=== PATIENT | female | born 1960 | race African-American/Black ===

== ENCOUNTER 2017-10-21 15:38 | Emergency (ER) | payer MEDICAID ==
[2017-10-21 16:01] LABS: HEMATOCRIT 40.7 % (36.0-47.0); HEMOGLOBIN 13.1 g/dL (12.0-15.5); MEAN CORPUSCULAR HEMOGLOBIN 28.3 pg (27.0-33.4); MEAN CORPUSCULAR HGB CONC 32.3 g/dL (32.0-36.0); MEAN CORPUSCULAR VOLUME 88 fl (80-97); PLATELET COUNT 255 10^3/uL (150-450); RED BLOOD COUNT 4.64 10^6/uL (3.72-5.28); RED CELL DISTRIBUTION WIDTH 15.4 % (11.5-14.0); WHITE BLOOD COUNT 7.6 10^3/uL (4.0-10.5)
--- NOTE | 2017-10-21 16:06 | ER Document Report ---
ED General - General Chief Complaint: Pain All Over Stated Complaint: RIGHT SIDE PAIN Time Seen by Provider: 10/21/17 15:45 Notes: The patient is a 57-year-old female, past medical history hypertension, diabetes , Hep C, presents by EMS with multiple complaints. Patient said she had one beer earlier today, but appears clinically intoxicated, so history is difficult to obtain. She is saying that her right side of her body hurts and that she is having weakness. Patient also is having right upper chest pain that is worse with palpation. She has not taken her amlodipine 10 mg in several months. She is not very forthcoming about any other symptoms or complaints. TRAVEL OUTSIDE OF THE [place] IN LAST 30 DAYS: No - Related Data Allergies/Adverse Reactions: haloperidol [From Haldol] Allergy (Verified 10/21/17 15:59) hyperactive haloperidol lactate [From Haldol] Allergy (Verified 10/21/17 15:59) Past Medical History - General Information source: Patient, Emergency Med Personnel Cannot obtain history due to: Altered mental status - Social History Smoking Status: Current Every Day Smoker Frequency of alcohol use: Occasional Drug Abuse: None Family History: Reviewed & Not Pertinent, CAD - Past Medical History Cardiac Medical History: Reports: Hx Hypertension - medicated Denies: Hx Heart Attack Pulmonary Medical History: Denies: Hx Asthma, Hx Bronchitis, Hx Pneumonia Neurological Medical History: Denies: Hx Cerebrovascular Accident, Hx Seizures Endocrine Medical History: Reports: Hx Diabetes Mellitus Type 2 GI Medical History: Denies: Hx Hepatitis, Hx Hiatal Hernia, Hx Ulcer Musculoskeltal Medical History: Denies Hx Arthritis Psychiatric Medical History: Reports: Hx Schizophrenia Infectious Medical History: Denies: Hx Hepatitis Past Surgical History: Reports: Hx Cholecystectomy, Hx Orthopedic Surgery. Denies: Hx Hysterectomy, Hx Mastectomy, Hx Open Heart Surgery, Hx Pacemaker - Immunizations Hx Diphtheria, Pertussis, Tetanus Vaccination: Yes Review of Systems - Review of Systems Notes: REVIEW OF SYSTEMS: CONSTITUTIONAL: -fevers, -chills EENT: -eye pain, -difficulty swallowing, -nasal congestion CARDIOVASCULAR: +chest pain, -syncope. RESPIRATORY: -cough, -SOB GASTROINTESTINAL: -abdominal pain, -nausea, -vomiting, -diarrhea GENITOURINARY: -dysuria, -hematuria MUSCULOSKELETAL: -back pain, -neck pain SKIN: -rash or skin lesions. HEMATOLOGIC: -easy bruising or bleeding. LYMPHATIC: -swollen, enlarged glands. NEUROLOGICAL: -altered mental status or loss of consciousness, -headache, +right -sided weakness and pain PSYCHIATRIC: -anxiety, -depression. ALL OTHER SYSTEMS REVIEWED AND NEGATIVE. Physical Exam - Vital signs Vitals: Temp Pulse Resp BP Pulse Ox 97.8 F 106 H 20 203/121 H 94 10/21/17 15:40 10/21/17 15:40 10/21/17 15:40 10/21/17 15:40 10/21/17 15:40 - Notes Notes: PHYSICAL EXAMINATION: GENERAL: Clinically intoxicated. No acute distress. Bizarre behavior. HEAD: Atraumatic, normocephalic. EYES: Pupils equal round and reactive to light, extraocular movements intact, sclera anicteric, conjunctiva are normal. ENT: nares patent, oropharynx clear without exudates. Moist mucous membranes. NECK: Normal range of motion, supple without lymphadenopathy LUNGS: Breath sounds clear to auscultation bilaterally and equal. No wheezes rales or rhonchi. HEART: Tachycardia, regular rhythm. ABDOMEN: Soft, nontender, normoactive bowel sounds. No guarding, no rebound. No masses appreciated. EXTREMITIES: Strong radial pulses, Normal range of motion, no pitting or edema. No cyanosis. NEUROLOGICAL: Cranial nerves grossly intact. Normal speech, normal gait. Normal sensory and motor exams. PSYCH: Normal mood, normal affect. SKIN: Warm, Dry, normal turgor, no rashes or lesions noted. Course - Re-evaluation Re-evalutation: Patient with inconsistent exam. Her alcohol level ended up being 300. Patient initially said she could not move her right arm or leg, but she was flailing using her right arm with EMS and with the nurse. SHe was ambulating with a steady gait. CT head obtained to make sure that she did have a large MCA stroke , but no acute changes were found. She began to use her right side of her body. Blood work is remarkable for slight MARY and she was provided IV fluids. 2 sets of troponins stayed the same and EKG did not show any active ischemia. She was provided her 10 mg amlodipine that she has not taken in several months with some decrease in her blood pressure. Her right arm and leg pain is chronic in nature and she says that Tylenol and Motrin helped in the past. No rash to suggest shingles. With strong distal pulses, symmetrical blood pressures and no back pain, aortic dissection is less likely at this time. - Vital Signs Vital signs: Temp Pulse Resp BP Pulse Ox 98.7 F 98 16 208/139 H 98 10/21/17 21:07 10/21/17 21:07 10/21/17 21:07 10/21/17 21:07 10/21/17 21:07 - Laboratory Result Diagrams: 10/21/17 15:49 10/21/17 15:49 Laboratory results interpreted by me: 10/21/17 10/21/17 10/21/17 15:49 15:49 15:49 RDW 15.4 H Seg Neuts % (Manual) 17 L Lymphocytes % (Manual) 68 H Abs Neuts (Manual) 1.3 L Abs Lymphs (Manual) 5.7 H Sodium 150.0 H Creatinine 1.34 H Est GFR ( Amer) 50 L Est GFR (Non-Af Amer) 41 L Glucose 113 H AST 223 H ALT 165 H Creatine Kinase 154 H Urine Protein Urine Blood Serum Alcohol 304 H* 10/21/17 16:30 RDW Seg Neuts % (Manual) Lymphocytes % (Manual) Abs Neuts (Manual) Abs Lymphs (Manual) Sodium Creatinine Est GFR ( Amer) Est GFR (Non-Af Amer) Glucose AST ALT Creatine Kinase Urine Protein >=500 H Urine Blood MODERATE H Serum Alcohol - Diagnostic Test Radiology reviewed: Image reviewed, Reports reviewed Radiology results interpreted by me: Head CT: NAD, old lacunar infarct - EKG Interpretation by Me EKG shows normal: Sinus rhythm, [place], Intervals, QRS Complexes, ST-T Waves Rate: Normal Discharge - Discharge Clinical Impression: MARY (acute kidney injury), Pain of right side of body Alcohol intoxication Qualifiers: Complication of substance-induced condition: uncomplicated Qualified Code(s): F10.920 - Alcohol use, unspecified with intoxication, uncomplicated Hypertension Qualifiers: Hypertension type: unspecified Qualified Code(s): I10 - Essential (primary) hypertension Condition: Stable Disposition: HOME, SELF-CARE Additional Instructions: ACUTE ALCOHOL INTOXICATION and ALCOHOL ABUSE: Your evaluation revealed very high levels of alcohol. You can from drinking a large amount of alcohol rapidly! Further, there's the risk of falls , traffic accidents, and fights. A high portion (about 50 percent) of the serious injuries seen in hospital emergency rooms are caused by alcohol. Alcohol overdosage is usually due to an underlying emotional or psychiatric problem. You may benefit from counselling. If "binge" drinking is an ongoing problem for you, or if you drink ANY AMOUNT of alcohol EVERY day, you most likely have a tendency to alcoholism. You should avoid alcohol totally. We can refer you for treatment. Persons with alcohol problems are often also prone to other addictions -- you should discuss any use of medications or drugs with the doctor. You should be watched at home for the next several hours by someone who has not been drinking. Get extra fluids for the next 24 hours. Call the doctor if there is repeated vomiting, increasing headache, decreasing level of alertness, or any other worsening. CHRONIC ALCOHOLISM and ALCOHOL ABUSE: Your evaluation reveals evidence of chronic alcoholism, an addiction to alcohol. The tendency to alcoholism may be inherited. Chronic use of alcohol weakens muscles, causes fatty deposits in the liver , damages the stomach, makes you more prone to infections, and can cause defects in unborn children. In the long run, brain atrophy and cirrhosis of the liver result. You are also at greater risk for certain types of cancer, such as cancer of the mouth, throat, stomach, and liver. Counselling services are available to help you. In-hospital treatment programs often help. Support groups such as Alcoholics Anonymous can be very useful in beating this addiction. Your physician can make a referral for you. As alcoholics often are prone to other addictions, you should discuss your use of any other medications with the doctor. INSTRUCTIONS FOR HOME CARE FOLLOWING DRUG OVERDOSAGE: The doctor feels it's safe for you to go home. You will need to be observed. If charcoal and a laxative was given to you, expect some loose black stools soon. Take no medications unless approved by a physician, including alcohol. If drowsy, lie on your stomach or side for sleeping to avoid aspiration if vomiting occurs. Take only liquids by mouth until there is no more nausea. FOR THE OBSERVER: Observe the patient for the next 24 hours and call or go to the hospital if any of the following are noted: prolonged or repeated vomiting, difficulty in arousing, convulsions (seizures or fits), fever, persistent cough, breathing that is too slow or too rapid, or confused or bizarre behavior. If a counselling visit has been arranged, make sure the patient attends. Call the physician or poison control if you have questions. FOLLOW-UP CARE: If you have been referred to a physician for follow-up care, call the physician s office for an appointment as you were instructed or within the next two days. If you experience worsening or a significant change in your symptoms, notify the physician immediately or return to the Emergency Department at any time for re-evaluation. CHEST PAIN OF UNCLEAR CAUSE: The exact cause of your chest pain isn't clear. Fortunately, there is no evidence of a dangerous medical condition. Further testing may be required to find the source of the pain. Most often, we find that this pain is coming from the chest wall -- the muscles or rib joints in the chest. But chest pain can come from the lung and lung lining, the esophagus, the heart valves or heart lining, and even the stomach or gallbladder. Rest. Eat lightly until the pain is gone. We may prescribe medicine for pain and inflammation. You should call the physician immediately if the pain radiates to the shoulder, jaw or arms; if you start to run a fever or develop a cough; or if you develop shortness of breath, or other new or alarming symptoms. NORMAL EXAM AND WORKUP: At this time, your examination and workup show no significant abnormality. No significant abnormal physical findings were noted. All laboratory, EKG, and imaging (x-ray, CT scans, ultrasound) studies that were ordered show no significant abnormality. Although your examination and all studies that were ordered showed no significant abnormal finding, there are no examinations and no studies that are 100% accurate. There is always the possibility that some abnormality could exist and not be detected with physical examination or within the limits and capabilities of laboratory and other studies. You should return or follow up as you were instructed on your visit today for further evaluation if your symptoms do not resolve. CHEST WALL PAIN: Your chest pain may be coming from the chest wall. This is often caused by straining the muscles or joints in the chest during physical activity, direct trauma, coughing, or vigorous vomiting. Persons with arthritis are especially prone to this type of pain, due to inflammation of the cartilage joints near the breast bone. Occasionally, no cause can be found. Rest from strenuous physical activity. This kind of chest pain is usually made worse by movement of the chest. Depending on the symptoms, we may prescribe medicine for pain, muscle relaxation, and antiinflammatory effects. If the pain is new, and seems to be due to muscle strain, cold packs can help. Otherwise, apply gentle warmth to the painful area for 15 minutes every hour or two. You should call contact the doctor immediately if things change. Further evaluation is needed if you develop a fever or cough, if the nature of the pain changes, or if you become short of breath. FOLLOW-UP CARE: If you have been referred to a physician for follow-up care, call the physician s office for an appointment as you were instructed or within the next two days. If you experience worsening or a significant change in your symptoms, notify the physician immediately or return to the Emergency Department at any time for re-evaluation. Prescriptions: Amlodipine Besylate 10 mg PO DAILY #60 tab Forms: Elevated Blood Pressure Referrals: KATALINA ROB FNP-C [Primary Care Provider] - Follow up as needed [facility] [Outside] - Follow up as needed
[2017-10-21 16:22] LABS: ABSOLUTE LYMPHOCYTES# (MANUAL) 5.7 10^3/uL (0.5-4.7); ABSOLUTE MONOCYTES # (MANUAL) 0.5 10^3/uL (0.1-1.4); ABSOLUTE NEUTROPHILS# (MANUAL) 1.3 10^3/uL (1.7-8.2); ALANINE AMINOTRANSFERASE 165 U/L (9-52); ALBUMIN 3.6 g/dL (3.5-5.0); ALKALINE PHOSPHATASE 45 U/L (38-126); ANION GAP 15 (5-19); ASPARTATE AMINO TRANSFERASE 223 U/L (14-36); BASOPHILS % (MANUAL) 0 % (0-2); BILIRUBIN,DIRECT 0.2 mg/dL (0.0-0.4); BILIRUBIN,TOTAL 0.2 mg/dL (0.2-1.3); BLOOD UREA NITROGEN 19 mg/dL (7-20); CALCIUM 9.6 mg/dL (8.4-10.2); CARBON DIOXIDE 28 mmol/L (22-30); CHLORIDE 107 mmol/L (98-107); EOSINOPHILS % (MANUAL) 1 % (0-6); GLUCOSE 113 mg/dL (75-110); LIPASE 159.3 U/L (23-300); MONOCYTES % (MANUAL) 7 % (3-13); POTASSIUM 4.2 mmol/L (3.6-5.0); SEGMENTED NEUTROPHILS % (MAN) 17 % (42-78); TOTAL CELLS COUNTED 100; TOTAL PROTEIN 7.4 g/dL (6.3-8.2)
[2017-10-21 16:25] LABS: ANISOCYTOSIS SLIGHT; OVALOCYTES SLIGHT; PLATELET COMMENT ADEQUATE; POIKILOCYTOSIS SLIGHT
--- NOTE | 2017-10-21 16:27 | RADIOLOGY REPORT (SQ) ---
EXAM DESCRIPTION: CHEST SINGLE VIEW COMPLETED DATE/TIME: 10/21/2017 4:14 pm REASON FOR STUDY: chest pain COMPARISON: February 2016 EXAM PARAMETERS: NUMBER OF VIEWS: One view. TECHNIQUE: Single frontal radiographic view of the chest acquired. RADIATION DOSE: NA LIMITATIONS: None. FINDINGS: LUNGS AND PLEURA: No opacities, masses or pneumothorax. No pleural effusion. MEDIASTINUM AND HILAR STRUCTURES: No masses. Contour normal. HEART AND VASCULAR STRUCTURES: Heart normal in size. Normal vasculature. BONES: No acute findings. HARDWARE: None in the chest. OTHER: No other significant finding. IMPRESSION: NO ACUTE RADIOGRAPHIC FINDING IN THE CHEST. TECHNICAL DOCUMENTATION: JOB ID: [id number] [employer]- All Rights Reserved Reading location - IP/workstation name: [email or web address]
[2017-10-21 16:28] LABS: LYMPHOCYTES % (MANUAL) 68 % (13-45)
[2017-10-21 16:33] LABS: ALCOHOL 304 mg/dL (NONE DETECTED)
[2017-10-21] MEDS ORDERED: NORMAL SALINE 1000 ML 1,000 ML IV ONE (16:35)
--- NOTE | 2017-10-21 16:51 | RADIOLOGY REPORT (SQ) ---
EXAM DESCRIPTION: CT HEAD WITHOUT COMPLETED DATE/TIME: 10/21/2017 4:37 pm REASON FOR STUDY: right-sided weakness COMPARISON: CT brain 06/12/2014 TECHNIQUE: Axial images acquired through the brain without intravenous contrast. Images reviewed wi th bone, brain and subdural windows. Additional sagittal and coronal reconstructions were generated. Images stored on PACS. All CT scanners at this facility use dose modulation, iterative reconstruction, and/or weight based d osing when appropriate to reduce radiation dose to as low as reasonably achievable (ALARA). [facility]: Dose Right [facility]: CareDose [facility]: Dose Right [facility]: Teradose 4D [facility]: [employer] RADIATION DOSE: 53 mGy. LIMITATIONS: None. FINDINGS: VENTRICLES: Normal size and contour. CEREBRUM: No CT evidence of acute large territory ischemic change, acute intracranial hemorrhage, mas s effect, or midline shift. Punctate low attenuation right thalamus axial image 19, likely a small old infarct. Minimal biparietal low attenuation in the hemispheric white matter likely small vessel ischemic damian ge. CEREBELLUM: No masses. No hemorrhage. No alteration of density. No evidence for acute infarction. EXTRAAXIAL SPACES: No fluid collections. No masses. ORBITS AND GLOBE: No intra- or extraconal masses. Normal contour of globe without masses. CALVARIUM: No fracture. PARANASAL SINUSES: No fluid or mucosal thickening. SOFT TISSUES: No mass or hematoma. OTHER: No other significant finding. IMPRESSION: Punctate low attenuation in the right thalamus, likely a chronic lacunar infarct. Biparietal chronic appearing small vessel ischemic change, mild. No acute intracranial hemorrhage, mass effect, or midline shift. EVIDENCE OF ACUTE STROKE: NO. COMMENT: Quality ID # [id number]: Final reports with documentation of one or more dose reduction techniques (e.g., Automated exposure control, adjustment of the mA and/or kV according to patient size, use of iterative reconstruction technique) TECHNICAL DOCUMENTATION: JOB ID: [id number] [employer]- All Rights Reserved Reading location - IP/workstation name: [email or web address]
[2017-10-21] MEDS ORDERED: RINGERS SOLUTION,LACTATED 1,000 ML IV ONE (17:01)
[2017-10-21 17:14] LABS: APPEARANCE,URINE CLEAR; BILIRUBIN,URINE NEGATIVE (NEGATIVE); COLOR,URINE STRAW; GLUCOSE, URINE NEGATIVE (NEGATIVE); KETONES,URINE NEGATIVE (NEGATIVE); LEUKOCYTE ESTERASE,URINE NEGATIVE (NEGATIVE); NITRITE,URINE NEGATIVE (NEGATIVE); PROTEIN,URINE >=500 mg/dL (NEGATIVE); URINE SPECIFIC GRAVITY 1.005; UROBILINOGEN,URINE NEGATIVE mg/dL (<2.0)
[2017-10-21] MEDS ORDERED: LISINOPRIL 10 MG TABLET PO ONE (17:32)
[2017-10-21 17:35] LABS: URINE AMPHETAMINES SCREEN NEGATIVE; URINE BARBITURATES SCREEN NEGATIVE; URINE BENZODIAZEPINES SCREEN NEGATIVE; URINE COCAINE SCREEN NEGATIVE; URINE MARIJUANA (THC) SCREEN NEGATIVE; URINE METHADONE SCREEN NEGATIVE; URINE PHENCYCLIDINE SCREEN NEGATIVE
[2017-10-21] MEDS ORDERED: ACETAMINOPHEN 325 MG TABLET PO ONE (18:57)
[2017-10-21 21:07] VITALS: BP 208/139
--- NOTE | 2017-10-21 21:15 | EKG REPORT ---
SEVERITY:- ABNORMAL ECG - SINUS TACHYCARDIA PROBABLE LVH WITH SECONDARY REPOL ABNRM BORDERLINE PROLONGED QT INTERVAL : Confirmed by: Annabelle Hernandez 21-Oct-2017 21:13:50
[2017-10-22 10:26] LABS: PATH REVIEW PATHOLOGIST REVIEWED
== END 2017-10-21 21:08 | disposition home or self-care (01) ==
LOC: ER 15:38
DX: M79.1 Myalgia (principal); N17.9 Acute kidney failure, unspecified; F10.920 Alcohol use, unspecified with intoxication, uncomplicated; Y90.8 Blood alcohol level of 240 mg/100 ml or more; I10 Essential (primary) hypertension; F17.200 Nicotine dependence, unspecified, uncomplicated; E11.9 Type 2 diabetes mellitus without complications; Z86.19 Personal history of other infectious and parasitic diseases
CPT/HCPCS: 93005; 99285; 96360; 36415; 80307 ×2; 82550; 83690; 85025; 85730; 80053; 81001; 84484; 71045; 70450; 93010; J7120; J3490

== ENCOUNTER 2017-12-26 22:05 | Emergency (ER) | payer MEDICAID ==
[2017-12-26 23:18] LABS: HEMATOCRIT 40.8 % (36.0-47.0); HEMOGLOBIN 13.5 g/dL (12.0-15.5); MEAN CORPUSCULAR HEMOGLOBIN 29.2 pg (27.0-33.4); MEAN CORPUSCULAR HGB CONC 33.2 g/dL (32.0-36.0); MEAN CORPUSCULAR VOLUME 88 fl (80-97); PLATELET COUNT 206 10^3/uL (150-450); RED BLOOD COUNT 4.63 10^6/uL (3.72-5.28); RED CELL DISTRIBUTION WIDTH 15.2 % (11.5-14.0); WHITE BLOOD COUNT 8.7 10^3/uL (4.0-10.5)
[2017-12-26 23:26] LABS: APPEARANCE,URINE SLIGHTLY-CLOUDY; BILIRUBIN,URINE NEGATIVE (NEGATIVE); COLOR,URINE YELLOW; GLUCOSE, URINE NEGATIVE (NEGATIVE); KETONES,URINE NEGATIVE (NEGATIVE); LEUKOCYTE ESTERASE,URINE NEGATIVE (NEGATIVE); NITRITE,URINE NEGATIVE (NEGATIVE); PROTEIN,URINE >=500 mg/dL (NEGATIVE); URINE SPECIFIC GRAVITY 1.004; UROBILINOGEN,URINE NEGATIVE mg/dL (<2.0)
[2017-12-26 23:35] LABS: ALANINE AMINOTRANSFERASE 135 U/L (9-52); ALBUMIN 3.7 g/dL (3.5-5.0); ALCOHOL 172 mg/dL (NONE DETECTED); ALKALINE PHOSPHATASE 47 U/L (38-126); ANION GAP 14 (5-19); ASPARTATE AMINO TRANSFERASE 174 U/L (14-36); BILIRUBIN,DIRECT 0.4 mg/dL (0.0-0.4); BILIRUBIN,TOTAL 0.5 mg/dL (0.2-1.3); BLOOD UREA NITROGEN 14 mg/dL (7-20); CARBON DIOXIDE 23 mmol/L (22-30); CHLORIDE 106 mmol/L (98-107); GLUCOSE 123 mg/dL (75-110); POTASSIUM 3.5 mmol/L (3.6-5.0); SODIUM 143.2 mmol/L (137-145); TOTAL PROTEIN 7.3 g/dL (6.3-8.2)
[2017-12-26 23:36] LABS: ABSOLUTE LYMPHOCYTES# (MANUAL) 5.1 10^3/uL (0.5-4.7); ABSOLUTE MONOCYTES # (MANUAL) 0.3 10^3/uL (0.1-1.4); ABSOLUTE NEUTROPHILS# (MANUAL) 3.1 10^3/uL (1.7-8.2); BASOPHILS % (MANUAL) 0 % (0-2); EOSINOPHILS % (MANUAL) 1 % (0-6); LYMPHOCYTES % (MANUAL) 50 % (13-45); MONOCYTES % (MANUAL) 4 % (3-13); SEGMENTED NEUTROPHILS % (MAN) 36 % (42-78); TOTAL CELLS COUNTED 100
[2017-12-26 23:37] LABS: RBC MORPHOLOGY COMMENT NORMO-CYTIC/CHROMIC; URINE AMPHETAMINES SCREEN NEGATIVE; URINE BARBITURATES SCREEN NEGATIVE; URINE BENZODIAZEPINES SCREEN NEGATIVE; URINE COCAINE SCREEN NEGATIVE; URINE MARIJUANA (THC) SCREEN NEGATIVE; URINE METHADONE SCREEN NEGATIVE; URINE PHENCYCLIDINE SCREEN NEGATIVE
[2017-12-26 23:38] LABS: PLATELET COMMENT ADEQUATE
[2017-12-26 23:42] LABS: ACETAMINOPHEN < 10 ug/mL (10-30); SALICYLATE < 1.0 mg/dL (2.0-20.0)
[2017-12-27] MEDS ORDERED: CHLORPROMAZINE HCL 50 MG TABLET PO ONE (02:16)
[2017-12-27] MEDS ORDERED: LISINOPRIL 10 MG TABLET PO ONE (02:16)
--- NOTE | 2017-12-27 02:16 | ER Document Report ---
ED General - General Chief Complaint: Suicidal Ideation Stated Complaint: PSYCH EVAL Time Seen by Provider: 12/26/17 22:32 Cannot obtain history due to: Uncooperative Notes: Patient is a 57-year-old female who presents with suicidal and homicidal ideation. Patient reports that she came to the emergency department "to admit myself so I do not hurt nobody". Patient denies a specific target of her ideation, states that she had a knife in her bag but had no specific plans to use it. She states that she has felt like this in the remote past but not anytime recently until the past several days. She does admit to self discontinuing her Thorazine proximally 3 months ago stating that she was having difficulty accessing her medications. She is also currently off of her blood pressure medications. She denies making any specific attempts to harm herself. She does not have a primary care doctor. She denies any acute medical complaints. TRAVEL OUTSIDE OF THE [place] IN LAST 30 DAYS: No - Related Data Allergies/Adverse Reactions: haloperidol [From Haldol] Allergy (Verified 10/21/17 15:59) hyperactive haloperidol lactate [From Haldol] Allergy (Verified 10/21/17 15:59) Past Medical History - General Information source: Patient - Social History Smoking Status: Current Some Day Smoker Chew tobacco use (# tins/day): No Frequency of alcohol use: Heavy Drug Abuse: None Lives with: Alone Family History: Reviewed & Not Pertinent, CAD Patient has suicidal ideation: Yes Patient has homicidal ideation: Yes - Past Medical History Cardiac Medical History: Reports: Hx Hypertension - medicated Denies: Hx Heart Attack Pulmonary Medical History: Denies: Hx Asthma, Hx Bronchitis, Hx Pneumonia Neurological Medical History: Denies: Hx Cerebrovascular Accident, Hx Seizures Endocrine Medical History: Reports: Hx Diabetes Mellitus Type 2 Renal/ Medical History: Denies: Hx Peritoneal Dialysis GI Medical History: Denies: Hx Hepatitis, Hx Hiatal Hernia, Hx Ulcer Musculoskeletal Medical History: Denies Hx Arthritis Psychiatric Medical History: Reports: Hx Schizophrenia Infectious Medical History: Denies: Hx Hepatitis Past Surgical History: Reports: Hx Cholecystectomy, Hx Orthopedic Surgery. Denies: Hx Hysterectomy, Hx Mastectomy, Hx Open Heart Surgery, Hx Pacemaker - Immunizations Hx Diphtheria, Pertussis, Tetanus Vaccination: Yes Review of Systems - Review of Systems Notes: Constitutional: Negative for fever. HENT: Negative for sore throat. Eyes: Negative for visual changes. Cardiovascular: Negative for chest pain. Respiratory: Negative for shortness of breath. Gastrointestinal: Negative for abdominal pain, vomiting or diarrhea. Genitourinary: Negative for dysuria. Musculoskeletal: Negative for back pain. Skin: Negative for rash. Neurological: Negative for headaches, weakness or numbness. 10 point ROS negative except as marked above and in HPI. Physical Exam - Vital signs Vitals: Temp Pulse Resp BP Pulse Ox 98.5 F 107 H 20 210/117 H 96 12/26/17 22:15 12/26/17 22:15 12/26/17 22:15 12/26/17 22:15 12/26/17 22:15 Interpretation: Hypertensive, Tachycardic Notes: PHYSICAL EXAMINATION: GENERAL: Well-appearing, well-nourished and in no acute distress. HEAD: Atraumatic, normocephalic. EYES: Pupils equal round and reactive to light, extraocular movements intact, sclera anicteric, conjunctiva are normal. ENT: nares patent, oropharynx clear without exudates. Moist mucous membranes. NECK: Normal range of motion, supple without lymphadenopathy LUNGS: Breath sounds clear to auscultation bilaterally and equal. No wheezes rales or rhonchi. HEART: Regular rate and rhythm without murmurs ABDOMEN: Soft, nontender, normoactive bowel sounds. No guarding, no rebound. No masses appreciated. EXTREMITIES: Normal range of motion, no pitting or edema. No cyanosis. NEUROLOGICAL: No focal neurological deficits. Moves all extremities spontaneously and on command. PSYCH: Somewhat guarded mood and affect. Expressing homicidal and suicidal ideation SKIN: Warm, Dry, normal turgor, no rashes or lesions noted. Course - Re-evaluation Re-evalutation: 12/27/17 02:15 Patient presents with suicidal and homicidal ideation without specific plan or target. Patient did have a knife on her person upon arrival to the emergency department. She denies any specific trigger reason for her behaviors although states that she stopped taking her Thorazine approximately 3 months ago. She denies any acute medical complaints. Medical screening exam is otherwise unremarkable. Labs likewise unremarkable. She is cleared for evaluation and disposition by psychiatry in the morning. - Vital Signs Vital signs: Temp Pulse Resp BP Pulse Ox 98.5 F 107 H 20 210/117 H 96 12/26/17 22:15 12/26/17 22:15 12/26/17 22:15 12/26/17 22:15 12/26/17 22:15 - Laboratory Result Diagrams: 12/26/17 22:59 12/26/17 22:59 Laboratory results interpreted by me: 12/26/17 12/26/17 12/26/17 22:59 22:59 22:59 RDW 15.2 H Seg Neuts % (Manual) 36 L Lymphocytes % (Manual) 50 H Abs Lymphs (Manual) 5.1 H Potassium 3.5 L Creatinine 1.35 H Est GFR ( Amer) 49 L Est GFR (Non-Af Amer) 41 L Glucose 123 H AST 174 H ALT 135 H Urine Protein >=500 H Urine Blood MODERATE H Salicylates < 1.0 L Acetaminophen < 10 L - EKG Interpretation by Me Additional EKG results interpreted by me: 12/27/17 03:21 Sinus rhythm. Rate 79. No ST elevations or depressions. QTC 473. Discharge - Discharge Clinical Impression: Suicidal ideation, Homicidal ideation, Essential hypertension, Noncompliance with medication regimen Condition: Fair Referrals: KATALINA ROB, [facility] [Primary Care Provider] - Follow up as needed
--- NOTE | 2017-12-27 09:42 | EKG REPORT ---
SEVERITY:- ABNORMAL ECG - SINUS RHYTHM PROBABLE LVH WITH SECONDARY REPOL ABNRM : Confirmed by: Annabelle Hernandez 27-Dec-2017 09:41:10
--- NOTE | 2017-12-27 13:41 | ER Document Report ---
Doctor's Note Notes: 12/27/17 13:40 Patient resting comfortably, no complaints at present time, evaluated by mental health team who recommends medication adjustments and if patient more stable psychiatrically likely can be discharged tomorrow
[2017-12-27] MEDS: CHLORPROMAZINE HCL 50 MG TABLET PO SCH ×2 (14:16→18:29)
[2017-12-27] MEDS: BENZTROPINE MESYLATE 1 MG TABLET PO SCH (18:29)
[2017-12-28] MEDS: CHLORPROMAZINE HCL 50 MG TABLET PO SCH (09:43)
[2017-12-28] MEDS: BENZTROPINE MESYLATE 1 MG TABLET PO SCH (09:43)
--- NOTE | 2017-12-28 09:59 | ER Document Report ---
Doctor's Note Notes: 12/28/17 09:58 Rounds: Patient is being evaluated for suicidal thoughts. She denies these thoughts this morning. Says she is feeling better. Patient's vital signs are all normal. Lab studies were normal except for her CBC differential shows 50% lymphocytes and 9% atypical lymphocytes. Patient knows of no blood conditions. Patient appears to be medically stable for transfer or discharge. Apollo Story MD
[2017-12-28 11:56] VITALS: BP 160/88
--- NOTE | 2017-12-28 19:01 | PSYCHOLOGICAL NOTE ---
Psych Note - Psych Note Psych Note: Psych Note Reason for Consult: suicidal ideation Patient reported that she wants to hurt other people as well as herself. Patient reports that she has been off of her medication for 3 months and felt like she "couldn't deal with people" anymore. Upon further evaluation, patient denied suicidal or homicidal ideation. Patient reports that she was inpatient in [place] a number of years ago. Patient requested to go inpatient now and Dr. Hicks explained that she did not meet criteria but offered information on [facility] (Mobile Crisis Unit). Patient stated that she had a desire to get therapy and attend the classes. Patient revealed that she drinks 2 -3 six packs of beer per day by panhandling. Patient was unable to clearly answer questions about her disability income/payee or her current address. Patient was alert and oriented to person, place, time and circumstance. Mood was irritable but began to calm down during the course of the interview. She denied suicidal/homicidal ideation, intent or plan. She denied auditory/visual hallucination and delusional thoughts were not present. Thought processes were linear, logical, organized. Conversational speech was within normal limits for rate, tone and prosody. Eye contact was good. 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 Intellectual abilities were estimated within the average range. Attention and concentration was good. Insight, judgement and impulse control was good. Diagnosis: Borderline Personality Disorder 301.83 (F60.3) Impression/Plan: Patient is recommended for an additional night of observation ( medications)
== END 2017-12-28 11:56 | disposition home or self-care (01) ==
LOC: ER 22:05
DX: R45.851 Suicidal ideations (principal); R45.850 Homicidal ideations; F20.9 Schizophrenia, unspecified; T43.3X6A Underdosing of phenothiazine antipsychotics and neuroleptics, initial encounter; I10 Essential (primary) hypertension; T50.906A Underdosing of unspecified drugs, medicaments and biological substances, initial encounter; Z91.128 Patient's intentional underdosing of medication regimen for other reason; Z91.14 Patient's other noncompliance with medication regimen; Z88.8 Allergy status to other drugs, medicaments and biological substances; F17.200 Nicotine dependence, unspecified, uncomplicated; E11.9 Type 2 diabetes mellitus without complications
CPT/HCPCS: 93005; 99285; 36415; 80307 ×4; 85025; 80053; 81001; 93010; J3490 ×2

== ENCOUNTER 2018-03-30 08:26 | Emergency (ER) | payer MEDICAID ==
--- NOTE | 2018-03-30 08:46 | ER Document Report ---
ED Neuro Symptoms/Deficit - General Stated Complaint: STROKE LIKE SYMPTOMS Time Seen by Provider: 03/30/18 08:32 TRAVEL OUTSIDE OF THE [place] IN LAST 30 DAYS: No - HPI Notes: Patient is a 57-year-old female that presents to the emergency department for chief complaint of stroke-like symptoms. Patient states that when she woke up this morning at 6 AM she had decreased sensation and weakness in her right arm and leg. Family noticed that the left side of her face appeared different. She states she was normal when she went to bed at 11 PM. She reports a mild diffuse headache that started yesterday evening as well. She has been out of her blood pressure medications and has not been taking them. She denies history of stroke in the past. She denies being on any blood thinners. She denies head injury. Past Medical History: Hypertension Past Surgical History: Reviewed in chart Social History: Reviewed in chart Family History: Reviewed and noncontributory for presenting illness Allergies: Reviewed, see documented allergy list. REVIEW OF SYSTEMS: CONSTITUTIONAL : No fever No chills No diaphoresis No recent illness EENT: No vision changes No congestion No sore throat CARDIOVASCULAR: No chest pain No palpitations RESPIRATORY: No shortness of breath No cough No difficulty breathing GASTROINTESTINAL: No abdominal pain No nausea No vomiting No diarrhea GENITOURINARY: No dysuria No hematuria No difficulty urinating MUSCULOSKELETAL: No back pain No leg pain No arm pain SKIN: No rashes No lesions LYMPHATIC: No swollen, enlarged glands. NEUROLOGICAL: No lightheadedness headache weakness paresthesias PSYCHIATRIC: No anxiety No depression PHYSICAL EXAMINATION: Vital signs reviewed, nursing noted reviewed. GENERAL: Well-appearing, well-nourished and in no acute distress. HEAD: Atraumatic, normocephalic. EYES: Eyes appear normal, extraocular movements intact, sclera anicteric, conjunctiva are normal. ENT: nares patent, oropharynx clear without exudates. Moist mucous membranes. NECK: Normal range of motion, supple without lymphadenopathy LUNGS: Breath sounds clear to auscultation bilaterally and equal. No wheezes rales or rhonchi. HEART: Regular rate and rhythm without murmurs ABDOMEN: Soft, nontender, normoactive bowel sounds. No rebound, guarding, or rigidity. No masses appreciated. EXTREMITIES: Nontender, good range of motion, no pitting or edema. NEUROLOGICAL: NIH=5 at 0834, right arm and leg decreased sensation. Right arm and leg weakness. Mild left facial droop. PSYCH: Normal mood, normal affect. SKIN: Warm, Dry, normal turgor, no rashes or lesions noted on exposed skin - Related Data Allergies/Adverse Reactions: haloperidol [From Haldol] Allergy (Verified 10/21/17 15:59) hyperactive haloperidol lactate [From Haldol] Allergy (Verified 10/21/17 15:59) Past Medical History - Social History Smoking Status: Never Smoker Family History: Reviewed & Not Pertinent, CAD - Past Medical History Cardiac Medical History: Reports: Hx Hypertension - medicated Denies: Hx Heart Attack Pulmonary Medical History: Denies: Hx Asthma, Hx Bronchitis, Hx Pneumonia Neurological Medical History: Denies: Hx Cerebrovascular Accident, Hx Seizures Endocrine Medical History: Reports: Hx Diabetes Mellitus Type 2 Renal/ Medical History: Denies: Hx Peritoneal Dialysis GI Medical History: Denies: Hx Hepatitis, Hx Hiatal Hernia, Hx Ulcer Musculoskeletal Medical History: Denies Hx Arthritis Psychiatric Medical History: Reports: Hx Schizophrenia Infectious Medical History: Denies: Hx Hepatitis Past Surgical History: Reports: Hx Cholecystectomy, Hx Orthopedic Surgery. Denies: Hx Hysterectomy, Hx Mastectomy, Hx Open Heart Surgery, Hx Pacemaker - Immunizations Hx Diphtheria, Pertussis, Tetanus Vaccination: Yes Review of Systems - Review of Systems Notes: Dictated Physical Exam - Notes Notes: Dictated Course - Re-evaluation Re-evalutation: 03/30/18 08:46 Vitals reviewed. Nursing notes reviewed. 03/30/18 09:[address] results with radiology, they do show acute left-sided ischemic stroke. Patient is outside the window for TPA because symptoms have been ongoing for greater than 4.5 hours since last known normal. Patient's blood pressure also significantly elevated at 227/150. Patient started on Cardene drip for hypertension with a goal blood pressure of 220/[address] Romo. Patient's care discussed with Dr. Romo, neurology at [facility]. Dr. Romo has accepted the patient for transfer. Patient in agreement with this plan. Head CT 03/30/18 08:32 IMPRESSION: Subtle area of relative low density in the periventricular white matter adjacent to the atria of the left lateral ventricle as noted above which I cannot exclude as an evolving area of infarction. Clinical correlation is recommended. If further workup is deemed clinically warranted I would recommend MRI. EVIDENCE OF ACUTE STROKE: Yes 03/30/18 09:27 Laboratory 03/30/18 03/30/18 03/30/18 08:05 08:05 09:09 WBC 5.6 RBC 5.46 H Hgb 15.6 H Hct 48.2 H MCV 88 MCH 28.6 MCHC 32.4 RDW 14.9 H Plt Count 223 Seg Neutrophils % 45.3 Lymphocytes % 41.0 Monocytes % 9.7 Eosinophils % 2.9 Basophils % 1.1 Absolute Neutrophils 2.5 Absolute Lymphocytes 2.3 Absolute Monocytes 0.5 Absolute Eosinophils 0.2 Absolute Basophils 0.1 Sodium 139.7 Potassium 3.8 Chloride 101 Carbon Dioxide 30 Anion Gap 9 BUN 22 H Creatinine 1.34 H Est GFR ( Amer) 50 L Est GFR (Non-Af Amer) 41 L Glucose 148 H POC Glucose 132 H Calcium 9.6 Total Bilirubin 0.8 Direct Bilirubin 0.3 Neonat Total Bilirubin Not Reportable Neonat Direct Bilirubin Not Reportable Neonat Indirect Bili Not Reportable AST 189 H ALT 133 H Alkaline Phosphatase 50 Total Protein 7.2 Albumin 3.4 L - Laboratory Result Diagrams: 03/30/18 08:05 03/30/18 08:05 ED NIH Stroke Scale - NIH Stroke Scale When completed:: Before Alteplase *: 1. NIH scale should be completed with appropriate accompanying assessment tools. *: 2. The NIH should reflect what the patient is capable of doing and should not be coached by the clinician. 1a. Level of Consciousness: 0=Alert;keenly responsive -: 1=Drowsy -: 2=Obtunded -: 3=Coma/unresponsive or reflex to noxious stimuli. 1a. Responses: 0 1b. Orientation Questions: a. What month is it? -: b. How old are you? -: 0=Answers both questions correctly. -: 1=Answers one question correctly or patient is intubated or has orotracheal trauma. -: 2=Answers neither question correctly. 1b. Responses: 0 1c. Response to commands: a. Open and close eyes? -: b. Orthopaedic Surgeon and release hand? -: Credit is given despite weakness. Demonstration of task is permitted. Substitute command if hands cannot be used. -: 0=Performs both tasks correctly -: 1=Performs one task correctly -: 2=Performs neither task correctly 1c. Responses: 0 2. Gaze: Establish eye contact and instruct patient to "Follow my finger" -: 0=Normal -: 1=Partial gaze palsy. Gaze is abnormal in one or both eyes, but where forced deviation or total gaze paresis is not present. -: 2=Forced deviation or total gaze paresis. 2. Responses: 0 3. Visual Delgado: Sees fingers in all four quadrants. -: 0=No visual loss. -: 1=Partial hemianopsia. -: 2=Complete hemianopsia. -: 3=Bilateral hemianopsia (including Cortical blindness) 3. Responses: 0 4. Facial Movement: Instruct patient to: -: a. Show me your teeth -: b. Raise your eyebrows -: c. Close your eyes -: d. Smile -: 0=Normal symmetrical movement -: 1=Minor paralysis (flattened nasolabial fold, asymmetry on smiling). -: 2=Partial paralysis (total or near total paralysis of lower face). -: 3=Complete paralysis of upper and lower face 4. Responses: 1 5. Motor functions (left arm): Alternate sides and extend each arm with palms down (90 degrees if sitting or 45 degrees for supine). -: 0=No drift;limb holds for full 10 seconds. -: 1=Drift; limb holds but drifts down before full 10 seconds, but does not hit bed. -: 2=Some effort against gravity; limb cannot get to or maintain position. -: 3=No effort against gravity; limb falls. -: 4=No movement. -: UN=Amputation, joint fusion, explain in comments. 5. Responses (left arm): 0 5. Motor Functions (right arm): Alternate sides and extend each arm with palms down (90 degrees if sitting or 45 degrees for supine). -: 0=No drift;limb holds for full 10 seconds. -: 1=Drift; limb holds but drifts down before full 10 seconds, but does not hit bed. -: 2=Some effort against gravity; limb cannot get to or maintain position. -: 3=No effort against gravity; limb falls. -: 4=No movement. -: UN=Amputation, joint fusion, explain in comments. 5. Responses (right arm): 1 6. Motor Functions (left leg): With patient lying supine, alternate sides and extend each leg (30 degrees always while supine). -: 0=No drift, leg holds position for full 5 seconds -: 1=Drift; leg falls before full 5 seconds but does not hit bed. -: 2=Some effort against gravity, leg falls to bed but some effort against gravity. -: 3=No effort against gravity, leg falls to bed immediately. -: 4=No movement. -: UN=Amputation, joint fusion; explain in comments. 6. Responses (left leg): 0 6. Motor Functions (right leg): With patient lying supine, alternate sides and extend each leg (30 degrees always while supine). -: 0=No drift, leg holds position for full 5 seconds -: 1=Drift; leg falls before full 5 seconds but does not hit bed. -: 2=Some effort against gravity, leg falls to bed but some effort against gravity. -: 3=No effort against gravity, leg falls to bed immediately. -: 4=No movement. -: UN=Amputation, joint fusion; explain in comments. 6. Responses (right leg): 2 7. Limb Ataxia: With eyes open instruct patient to: -: a. "Touch your finger to your nose". -: b. "Touch your heel to your marquez" -: 0=Absent -: 1=Present in one limb. -: 2=Present in two limbs. -: UN=Amputation or joint fusion; explain in comments. 7. Responses: 0 8. Sensory: Test sensation using pinprick or noxious stimuli. Test as many body parts as possible. -: 0=Normal;no sensory loss -: 1=Mile to moderate sensory loss (patient feels pin prick but is less sharp on affected side). -: 2=Severe or total sensory loss. 8. Responses: 1 9. Best Language: Instruct patient to: -: a. "Describe what you see in this picture." -: b. "Name the items in this picture." -: c. "Read these sentences." -: 0=No aphasia, normal -: 1=Mild to moderate aphasia. -: 2=Severe aphasia -: 3=Mute, global aphasia, no usable speech or auditory comprehension. 9. Responses: 0 10. Articulation, Dysarthia: Instruct patient to: -: "Read these words" or "Repeat these words" -: 0=Normal -: 1=Mild to moderate; patient may slur some words but can be understood without difficulty. -: 2=Severe; patients speech so slurred as to be unintelligible in the absence of dysphasia. -: UN=Intubated or other physical barrier, explain in comments. 10. Responses: 0 11. Extinction or inattention: 0=No abnormality -: 1= Visual, tactile, auditory, spatial, or personal inattention or extinction to bilateral simulation in one or the sensory modalities. -: 2=Profound meredith-inattention or meredtih-inattention to more than one modality; does not recognize own hand. 11. Responses: 0 Total Score: 5 Discharge - Discharge Clinical Impression: Acute ischemic stroke, MARY (acute kidney injury) Condition: Stable Disposition: [facility]
[2018-03-30 08:50] LABS: ABSOLUTE BASOPHILS # (AUTO) 0.1 10^3/uL (0.0-0.2); ABSOLUTE EOSINOPHILS # (AUTO) 0.2 10^3/uL (0.0-0.6); ABSOLUTE LYMPHOCYTES (AUTO) 2.3 10^3/uL (0.5-4.7); ABSOLUTE MONOCYTES (AUTO) 0.5 10^3/uL (0.1-1.4); ABSOLUTE NEUT (AUTO) 2.5 10^3/uL (1.7-8.2); BASOPHILS % (AUTO) 1.1 % (0-2); EOSINOPHILS % (AUTO) 2.9 % (0-6); HEMATOCRIT 48.2 % (36.0-47.0); HEMOGLOBIN 15.6 g/dL (12.0-15.5); MEAN CORPUSCULAR HEMOGLOBIN 28.6 pg (27.0-33.4); MEAN CORPUSCULAR HGB CONC 32.4 g/dL (32.0-36.0); MEAN CORPUSCULAR VOLUME 88 fl (80-97); MONOCYTES % (AUTO) 9.7 % (3-13); PLATELET COUNT 223 10^3/uL (150-450); RED BLOOD COUNT 5.46 10^6/uL (3.72-5.28); RED CELL DISTRIBUTION WIDTH 14.9 % (11.5-14.0); SEGMENTED NEUTROPHILS % (AUTO) 45.3 % (42-78); TOTAL CELLS COUNTED % (AUTO) 100 %; WHITE BLOOD COUNT 5.6 10^3/uL (4.0-10.5)
[2018-03-30] MEDS ORDERED: ASPIRIN 325 MG TABLET PO ONE (08:58)
--- NOTE | 2018-03-30 09:04 | RADIOLOGY REPORT (SQ) ---
EXAM DESCRIPTION: CT HEAD WITHOUT COMPLETED DATE/TIME: 03/30/2018 8:40 am REASON FOR STUDY: right arm weakness COMPARISON: October 2017 TECHNIQUE: Axial images acquired through the brain without intravenous contrast. Images reviewed wi th bone, brain and subdural windows. Additional sagittal and coronal reconstructions were generated. Images stored on PACS. All CT scanners at this facility use dose modulation, iterative reconstruction, and/or weight based d osing when appropriate to reduce radiation dose to as low as reasonably achievable (ALARA). [facility]: Dose Right [facility]: CareDose [facility]: Dose Right [facility]: Teradose 4D [facility]: [facility] RADIATION DOSE: mGy. LIMITATIONS: None. FINDINGS: VENTRICLES: Normal size and contour. CEREBRUM: No masses. No hemorrhage. No midline shift. There is a subtle area of relative low densi ty in the periventricular white matter adjacent to the atria of the left lateral ventricle which I ca nnot exclude as an evolving area of infarction. Clinical correlation is recommended. If further wor kup is deemed clinically warranted I would recommend MRI. CEREBELLUM: No masses. No hemorrhage. No alteration of density. No evidence for acute infarction. EXTRAAXIAL SPACES: No fluid collections. No masses. ORBITS AND GLOBE: No intra- or extraconal masses. Normal contour of globe without masses. CALVARIUM: No fracture. PARANASAL SINUSES: No fluid or mucosal thickening. SOFT TISSUES: No mass or hematoma. OTHER: No other significant finding. IMPRESSION: Subtle area of relative low density in the periventricular white matter adjacent to the atria of the left lateral ventricle as noted above which I cannot exclude as an evolving area of infa rction. Clinical correlation is recommended. If further workup is deemed clinically warranted I wou ld recommend MRI. EVIDENCE OF ACUTE STROKE: Yes COMMENT: Pertinent positive or negative findings of the imaging study reported as a CRITICAL EXAM carlin [place]OR[place] DO at08:50 on 03/30/2018. Category of Critical Exam: Stroke alert Quality ID # [id number]: Final reports with documentation of one or more dose reduction techniques (e.g., Au tomated exposure control, adjustment of the mA and/or kV according to patient size, use of iterative reconstruction technique) TECHNICAL DOCUMENTATION: JOB ID: [id number] [employer]- All Rights Reserved Reading location - IP/workstation name: [email or web address]
--- NOTE | 2018-03-30 09:10 | EKG REPORT ---
SEVERITY:- ABNORMAL ECG - SINUS RHYTHM PROBABLE LVH WITH SECONDARY REPOL ABNRM BORDERLINE PROLONGED QT INTERVAL : Confirmed by: Annabelle Hernandez 30-Mar-2018 09:09:35
[2018-03-30 09:13] LABS: ALANINE AMINOTRANSFERASE 133 U/L (9-52); ALBUMIN 3.4 g/dL (3.5-5.0); ALKALINE PHOSPHATASE 50 U/L (38-126); ANION GAP 9 (5-19); ASPARTATE AMINO TRANSFERASE 189 U/L (14-36); BILIRUBIN,DIRECT 0.3 mg/dL (0.0-0.4); BILIRUBIN,TOTAL 0.8 mg/dL (0.2-1.3); BLOOD UREA NITROGEN 22 mg/dL (7-20); CALCIUM 9.6 mg/dL (8.4-10.2); CARBON DIOXIDE 30 mmol/L (22-30); CHLORIDE 101 mmol/L (98-107); GLUCOSE 148 mg/dL (75-110); POTASSIUM 3.8 mmol/L (3.6-5.0); SODIUM 139.7 mmol/L (137-145); TOTAL PROTEIN 7.2 g/dL (6.3-8.2)
[2018-03-30] MEDS ORDERED: NICARDIPINE HCL RTU, ISO-OS 20 MG/200 ML RTUINJ IV PRN (09:19)
[2018-03-30 09:25] LABS: INTERNATIONAL RATION (INR) 0.91; PROTHROMBIN TIME 12.7 SEC (11.4-15.4)
--- NOTE | 2018-03-30 09:29 | RADIOLOGY REPORT (SQ) ---
EXAM DESCRIPTION: CHEST SINGLE VIEW COMPLETED DATE/TIME: 03/30/2018 9:02 am REASON FOR STUDY: right arm weakness COMPARISON: 02/19/2016 EXAM PARAMETERS: NUMBER OF VIEWS: One view. TECHNIQUE: Single frontal radiographic view of the chest acquired. RADIATION DOSE: NA LIMITATIONS: None. FINDINGS: LUNGS AND PLEURA: No opacities, masses or pneumothorax. No pleural effusion. MEDIASTINUM AND HILAR STRUCTURES: No masses. Contour normal. HEART AND VASCULAR STRUCTURES: Heart normal in size. Normal vasculature. BONES: No acute findings. HARDWARE: None in the chest. OTHER: No other significant finding. IMPRESSION: NO ACUTE RADIOGRAPHIC FINDING IN THE CHEST. TECHNICAL DOCUMENTATION: JOB ID: [id number] [employer]- All Rights Reserved Reading location - IP/workstation name: [email or web address]
--- NOTE | 2018-03-30 09:37 | RADIOLOGY REPORT (SQ) ---
EXAM DESCRIPTION: CTA NECK COMPLETED DATE/TIME: 03/30/2018 8:58 am REASON FOR STUDY: right arm weakness COMPARISON: None. TECHNIQUE: Axial dynamic scanning technique with dynamic contrast enhancement through the extra-crab picker nial carotid and vertebral arteries. Multiplanar reconstruction. 3-D MIPS and Volume-rendered imag es acquired at the workstation and saved to PACS. Images are reviewed in soft tissue, bone, lung w indows. All CT scanners at this facility use dose modulation, iterative reconstruction, and/or weight based d osing when appropriate to reduce radiation dose to as low as reasonably achievable (ALARA). [facility]: Dose Right [facility]: CareDose [facility]: Dose Right [facility]: Teradose 4D [facility]: [employer] CONTRAST TYPE AND DOSE: 70 mL Omnipaque 350 RENAL FUNCTION: Not available LIMITATIONS: None. FINDINGS: AORTIC ARCH: Normal three-vessel origin. Bilateral subclavian arteries are patent. No d issection. RIGHT CAROTIDS: Patent common, internal and external carotid arteries without suggestion of significa nt stenosis or irregular plaque. No dissection. RIGHT VERTEBRAL: Patent. No dissection. LEFT CAROTIDS: Patent common, internal and external carotid arteries without suggestion of significan t stenosis. Calcific atherosclerotic plaquing is identified at the level of the carotid bifurcation. No dissection is identified. LEFT VERTEBRAL: Patent. No dissection. OTHER: No other significant finding. OTHER: 3-D reconstructions confirm findings. IMPRESSION: No significant stenoses are identified. Calcific atherosclerotic plaquing is identified at the level of the carotid bifurcation on the left. Other findings as noted above COMMENT: Quality ID #[id number]: Measurements of distal internal carotid diameter were used as the denomina tor for stenosis measurement. TECHNICAL DOCUMENTATION: JOB ID: [id number] Quality ID # [id number]: Final reports with documentation of one or more dose reduction techniques (e.g., Au tomated exposure control, adjustment of the mA and/or kV according to patient size, use of iterative reconstruction technique) 2010 [employer]- All Rights Reserved Reading location - IP/workstation name: [email or web address]
--- NOTE | 2018-03-30 09:42 | RADIOLOGY REPORT (SQ) ---
EXAM DESCRIPTION: CTA HEAD COMPLETED DATE/TIME: 03/30/2018 8:58 am REASON FOR STUDY: right arm weakness COMPARISON: None. TECHNIQUE: Post IV contrast scanning, thin section axial imaging through the brain to evaluate the a rterial structures. Source and MIP images are saved and reviewed on PACS. Advanced 3D imaging as volume-rendering, MIPs, SSD performed? yes All CT scanners at this facility use dose modulation, iterative reconstruction, and/or weight based d osing when appropriate to reduce radiation dose to as low as reasonably achievable (ALARA). [facility]: Dose Right [facility]: CareDose [facility]: Dose Right [facility]: Teradose 4D [facility]: [employer] - [place] CONTRAST TYPE AND DOSE: contrast/concentration: Isovue 350.00 mg/ml; Total Contrast Delivered: 70.0 ml; Total Saline Delivered: 75.0 ml RENAL FUNCTION: Not available LIMITATIONS: None. FINDINGS: THREE AFFILIATED OF [place]: The anterior, middle, posterior cerebral arteries are all patent. No ev idence of aneurysm or focal stenosis. POSTERIOR CIRCULATION: The distal vertebral arteries are patent as is the basilar artery. No aneurysm . BRAIN: No gross enhancing lesions as visualized. The superior cerebral hemispheres are not included in the field of view. BONES: Intact as visualized. SINUSES: No fluid or mucosal thickening. OTHER: No other significant finding. IMPRESSION: NO CTA EVIDENCE OF STENOSIS OR ANEURYSM OF THE THREE AFFILIATED [place]. TECHNICAL DOCUMENTATION: JOB ID: [id number] Quality ID # [id number]: Final reports with documentation of one or more dose reduction techniques (e.g., Au tomated exposure control, adjustment of the mA and/or kV according to patient size, use of iterative reconstruction technique) 2010 [employer]- All Rights Reserved Reading location - IP/workstation name: [email or web address]
[2018-03-30 11:22] VITALS: BP 197/107
== END 2018-03-30 11:41 | disposition short-term general hospital (02) ==
LOC: ER 08:26
DX: I63.89 Other cerebral infarction (principal); N17.9 Acute kidney failure, unspecified; E11.9 Type 2 diabetes mellitus without complications; Z90.49 Acquired absence of other specified parts of digestive tract
CPT/HCPCS: 93005; 99291; 96365; 96366; 36415; 82962; 85025; 85610; 85730; 80053; 84484; 71045; 70450; 70496; 70498; 93010; J3490

== ENCOUNTER 2018-05-23 17:36 | Emergency (ER) | payer MEDICAID ==
[2018-05-23] MEDS ORDERED: BACITRACIN ZINC OINTMENT 15 GM TP ONE (19:05)
[2018-05-23] MEDS ORDERED: CEPHALEXIN 500 MG CAPSULE PO ONE (19:07)
[2018-05-23] MEDS ORDERED: DOXYCYCLINE HYCLATE 100 MG TABLET PO ONE (19:07)
--- NOTE | 2018-05-23 19:13 | ER Document Report ---
ED General - General Chief Complaint: Abdominal Pain Stated Complaint: ABDOMINAL PAIN Time Seen by Provider: 05/23/18 18:14 Cannot obtain history due to: Other - Expressive aphasia Notes: Patient is a 57-year-old female with a past medical history of hypertension, hyperlipidemia, chronic pain, prior CVA with G-tube dependent secondary to a aphasia and dysarthria who presents with approximately 6-8 hours of pain around the G-tube site. History is limited as patient does have moderate to severe expressive a aphasia. She denies a history of similar symptoms in the past. G- tube was placed 2 months ago and has been in place since that time. No difficulty with flushing the G-tube. No fever or constitutional symptoms. Patient does arrive by EMS. No family available for additional history. TRAVEL OUTSIDE OF THE [place] IN LAST 30 DAYS: No - Related Data Allergies/Adverse Reactions: haloperidol [From Haldol] Allergy (Verified 10/21/17 15:59) hyperactive haloperidol lactate [From Haldol] Allergy (Verified 10/21/17 15:59) Past Medical History - General Information source: Patient - Social History Smoking Status: Former Smoker Frequency of alcohol use: None Drug Abuse: None Lives with: Family Family History: Reviewed & Not Pertinent, CAD Patient has suicidal ideation: No Patient has homicidal ideation: No - Past Medical History Cardiac Medical History: Reports: Hx Hypertension - medicated Denies: Hx Heart Attack Pulmonary Medical History: Denies: Hx Asthma, Hx Bronchitis, Hx Pneumonia Neurological Medical History: Denies: Hx Cerebrovascular Accident, Hx Seizures Endocrine Medical History: Reports: Hx Diabetes Mellitus Type 2 Renal/ Medical History: Denies: Hx Peritoneal Dialysis GI Medical History: Denies: Hx Hepatitis, Hx Hiatal Hernia, Hx Ulcer Musculoskeletal Medical History: Denies Hx Arthritis Psychiatric Medical History: Reports: Hx Schizophrenia Infectious Medical History: Denies: Hx Hepatitis Past Surgical History: Reports: Hx Cholecystectomy, Hx Orthopedic Surgery. Denies: Hx Hysterectomy, Hx Mastectomy, Hx Open Heart Surgery, Hx Pacemaker - Immunizations Hx Diphtheria, Pertussis, Tetanus Vaccination: Yes Review of Systems - Review of Systems Notes: Constitutional: Negative for fever. HENT: Negative for sore throat. Eyes: Negative for visual changes. Cardiovascular: Negative for chest pain. Respiratory: Negative for shortness of breath. Gastrointestinal: Negative for abdominal pain, vomiting or diarrhea. Genitourinary: Negative for dysuria. Musculoskeletal: Negative for back pain. Skin: Positive for cellulitis around the g-tube site Neurological: Negative for headaches, weakness or numbness. 10 point ROS negative except as marked above and in HPI. Physical Exam - Vital signs Vitals: Temp Pulse Resp BP Pulse Ox 98.6 F 63 20 170/77 H 98 05/23/18 17:50 05/23/18 17:50 05/23/18 17:50 05/23/18 17:50 05/23/18 17:50 Interpretation: Hypertensive Notes: PHYSICAL EXAMINATION: GENERAL: Appears chronically ill but in no acute distress HEAD: Atraumatic, normocephalic. EYES: Pupils equal round and reactive to light, extraocular movements intact, sclera anicteric, conjunctiva are normal. ENT: nares patent, oropharynx clear without exudates. Moderately dry mucous membranes. NECK: Normal range of motion, supple without lymphadenopathy LUNGS: Breath sounds clear to auscultation bilaterally and equal. No wheezes rales or rhonchi. HEART: Regular rate and rhythm without murmurs ABDOMEN: Soft, nontender, normoactive bowel sounds. No guarding, no rebound. No masses appreciated. EXTREMITIES: Normal range of motion, no pitting or edema. No cyanosis. NEUROLOGICAL: Moderate to severe expressive aphasia. Right-sided paresis. PSYCH: Pleasant on contacts, limited secondary to expressive aphasia SKIN: Warm, Dry, normal turgor, there is a very mild amount of surrounding erythema and purulent drainage around the G-tube entrance site. Course - Re-evaluation Re-evalutation: 05/23/18 19:09 Patient presents with what appears to be a mild, early cellulitis around her G- tube insertion site. Scant purulent drainage is noted from the area as well as mild surrounding erythema. The patient is otherwise very well in appearance, no fever or tachycardia. No additional concerns or complaints. The tube does flush without any difficulty. No indication for labs or imaging. Patient has been started on doxycycline and Keflex as well as topical bacitracin. At this time will discharge with return precautions and follow-up recommendations. Verbal discharge instructions given a the bedside and opportunity for questions given. Medication warnings reviewed. Patient is in agreement with this plan and has verbalized understanding of return precautions and the need for primary care follow-up in the next 24-72 hours. - Vital Signs Vital signs: Temp Pulse Resp BP Pulse Ox 98.6 F 63 20 170/77 H 98 05/23/18 17:50 05/23/18 17:50 05/23/18 17:50 05/23/18 17:50 05/23/18 17:50 Discharge - Discharge Clinical Impression: G-tube site cellulitis, Pain from gastrostomy tube Condition: Good Disposition: HOME, SELF-CARE Additional Instructions: Your G-tube insertion site appears to be infected. Please take the antibiotics as prescribed until completed. Apply topical bacitracin around the G-tube site 3 times daily and ensure to keep a bandage over the area. Return if you have spreading redness from the area, increasing pain, fever greater than 100.4 F, become unable to use the feeding tube, or have any other symptoms that are worrisome to you. Referrals: KATALINA ROB FNP-C [Primary Care Provider] - Follow up as needed
[2018-05-23 22:10] VITALS: BP 168/74
== END 2018-05-23 21:00 | disposition home or self-care (01) ==
LOC: ER 17:36
DX: K94.22 Gastrostomy infection (principal); G89.18 Other acute postprocedural pain; R10.9 Unspecified abdominal pain; I10 Essential (primary) hypertension; E78.5 Hyperlipidemia, unspecified; G89.29 Other chronic pain; R47.01 Aphasia; Z87.891 Personal history of nicotine dependence; E11.9 Type 2 diabetes mellitus without complications
CPT/HCPCS: 99284; J3490

== ENCOUNTER 2018-08-04 22:04 | Emergency (ER) | payer MEDICAID ==
--- NOTE | 2018-08-04 22:46 | ER Document Report ---
ED Extremity Problem, Lower - General Chief Complaint: Leg Swelling Stated Complaint: LEG PAIN Time Seen by Provider: 08/04/18 22:18 Primary Care Provider: KATALINA ROB FNP-C [COMMUNITY BASED STAFF] - Follow up as needed Notes: 57-year-old female to emergency department for evaluation of possible leg swelling. Patient had a subacute stroke several months ago. Paralyzed on the right side. At home. Complaining of some pain in the left leg. No new onset of weakness. Patient is comprehending but does have some expressive aphasia. Denies any trauma. Denies any fall. TRAVEL OUTSIDE OF THE [place] IN LAST 30 DAYS: No - HPI Patient complains to provider of: Pain, Swelling Location: Leg Where: Home Onset/Duration: Gradual - Related Data Allergies/Adverse Reactions: haloperidol [From Haldol] Allergy (Verified 10/21/17 15:59) hyperactive haloperidol lactate [From Haldol] Allergy (Verified 10/21/17 15:59) Past Medical History - General Information source: Patient - Social History Smoking Status: Never Smoker Frequency of alcohol use: None Drug Abuse: None Lives with: Family Family History: Reviewed & Not Pertinent, CAD Patient has suicidal ideation: No Patient has homicidal ideation: No - Past Medical History Cardiac Medical History: Reports: Hx Hypertension - medicated Denies: Hx Heart Attack Pulmonary Medical History: Denies: Hx Asthma, Hx Bronchitis, Hx Pneumonia Neurological Medical History: Denies: Hx Cerebrovascular Accident, Hx Seizures Endocrine Medical History: Reports: Hx Diabetes Mellitus Type 2 Renal/ Medical History: Denies: Hx Peritoneal Dialysis GI Medical History: Denies: Hx Hepatitis, Hx Hiatal Hernia, Hx Ulcer Musculoskeletal Medical History: Denies Hx Arthritis Psychiatric Medical History: Reports: Hx Schizophrenia Infectious Medical History: Denies: Hx Hepatitis Past Surgical History: Reports: Hx Cholecystectomy, Hx Orthopedic Surgery. Denies: Hx Hysterectomy, Hx Mastectomy, Hx Open Heart Surgery, Hx Pacemaker - Immunizations Hx Diphtheria, Pertussis, Tetanus Vaccination: Yes Review of Systems - Review of Systems Notes: Constitutional: denies: Chills, Diaphoresis, Fever, Malaise, Weakness EENT: denies: Eye discharge, Blurred vision, Tearing, Double vision, Nose congestion, Nose discharge, Throat swelling, Mouth pain Cardiovascular: denies: Palpitations, Heart racing, Orthopnea, Dyspnea, Chest pain Respiratory: denies: Cough, Hurts to breathe, Wheezing, Shortness of breath Gastrointestinal: denies: Abdominal pain, Diarrhea, Nausea, Vomiting, Black stools, bright red blood in stool Genitourinary: denies: Burning, Dysuria, Discharge, Frequency, Flank pain, Hematuria Musculoskeletal: Complains of left leg pain and left leg swelling. Hematologic/Lymphatic: denies: Anemia, Easy bleeding, Easy bruising, Blood clots Neurological/Psychological: denies: Confusion, Dementia, Depression, Loss of consciousness Skin: No lesions, no masses, no skin breakdown, no abscesses Physical Exam - Vital signs Vitals: Resp Pulse Ox 16 99 08/04/18 22:14 08/04/18 22:14 Interpretation: Normal - General General appearance: Appears well, Alert - HEENT Head: Normocephalic, Atraumatic Eyes: Normal Pupils: PERRL - Respiratory Respiratory status: No respiratory distress Chest status: Nontender Breath sounds: Normal Chest palpation: Normal - Cardiovascular Rhythm: Regular Heart sounds: Normal auscultation Murmur: No - Abdominal Inspection: Normal Distension: No distension Bowel sounds: Normal Tenderness: Nontender Organomegaly: No organomegaly - Back Back: Normal, Nontender - Extremities General upper extremity: Other - She has a contracture of the right upper extremity. There is paralysis of the right lower extremity. The left lower extremity has range of motion and sensation. Left upper extremity normal. There is no asymmetric swelling of the left lower extremity as compared to the right lower extremity. Full range of motion of the left lower extremity. No edema. Negative Homans sign. General lower extremity: No: Kaleb's sign - Neurological Neuro grossly intact: Yes Cognition: Normal Marathon Coma Scale Eye Opening: Spontaneous Marathon Coma Scale Verbal: Oriented Marathon Coma Scale Motor: Obeys Commands Sayda Coma Scale Total: 15 Speech: Expressive aphasia Motor strength normal: LUE, LLE. No: RUE, RLE - Psychological Associated symptoms: Normal affect, Normal mood - Skin Skin Temperature: Warm Skin Moisture: Dry Skin Color: Normal Course - Re-evaluation Re-evalutation: 08/04/18 23:43 I find no evidence of any type of asymmetrical edema of the left lower extremity. There is no palpable cords. There is good pulses of the left foot. There is obviously a possibility that this could be a DVT. This is after hours now at 11:00 at night. Patient will need an outpatient ultrasound to rule out DVT. We will do some basic screening sent labs. Blood pressure slightly elevated will treat at this time as well. The lady has a shot of Lovenox intervention department may be a large ischemic stroke going she does not show that there is any anticoagulation 08/05/18 01:40 Laboratory 08/04/18 08/05/18 08/05/18 23:12 00:09 00:09 WBC 8.2 RBC 3.34 L Hgb 9.4 L Hct 28.6 L MCV 86 MCH 28.1 MCHC 32.8 RDW 14.9 H Plt Count 232 Seg Neutrophils % 51.4 Lymphocytes % 38.0 Monocytes % 7.9 Eosinophils % 2.1 Basophils % 0.6 Absolute Neutrophils 4.2 Absolute Lymphocytes 3.1 Absolute Monocytes 0.7 Absolute Eosinophils 0.2 Absolute Basophils 0.0 Sodium 139.9 Potassium 3.8 Chloride 106 Carbon Dioxide 29 Anion Gap 5 BUN 27 H Creatinine 1.36 H Est GFR ( Amer) 49 L Est GFR (Non-Af Amer) 40 L Glucose 129 H POC Glucose 140 H Calcium 9.7 Serum Alcohol < 10 08/05/18 01:40 Pelvis X-Ray 08/04/18 22:52 IMPRESSION: No acute findings. Uterine fibroids.w - Vital Signs Vital signs: Temp Pulse Resp BP Pulse Ox 98.3 F 20 171/95 H 100 08/04/18 22:15 08/04/18 23:01 08/04/18 23:01 08/04/18 23:01 - Laboratory Result Diagrams: 08/05/18 00:09 08/05/18 00:09 Laboratory results interpreted by me: 08/04/18 08/05/18 08/05/18 23:12 00:09 00:09 RBC 3.34 L Hgb 9.4 L Hct 28.6 L RDW 14.9 H BUN 27 H Creatinine 1.36 H Est GFR ( Amer) 49 L Est GFR (Non-Af Amer) 40 L Glucose 129 H POC Glucose 140 H Discharge - Discharge Clinical Impression: Leg pain, left Condition: Good Disposition: HOME, SELF-CARE Instructions: Leg Pain Nonspecific ([facility]), Possible Evolving Leg DVT ([facility]) Additional Instructions: There does not appear to be any significant evidence at this time that you have a blood clot in your leg. No obvious fractures. We still need to do an ultrasound of your leg to rule out a blood clot. This should be done in the morning. Please return during the day tomorrow for an ultrasound to rule out a blood clot. The order has been written. Forms: Follow-Up Radiology Testing Referrals: KATALINA ROB, CECILIA-C [COMMUNITY BASED STAFF] - Follow up as needed
[2018-08-04] MEDS ORDERED: ACETAMINOPHEN 325 MG TABLET PO ONE (22:51)
[2018-08-04] MEDS ORDERED: CLONIDINE HCL 0.1 MG TABLET PO ONE (22:55)
--- NOTE | 2018-08-04 23:29 | RADIOLOGY REPORT (SQ) ---
EXAM DESCRIPTION: XR PELVIS 1-2 VIEWS COMPLETED DATE/TME: 08/04/2018 22:52 CLINICAL HISTORY: 57 years Female, pain in left lower extrem COMPARISON: None. Findings: Multiple partially calcified likely uterine fibroids measuring up to 2.2 cm each. Bones, joints, and soft tissues of the XR PELVIS 1 VIEW appear otherwise intact. IMPRESSION: No acute findings. Uterine fibroids.w
[2018-08-05 00:26] LABS: ABSOLUTE EOSINOPHILS # (AUTO) 0.2 10^3/uL (0.0-0.6); ABSOLUTE LYMPHOCYTES (AUTO) 3.1 10^3/uL (0.5-4.7); ABSOLUTE MONOCYTES (AUTO) 0.7 10^3/uL (0.1-1.4); ABSOLUTE NEUT (AUTO) 4.2 10^3/uL (1.7-8.2); BASOPHILS % (AUTO) 0.6 % (0-2); EOSINOPHILS % (AUTO) 2.1 % (0-6); HEMATOCRIT 28.6 % (36.0-47.0); HEMOGLOBIN 9.4 g/dL (12.0-15.5); MEAN CORPUSCULAR HEMOGLOBIN 28.1 pg (27.0-33.4); MEAN CORPUSCULAR HGB CONC 32.8 g/dL (32.0-36.0); MEAN CORPUSCULAR VOLUME 86 fl (80-97); MONOCYTES % (AUTO) 7.9 % (3-13); PLATELET COUNT 232 10^3/uL (150-450); RED BLOOD COUNT 3.34 10^6/uL (3.72-5.28); RED CELL DISTRIBUTION WIDTH 14.9 % (11.5-14.0); SEGMENTED NEUTROPHILS % (AUTO) 51.4 % (42-78); TOTAL CELLS COUNTED % (AUTO) 100 %; WHITE BLOOD COUNT 8.2 10^3/uL (4.0-10.5)
[2018-08-05] MEDS ORDERED: ENOXAPARIN SODIUM INJ 40 MG/0.4 ML DISP.SYRIN SUBCUT ONE ×3 (00:45→23:47)
[2018-08-05 00:50] LABS: ANION GAP 5 (5-19); BLOOD UREA NITROGEN 27 mg/dL (7-20); CALCIUM 9.7 mg/dL (8.4-10.2); CARBON DIOXIDE 29 mmol/L (22-30); CHLORIDE 106 mmol/L (98-107); GLUCOSE 129 mg/dL (75-110); POTASSIUM 3.8 mmol/L (3.6-5.0); SODIUM 139.9 mmol/L (137-145)
[2018-08-05 00:52] LABS: ALCOHOL < 10 mg/dL (NONE DETECTED)
[2018-08-05 02:46] VITALS: BP 146/87
== END 2018-08-05 02:53 | disposition home or self-care (01) ==
LOC: ER 22:04
DX: M79.605 Pain in left leg (principal); M79.89 Other specified soft tissue disorders; G81.91 Hemiplegia, unspecified affecting right dominant side; I10 Essential (primary) hypertension; E11.9 Type 2 diabetes mellitus without complications; Z90.49 Acquired absence of other specified parts of digestive tract
CPT/HCPCS: 99284; 96372; 36415; 82962; 80307; 85025; 80048; 72170; J3490 ×2; J1650

== ENCOUNTER 2019-03-21 04:17 | Emergency (ER) | payer MEDICAID ==
[2019-03-21 04:41] LABS: ABSOLUTE BASOPHILS # (AUTO) 0.1 10^3/uL (0.0-0.2); ABSOLUTE EOSINOPHILS # (AUTO) 0.1 10^3/uL (0.0-0.6); ABSOLUTE LYMPHOCYTES (AUTO) 2.7 10^3/uL (0.5-4.7); ABSOLUTE MONOCYTES (AUTO) 0.6 10^3/uL (0.1-1.4); ABSOLUTE NEUT (AUTO) 2.2 10^3/uL (1.7-8.2); BASOPHILS % (AUTO) 0.9 % (0-2); EOSINOPHILS % (AUTO) 2.2 % (0-6); HEMATOCRIT 37.4 % (36.0-47.0); HEMOGLOBIN 12.1 g/dL (12.0-15.5); LYMPHOCYTES % (AUTO) 47.9 % (13-45); MEAN CORPUSCULAR HEMOGLOBIN 27.3 pg (27.0-33.4); MEAN CORPUSCULAR HGB CONC 32.3 g/dL (32.0-36.0); MEAN CORPUSCULAR VOLUME 85 fl (80-97); MONOCYTES % (AUTO) 10.3 % (3-13); PLATELET COUNT 175 10^3/uL (150-450); RED BLOOD COUNT 4.42 10^6/uL (3.72-5.28); SEGMENTED NEUTROPHILS % (AUTO) 38.7 % (42-78); TOTAL CELLS COUNTED % (AUTO) 100 %; WHITE BLOOD COUNT 5.7 10^3/uL (4.0-10.5)
[2019-03-21 05:12] LABS: ALBUMIN 3.2 g/dL (3.5-5.0); ALKALINE PHOSPHATASE 57 U/L (38-126); ANION GAP 9 (5-19); ASPARTATE AMINO TRANSFERASE 132 U/L (14-36); BILIRUBIN,DIRECT 0.3 mg/dL (0.0-0.4); BILIRUBIN,TOTAL 0.6 mg/dL (0.2-1.3); BLOOD UREA NITROGEN 27 mg/dL (7-20); CALCIUM 8.9 mg/dL (8.4-10.2); CARBON DIOXIDE 27 mmol/L (22-30); CHLORIDE 105 mmol/L (98-107); GLUCOSE 114 mg/dL (75-110)
[2019-03-21 05:14] LABS: POTASSIUM 2.9 mmol/L (3.6-5.0)
[2019-03-21] MEDS ORDERED: LABETALOL HCL INJ 20 MG/4 ML DISP.SYRIN IV ONE (05:31)
--- NOTE | 2019-03-21 05:35 | ER Document Report ---
ED Medical Screen (RME) - General Chief Complaint: Nausea/Vomiting Stated Complaint: NAUSEA AND VOMITING Time Seen by Provider: 03/21/19 04:41 Primary Care Provider: KATARINA SANTOYO [Primary Care Provider] - Follow up as needed Information source: Patient TRAVEL OUTSIDE OF THE [place] IN LAST 30 DAYS: No - HPI Notes: 03/21/19 05:33 58 yo female presents for evaluation of elevated bp and n/v. pt noncompliant with meds x months per rescue. 03/21/19 05:39 This is a rapid medical screening exam. - Related Data Allergies/Adverse Reactions: haloperidol [From Haldol] Allergy (Verified 10/21/17 15:59) hyperactive haloperidol lactate [From Haldol] Allergy (Verified 10/21/17 15:59) Past Medical History - General Information source: Patient - Past Medical History Cardiac Medical History: Reports: Hx Hypertension - medicated Denies: Hx Heart Attack Pulmonary Medical History: Denies: Hx Asthma, Hx Bronchitis, Hx Pneumonia Neurological Medical History: Denies: Hx Cerebrovascular Accident, Hx Seizures Endocrine Medical History: Reports: Hx Diabetes Mellitus Type 2 Renal/ Medical History: Denies: Hx Peritoneal Dialysis GI Medical History: Denies: Hx Hepatitis, Hx Hiatal Hernia, Hx Ulcer Musculoskeltal Medical History: Denies Hx Arthritis Psychiatric Medical History: Reports: Hx Schizophrenia Infectious Medical History: Denies: Hx Hepatitis Past Surgical History: Reports: Hx Cholecystectomy, Hx Orthopedic Surgery. Denies: Hx Hysterectomy, Hx Mastectomy, Hx Open Heart Surgery, Hx Pacemaker - Immunizations Hx Diphtheria, Pertussis, Tetanus Vaccination: Yes Physical Exam - Respiratory Respiratory status: No respiratory distress Chest status: Nontender Breath sounds: Normal Chest palpation: Normal - Cardiovascular Rhythm: Regular Heart sounds: Normal auscultation Course - Laboratory Result Diagrams: 03/21/19 04:25 03/21/19 04:25 Laboratory results interpreted by me: 03/21/19 03/21/19 04:25 04:25 RDW 16.0 H Lymph % (Auto) 47.9 H Seg Neutrophils % 38.7 L Potassium 2.9 L* BUN 27 H Creatinine 1.58 H Est GFR ( Amer) 41 L Est GFR (MDRD) Non-Af 34 L Glucose 114 H AST 132 H Albumin 3.2 L Doctor's Discharge - Discharge Referrals: KATARINA SANTOYO [Primary Care Provider] - Follow up as needed
[2019-03-21] MEDS ORDERED: ONDANSETRON HCL INJ/PF 4 MG/2 ML SDV IV ONE ×2 (07:14→11:01)
[2019-03-21] MEDS ORDERED: LISINOPRIL 10 MG TABLET PO ONE (07:15)
[2019-03-21] MEDS ORDERED: AMLODIPINE BESYLATE 10 MG TABLET PO ONE (07:15)
[2019-03-21] MEDS ORDERED: HYDRALAZINE HCL 50 MG TABLET PO ONE (07:15)
--- NOTE | 2019-03-21 07:17 | ER Document Report ---
ED General - General Chief Complaint: Nausea/Vomiting Stated Complaint: NAUSEA AND VOMITING Time Seen by Provider: 03/21/19 04:41 Primary Care Provider: KATARINA SANTOYO [NO LOCAL MD] - Follow up as needed Notes: 58-year-old female presents emergency department complaining that she had multiple episodes of vomiting all night long last night so she came to the emergency department. Denies abdominal pain, diarrhea, headache, chest pain or shortness of breath. States that she has been out of her blood pressure medications for the past month. States that she ran out and has not been unable to get them refilled. Denies any symptoms aside from the vomiting, has a history of a stroke approximately 1 year ago with persistent right arm and leg weakness and left- sided facial droop, states this is completely unchanged from baseline. TRAVEL OUTSIDE OF THE [place] IN LAST 30 DAYS: No - Related Data Allergies/Adverse Reactions: haloperidol [From Haldol] Allergy (Verified 10/21/17 15:59) hyperactive haloperidol lactate [From Haldol] Allergy (Verified 10/21/17 15:59) Past Medical History - General Information source: Patient - Social History Smoking Status: Current Every Day Smoker Frequency of alcohol use: None Drug Abuse: None Family History: Reviewed & Not Pertinent, CAD Patient has suicidal ideation: No Patient has homicidal ideation: No - Past Medical History Cardiac Medical History: Reports: Hx Hypertension - medicated Denies: Hx Heart Attack Pulmonary Medical History: Denies: Hx Asthma, Hx Bronchitis, Hx Pneumonia Neurological Medical History: Denies: Hx Cerebrovascular Accident, Hx Seizures Endocrine Medical History: Reports: Hx Diabetes Mellitus Type 2 Renal/ Medical History: Denies: Hx Peritoneal Dialysis GI Medical History: Denies: Hx Hepatitis, Hx Hiatal Hernia, Hx Ulcer Musculoskeletal Medical History: Denies Hx Arthritis Psychiatric Medical History: Reports: Hx Schizophrenia Infectious Medical History: Denies: Hx Hepatitis Past Surgical History: Reports: Hx Cholecystectomy, Hx Orthopedic Surgery. Denies: Hx Hysterectomy, Hx Mastectomy, Hx Open Heart Surgery, Hx Pacemaker - Immunizations Hx Diphtheria, Pertussis, Tetanus Vaccination: Yes Review of Systems - Review of Systems Constitutional: No symptoms reported Gastrointestinal: See HPI, Vomiting -: Yes All other systems reviewed and negative Physical Exam - Vital signs Vitals: Temp 98.6 F 03/21/19 04:21 Interpretation: Hypertensive - Notes Notes: GENERAL: Alert, interacts well. No acute distress. Markedly hypertensive HEAD: Normocephalic, atraumatic EYES: Pupils equal, round and reactive to light, extraocular movements intact. ENT: Oral mucosa moist, tongue midline. NECK: Full range of motion, supple, trachea midline. LUNGS: Clear to auscultation bilaterally, no wheezes, rales or rhonchi, no respiratory distress. HEART: Regular rate and rhythm, no murmurs, gallops, rubs. ABDOMEN: Soft, nontender, nondistended, bowel sounds present in all 4 quadrants. EXTREMITIES: Moves all 4 extremities spontaneously, no edema, radial and dorsalis pedis pulses 2/4 bilaterally. No cyanosis. NEUROLOGICAL: Alert and oriented x3, normal speech, left-sided facial droop, right arm and leg weakness, cannot move right arm at all, right leg will twitch slightly when tickled but she cannot voluntarily move it at all. PSYCH: Somewhat flat affect. SKIN: Warm, Dry, normal turgor, no rashes or lesions noted. Course - Re-evaluation Re-evalutation: 03/21/19 15:24 CBC is unremarkable, CMP shows low potassium at 2.9, low magnesium at 1.5, both of these were repleted, BUN similar to prior visits, creatinine only very slightly worsened compared to a year ago, AST slightly elevated, troponin was detectable at 0.048, repeated 4 hours later at 0.054, then repeated again and trending downward at 0.053, urinalysis shows protein, glucose, moderate blood but only 10 RBCs. Patient has been off of her blood pressure medications for a month, I did treat her blood pressure with her home oral medications, and she has continued to trend down nicely, vomiting has resolved, she is feeling much better, able to tolerate the oral contracts and drink some water. 03/21/19 15:25 I was concerned about hypertensive urgency and possible intracranial hemorrhage from how high her blood pressure was that may been causing the vomiting, CT scan of the head was negative, CT scan of the abdomen pelvis was ordered given the vomiting and some tenderness, this was negative for any acute process as well, vomiting resolved with Zofran, chest x-ray shows no acute process. I was concerned for possible anginal equivalent or troponin leak given hypertensive urgency, troponin is normalizing. At this time the patient is feeling much better, blood pressure has responded well to home medications, will discharged home on her home oral medications, patient states that she will get her medications filled. Discharge to home. - Vital Signs Vital signs: Temp Pulse Resp BP Pulse Ox 98.6 F 16 179/99 H 100 03/21/19 04:21 03/21/19 15:01 03/21/19 15:01 03/21/19 15:10 - Laboratory Result Diagrams: 03/21/19 04:25 03/21/19 04:25 Laboratory results interpreted by me: 03/21/19 03/21/19 03/21/19 04:25 04:25 04:25 RDW 16.0 H Lymph % (Auto) 47.9 H Seg Neutrophils % 38.7 L Potassium 2.9 L* BUN 27 H Creatinine 1.58 H Est GFR ( Amer) 41 L Est GFR (MDRD) Non-Af 34 L Glucose 114 H Magnesium 1.5 L AST 132 H Albumin 3.2 L Urine Protein Urine Glucose (UA) Urine Blood Urine Urobilinogen 03/21/19 08:50 RDW Lymph % (Auto) Seg Neutrophils % Potassium BUN Creatinine Est GFR ( Amer) Est GFR (MDRD) Non-Af Glucose Magnesium AST Albumin Urine Protein >=500 H Urine Glucose (UA) 50 H Urine Blood MODERATE H Urine Urobilinogen 4.0 H - EKG Interpretation by Me Additional EKG results interpreted by me: 03/21/19 15:27 EKG shows sinus rhythm at a rate of 65, LVH, rapid R wave progression, repolarization abnormality related to LVH with T wave inversions in 1, 2, 3, aVL, aVF, V2 through V6, no STEMI per my interpretation. Discharge - Discharge Clinical Impression: Noncompliance with medication regimen Hypertension Qualifiers: Hypertension type: essential hypertension Qualified Code(s): I10 - Essential (primary) hypertension Nausea and vomiting Qualifiers: Vomiting type: unspecified Vomiting Intractability: non-intractable Qualified Code(s): R11.2 - Nausea with vomiting, unspecified Condition: Stable Disposition: HOME, SELF-CARE Additional Instructions: It is very important that she take your blood pressure medications. Please do not skip them. I have written you a one-month supply of all of your medications, please make sure you get them filled. Return for headache, vomiting, abdominal pain or any new or concerning symptoms. Prescriptions: Hydralazine HCl 100 mg PO BID #60 tablet Metoprolol Tartrate [Lopressor 25 mg Tablet] 25 mg PO Q12 #60 tab Amlodipine Besylate [Norvasc 10 mg Tablet] 10 mg PO DAILY #30 tablet Lisinopril [Prinivil 40 mg Tablet] 40 mg PO DAILY #30 tablet Referrals: CONCHIS BUSTAMANTE DO [NO LOCAL MD] - Follow up as needed
[2019-03-21] MEDS: POTASSI CL 20 MEQ/50 ML RIDER 20 MEQ/50 ML RTUPB IV SCH ×3 (07:28→12:02)
--- NOTE | 2019-03-21 07:44 | RADIOLOGY REPORT (SQ) ---
CT head without contrast on 03/21/2019 at 6:48 AM CLINICAL INDICATION: Hypertension, nausea and vomiting TECHNIQUE: Multiple axial images are obtained throughout the head without the administration of contrast. This exam was performed according to our departmental dose-optimization program, which includes automated exposure control, adjustment of the mA and/or kV according to patient size and/or use of iterative reconstruction technique. Total DLP is 2290.4 mGy*cm. COMPARISON: 03/30/2018 FINDINGS: There is old left periventricular infarct with also old left occipital infarct. There is low-density in the periventricular white matter consistent with chronic small vessel ischemic changes. There is no hydrocephalus. There is no CT evidence of acute infarct. There is no hemorrhage. There are no abnormal extra-axial fluid collections. There is no mass, mass effect or midline shift. No bony abnormality is noted. IMPRESSION: Chronic small vessel ischemic changes with old left-sided infarcts and no acute intracranial abnormality.
[2019-03-21] MEDS ORDERED: MAGNESIUM OXIDE 400 MG TABLET PO ONE (07:48)
--- NOTE | 2019-03-21 07:49 | RADIOLOGY REPORT (SQ) ---
Chest 2 view on 03/21/2019 at 7:21 AM CLINICAL INDICATION: Chest pain COMPARISON: 03/30/2018 FINDINGS: The lungs are clear. Cardiac, hilar and mediastinal contours are within normal limits. Pulmonary vascularity is within normal limits. No bony abnormality is noted. IMPRESSION: No active disease.
--- NOTE | 2019-03-21 08:36 | EKG REPORT ---
SEVERITY:- ABNORMAL ECG - SINUS RHYTHM PROBABLE LVH WITH SECONDARY REPOL ABNRM BORDERLINE PROLONGED QT INTERVAL : Confirmed by: Donaldo Monahan MD 21-Mar-2019 08:35:18
[2019-03-21 09:19] LABS: APPEARANCE,URINE CLEAR; BILIRUBIN,URINE NEGATIVE (NEGATIVE); COLOR,URINE YELLOW; GLUCOSE, URINE 50 mg/dL (NEGATIVE); KETONES,URINE NEGATIVE (NEGATIVE); LEUKOCYTE ESTERASE,URINE NEGATIVE (NEGATIVE); NITRITE,URINE NEGATIVE (NEGATIVE); PROTEIN,URINE >=500 mg/dL (NEGATIVE); URINE SPECIFIC GRAVITY 1.018
[2019-03-21] MEDS ORDERED: METOPROLOL TARTRATE 25 MG TABLET PO ONE (11:01)
--- NOTE | 2019-03-21 12:14 | RADIOLOGY REPORT (SQ) ---
EXAM DESCRIPTION: CT ABD/PELVIS WITH IV ORAL COMPLETED DATE/TIME: 03/21/2019 11:43 am REASON FOR STUDY: vomiting, low abd pain COMPARISON: 06/25/2013 TECHNIQUE: CT scan of the abdomen and pelvis performed using helical scanning technique with dynamic intravenous contrast injection. No oral contrast. Images reviewed with lung, soft tissue, and bone windows. Reconstructed coronal and sagittal MPR images reviewed. Delayed images for evaluation of the urinary system also acquired. All images stored on PACS. All CT scanners at this facility use dose modulation, iterative reconstruction, and/or weight based d osing when appropriate to reduce radiation dose to as low as reasonably achievable (ALARA). [facility]: Dose Right [facility]: CareDose [facility]: Dose Right [facility]: Teradose 4D [facility]: [employer] CONTRAST TYPE AND DOSE: contrast/concentration: Isovue 350.00 mg/ml; Total Contrast Delivered: 59.0 ml; Total Saline Delivered: 65.0 ml RENAL FUNCTION: GFR > 60. RADIATION DOSE: CT Rad equipment meets quality standard of care and radiation dose reduction techniq ues were employed. CTDIvol: 4.8 - 5.3 mGy. DLP: 539 mGy-cm.. LIMITATIONS: None. FINDINGS: LOWER CHEST: No significant findings. No nodules or infiltrates. LIVER: Normal size. No masses. No dilated ducts. SPLEEN: Normal size. No focal lesions. PANCREAS: No masses. No significant calcifications. No adjacent inflammation or peripancreatic fluid collections. Pancreatic duct not dilated. GALLBLADDER: Surgically absent. ADRENAL GLANDS: No significant masses or asymmetry. RIGHT KIDNEY AND URETER: No solid masses. No significant calcifications. No hydronephrosis or hyd roureter. LEFT KIDNEY AND URETER: No solid masses. No significant calcifications. No hydronephrosis or hydr oureter. AORTA AND VESSELS: No aneurysm. No dissection. Renal arteries, SMA, celiac without stenosis. RETROPERITONEUM: No retroperitoneal adenopathy, hemorrhage or masses. BOWEL AND PERITONEAL CAVITY: No masses or inflammatory changes. No free fluid or peritoneal masses. APPENDIX: Normal. PELVIS: Enlarged fibroid uterus. ABDOMINAL WALL: No masses. No hernias. BONES: Nothing acute. OTHER: No other significant finding. IMPRESSION: Enlarged uterus with multiple fibroids. No acute findings. TECHNICAL DOCUMENTATION: JOB ID: [id number] Quality ID # [id number]: Final reports with documentation of one or more dose reduction techniques (e.g., Au tomated exposure control, adjustment of the mA and/or kV according to patient size, use of iterative reconstruction technique) 2010 [email or web address]- All Rights Reserved Reading location - IP/workstation name: [email or web address]
[2019-03-21 15:10] VITALS: BP 179/99
== END 2019-03-21 15:25 | disposition home or self-care (01) ==
LOC: ER 04:17
DX: R11.2 Nausea with vomiting, unspecified (principal); I11.9 Hypertensive heart disease without heart failure; Z91.14 Patient's other noncompliance with medication regimen; R74.0 Nonspecific elevation of levels of transaminase and lactic acid dehydrogenase [LDH]; I69.351 Hemiplegia and hemiparesis following cerebral infarction affecting right dominant side; I69.392 Facial weakness following cerebral infarction; F17.200 Nicotine dependence, unspecified, uncomplicated; E11.9 Type 2 diabetes mellitus without complications; Z88.8 Allergy status to other drugs, medicaments and biological substances
CPT/HCPCS: 93005; 36415; 83735; 85025; 80053; 81001; 84484; 71046; 70450; 74177; 93010; J3490 ×5; J2405; J3480

== ENCOUNTER 2019-04-11 12:06 | Inpatient (IN) | payer MEDICAID ==
[2019-04-11] MEDS ORDERED: HYDRALAZINE HCL INJ/PF 20 MG/1 ML SDV IV ONE (12:32)
[2019-04-11] MEDS ORDERED: METOPROLOL SUCCINATE 25 MG TAB.SR.24H PO ONE (12:34)
[2019-04-11] MEDS ORDERED: AMLODIPINE BESYLATE 10 MG TABLET PO ONE (12:34)
--- NOTE | 2019-04-11 12:38 | ER Document Report ---
ED General - General Chief Complaint: Nausea/Vomiting Stated Complaint: NAUSEA/VOMITING Time Seen by Provider: 04/11/19 12:20 Notes: 58-year-old female with past medical history of hypertension, diabetes, hyperlipidemia, CVA with residual weakness on right side presents for sudden onset of nausea and vomiting that started approximately 1 hour ago and blurry vision that started this morning. Patient was given Zofran 8 mg by EMS resolution of her nausea and vomiting. She has been noncompliant with her blood pressure meds, diabetes medications, and hyperlipidemia medications for past several weeks. States she does not have them to take. Patient denies any diarrhea, constipation, abdominal pain, chest pain, or dyspnea. Patient also d enies headache. TRAVEL OUTSIDE OF THE [place] IN LAST 30 DAYS: No - Related Data Allergies/Adverse Reactions: haloperidol [From Haldol] Allergy (Verified 10/21/17 15:59) hyperactive haloperidol lactate [From Haldol] Allergy (Verified 10/21/17 15:59) Past Medical History - Social History Smoking Status: Unknown if Ever Smoked Family History: Reviewed & Not Pertinent, CAD - Past Medical History Cardiac Medical History: Reports: Hx Hypertension - medicated Denies: Hx Heart Attack Pulmonary Medical History: Denies: Hx Asthma, Hx Bronchitis, Hx Pneumonia Neurological Medical History: Reports: Hx Cerebrovascular Accident - Residual right-sided weakness. Denies: Hx Seizures Endocrine Medical History: Reports: Hx Diabetes Mellitus Type 2 Renal/ Medical History: Denies: Hx Peritoneal Dialysis GI Medical History: Denies: Hx Hepatitis, Hx Hiatal Hernia, Hx Ulcer Musculoskeletal Medical History: Denies Hx Arthritis Psychiatric Medical History: Reports: Hx Schizophrenia Infectious Medical History: Denies: Hx Hepatitis Past Surgical History: Reports: Hx Cholecystectomy, Hx Orthopedic Surgery. Denies: Hx Hysterectomy, Hx Mastectomy, Hx Open Heart Surgery, Hx Pacemaker - Immunizations Hx Diphtheria, Pertussis, Tetanus Vaccination: Yes Review of Systems - Review of Systems Constitutional: denies: Chills, Fever EENT: Blurred vision, Double vision Cardiovascular: denies: Chest pain Respiratory: denies: Short of breath Gastrointestinal: Nausea, Vomiting. denies: Abdominal pain, Diarrhea, Constipation Neurological/Psychological: Weakness - Chronic right-sided weakness -: Yes All other systems reviewed and negative Physical Exam - Vital signs Vitals: Pulse Ox 100 04/11/19 12:10 Interpretation: Hypertensive - 248/129 on initial assessment Notes: GENERAL: Well-appearing, well-nourished and in no acute distress. HEAD: Atraumatic, normocephalic. EYES: Pupils equal round and reactive to light, extraocular movements intact, sclera anicteric, conjunctiva are normal. NECK: Normal range of motion, supple without lymphadenopathy or JVD. LUNGS: Breath sounds clear to auscultation bilaterally and equal. No wheezes rales or rhonchi. HEART: Regular rate and rhythm without murmurs, rubs or gallops. ABDOMEN: Soft, nontender. No guarding, no rebound. No masses appreciated. EXTREMITIES: Right sided weakness, no pitting or edema. No clubbing or cyanosis. NEUROLOGICAL: Cranial nerves II through XII grossly intact. Right sided weakness residual from CVA PSYCH: Normal mood, normal affect. SKIN: Warm, Dry, normal turgor, no rashes or lesions noted. Course - Re-evaluation Re-evalutation: 04/11/19 58 y/o female presents for n/v and blurred vision. Denies cp, sob, or abd pain. N/V relieved with zofran given by EMS. Troponin 0.055 is at baseline. GFR 38, Cr 1.67, and BUN 28 is also at baseline. CT head negative. CXR neg. EKG shows no ST elevation. Discussed with attending who ordered hydralazine 20 mg IV and home medications PO. 04/11/19 13:40 Improvement in BP to 194/103. 04/11/19 14:23 Pt denies nausea or blurred vision at this time. BP 200/115. Discussed with pt and attending. Will admit pt for hypertensive urgency. 04/11/19 14:[address] Rodriguez who accepted pt for admission. - Vital Signs Vital signs: Temp Pulse Resp BP Pulse Ox 15 199/103 H 100 04/11/19 14:26 04/11/19 14:26 04/11/19 14:26 - Laboratory Result Diagrams: 04/11/19 12:30 04/11/19 12:30 Laboratory results interpreted by me: 04/11/19 04/11/19 12:30 12:30 RDW 15.8 H BUN 28 H Creatinine 1.67 H Est GFR ( Amer) 38 L Est GFR (MDRD) Non-Af 32 L Direct Bilirubin 0.5 H AST 127 H Albumin 3.3 L Discharge - Discharge Clinical Impression: Hypertensive urgency, Blurred vision, bilateral Nausea & vomiting Qualifiers: Vomiting type: unspecified Vomiting Intractability: unspecified Qualified Code(s): R11.2 - Nausea with vomiting, unspecified Condition: Stable Disposition: ADMITTED INPATIENT Admitting Provider: Michael (Hospitalist) Unit Admitted: [facility]
[2019-04-11 12:50] LABS: ABSOLUTE EOSINOPHILS # (AUTO) 0.1 10^3/uL (0.0-0.6); ABSOLUTE LYMPHOCYTES (AUTO) 1.9 10^3/uL (0.5-4.7); ABSOLUTE MONOCYTES (AUTO) 0.4 10^3/uL (0.1-1.4); EOSINOPHILS % (AUTO) 2.3 % (0-6); HEMATOCRIT 37.7 % (36.0-47.0); HEMOGLOBIN 12.4 g/dL (12.0-15.5); LYMPHOCYTES % (AUTO) 42.7 % (13-45); MEAN CORPUSCULAR HEMOGLOBIN 27.9 pg (27.0-33.4); MEAN CORPUSCULAR HGB CONC 32.8 g/dL (32.0-36.0); MEAN CORPUSCULAR VOLUME 85 fl (80-97); MONOCYTES % (AUTO) 8.3 % (3-13); PLATELET COUNT 165 10^3/uL (150-450); RED BLOOD COUNT 4.44 10^6/uL (3.72-5.28); RED CELL DISTRIBUTION WIDTH 15.8 % (11.5-14.0); SEGMENTED NEUTROPHILS % (AUTO) 45.7 % (42-78); TOTAL CELLS COUNTED % (AUTO) 100 %; WHITE BLOOD COUNT 4.5 10^3/uL (4.0-10.5)
[2019-04-11 13:06] LABS: ALBUMIN 3.3 g/dL (3.5-5.0); ALKALINE PHOSPHATASE 41 U/L (38-126); ANION GAP 5 (5-19); ASPARTATE AMINO TRANSFERASE 127 U/L (14-36); BILIRUBIN,DIRECT 0.5 mg/dL (0.0-0.4); BILIRUBIN,TOTAL 0.8 mg/dL (0.2-1.3); BLOOD UREA NITROGEN 28 mg/dL (7-20); CARBON DIOXIDE 27 mmol/L (22-30); CHLORIDE 107 mmol/L (98-107); CREATINE KINASE 33 U/L (30-135); GLUCOSE 87 mg/dL (75-110); POTASSIUM 3.8 mmol/L (3.6-5.0); TOTAL PROTEIN 7.2 g/dL (6.3-8.2)
--- NOTE | 2019-04-11 13:08 | RADIOLOGY REPORT (SQ) ---
EXAM DESCRIPTION: CT HEAD WITHOUT COMPLETED DATE/TIME: 04/11/2019 12:58 pm REASON FOR STUDY: HYPERTENSION/N/V COMPARISON: 03/21/2019 TECHNIQUE: Axial images acquired through the brain without intravenous contrast. Images reviewed wi th bone, brain and subdural windows. Additional sagittal and coronal reconstructions were generated. Images stored on PACS. All CT scanners at this facility use dose modulation, iterative reconstruction, and/or weight based d osing when appropriate to reduce radiation dose to as low as reasonably achievable (ALARA). [facility]: Dose Right [facility]: CareDose [facility]: Dose Right [facility]: Teradose 4D [facility]: [employer] RADIATION DOSE: CT Rad equipment meets quality standard of care and radiation dose reduction techniq ues were employed. CTDIvol: 53.2 mGy. DLP: 911 mGy-cm.mGy. LIMITATIONS: None. FINDINGS: VENTRICLES: Age-appropriate. CEREBRUM: No hemorrhage or mass or shift. Spotty areas of small vessel disease with deep periventric ular infarcts and chronic left occipital lobe infarct. No change. CEREBELLUM: No masses. No hemorrhage. No alteration of density. No evidence for acute infarction. EXTRAAXIAL SPACES: Age-appropriate. No hemorrhage or mass evident. ORBITS AND GLOBE: No intra- or extraconal masses. Normal contour of globe without masses. CALVARIUM: No fracture. PARANASAL SINUSES: No fluid or mucosal thickening. SOFT TISSUES: No mass or hematoma. OTHER: No other significant finding. IMPRESSION: Chronic changes. No acute abnormality. EVIDENCE OF ACUTE STROKE: NO. TECHNICAL DOCUMENTATION: JOB ID: [id number] Quality ID # 436: Final reports with documentation of one or more dose reduction techniques (e.g., Au tomated exposure control, adjustment of the mA and/or kV according to patient size, use of iterative reconstruction technique) 2010 [employer]- All Rights Reserved Reading location - IP/workstation name: [email or web address]
--- NOTE | 2019-04-11 13:18 | RADIOLOGY REPORT (SQ) ---
EXAM DESCRIPTION: CHEST SINGLE VIEW COMPLETED DATE/TIME: 04/11/2019 1:00 pm REASON FOR STUDY: nausea/vomiting, hypertensive COMPARISON: 03/21/2019 TECHNIQUE: Single frontal radiographic view of the chest acquired. NUMBER OF VIEWS: One view. LIMITATIONS: None. FINDINGS: LUNGS AND PLEURA: No pneumothorax. No consolidation or pleural effusion. MEDIASTINUM AND HILAR STRUCTURES: Stable. HEART AND VASCULAR STRUCTURES: Stable. BONES: No acute findings. HARDWARE: None in the chest. OTHER: No other significant finding. IMPRESSION: NO ACUTE FINDINGS. TECHNICAL DOCUMENTATION: JOB ID: [id number] [place]-72 2010 [employer]- All Rights Reserved Reading location - IP/workstation name: [email or web address]
[2019-04-11 15:03] LABS: APPEARANCE,URINE SLIGHTLY-CLOUDY; BILIRUBIN,URINE NEGATIVE (NEGATIVE); COLOR,URINE YELLOW; GLUCOSE, URINE NEGATIVE (NEGATIVE); KETONES,URINE NEGATIVE (NEGATIVE); LEUKOCYTE ESTERASE,URINE SMALL (NEGATIVE); NITRITE,URINE NEGATIVE (NEGATIVE); PROTEIN,URINE >=500 mg/dL (NEGATIVE); URINE SPECIFIC GRAVITY 1.014; UROBILINOGEN,URINE NEGATIVE mg/dL (<2.0)
[2019-04-11] MEDS ORDERED: HYDRALAZINE HCL INJ/PF 20 MG/1 ML SDV ONE (15:10)
[2019-04-11 15:12] LABS: ADD MANUAL MICROSCOPIC YES
[2019-04-11] MEDS ORDERED: ACETAMINOPHEN 325 MG TABLET PO PRN (16:14)
[2019-04-11] MEDS ORDERED: MAGNESIUM HYDROXIDE SUSP 30 ML UDCUP PO PRN (16:14)
[2019-04-11] MEDS ORDERED: OXYCODONE-ACETAMINOPHEN 5-325 MG TABLET PO PRN (16:14)
[2019-04-11] MEDS ORDERED: MAG HYDROX/AL HYDROX/SIMETH SUSP 30 ML UDCUP PO PRN (16:14)
[2019-04-11] MEDS ORDERED: ONDANSETRON HCL INJ/PF 4 MG/2 ML SDV IV PRN (16:14)
[2019-04-11] MEDS ORDERED: IPRATROPIUM/ALBUTEROL 0.5-2.5 MG/3 ML AMPUL NEB PRN (16:14)
--- NOTE | 2019-04-11 16:30 | PDOC H&P ---
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 Patient has history of noncompliance and is stating that she ran out of her medications and has not been able to get them refilled due to financial reasons. Denies any shortness of breath, chest pain, abdominal pain, new focal weakness, headache, diarrhea, constipation or any urinary symptoms. In ED a CT head was negative for any acute changes, EKG positive for left ventricular hypertrophy, and SBP was found to be in high 200s. She was given amlodipine, metoprolol and hydralazine with no resolution of her SBP's. Hospitalist was consulted for admission. Past Medical History Cardiac Medical History: Reports: Hypertension - medicated Denies: Myocardial Infarction Pulmonary Medical History: Denies: Asthma, Bronchitis, Pneumonia Neurological Medical History: Denies: Seizures Endocrine Medical History: Reports: Diabetes Mellitus Type 2 GI Medical History: Denies: Hepatitis, Hiatal Hernia Musculoskeltal Medical History: Denies: Arthritis Hematology: Denies: Anemia, Sickle Cell Disease Past Surgical History Past Surgical History: Reports: Cholecystectomy, Orthopedic Surgery Denies: Amputation, Hysterectomy, Mastectomy, Pacemaker Social History Smoking Status: Unknown if Ever Smoked - Advance Directive Resuscitation Status: Full Code Family History Family History: Reviewed & Not Pertinent, CAD Parental Family History Reviewed: Yes Children Family History Reviewed: Yes Sibling(s) Family History Reviewed.: Yes Medication/Allergy Allergies/Adverse Reactions: haloperidol [From Haldol] Allergy (Verified 10/21/17 15:59) hyperactive haloperidol lactate [From Haldol] Allergy (Verified 10/21/17 15:59) Review of Systems Review of Systems: as per hpi Physical Exam Vital Signs: Temp Pulse Resp BP Pulse Ox 14 198/107 H 100 04/11/19 14:56 04/11/19 14:56 04/11/19 14:56 General appearance: PRESENT: no acute distress, well-developed, well-nourished Head exam: PRESENT: atraumatic, normocephalic Respiratory exam: PRESENT: clear to auscultation bryan. ABSENT: rales, rhonchi, wheezes Cardiovascular exam: PRESENT: RRR. ABSENT: diastolic murmur, rubs, systolic murmur GI/Abdominal exam: PRESENT: normal bowel sounds, soft. ABSENT: distended, guarding, mass, organolmegaly, rebound, tenderness Extremities exam: PRESENT: full ROM. ABSENT: calf tenderness, clubbing, pedal edema Neurological exam: PRESENT: alert, awake, oriented to person, oriented to place, oriented to time, oriented to situation, CN II-XII grossly intact, motor sensory deficit - Chronic right upper and lower extremity spasticity, contractures, strength 0/4., other - Dysarthria chronic. Results Laboratory Results: 04/11/19 12:30 04/11/19 12:30 04/11/19 04/11/19 04/11/19 12:30 12:30 14:20 WBC 4.5 RBC 4.44 Hgb 12.4 Hct 37.7 MCV 85 MCH 27.9 MCHC 32.8 RDW 15.8 H Plt Count 165 Seg Neutrophils % 45.7 Sodium 138.6 Potassium 3.8 Chloride 107 Carbon Dioxide 27 Anion Gap 5 BUN 28 H Creatinine 1.67 H Est GFR ( Amer) 38 L Glucose 87 Calcium 9.0 Total Bilirubin 0.8 AST 127 H Alkaline Phosphatase 41 Total Protein 7.2 Albumin 3.3 L Urine Color YELLOW Urine Appearance SLIGHTLY-CLOUDY Urine pH 6.0 Ur Specific [place] 1.014 Urine Protein >=500 H Urine Glucose (UA) NEGATIVE Urine Ketones NEGATIVE Urine Blood MODERATE H Urine Nitrite NEGATIVE Ur Leukocyte Esterase SMALL H Ur Squamous Epith Cells MANY 04/11/19 04/11/19 12:30 12:30 Creatine Kinase 33 Troponin I 0.055 Impressions: Chest X-Ray 04/11/19 12:27 IMPRESSION: NO ACUTE FINDINGS. Assessment and Plan - Diagnosis (1) Hypertensive urgency Is this a current diagnosis for this admission?: Yes Plan: Due to medication noncompliance for financial reasons. Admit to telemetry, restart home meds, PRN hydralazine, PRN labetalol. Adjust meds as needed. Outpatient PCP follow-up. (2) Hypertension Is this a current diagnosis for this admission?: Yes Plan: As above. (3) Acute kidney injury superimposed on CKD Is this a current diagnosis for this admission?: Yes Plan: Due to hypertensive emergency. Baseline 1.5. Electrolytes WNL. Optimize BP, monitor volume status, monitor electrolytes and replace as needed. BMP tomorrow. (4) Hyperlipidemia Is this a current diagnosis for this admission?: Yes Plan: Restart home meds. (5) Hx of ischemic left MCA stroke Is this a current diagnosis for this admission?: Yes Plan: Continue antiplatelets, statins, optimize BP, PT OT. (6) Nausea & vomiting Qualifiers: Vomiting type: unspecified Vomiting Intractability: unspecified Qualified Code(s): R11.2 - Nausea with vomiting, unspecified Is this a current diagnosis for this admission?: Yes Plan: Due to #1. Supportive measures. Monitor volume status and electrolytes.
--- NOTE | 2019-04-11 16:36 | EKG REPORT ---
SEVERITY:- ABNORMAL ECG - SINUS RHYTHM LVH WITH SECONDARY REPOLARIZATION ABNORMALITY : Confirmed by: Donaldo Monahan MD 11-Apr-2019 16:36:27
[2019-04-11 17:01] LABS: CHOLESTEROL 312.56 mg/dL (0-200); TRIGLYCERIDES 322 mg/dL (<150)
[2019-04-11] MEDS: LABETALOL HCL INJ 20 MG/4 ML DISP.SYRIN IV PRN (17:01)
[2019-04-11 17:12] LABS: DIRECT LDL 172 mg/dL (<100)
[2019-04-11 17:14] LABS: VLDL CHOLESTEROL 64.4 mg/dL (10-31)
[2019-04-11] MEDS ORDERED: INFLUENZA QUAD (6MOS+) 2019-20 VAC 0.5 ML SYR IM ONE (17:34)
[2019-04-11] MEDS: HYDRALAZINE HCL INJ/PF 20 MG/1 ML SDV IV PRN ×3 (18:20→23:45)
[2019-04-11] MEDS: FAMOTIDINE 20 MG TABLET PO SCH (21:46)
[2019-04-11] MEDS: CARVEDILOL 12.5 MG TABLET PO SCH (21:46)
[2019-04-11] MEDS: HEPARIN SOD (PORCINE) 5,000 UNIT/ML 1 ML VIAL SUBCUT SCH (21:47)
[2019-04-11] MEDS ORDERED: FUROSEMIDE INJ/PF 20 MG/2 ML SDV IV SCH (22:00)
[2019-04-12] MEDS: HYDRALAZINE HCL INJ/PF 20 MG/1 ML SDV IV PRN (04:03)
[2019-04-12 05:25] LABS: ABSOLUTE BASOPHILS # (AUTO) 0.1 10^3/uL (0.0-0.2); ABSOLUTE LYMPHOCYTES (AUTO) 1.8 10^3/uL (0.5-4.7); ABSOLUTE MONOCYTES (AUTO) 0.5 10^3/uL (0.1-1.4); ABSOLUTE NEUT (AUTO) 3.3 10^3/uL (1.7-8.2); BASOPHILS % (AUTO) 1.4 % (0-2); EOSINOPHILS % (AUTO) 0.5 % (0-6); HEMATOCRIT 38.1 % (36.0-47.0); HEMOGLOBIN 12.5 g/dL (12.0-15.5); LYMPHOCYTES % (AUTO) 31.9 % (13-45); MEAN CORPUSCULAR HEMOGLOBIN 27.6 pg (27.0-33.4); MEAN CORPUSCULAR HGB CONC 32.8 g/dL (32.0-36.0); MEAN CORPUSCULAR VOLUME 84 fl (80-97); MONOCYTES % (AUTO) 8.9 % (3-13); PLATELET COUNT 175 10^3/uL (150-450); RED BLOOD COUNT 4.52 10^6/uL (3.72-5.28); RED CELL DISTRIBUTION WIDTH 15.6 % (11.5-14.0); SEGMENTED NEUTROPHILS % (AUTO) 57.3 % (42-78); TOTAL CELLS COUNTED % (AUTO) 100 %; WHITE BLOOD COUNT 5.8 10^3/uL (4.0-10.5)
[2019-04-12 05:50] LABS: ANION GAP 10 (5-19); BLOOD UREA NITROGEN 33 mg/dL (7-20); CALCIUM 9.4 mg/dL (8.4-10.2); CARBON DIOXIDE 25 mmol/L (22-30); CHLORIDE 102 mmol/L (98-107); GLUCOSE 148 mg/dL (75-110); POTASSIUM 4.1 mmol/L (3.6-5.0)
[2019-04-12] MEDS: HEPARIN SOD (PORCINE) 5,000 UNIT/ML 1 ML VIAL SUBCUT SCH ×3 (06:35→21:11)
[2019-04-12] MEDS ORDERED: ACETAMINOPHEN 325 MG TABLET PO PRN (07:21)
[2019-04-12] MEDS ORDERED: OXYCODONE-ACETAMINOPHEN 5-325 MG TABLET PO PRN (07:30)
[2019-04-12] MEDS ORDERED: ONDANSETRON HCL INJ/PF 4 MG/2 ML SDV IV PRN (07:30)
--- NOTE | 2019-04-12 08:42 | PDOC PROGRESS REPORT ---
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 Patient has history of noncompliance and is stating that she ran out of her med ications and has not been able to get them refilled due to financial reasons. Denies any shortness of breath, chest pain, abdominal pain, new focal weakness, headache, diarrhea, constipation or any urinary symptoms. In ED a CT head was negative for any acute changes, EKG positive for left ventricular hypertrophy, and SBP was found to be in high 200s. She was given amlodipine, metoprolol and hydralazine with no resolution of her SBP's. Hospitalist was consulted for admission. 04/12/2019. No acute events overnight. Patient denies any fever, chills, nausea, vomiting, diarrhea, constipation or any urinary symptoms. His BP is not optimized. On admission patient told me that she could not afford buying her meds but as per social work case manager note she is able to do so. Reason For Visit: HYPERTENSIVE URGENCY Physical Exam Vital Signs: Temp Pulse Resp BP Pulse Ox 97.9 F 80 14 160/82 H 100 04/12/19 08:04 04/12/19 08:04 04/12/19 08:04 04/12/19 08:04 04/12/19 08:04 Intake & Output 04/11/19 04/12/19 04/13/19 06:59 06:59 06:59 Intake Total 460 Balance 460 Weight 49.6 kg General appearance: PRESENT: no acute distress, well-developed, well-nourished Head exam: PRESENT: atraumatic, normocephalic Respiratory exam: PRESENT: clear to auscultation bryan. ABSENT: rales, rhonchi, wheezes Cardiovascular exam: PRESENT: RRR. ABSENT: diastolic murmur, rubs, systolic murmur GI/Abdominal exam: PRESENT: normal bowel sounds, soft. ABSENT: distended, guarding, mass, organolmegaly, rebound, tenderness Neurological exam: PRESENT: alert, awake, oriented to person, oriented to place, oriented to time, oriented to situation, CN II-XII grossly intact, motor sensory deficit - Right hemiparesis with dysarthria. Chronic. Results Laboratory Results: 04/12/19 04:17 04/12/19 04:17 04/11/19 04/11/19 04/11/19 12:30 12:30 12:30 WBC 4.5 RBC 4.44 Hgb 12.4 Hct 37.7 MCV 85 MCH 27.9 MCHC 32.8 RDW 15.8 H Plt Count 165 Seg Neutrophils % 45.7 Sodium 138.6 Potassium 3.8 Chloride 107 Carbon Dioxide 27 Anion Gap 5 BUN 28 H Creatinine 1.67 H Est GFR ( Amer) 38 L Glucose 87 Calcium 9.0 Magnesium Total Bilirubin 0.8 AST 127 H Alkaline Phosphatase 41 Total Protein 7.2 Albumin 3.3 L Triglycerides 322 H Cholesterol 312.56 H LDL Cholesterol Direct 172 H VLDL Cholesterol 64.4 H HDL Cholesterol 42 TSH Urine Color Urine Appearance Urine pH Ur Specific [place] Urine Protein Urine Glucose (UA) Urine Ketones Urine Blood Urine Nitrite Ur Leukocyte Esterase Ur Squamous Epith Cells 04/11/19 04/12/19 04/12/19 14:20 04:17 04:17 WBC 5.8 RBC 4.52 Hgb 12.5 Hct 38.1 MCV 84 MCH 27.6 MCHC 32.8 RDW 15.6 H Plt Count 175 Seg Neutrophils % 57.3 Sodium Potassium Chloride Carbon Dioxide Anion Gap BUN Creatinine Est GFR ( Amer) Glucose Calcium Magnesium Total Bilirubin AST Alkaline Phosphatase Total Protein Albumin Triglycerides Cholesterol LDL Cholesterol Direct VLDL Cholesterol HDL Cholesterol TSH 2.43 Urine Color YELLOW Urine Appearance SLIGHTLY-CLOUDY Urine pH 6.0 Ur Specific [place] 1.014 Urine Protein >=500 H Urine Glucose (UA) NEGATIVE Urine Ketones NEGATIVE Urine Blood MODERATE H Urine Nitrite NEGATIVE Ur Leukocyte Esterase SMALL H Ur Squamous Epith Cells MANY 04/12/19 04:17 WBC RBC Hgb Hct MCV MCH MCHC RDW Plt Count Seg Neutrophils % Sodium 136.8 L Potassium 4.1 Chloride 102 Carbon Dioxide 25 Anion Gap 10 BUN 33 H Creatinine 2.02 H Est GFR ( Amer) 31 L Glucose 148 H Calcium 9.4 Magnesium 1.6 Total Bilirubin AST Alkaline Phosphatase Total Protein Albumin Triglycerides Cholesterol LDL Cholesterol Direct VLDL Cholesterol HDL Cholesterol TSH Urine Color Urine Appearance Urine pH Ur Specific [place] Urine Protein Urine Glucose (UA) Urine Ketones Urine Blood Urine Nitrite Ur Leukocyte Esterase Ur Squamous Epith Cells 04/11/19 04/11/19 12:30 12:30 Creatine Kinase 33 Troponin I 0.055 Impressions: Chest X-Ray 04/11/19 12:27 IMPRESSION: NO ACUTE FINDINGS. Assessment and Plan - Diagnosis (1) Hypertensive emergency Is this a current diagnosis for this admission?: Yes Plan: Improving. Blurry vision and vomiting resolved, still complaining of nausea. Hypertensive emergency evidenced by MARY, nausea vomiting and blurry vision. Medication nonadherence for financial reasons. As per pharmacy her last refill was 3 months ago. Currently on: Amlodipine 10 mg p.o. daily. Carvedilol 25 mg p.o. twice daily. Hydralazine 50 mg p.o. 3 times daily. Continue PRN hydralazine and labetalol adjust meds as needed. Consult social work case manager for medication assistance. (2) Hypertension Is this a current diagnosis for this admission?: Yes Plan: As above. (3) Acute kidney injury superimposed on CKD Is this a current diagnosis for this admission?: Yes Plan: Worsening creatinine level. Nonoliguric. Electrolytes WNL. Due to hypertensive emergency. Baseline 1.5. Optimize BP, monitor volume status, monitor electrolytes and replace as needed. BMP tomorrow. (4) Hyperlipidemia Is this a current diagnosis for this admission?: Yes Plan: Uncontrolled due to medication nonadherence. ASCVD score 77.5%. Started on atorvastatin 80 mg p.o. nightly. Diet and lifestyle modification recommended. (5) Hx of ischemic left MCA stroke Is this a current diagnosis for this admission?: Yes Plan: History of left MCA stroke with residual right upper and lower extremity hemiplegia and dysarthria. Denies any new neurological changes. Antiplatelets, high intensity statins, optimize BP, PT OT. (6) Nausea & vomiting Is this a current diagnosis for this admission?: Yes Plan: Likely due to #1. Vomiting resolved. Still complaining of nausea. Continue antiemetics and supportive measures. Monitor vitals and electrolyte levels. Replace as needed.
--- NOTE | 2019-04-12 08:43 | EKG REPORT ---
SEVERITY:- ABNORMAL ECG - SINUS RHYTHM LVH WITH SECONDARY REPOLARIZATION ABNORMALITY BORDERLINE PROLONGED QT INTERVAL : Confirmed on behalf of: Donaldo Monahan MD 12-Apr-2019 08:42:53
[2019-04-12] MEDS: DOCUSATE SODIUM 100 MG CAPSULE PO SCH (09:55)
[2019-04-12] MEDS: ASPIRIN 81 MG TABLET, CHEWABLE PO SCH (09:55)
[2019-04-12] MEDS: FAMOTIDINE 20 MG TABLET PO SCH ×2 (09:55→21:11)
[2019-04-12] MEDS: AMLODIPINE BESYLATE 10 MG TABLET PO SCH (09:55)
[2019-04-12] MEDS: CARVEDILOL 12.5 MG TABLET PO SCH ×2 (09:55→21:11)
[2019-04-12] MEDS ORDERED: DOCUSATE SODIUM 100 MG/10 ML UDC PO SCH (10:00)
[2019-04-12] MEDS: HYDRALAZINE HCL 50 MG TABLET PO SCH ×2 (13:39→21:10)
[2019-04-12] MEDS ORDERED: HYDRALAZINE HCL 50 MG TABLET PO SCH (14:00)
[2019-04-12] MEDS: ATORVASTATIN CALCIUM 80 MG TABLET PO SCH (21:11)
[2019-04-13] MEDS ORDERED: CHLORPROMAZINE HCL INJ 25 MG/1 ML AMPULE IV PRN (03:23)
[2019-04-13] MEDS ORDERED: CHLORPROMAZINE HCL INJ 25 MG/1 ML AMPULE ONE (03:29)
[2019-04-13] MEDS ORDERED: CHLORPROMAZINE HCL INJ 25 MG/1 ML AMPULE IV ONE (03:30)
[2019-04-13] MEDS: HYDRALAZINE HCL 50 MG TABLET PO SCH ×3 (05:07→21:01)
[2019-04-13] MEDS: LABETALOL HCL INJ 20 MG/4 ML DISP.SYRIN IV PRN (05:07)
[2019-04-13] MEDS: HEPARIN SOD (PORCINE) 5,000 UNIT/ML 1 ML VIAL SUBCUT SCH ×3 (05:08→21:03)
[2019-04-13 05:55] LABS: ABSOLUTE BASOPHILS # (AUTO) 0.1 10^3/uL (0.0-0.2); ABSOLUTE LYMPHOCYTES (AUTO) 2.5 10^3/uL (0.5-4.7); ABSOLUTE MONOCYTES (AUTO) 0.5 10^3/uL (0.1-1.4); ABSOLUTE NEUT (AUTO) 2.5 10^3/uL (1.7-8.2); BASOPHILS % (AUTO) 1.2 % (0-2); EOSINOPHILS % (AUTO) 0.6 % (0-6); HEMATOCRIT 38.9 % (36.0-47.0); HEMOGLOBIN 12.9 g/dL (12.0-15.5); LYMPHOCYTES % (AUTO) 44.8 % (13-45); MEAN CORPUSCULAR HEMOGLOBIN 27.7 pg (27.0-33.4); MEAN CORPUSCULAR HGB CONC 33.2 g/dL (32.0-36.0); MEAN CORPUSCULAR VOLUME 83 fl (80-97); MONOCYTES % (AUTO) 9.4 % (3-13); PLATELET COUNT 151 10^3/uL (150-450); RED BLOOD COUNT 4.67 10^6/uL (3.72-5.28); RED CELL DISTRIBUTION WIDTH 15.7 % (11.5-14.0); TOTAL CELLS COUNTED % (AUTO) 100 %; WHITE BLOOD COUNT 5.7 10^3/uL (4.0-10.5)
[2019-04-13 06:33] LABS: ALBUMIN 3.7 g/dL (3.5-5.0); ALKALINE PHOSPHATASE 33 U/L (38-126); ANION GAP 11 (5-19); ASPARTATE AMINO TRANSFERASE 142 U/L (14-36); BILIRUBIN,DIRECT 0.5 mg/dL (0.0-0.4); BILIRUBIN,TOTAL 1.1 mg/dL (0.2-1.3); BLOOD UREA NITROGEN 43 mg/dL (7-20); CALCIUM 9.6 mg/dL (8.4-10.2); CARBON DIOXIDE 24 mmol/L (22-30); CHLORIDE 103 mmol/L (98-107); GLUCOSE 122 mg/dL (75-110); POTASSIUM 4.1 mmol/L (3.6-5.0); TOTAL PROTEIN 7.6 g/dL (6.3-8.2)
[2019-04-13] MEDS: DOCUSATE SODIUM 100 MG CAPSULE PO SCH (09:28)
[2019-04-13] MEDS: ASPIRIN 81 MG TABLET, CHEWABLE PO SCH (09:28)
[2019-04-13] MEDS: FAMOTIDINE 20 MG TABLET PO SCH ×2 (09:29→21:01)
[2019-04-13] MEDS: CARVEDILOL 12.5 MG TABLET PO SCH ×2 (09:29→21:01)
[2019-04-13] MEDS: AMLODIPINE BESYLATE 10 MG TABLET PO SCH (09:29)
--- NOTE | 2019-04-13 16:48 | PDOC PROGRESS REPORT ---
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 Patient has history of noncompliance and is stating that she ran out of her med ications and has not been able to get them refilled due to financial reasons. Denies any shortness of breath, chest pain, abdominal pain, new focal weakness, headache, diarrhea, constipation or any urinary symptoms. In ED a CT head was negative for any acute changes, EKG positive for left ventricular hypertrophy, and SBP was found to be in high 200s. She was given amlodipine, metoprolol and hydralazine with no resolution of her SBP's. Hospitalist was consulted for admission. 04/12/2019. No acute events overnight. Patient denies any fever, chills, nausea, vomiting, diarrhea, constipation or any urinary symptoms. His BP is not optimized. On admission patient told me that she could not afford buying her meds but as per health social work professor note she is able to do so. 04/13/2019. Overnight patient was agitated and was given Thorazine IV and unfortunately patient has been very somnolent throughout the day, arousable but falls back asleep. BPs are improved but not optimized. Reason For Visit: HYPERTENSIVE URGENCY Physical Exam Vital Signs: Temp Pulse Resp BP Pulse Ox 97.7 F 61 16 153/88 H 100 04/13/19 11:26 04/13/19 14:00 04/13/19 11:26 04/13/19 11:26 04/13/19 11:26 Intake & Output 04/12/19 04/13/19 04/14/19 06:59 06:59 06:59 Intake Total 460 580 0 Balance 460 580 0 Weight 49.6 kg 50.5 kg General appearance: PRESENT: no acute distress, well-developed, well-nourished, other - Somnolent but arousable. Respiratory exam: PRESENT: clear to auscultation bryan. ABSENT: rales, rhonchi, wheezes Cardiovascular exam: PRESENT: RRR. ABSENT: diastolic murmur, rubs, systolic murmur GI/Abdominal exam: PRESENT: normal bowel sounds, soft. ABSENT: distended, guarding, mass, organolmegaly, rebound, tenderness Neurological exam: PRESENT: other - Somnolent but arousable. Results Laboratory Results: 04/13/19 05:07 04/13/19 05:07 04/13/19 04/13/19 05:07 05:07 WBC 5.7 RBC 4.67 Hgb 12.9 Hct 38.9 MCV 83 MCH 27.7 MCHC 33.2 RDW 15.7 H Plt Count 151 Seg Neutrophils % 44.0 Sodium 137.8 Potassium 4.1 Chloride 103 Carbon Dioxide 24 Anion Gap 11 BUN 43 H Creatinine 2.38 H Est GFR ( Amer) 26 L Glucose 122 H Calcium 9.6 Magnesium 1.7 Total Bilirubin 1.1 AST 142 H Alkaline Phosphatase 33 L Total Protein 7.6 Albumin 3.7 04/11/19 04/11/19 12:30 12:30 Creatine Kinase 33 Troponin I 0.055 Impressions: Chest X-Ray 04/11/19 12:27 IMPRESSION: NO ACUTE FINDINGS. Assessment and Plan - Diagnosis (1) Hypertensive emergency Is this a current diagnosis for this admission?: Yes Plan: Improving but optimized. Her vision, nausea and vomiting has resolved. Hypertensive emergency evidenced by MARY, nausea vomiting and blurry vision. Medication nonadherence for financial reasons. As per pharmacy her last refill was August 2018. Home meds are: Amlodipine 10 mg p.o. daily. Hydralazine 100 mg p.o. 3 times daily. Lisinopril 40 mg p.o. twice daily. Lopressor 175 mg p.o. daily. Currently on: Amlodipine 10 mg p.o. daily. Carvedilol 25 mg p.o. twice daily. Hydralazine 100 mg p.o. 3 times daily. Continue PRN hydralazine and labetalol adjust meds as needed. Restart lisinopril once kidney function is stable. As per social workers note patient has Medicare and is able to provide her meds. (2) Hypertension Is this a current diagnosis for this admission?: Yes Plan: As above. (3) Acute kidney injury superimposed on CKD Is this a current diagnosis for this admission?: Yes Plan: Worsening creatinine level. Nonoliguric. Electrolytes WNL. Due to hypertensive emergency. Baseline 1.5. Optimize BP, monitor volume status, monitor electrolytes and replace as needed. BMP tomorrow. (4) Hyperlipidemia Is this a current diagnosis for this admission?: Yes Plan: Uncontrolled due to medication nonadherence. ASCVD score 77.5%. Started on atorvastatin 80 mg p.o. nightly. Diet and lifestyle modification recommended. (5) Hx of ischemic left MCA stroke Is this a current diagnosis for this admission?: Yes Plan: History of left MCA stroke with residual right upper and lower extremity hemiplegia and dysarthria. Denies any new neurological changes. Antiplatelets, high intensity statins, optimize BP, PT OT. (6) Nausea & vomiting Is this a current diagnosis for this admission?: Yes Plan: Likely due to #1. Resolved. Continue antiemetics and supportive measures. Monitor vitals and electrolyte levels. Replace as needed. (7) Somnolence Is this a current diagnosis for this admission?: Yes Plan: Most likely due to Thorazine. Patient was agitated last night and received 1 dose of IV Thorazine. Please avoid benzos or antipsychotics if possible. Continue supportive measures.
[2019-04-13] MEDS: ATORVASTATIN CALCIUM 80 MG TABLET PO SCH (21:01)
[2019-04-13] MEDS: CYCLOBENZAPRINE HCL 10 MG TABLET PO PRN (21:03)
[2019-04-14] MEDS: HEPARIN SOD (PORCINE) 5,000 UNIT/ML 1 ML VIAL SUBCUT SCH ×3 (05:14→22:24)
[2019-04-14] MEDS: HYDRALAZINE HCL 50 MG TABLET PO SCH ×3 (05:14→22:24)
[2019-04-14] MEDS: CYCLOBENZAPRINE HCL 10 MG TABLET PO PRN ×2 (05:14→22:24)
[2019-04-14] MEDS: AMLODIPINE BESYLATE 10 MG TABLET PO SCH (09:03)
[2019-04-14] MEDS: ASPIRIN 81 MG TABLET, CHEWABLE PO SCH (09:03)
[2019-04-14] MEDS: CARVEDILOL 12.5 MG TABLET PO SCH ×2 (09:03→22:24)
[2019-04-14] MEDS: FAMOTIDINE 20 MG TABLET PO SCH ×2 (09:03→22:24)
[2019-04-14] MEDS: DOCUSATE SODIUM 100 MG CAPSULE PO SCH (09:03)
[2019-04-14] MEDS ORDERED: NORMAL SALINE 1000 ML 1,000 ML IV ONE (10:30)
--- NOTE | 2019-04-14 15:04 | PDOC PROGRESS REPORT ---
Subjective Progress Note for:: 04/14/19 Subjective:: No adverse events overnight. No new complaints. Blood pressure has improved her creatinine is gotten worse and BUN is gone up. We tried to give her some IV fluids but she has refused. Reason For Visit: HYPERTENSIVE URGENCY Physical Exam Vital Signs: Temp Pulse Resp BP Pulse Ox 97.4 F 75 16 123/69 97 04/14/19 12:11 04/14/19 12:11 04/14/19 12:11 04/14/19 12:11 04/14/19 12:11 Intake & Output 04/13/19 04/14/19 04/15/19 06:59 06:59 06:59 Intake Total 580 0 Balance 580 0 Weight 50.5 kg 50 kg General appearance: PRESENT: no acute distress, disheveled Respiratory exam: PRESENT: clear to auscultation bryan, symmetrical, unlabored. ABSENT: accessory muscle use, chest wall tenderness, crackles, prolonged expiratory phas, rhonchi, tachypnea Cardiovascular exam: PRESENT: RRR, +S1, +S2 Pulses: PRESENT: normal carotid pulses Vascular exam: PRESENT: normal capillary refill GI/Abdominal exam: PRESENT: normal bowel sounds, soft. ABSENT: distended, guarding, rebound, tenderness Extremities exam: ABSENT: clubbing, pedal edema Musculoskeletal exam: PRESENT: normal inspection. ABSENT: deformity Neurological exam: PRESENT: awake, oriented to person, oriented to situation, other - Dysarthric Psychiatric exam: PRESENT: flat affect Skin exam: PRESENT: dry, warm Results Laboratory Results: 04/13/19 05:07 04/13/19 05:07 04/11/19 04/11/19 12:30 12:30 Creatine Kinase 33 Troponin I 0.055 Impressions: Chest X-Ray 04/11/19 12:27 IMPRESSION: NO ACUTE FINDINGS. Assessment and Plan - Diagnosis (1) Hypertensive emergency Is this a current diagnosis for this admission?: Yes Plan: Blood pressure now controlled, continue current medication regimen (2) Acute kidney injury superimposed on CKD Is this a current diagnosis for this admission?: Yes Plan: She looked to be a little dehydrated with her BUN and creatinine both going up. Encouraged her to take oral fluids, also recommended that she have some IV fluids but she has refused we will continue to try to encourage her let us give a little bit of IV fluids lest her kidneys deteriorate further - Time Time Spent with patient: 15-24 minutes
[2019-04-14] MEDS: TEMAZEPAM 7.5 MG CAPSULE PO PRN (22:24)
[2019-04-14] MEDS: ATORVASTATIN CALCIUM 80 MG TABLET PO SCH (22:24)
[2019-04-15] MEDS: HEPARIN SOD (PORCINE) 5,000 UNIT/ML 1 ML VIAL SUBCUT SCH ×3 (06:20→21:08)
[2019-04-15] MEDS: HYDRALAZINE HCL 50 MG TABLET PO SCH ×3 (06:20→21:09)
[2019-04-15] MEDS: AMLODIPINE BESYLATE 10 MG TABLET PO SCH (10:07)
[2019-04-15] MEDS: FAMOTIDINE 20 MG TABLET PO SCH ×2 (10:07→21:09)
[2019-04-15] MEDS: ASPIRIN 81 MG TABLET, CHEWABLE PO SCH (10:07)
[2019-04-15] MEDS: DOCUSATE SODIUM 100 MG CAPSULE PO SCH (10:07)
[2019-04-15] MEDS: CARVEDILOL 12.5 MG TABLET PO SCH ×2 (10:07→21:08)
[2019-04-15 10:33] LABS: ANION GAP 8 (5-19); BLOOD UREA NITROGEN 43 mg/dL (7-20); CARBON DIOXIDE 23 mmol/L (22-30); CHLORIDE 107 mmol/L (98-107); GLUCOSE 86 mg/dL (75-110); POTASSIUM 3.5 mmol/L (3.6-5.0)
--- NOTE | 2019-04-15 14:48 | PDOC PROGRESS REPORT ---
Subjective Progress Note for:: 04/15/19 Subjective:: No adverse events overnight. She refused to let us give her IV fluids yesterday. Her IV came out, our office because it went better because she pulled out, but she refused to let us start another one. She refused to work with physical therapy yesterday. Her creatinine has gone up again today. Reason For Visit: HYPERTENSIVE URGENCY Physical Exam Vital Signs: Temp Pulse Resp BP Pulse Ox 97.9 F 75 16 162/85 H 99 04/15/19 12:27 04/15/19 12:27 04/15/19 12:27 04/15/19 12:27 04/15/19 12:27 Intake & Output 04/14/19 04/15/19 04/16/19 06:59 06:59 06:59 Intake Total 0 410 Balance 0 410 Weight 50 kg 49.7 kg General appearance: PRESENT: no acute distress, disheveled Respiratory exam: PRESENT: clear to auscultation bryan, symmetrical, unlabored. ABSENT: accessory muscle use, chest wall tenderness, crackles, prolonged expiratory phas, rhonchi, tachypnea Cardiovascular exam: PRESENT: RRR, +S1, +S2 Pulses: PRESENT: normal carotid pulses Vascular exam: PRESENT: normal capillary refill GI/Abdominal exam: PRESENT: normal bowel sounds, soft. ABSENT: distended, guarding, rebound, tenderness Extremities exam: ABSENT: clubbing, pedal edema Musculoskeletal exam: PRESENT: normal inspection. ABSENT: deformity Neurological exam: PRESENT: awake, oriented to person, other - Dysarthric Psychiatric exam: PRESENT: flat affect Skin exam: PRESENT: dry, warm Results Laboratory Results: 04/13/19 05:07 04/15/19 09:34 04/15/19 09:34 Sodium 138.4 Potassium 3.5 L Chloride 107 Carbon Dioxide 23 Anion Gap 8 BUN 43 H Creatinine 2.46 H Est GFR ( Amer) 25 L Glucose 86 Calcium 9.0 04/11/19 04/11/19 12:30 12:30 Creatine Kinase 33 Troponin I 0.055 Impressions: Chest X-Ray 04/11/19 12:27 IMPRESSION: NO ACUTE FINDINGS. Assessment and Plan - Diagnosis (1) Hypertensive emergency Is this a current diagnosis for this admission?: Yes Plan: Her blood pressures not great but is not as high as it was. She at least took her oral medication today. We may need to adjust her regimen somewhat. (2) Acute kidney injury superimposed on CKD Is this a current diagnosis for this admission?: Yes Plan: Try to give her some IV fluid yesterday but that did not happen as noted above. I am meeting with 1 of her daughters today to talk about her plan of care. - Time Time Spent with patient: 15-24 minutes
[2019-04-15] MEDS: TEMAZEPAM 7.5 MG CAPSULE PO PRN (21:08)
[2019-04-15] MEDS: ATORVASTATIN CALCIUM 80 MG TABLET PO SCH (21:08)
[2019-04-15] MEDS: CYCLOBENZAPRINE HCL 10 MG TABLET PO PRN (21:09)
[2019-04-16] MEDS: HYDRALAZINE HCL 50 MG TABLET PO SCH ×3 (06:01→21:59)
[2019-04-16] MEDS: HEPARIN SOD (PORCINE) 5,000 UNIT/ML 1 ML VIAL SUBCUT SCH ×3 (06:01→22:00)
[2019-04-16 10:06] LABS: ABSOLUTE BASOPHILS # (AUTO) 0.1 10^3/uL (0.0-0.2); ABSOLUTE EOSINOPHILS # (AUTO) 0.1 10^3/uL (0.0-0.6); ABSOLUTE MONOCYTES (AUTO) 0.6 10^3/uL (0.1-1.4); ABSOLUTE NEUT (AUTO) 2.2 10^3/uL (1.7-8.2); HEMATOCRIT 35.3 % (36.0-47.0); HEMOGLOBIN 11.7 g/dL (12.0-15.5); MEAN CORPUSCULAR HEMOGLOBIN 28.2 pg (27.0-33.4); MEAN CORPUSCULAR VOLUME 85 fl (80-97); TOTAL CELLS COUNTED % (AUTO) 100 %; WHITE BLOOD COUNT 5.4 10^3/uL (4.0-10.5)
[2019-04-16] MEDS: CARVEDILOL 12.5 MG TABLET PO SCH ×2 (10:12→22:00)
[2019-04-16] MEDS: AMLODIPINE BESYLATE 10 MG TABLET PO SCH (10:13)
[2019-04-16] MEDS: FAMOTIDINE 20 MG TABLET PO SCH ×2 (10:13→22:00)
--- NOTE | 2019-04-16 10:13 | PDOC PROGRESS REPORT ---
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 Patient has history of noncompliance and is stating that she ran out of her med ications and has not been able to get them refilled due to financial reasons. Denies any shortness of breath, chest pain, abdominal pain, new focal weakness, headache, diarrhea, constipation or any urinary symptoms. In ED a CT head was negative for any acute changes, EKG positive for left ventricular hypertrophy, and SBP was found to be in high 200s. She was given amlodipine, metoprolol and hydralazine with no resolution of her SBP's. Hospitalist was consulted for admission. 04/12/2019. No acute events overnight. Patient denies any fever, chills, nausea, vomiting, diarrhea, constipation or any urinary symptoms. His BP is not optimized. On admission patient told me that she could not afford buying her meds but as per public health social worker note she is able to do so. 04/13/2019. Overnight patient was agitated and was given Thorazine IV and unfortunately patient has been very somnolent throughout the day, arousable but falls back asleep. BPs are improved but not optimized. 04/14/2019. No acute events overnight. Patient is comfortably resting in bed having her breakfast, in no apparent distress, denies any fever, chills, nausea, vomiting, diarrhea, constipation or any urinary symptoms. I have asked patient about her disposition and she would like to go home with her daughter. Reason For Visit: HYPERTENSIVE URGENCY Physical Exam Vital Signs: Temp Pulse Resp BP Pulse Ox 97.4 F 82 16 158/82 H 98 04/16/19 04:12 04/16/19 07:00 04/16/19 04:12 04/16/19 04:12 04/16/19 04:12 Intake & Output 04/15/19 04/16/19 04/17/19 06:59 06:59 06:59 Intake Total 410 360 260 Balance 410 360 260 Weight 49.7 kg 49.5 kg General appearance: PRESENT: no acute distress, well-developed, well-nourished Respiratory exam: PRESENT: clear to auscultation bryan. ABSENT: rales, rhonchi, wheezes Pulses: PRESENT: normal dorsalis pedis pul GI/Abdominal exam: PRESENT: normal bowel sounds, soft. ABSENT: distended, guarding, mass, organolmegaly, rebound, tenderness Neurological exam: PRESENT: alert, awake, oriented to person, oriented to place, oriented to time, oriented to situation, CN II-XII grossly intact, motor sensory deficit - Right upper lower extremity spastic paresis due to chronic CVA. No acute changes., other - Dysarthria. Chronic. Results Laboratory Results: 04/15/19 09:34 Sodium 138.4 Potassium 3.5 L Chloride 107 Carbon Dioxide 23 Anion Gap 8 BUN 43 H Creatinine 2.46 H Est GFR ( Amer) 25 L Glucose 86 Calcium 9.0 04/11/19 04/11/19 12:30 12:30 Creatine Kinase 33 Troponin I 0.055 Impressions: Chest X-Ray 04/11/19 12:27 IMPRESSION: NO ACUTE FINDINGS. Assessment and Plan - Diagnosis (1) Hypertensive emergency Is this a current diagnosis for this admission?: Yes Plan: Improving but optimized. Her vision, nausea and vomiting has resolved. Hypertensive emergency evidenced by MARY, nausea vomiting and blurry vision. Medication nonadherence for financial reasons. As per pharmacy her last refill was August 2018. Home meds are: Amlodipine 10 mg p.o. daily. Hydralazine 100 mg p.o. 3 times daily. Lisinopril 40 mg p.o. twice daily. Lopressor 175 mg p.o. daily. Currently on: Amlodipine 10 mg p.o. daily. Carvedilol 25 mg p.o. twice daily. Hydralazine 100 mg p.o. 3 times daily. Continue PRN hydralazine and labetalol adjust meds as needed. Not a candidate for AUBREY and Lasix or HCTZ due to worsening kidney function. We will start on minoxidil 2.5 daily. As patient has resistant hypertension not a candidate for AUBREY, Lasix or HCTZ at this point due to worsening renal function will start on minoxidil as it is once daily dosage. Patient can follow-up with PCP and nephrology and reconciled her meds based on her renal function. As per social workers note patient has Medicare and is able to provide her meds. (2) Hypertension Is this a current diagnosis for this admission?: Yes Plan: As above. (3) Acute kidney injury superimposed on CKD Is this a current diagnosis for this admission?: Yes Plan: Worsening creatinine level. Nonoliguric. Electrolytes WNL. Due to hypertensive emergency low p.o. intake and in the hospital. Refused IV fluids yesterday. Baseline 1.5. Optimize BP, monitor volume status, monitor electrolytes and replace as needed. BMP tomorrow. (4) Hyperlipidemia Is this a current diagnosis for this admission?: Yes Plan: Uncontrolled due to medication nonadherence. ASCVD score 77.5%. Started on atorvastatin 80 mg p.o. nightly. Diet and lifestyle modification recommended. (5) Hx of ischemic left MCA stroke Is this a current diagnosis for this admission?: Yes Plan: History of left MCA stroke with residual right upper and lower extremity hemiplegia and dysarthria. Denies any new neurological changes. Antiplatelets, high intensity statins, optimize BP, PT OT. (6) Nausea & vomiting Is this a current diagnosis for this admission?: Yes Plan: Likely due to #1. Resolved. Continue antiemetics and supportive measures. Monitor vitals and electrolyte levels. Replace as needed. (7) Somnolence Is this a current diagnosis for this admission?: Yes Plan: Resolved. Back to baseline. Most likely due to Thorazine. Patient was agitated last night and received 1 dose of IV Thorazine. Please avoid benzos or antipsychotics if possible. Continue supportive measures.
[2019-04-16] MEDS: DOCUSATE SODIUM 100 MG CAPSULE PO SCH (10:14)
[2019-04-16] MEDS: MINOXIDIL 2.5 MG TABLET PO SCH (10:14)
[2019-04-16] MEDS: ASPIRIN 81 MG TABLET, CHEWABLE PO SCH (10:14)
[2019-04-16 10:17] LABS: ABSOLUTE LYMPHOCYTES (AUTO) 2.5 10^3/uL (0.5-4.7); BASOPHILS % (AUTO) 1.2 % (0-2); EOSINOPHILS % (AUTO) 1.8 % (0-6); LYMPHOCYTES % (AUTO) 46.4 % (13-45); MEAN CORPUSCULAR HGB CONC 33.2 g/dL (32.0-36.0); MONOCYTES % (AUTO) 10.8 % (3-13); PLATELET COUNT 162 10^3/uL (150-450); RED BLOOD COUNT 4.17 10^6/uL (3.72-5.28); RED CELL DISTRIBUTION WIDTH 15.6 % (11.5-14.0); SEGMENTED NEUTROPHILS % (AUTO) 39.8 % (42-78)
[2019-04-16 10:22] LABS: ALBUMIN 3.1 g/dL (3.5-5.0); ALKALINE PHOSPHATASE 45 U/L (38-126); ANION GAP 12 (5-19); ASPARTATE AMINO TRANSFERASE 90 U/L (14-36); BILIRUBIN,DIRECT 0.5 mg/dL (0.0-0.4); BILIRUBIN,TOTAL 0.6 mg/dL (0.2-1.3); BLOOD UREA NITROGEN 39 mg/dL (7-20); CALCIUM 7.9 mg/dL (8.4-10.2); CARBON DIOXIDE 18 mmol/L (22-30); CHLORIDE 108 mmol/L (98-107); GLUCOSE 221 mg/dL (75-110); POTASSIUM 3.7 mmol/L (3.6-5.0); TOTAL PROTEIN 6.2 g/dL (6.3-8.2)
[2019-04-16] MEDS: ATORVASTATIN CALCIUM 80 MG TABLET PO SCH (21:59)
[2019-04-17 05:17] LABS: ANION GAP 7 (5-19); BLOOD UREA NITROGEN 37 mg/dL (7-20); CALCIUM 8.5 mg/dL (8.4-10.2); CARBON DIOXIDE 24 mmol/L (22-30); CHLORIDE 110 mmol/L (98-107); GLUCOSE 123 mg/dL (75-110); POTASSIUM 3.7 mmol/L (3.6-5.0)
[2019-04-17] MEDS: HYDRALAZINE HCL 50 MG TABLET PO SCH ×2 (05:51→14:03)
[2019-04-17] MEDS: HEPARIN SOD (PORCINE) 5,000 UNIT/ML 1 ML VIAL SUBCUT SCH ×2 (05:52→14:03)
[2019-04-17] MEDS: CARVEDILOL 12.5 MG TABLET PO SCH (09:21)
[2019-04-17] MEDS: ASPIRIN 81 MG TABLET, CHEWABLE PO SCH (09:21)
[2019-04-17] MEDS: DOCUSATE SODIUM 100 MG CAPSULE PO SCH (09:21)
[2019-04-17] MEDS: FAMOTIDINE 20 MG TABLET PO SCH (09:22)
[2019-04-17] MEDS: AMLODIPINE BESYLATE 10 MG TABLET PO SCH (09:22)
[2019-04-17] MEDS: MINOXIDIL 2.5 MG TABLET PO SCH (09:22)
--- NOTE | 2019-04-17 14:13 | PDOC DISCHARGE SUMMARY ---
Impression - Admit/DC Date/PCP Admission Date/Primary Care Provider: 04/14/19 11:30 Discharge Date: 04/17/19 - Discharge Diagnosis (1) Hypertensive emergency Is this a current diagnosis for this admission?: Yes (2) Hypertension Is this a current diagnosis for this admission?: Yes (3) Acute kidney injury superimposed on CKD Is this a current diagnosis for this admission?: Yes (4) Hyperlipidemia Is this a current diagnosis for this admission?: Yes (5) Hx of ischemic left MCA stroke Is this a current diagnosis for this admission?: Yes (6) Nausea & vomiting Is this a current diagnosis for this admission?: Yes (7) Somnolence Is this a current diagnosis for this admission?: Yes - Additional Information Resuscitation Status: Full Code Discharge Diet: Cardiac Discharge Activity: Activity As Tolerated Referrals: BRIJESH RUIZ MD [ACTIVE STAFF] - KATALINA ROB FNP-C [COMMUNITY BASED STAFF] - Prescriptions: Aspirin [Aspirin 81 mg Chewable Tablet] 81 mg PO DAILY 30 Days #30 tab.chew Baclofen [Baclofen 10 mg Tablet] 10 mg PO TID 30 Days #90 tablet Carvedilol [Coreg 25 mg Tablet] 1 tab PO Q12 30 Days #60 tab Hydralazine HCl 100 mg PO Q8 30 Days #90 tablet Atorvastatin Calcium [Lipitor 80 mg Tablet] 80 mg PO QHS 30 Days #30 tablet Minoxidil [Loniten 2.5 mg Tablet] 2.5 mg PO DAILY 30 Days #30 tablet Amlodipine Besylate [Norvasc 10 mg Tablet] 10 mg PO DAILY 30 Days #30 tablet Home Medications: Amlodipine Besylate [Norvasc 10 mg Tablet] 10 mg PO DAILY 30 Days #30 tablet 04/17/19 Aspirin [Aspirin 81 mg Chewable Tablet] 81 mg PO DAILY 30 Days #30 tab.chew 04/17/19 Atorvastatin Calcium [Lipitor 80 mg Tablet] 80 mg PO QHS 30 Days #30 tablet 04/17/19 Baclofen [Baclofen 10 mg Tablet] 10 mg PO TID 30 Days #90 tablet 04/17/19 Carvedilol [Coreg 25 mg Tablet] 1 tab PO Q12 30 Days #60 tab 04/17/19 Hydralazine HCl 100 mg PO Q8 30 Days #90 tablet 04/17/19 Minoxidil [Loniten 2.5 mg Tablet] 2.5 mg PO DAILY 30 Days #30 tablet 04/17/19 History of Present Illiness History of Present Illness: ADY MCGEE is a 58 year old female past medical history of 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 Patient has history of noncompliance and is stating that she ran out of her medications and has not been able to get them refilled due to financial reasons. Denies any shortness of breath, chest pain, abdominal pain, new focal weakness, headache, diarrhea, constipation or any urinary symptoms. In ED a CT head was negative for any acute changes, EKG positive for left ventricular hypertrophy, and SBP was found to be in high 200s. She was given amlodipine, metoprolol and hydralazine with no resolution of her SBP's. Hospitalist was consulted for admission. Hospital Course Hospital Course: (1) Hypertensive emergency Resolved. Hypertensive emergency evidenced by MARY, nausea vomiting and blurry vision. Medication nonadherence for financial reasons. As per pharmacy her last refill was August 2018. Home meds are: Amlodipine 10 mg p.o. daily. Hydralazine 100 mg p.o. 3 times daily. Lisinopril 40 mg p.o. twice daily. Lopressor 175 mg p.o. daily. Currently on: Amlodipine 10 mg p.o. daily. Carvedilol 25 mg p.o. twice daily. Hydralazine 100 mg p.o. 3 times daily. Minoxidil 2.5 mg p.o. daily. Was discharged home on the above medications. (2) Hypertension As above. (3) Acute kidney injury superimposed on CKD Stable. Creatinine 2.2. Baseline 1.5. Nonoliguric. Electrolytes WNL. Likely due to hypertensive emergency low p.o. intake and in the hospital. Refused IV fluids yesterday. Advised on fluid intake, an appointment will be made for her to follow-up with Dr. Ruiz as outpatient. Patient advised on avoiding nephrotoxic meds. (4) Hyperlipidemia Uncontrolled due to medication nonadherence. ASCVD score 77.5%. Started on atorvastatin 80 mg p.o. nightly. Diet and lifestyle modification recommended. Was discharged on atorvastatin 80 mg p.o. nightly. (5) Hx of ischemic left MCA stroke History of left MCA stroke with residual right upper and lower extremity hemiplegia and dysarthria. Denies any new neurological changes. Started on antiplatelets, high intensity statins, optimize BP, PT OT. Charge home on home PT, home OT, home health and nursing. (6) Nausea & vomiting Likely due to #1. Resolved. Was a started on antiemetics and supportive measures. Monitor vitals and electrolyte levels. Replace as needed. (7) Somnolence Resolved. Back to baseline. Most likely due to Thorazine. Physical Exam Vital Signs: Temp Pulse Resp BP Pulse Ox 97.6 F 89 17 148/86 H 97 04/17/19 14:09 04/17/19 14:09 04/17/19 14:09 04/17/19 14:09 04/17/19 14:09 Intake & Output 04/16/19 04/17/19 04/18/19 06:59 06:59 06:59 Intake Total 360 620 Balance 360 620 Weight 49.5 kg 49.7 kg General appearance: PRESENT: no acute distress, well-developed, well-nourished Respiratory exam: PRESENT: clear to auscultation bryan. ABSENT: rales, rhonchi, wheezes Cardiovascular exam: PRESENT: RRR. ABSENT: diastolic murmur, rubs, systolic murmur GI/Abdominal exam: PRESENT: normal bowel sounds, soft. ABSENT: distended, guarding, mass, organolmegaly, rebound, tenderness Neurological exam: PRESENT: alert, awake, oriented to person, oriented to place, CN II-XII grossly intact, motor sensory deficit - Dysarthria. Spastic paresis of the right upper lower extremities. Results Laboratory Results: WBC 5.4 10^3/uL (4.0-10.5) 04/16/19 09:47 RBC 4.17 10^6/uL (3.72-5.28) 04/16/19 09:47 Hgb 11.7 g/dL (12.0-15.5) L 04/16/19 09:47 Hct 35.3 % (36.0-47.0) L 04/16/19 09:47 MCV 85 fl (80-97) 04/16/19 09:47 MCH 28.2 pg (27.0-33.4) 04/16/19 09:47 MCHC 33.2 g/dL (32.0-36.0) 04/16/19 09:47 RDW 15.6 % (11.5-14.0) H 04/16/19 09:47 Plt Count 162 10^3/uL (150-450) 04/16/19 09:47 Lymph % (Auto) 46.4 % (13-45) H 04/16/19 09:47 [place] % (Auto) 10.8 % (3-13) 04/16/19 09:47 Eos % (Auto) 1.8 % (0-6) 04/16/19 09:47 Baso % (Auto) 1.2 % (0-2) 04/16/19 09:47 Absolute Neuts (auto) 2.2 10^3/uL (1.7-8.2) 04/16/19 09:47 Absolute Lymphs (auto) 2.5 10^3/uL (0.5-4.7) 04/16/19 09:47 Absolute Monos (auto) 0.6 10^3/uL (0.1-1.4) 04/16/19 09:47 Absolute Eos (auto) 0.1 10^3/uL (0.0-0.6) 04/16/19 09:47 Absolute Basos (auto) 0.1 10^3/uL (0.0-0.2) 04/16/19 09:47 Seg Neutrophils % 39.8 % (42-78) L 04/16/19 09:47 Sodium 140.5 mmol/L (137-145) 04/17/19 04:16 Potassium 3.7 mmol/L (3.6-5.0) 04/17/19 04:16 Chloride 110 mmol/L (98-107) H 04/17/19 04:16 Carbon Dioxide 24 mmol/L (22-30) 04/17/19 04:16 Anion Gap 7 (5-19) 04/17/19 04:16 BUN 37 mg/dL (7-20) H 04/17/19 04:16 Creatinine 2.22 mg/dL (0.52-1.25) H 04/17/19 04:16 Est GFR ( Amer) 28 (>60) L 04/17/19 04:16 Est GFR (MDRD) Non-Af 23 (>60) L 04/17/19 04:16 Glucose 123 mg/dL (75-110) H 04/17/19 04:16 POC Glucose 119 mg/dL (70-110) H 04/14/19 11:18 Hemoglobin A1c % 6.0 % (4.7-6.0) 04/11/19 12:30 Calcium 8.5 mg/dL (8.4-10.2) 04/17/19 04:16 Magnesium 1.7 mg/dL (1.6-2.3) 04/13/19 05:07 Total Bilirubin 0.6 mg/dL (0.2-1.3) 04/16/19 09:47 Direct Bilirubin 0.5 mg/dL (0.0-0.4) H 04/16/19 09:47 Neonat Total Bilirubin Not Reportable 04/16/19 09:47 Neonat Direct Bilirubin Not Reportable 04/16/19 09:47 Neonat Indirect Bili Not Reportable 04/16/19 09:47 AST 90 U/L (14-36) H 04/16/19 09:47 ALT 53 U/L (<35) 04/16/19 09:47 Alkaline Phosphatase 45 U/L (38-126) 04/16/19 09:47 Creatine Kinase 33 U/L (30-135) 04/11/19 12:30 Troponin I 0.055 ng/mL 04/11/19 12:30 Total Protein 6.2 g/dL (6.3-8.2) L 04/16/19 09:47 Albumin 3.1 g/dL (3.5-5.0) L 04/16/19 09:47 Triglycerides 322 mg/dL (<150) H 04/11/19 12:30 Cholesterol 312.56 mg/dL (0-200) H 04/11/19 12:30 LDL Cholesterol Direct 172 mg/dL (<100) H 04/11/19 12:30 VLDL Cholesterol 64.4 mg/dL (10-31) H 04/11/19 12:30 HDL Cholesterol 42 mg/dL (>40) 04/11/19 12:30 TSH 2.43 uIU/mL (0.47-4.68) 04/12/19 04:17 Urine Color YELLOW 04/11/19 14:20 Urine Appearance SLIGHTLY-CLOUDY 04/11/19 14:20 Urine pH 6.0 (5.0-9.0) 04/11/19 14:20 Ur Specific [place] 1.014 04/11/19 14:20 Urine Protein >=500 mg/dL (NEGATIVE) H 04/11/19 14:20 Urine Glucose (UA) NEGATIVE mg/dL (NEGATIVE) 04/11/19 14:20 Urine Ketones NEGATIVE mg/dL (NEGATIVE) 04/11/19 14:20 Urine Blood MODERATE (NEGATIVE) H 04/11/19 14:20 Urine Nitrite NEGATIVE (NEGATIVE) 04/11/19 14:20 Urine Bilirubin NEGATIVE (NEGATIVE) 04/11/19 14:20 Urine Urobilinogen NEGATIVE mg/dL (<2.0) 04/11/19 14:20 Ur Leukocyte Esterase SMALL (NEGATIVE) H 04/11/19 14:20 Urine RBC 1-5 /HPF 04/11/19 14:20 Urine WBC 1-5 /HPF 04/11/19 14:20 Ur Squamous Epith Cells MANY /HPF 04/11/19 14:20 Urine Ascorbic Acid NEGATIVE (NEGATIVE) 04/11/19 14:20 04/11/19 12:30 Troponin I 0.055 Impressions: Head CT 04/11/19 00:00 IMPRESSION: Chronic changes. No acute abnormality. EVIDENCE OF ACUTE STROKE: NO. Chest X-Ray 04/11/19 12:27 IMPRESSION: NO ACUTE FINDINGS. Plan Health Concerns: Medication noncompliance. Stroke Is this a Stroke Patient?: No Acute Heart Failure - Is this a Heart Failure Patient?: No
[2019-04-17 15:29] VITALS: BP 117/66
== END 2019-04-17 17:06 | disposition home health service (06) | DRG 305 ==
LOC: ER 12:06 → EH 14:45 → INTOOBSV 14:45 → 3W 16:19 → OBSVTOIN 04-14 11:30
PROVIDERS: ADMIT Internal Medicine; ATTEND Internal Medicine
PROC: 3E0234Z Introduction of Serum, Toxoid and Vaccine into Muscle, Percutaneous Approach (ICD-10-PCS; principal; 2019-04-17)
DX: I16.1 Hypertensive emergency (principal); N17.9 Acute kidney failure, unspecified; I69.951 Hemiplegia and hemiparesis following unspecified cerebrovascular disease affecting right dominant side; R11.2 Nausea with vomiting, unspecified; I12.9 Hypertensive chronic kidney disease with stage 1 through stage 4 chronic kidney disease, or unspecified chronic kidney disease; N18.9 Chronic kidney disease, unspecified; R47.1 Dysarthria and anarthria; E11.8 Type 2 diabetes mellitus with unspecified complications; E78.5 Hyperlipidemia, unspecified; F60.3 Borderline personality disorder; Z91.14 Patient's other noncompliance with medication regimen; Z59.9 Problem related to housing and economic circumstances, unspecified; Z23 Encounter for immunization
CPT/HCPCS: 36415; 70450; 71045; 80048; 80053; 80061; 81001; 82550; 82962; 83036; 83735; 84443; 84484; 85025; 90686; 93005; 93010; 96374; 99285; G0378; J0360; J1644; J1940; J3230; J3490; J7030

== ENCOUNTER 2019-05-06 20:49 | Inpatient (IN) | payer MEDICAID ==
[2019-05-06] MEDS ORDERED: LABETALOL HCL INJ 20 MG/4 ML DISP.SYRIN IV ONE (22:11)
[2019-05-06 22:21] LABS: ABSOLUTE BASOPHILS # (AUTO) 0.1 10^3/uL (0.0-0.2); ABSOLUTE EOSINOPHILS # (AUTO) 0.1 10^3/uL (0.0-0.6); ABSOLUTE LYMPHOCYTES (AUTO) 2.5 10^3/uL (0.5-4.7); ABSOLUTE MONOCYTES (AUTO) 0.6 10^3/uL (0.1-1.4); ABSOLUTE NEUT (AUTO) 5.2 10^3/uL (1.7-8.2); BASOPHILS % (AUTO) 1.2 % (0-2); EOSINOPHILS % (AUTO) 1.3 % (0-6); HEMATOCRIT 41.3 % (36.0-47.0); HEMOGLOBIN 13.2 g/dL (12.0-15.5); LYMPHOCYTES % (AUTO) 29.4 % (13-45); MEAN CORPUSCULAR HEMOGLOBIN 27.7 pg (27.0-33.4); MEAN CORPUSCULAR VOLUME 87 fl (80-97); MONOCYTES % (AUTO) 7.1 % (3-13); PLATELET COUNT 270 10^3/uL (150-450); RED BLOOD COUNT 4.77 10^6/uL (3.72-5.28); RED CELL DISTRIBUTION WIDTH 15.7 % (11.5-14.0); TOTAL CELLS COUNTED % (AUTO) 100 %; WHITE BLOOD COUNT 8.5 10^3/uL (4.0-10.5)
[2019-05-06] MEDS ORDERED: ZIPRASIDONE MESYLATE INJ/PF 20 MG SDV IM ONE (22:23)
[2019-05-06 22:34] LABS: ACETAMINOPHEN < 10 ug/mL (10-30); ALCOHOL < 10 mg/dL (NONE DETECTED); ALKALINE PHOSPHATASE 28 U/L (38-126); ANION GAP 11 (5-19); ASPARTATE AMINO TRANSFERASE 85 U/L (14-36); BILIRUBIN,DIRECT 0.4 mg/dL (0.0-0.4); BILIRUBIN,TOTAL 0.8 mg/dL (0.2-1.3); BLOOD UREA NITROGEN 30 mg/dL (7-20); CALCIUM 9.8 mg/dL (8.4-10.2); CARBON DIOXIDE 26 mmol/L (22-30); CHLORIDE 111 mmol/L (98-107); GLUCOSE 120 mg/dL (75-110); POTASSIUM 3.7 mmol/L (3.6-5.0); SALICYLATE < 1.0 mg/dL (2.0-20.0); TOTAL PROTEIN 8.3 g/dL (6.3-8.2)
[2019-05-06] MEDS ORDERED: 1/2 NORMAL SALINE 1,000 ML IV ONE (23:58)
--- NOTE | 2019-05-07 00:10 | RADIOLOGY REPORT (SQ) ---
EXAM DESCRIPTION: CT HEAD WITHOUT IV CONTRAST COMPLETED DATE/TME: 05/06/2019 22:08 CLINICAL HISTORY: 58 years, Female, altered mental status COMPARISON: 04/11/2019 CT TECHNIQUE: 192 Images stored on PACS. All CT scanners at this facility use dose modulation, iterative reconstruction, and/or weight based dosing when appropriate to reduce radiation dose to as low as reasonably achievable (ALARA). [facility]: Dose Right [facility]: CareDose [facility]: Dose Right [facility]: Teradose 4D [facility]: [employer] LIMITATIONS: None. FINDINGS: The globes are intact. The paranasal sinuses and mastoid air cells are unremarkable. No displaced or depressed skull fracture. No intra or extra-axial hemorrhage. CT is limited for evaluation of acute infarct. No CT evidence for large or territorial acute infarct. Remote lacunar infarcts of the basal ganglia bilaterally. Remote area of infarct in the medial left occipital lobe. Diffuse atrophy and small vessel ischemic change. No mass or midline shift IMPRESSION: Atrophy with small vessel ischemic change. Remote areas of infarct, as above TECHNICAL DOCUMENTATION: Quality ID # 436: Final reports with documentation of one or more dose reduction techniques (e.g., Automated exposure control, adjustment of the mA and/or kV according to patient size, use of iterative reconstruction technique) copyright 2011 [employer]- All Rights Reserved
[2019-05-07] MEDS ORDERED: HYDRALAZINE HCL INJ/PF 20 MG/1 ML SDV IV ONE (00:45)
[2019-05-07] MEDS ORDERED: AMLODIPINE BESYLATE 10 MG TABLET PO ONE ×2 (03:33→19:00)
[2019-05-07] MEDS ORDERED: HYDRALAZINE HCL 50 MG TABLET PO ONE ×2 (03:33→19:00)
[2019-05-07] MEDS ORDERED: CARVEDILOL 12.5 MG TABLET PO ONE ×2 (03:34→19:00)
[2019-05-07 03:51] LABS: APPEARANCE,URINE SLIGHTLY-CLOUDY; BILIRUBIN,URINE NEGATIVE (NEGATIVE); COLOR,URINE YELLOW; GLUCOSE, URINE NEGATIVE (NEGATIVE); KETONES,URINE NEGATIVE (NEGATIVE); LEUKOCYTE ESTERASE,URINE MODERATE (NEGATIVE); NITRITE,URINE NEGATIVE (NEGATIVE); PROTEIN,URINE >=500 mg/dL (NEGATIVE); URINE SPECIFIC GRAVITY 1.018
[2019-05-07] MEDS ORDERED: NICARDIPINE HCL RTU, ISO-OS 20 MG/200 ML RTUINJ IV PRN ×2 (03:54→04:55)
--- NOTE | 2019-05-07 04:09 | ER Document Report ---
ED General - General Chief Complaint: Altered Mental Status Stated Complaint: PSYCH ISSUE Time Seen by Provider: 05/06/19 21:56 TRAVEL OUTSIDE OF THE [place] IN LAST 30 DAYS: No - HPI Notes: Patient is a 58-year-old female with an extensive medical history, including significant hypertension, renal insufficiency, medication noncompliance, and stroke with right-sided hemiplegia, who presents emergency department for evaluation of altered mental status. This is via EMS. Evidently no family members were coming to the emergency department, and the patient can offer me no meaningful history. I did review history in the computer, evidently she was able to communicate. At this point she is unable to tell me any history at all. - Related Data Allergies/Adverse Reactions: haloperidol [From Haldol] Allergy (Verified 10/21/17 15:59) hyperactive haloperidol lactate [From Haldol] Allergy (Verified 10/21/17 15:59) Past Medical History - General Information source: Emergency Med Personnel, [facility] Records - Social History Smoking Status: Unknown if Ever Smoked Family History: Reviewed & Not Pertinent, CAD Patient has suicidal ideation: No Patient has homicidal ideation: No - Past Medical History Cardiac Medical History: Reports: Hx Hypertension - medicated Denies: Hx Heart Attack Pulmonary Medical History: Denies: Hx Asthma, Hx Bronchitis, Hx Pneumonia Neurological Medical History: Reports: Hx Cerebrovascular Accident - Residual right-sided weakness. Denies: Hx Seizures Endocrine Medical History: Reports: Hx Diabetes Mellitus Type 2 Renal/ Medical History: Denies: Hx Peritoneal Dialysis GI Medical History: Denies: Hx Hepatitis, Hx Hiatal Hernia, Hx Ulcer Musculoskeletal Medical History: Denies Hx Arthritis Psychiatric Medical History: Reports: Hx Schizophrenia Denies: Hx Depression Infectious Medical History: Denies: Hx Hepatitis Past Surgical History: Reports: Hx Cholecystectomy, Hx Orthopedic Surgery. Denies: Hx Hysterectomy, Hx Mastectomy, Hx Open Heart Surgery, Hx Pacemaker - Immunizations Hx Diphtheria, Pertussis, Tetanus Vaccination: Yes Review of Systems - Review of Systems -: Yes ROS unobtainable due to patient's medical condition Physical Exam - Vital signs Vitals: Pulse Resp BP Pulse Ox 107 H 17 212/116 H 99 05/06/19 20:50 05/06/19 20:50 05/06/19 20:50 05/06/19 20:50 - Notes Notes: This is a 58-year-old female who appears older than her stated age. She is frail. She is actively moaning out. Her right arm is contracted against her b brandi. She cannot answer any questions. She opens her eyes spontaneously. Head is normocephalic and atraumatic, pupils are equal round, reactive to light. Oral mucosa is moist. Heart is regular, lungs are clear station bilaterally. Abdomen soft, nontender, normoactive bowel sounds. Skin is warm and dry. Peripheral pulses are equal. Extremity without cyanosis or clubbing. No posterior calf tenderness is appreciated. Patient moans intermittently, but is unable to answer any questions, does not speak. She is only intermittently able to follow commands. She rolls around in the bed, it is difficult to tell whether or not her right lower extremity is moving actively or passively. She i s actively kicking her left lower extremity intermittently. Course - Re-evaluation Re-evalutation: 05/07/19 04:06 Patient presents emergency department for evaluation. She has a known history of hypertension as well as medication noncompliance. She was medicated with labetalol, then hydralazine. She did intermittent improvements in her blood pressure with these medications. CT scan of the head, laboratory investigations were ordered. She does have some mild hyponatremia. She is given a liter of half-normal saline. We did have some difficulty obtaining urinalysis. Patient had only 1 cc of urine on initial catheterization, this was the same with second catheterization an hour later. Patient finally responded to fluids and a sufficient amount of urine was obtained. Urinalysis does show large leukocyte esterase. She was administered IV Rocephin, blood cultures were obtained. Urine sent for culture. Unfortunately, I do not suspect that the significant change in her mental status is not only secondary to urinary tract infection. I am concerned that she does have a hypertensive encephalopathy. She only resp onded moderately and temporarily to IV medications administered here. She started on a Cardene drip, and I consulted OPENER Lynette Valencia, commercial account executive on overnight for Dr. Petty. Patient will be admitted to the ICU for further care. - Vital Signs Vital signs: Temp Pulse Resp BP Pulse Ox 98.7 F 107 H 12 152/85 H 100 05/07/19 05:12 05/06/19 20:50 05/07/19 05:07 05/07/19 05:07 05/07/19 05:07 - Laboratory Result Diagrams: 05/06/19 21:52 05/06/19 21:52 Laboratory results interpreted by me: 05/06/19 05/06/19 05/07/19 21:52 21:52 03:12 RDW 15.7 H Sodium 147.8 H Chloride 111 H BUN 30 H Creatinine 1.98 H Est GFR ( Amer) 32 L Est GFR (MDRD) Non-Af 26 L Glucose 120 H AST 85 H Alkaline Phosphatase 28 L Total Protein 8.3 H Urine Protein >=500 H Urine Blood MODERATE H Urine Urobilinogen 2.0 H Ur Leukocyte Esterase MODERATE H Salicylates < 1.0 L Acetaminophen < 10 L - Diagnostic Test Radiology reviewed: Image reviewed, Reports reviewed Radiology results interpreted by me: 05/07/19 04:[address] 05/06/19 22:08 IMPRESSION: Atrophy with small vessel ischemic change. Remote areas of infarct, as above TECHNICAL DOCUMENTATION: Quality ID # 436: Final reports with documentation of one or more dose reduction techniques (e.g., Automated exposure control, adjustment of the mA and/or kV according to patient size, use of iterative reconstruction technique) copyright 2011 [employer]- All Rights Reserved - EKG Interpretation by Me Additional EKG results interpreted by me: 05/07/19 04:10 Sinus mechanism of 85 bpm, PVC noted. Normal axis and intervals. Nonspecific ST changes, anterolateral ST changes concerning for possible ischemia versus LVH with strain. No significant change in compared to prior study earlier this month. Critical Care Note - Critical Care Note Total time excluding time spent on procedures (mins): 50 Discharge - Discharge Clinical Impression: Hypertensive encephalopathy, Urinary tract infection, Altered mental status, Hypernatremia Condition: Stable Disposition: ADMITTED INPATIENT Admitting Provider: Malinda (Marketing Communications Assistant) Renetta newman
--- NOTE | 2019-05-07 04:40 | CRITICAL CARE ADMISSION REPORT ---
HPI Date:: 05/07/19 Time:: 04:26 Reason for ICU Reason:: Altered Mental Status HPI: This is an unfortunate 58-year-old female patient who presented to the emergency room earlier this evening after having an altered mental status at home. Reportedly the details of the event are otherwise unknown, but apparently the patient was found with a decreased level of consciousness and altered mental state by her family during the gathering. There is no last time normal recor ded. She presented to the ED approximately 6 hours prior to my evaluation. During her evaluation for mental status changes, patient had sustained systolic hypertension greater than 200 mmHg which prompted a Cardene drip. Secondary to her mental status I am unable to obtain past medical, past surg ical, family, social history, or review of systems. All information is gleaned from the chart. The patient has a notable history for previous stroke with right-sided hemiplegia and renal insufficiency. - . Plan Summary: This unfortunate 58-year-old female patient will be admitted to the ICU for the followin. Altered mental state-rule out acute stroke, negative head CT, no known last normal time, supportive care in the ICU, will need MRI, and neurological consult. Will work-up other causes. 2. Hypertension-has a history of the same, but likely exacerbated by underlying neurologic condition in the setting of renal insufficiency. Will utilize Cardene in the ICU. 3. Renal insufficiency-likely chronic as evidenced by her previous chemistries. Will follow. 4. Rule out urinary tract infection-secondary to moderate leukocyte esterase on urinalysis, will await definitive cultures for speciation. Empiric antibiotics. 5. Hypernatremia-gradual correction Past Medical History Past Medical History: Unable to obtain past medical history secondary to mental status Cardiac Medical History: Reports: Hypertension - medicated Denies: Myocardial Infarction Pulmonary Medical History: Denies: Asthma, Bronchitis, Pneumonia Neurological Medical History: Denies: Seizures Endocrine Medical History: Reports: Diabetes Mellitus Type 2 GI Medical History: Denies: Hepatitis, Hiatal Hernia Musculoskeltal Medical History: Denies: Arthritis Psychiatric Medical History: Denies: Depression Hematology: Denies: Anemia, Sickle Cell Disease Past Surgical History Past Surgical History: I am unable to obtain past surgical history secondary to mental status Past Surgical History: Reports: Cholecystectomy, Orthopedic Surgery Denies: Amputation, Hysterectomy, Mastectomy, Pacemaker Social/Family History - Social History Social History Note: I am unable to obtain a social history secondary to mental status Smoking Status: Unknown if Ever Smoked Frequency of Alcohol Use: Occasional Hx Recreational Drug Use: No Drugs: None Hx Prescription Drug Abuse: No - Medication/Allergies Home Medications: Amlodipine Besylate [Norvasc 10 mg Tablet] 10 mg PO DAILY 30 Days #30 tablet 04/17/19 Aspirin [Aspirin 81 mg Chewable Tablet] 81 mg PO DAILY 30 Days #30 tab.chew 04/17/19 Atorvastatin Calcium [Lipitor 80 mg Tablet] 80 mg PO QHS 30 Days #30 tablet 04/17/19 Baclofen [Baclofen 10 mg Tablet] 10 mg PO TID 30 Days #90 tablet 04/17/19 Carvedilol [Coreg 25 mg Tablet] 1 tab PO Q12 30 Days #60 tab 04/17/19 Hydralazine HCl 100 mg PO Q8 30 Days #90 tablet 04/17/19 Minoxidil [Loniten 2.5 mg Tablet] 2.5 mg PO DAILY 30 Days #30 tablet 04/17/19 Allergies/Adverse Reactions: haloperidol [From Haldol] Allergy (Verified 10/21/17 15:59) hyperactive haloperidol lactate [From Haldol] Allergy (Verified 10/21/17 15:59) Review of Systems ROS unobtainable: Due to mental status Physical Exam Vital Signs: Temp Pulse Resp BP Pulse Ox 107 H 17 234/143 H 100 05/06/19 20:50 05/07/19 03:01 05/07/19 03:00 05/07/19 03:01 Intake & Output 05/05/19 05/06/19 05/07/19 06:59 06:59 06:59 Intake Total 1000 Balance 1000 Weight 47.9 kg Weight/Height Weight 47.9 kg General appearance: PRESENT: no acute distress Head exam: PRESENT: atraumatic Eye exam: PRESENT: EOMI Ear exam: PRESENT: normal external ear exam Mouth exam: PRESENT: dry mucosa Teeth exam: PRESENT: poor dentation Neck exam: ABSENT: tenderness, tracheal deviation Respiratory exam: PRESENT: clear to auscultation bryan, symmetrical, unlabored Cardiovascular exam: PRESENT: RRR Pulses: PRESENT: normal radial pulses Vascular exam: PRESENT: normal capillary refill GI/Abdominal exam: PRESENT: soft. ABSENT: tenderness Rectal exam: PRESENT: deferred Extremities exam: PRESENT: other - The patient has a contracture of her right upper extremity. ABSENT: tenderness, +1 edema Musculoskeletal exam: PRESENT: deformity - Upper extremity contracture Neurological exam: PRESENT: awake, aphasic, other - The patient spontaneously opens her eyes and looks about the room (4), she moans incomprehensibly(2), localizes to pain(5) = 11. Psychiatric exam: PRESENT: unusual affect Focused psych exam: PRESENT: restlessness Skin exam: PRESENT: dry Laboratory/Radiographs Laboratory Results: 05/06/19 21:52 05/06/19 21:52 05/06/19 05/06/19 05/06/19 21:52 21:52 22:59 WBC 8.5 RBC 4.77 Hgb 13.2 Hct 41.3 MCV 87 MCH 27.7 MCHC 32.0 RDW 15.7 H Plt Count 270 Seg Neutrophils % 61.0 Sodium 147.8 H Potassium 3.7 Chloride 111 H Carbon Dioxide 26 Anion Gap 11 BUN 30 H Creatinine 1.98 H Est GFR ( Amer) 32 L Glucose 120 H Calcium 9.8 Total Bilirubin 0.8 AST 85 H Alkaline Phosphatase 28 L Total Protein 8.3 H Albumin 4.0 Urine Color Cancelled Urine Appearance Cancelled Urine pH Cancelled Ur Specific [place] Cancelled Urine Protein Cancelled Urine Glucose (UA) Cancelled Urine Ketones Cancelled Urine Blood Cancelled Urine Nitrite Cancelled Ur Leukocyte Esterase Cancelled Urine WBC (Auto) Cancelled Urine RBC (Auto) Cancelled 05/07/19 03:12 WBC RBC Hgb Hct MCV MCH MCHC RDW Plt Count Seg Neutrophils % Sodium Potassium Chloride Carbon Dioxide Anion Gap BUN Creatinine Est GFR ( Amer) Glucose Calcium Total Bilirubin AST Alkaline Phosphatase Total Protein Albumin Urine Color YELLOW Urine Appearance SLIGHTLY-CLOUDY Urine pH 6.0 Ur Specific [place] 1.018 Urine Protein >=500 H Urine Glucose (UA) NEGATIVE Urine Ketones NEGATIVE Urine Blood MODERATE H Urine Nitrite NEGATIVE Ur Leukocyte Esterase MODERATE H Urine WBC (Auto) 61 Urine RBC (Auto) 26 Impressions: Head CT 05/06/19 22:08 IMPRESSION: Atrophy with small vessel ischemic change. Remote areas of infarct, as above TECHNICAL DOCUMENTATION: Quality ID # 436: Final reports with documentation of one or more dose reduction techniques (e.g., Automated exposure control, adjustment of the mA and/or kV according to patient size, use of iterative reconstruction technique) copyright 2011 [employer]- All Rights Reserved Critical Time Critical Time (minutes): 35 -: The care of a critically ill patient is dynamic. This note represents a static moment in the admission process. orders and treatments may be given simulataneously and urgentl, and time is not merchandising representative of the treatment process. This patient requires Critical Care secondary to life threating organ or limb dysfunction. Without the need for Critical Care services, the patient is at risk for increasid mortality and morbidity.
[2019-05-07] MEDS ORDERED: ONDANSETRON HCL INJ/PF 4 MG/2 ML SDV IV PRN (04:42)
[2019-05-07] MEDS ORDERED: ACETAMINOPHEN 650 MG SUPP.RECT PR PRN (04:42)
[2019-05-07] MEDS ORDERED: CEFTRIAXONE 1 GM/D5W RTU 1 GM/50 ML RTUPB IV ONE (05:00)
[2019-05-07] MEDS ORDERED: HEPARIN SOD (PORCINE) 5,000 UNIT/ML 1 ML VIAL SUBCUT SCH (06:00)
[2019-05-07] MEDS: RINGERS SOLUTION,LACTATED 1,000 ML IV PRN ×2 (06:38→18:33)
--- NOTE | 2019-05-07 08:43 | RADIOLOGY REPORT (SQ) ---
EXAM DESCRIPTION: CHEST SINGLE VIEW COMPLETED DATE/TIME: 05/07/2019 8:07 am REASON FOR STUDY: decreased level of consciousness COMPARISON: 04/11/2019 EXAM PARAMETERS: NUMBER OF VIEWS: One view. TECHNIQUE: Single frontal radiographic view of the chest acquired. RADIATION DOSE: NA LIMITATIONS: None. FINDINGS: LUNGS AND PLEURA: No opacities, masses or pneumothorax. No pleural effusion. MEDIASTINUM AND HILAR STRUCTURES: No masses. Contour normal. HEART AND VASCULAR STRUCTURES: Heart normal in size. Normal vasculature. BONES: No acute findings. HARDWARE: None in the chest. OTHER: No other significant finding. IMPRESSION: NO ACUTE RADIOGRAPHIC FINDING IN THE CHEST. TECHNICAL DOCUMENTATION: JOB ID: [id number] [employer]- All Rights Reserved Reading location - IP/workstation name: [email or web address]
[2019-05-07 09:31] LABS: URINE AMPHETAMINES SCREEN NEGATIVE; URINE BARBITURATES SCREEN NEGATIVE; URINE BENZODIAZEPINES SCREEN NEGATIVE; URINE COCAINE SCREEN NEGATIVE; URINE MARIJUANA (THC) SCREEN NEGATIVE; URINE METHADONE SCREEN NEGATIVE; URINE PHENCYCLIDINE SCREEN NEGATIVE
--- NOTE | 2019-05-07 09:35 | Progress Note ---
Provider Note Provider Note: Off cardene. BP stable thus far. Will try PO meds. No new neuro findings. Residual from old stroke, garbled speech and R sided weakness still present as before. No need for MRI at this time. May downgrade later today.
[2019-05-07] MEDS: PANTOPRAZOLE SODIUM 40 MG VIAL IV SCH (09:37)
[2019-05-07] MEDS: ASPIRIN 300 MG SUPP, RECTAL PR SCH (09:37)
[2019-05-07] MEDS: MINOXIDIL 2.5 MG TABLET PO SCH (09:37)
[2019-05-07] MEDS: CARVEDILOL 12.5 MG TABLET PO SCH ×2 (09:38→21:39)
[2019-05-07] MEDS: AMLODIPINE BESYLATE 10 MG TABLET PO SCH (09:43)
[2019-05-07] MEDS ORDERED: ASPIRIN 81 MG TABLET, CHEWABLE PO SCH (10:00)
[2019-05-07] MEDS ORDERED: PANTOPRAZOLE SODIUM 40 MG VIAL IV SCH (10:00)
--- NOTE | 2019-05-07 10:53 | Progress Note ---
Provider Note Provider Note: CXR clear, tox screen negative for drugs tested. U/A does not explain symptoms. Still unintellagible speech. New stroke is possibility. On aspirin [place] as she is nt taking PO yet. Will obtain MRI in AM. CT last night suggested old basal ganglia infarcts. 04/[address] read as normal[address] CT of 04/05 suggestive of evolving infarct. Has residual. Needs MRI but not stat. Treat for stroke for now. Critical care time 30 minutes.
--- NOTE | 2019-05-07 11:12 | Progress Note ---
Provider Note Provider Note: Stroke, sub acute is a possibility in view of other sources not seemingly the cause. Stroke order set invoked. Patient not willing to take PO but statin and plavix ordered. CTA of neck and brain obtained last month.
[2019-05-07] MEDS: LABETALOL HCL INJ 20 MG/4 ML DISP.SYRIN IV PRN ×3 (11:14→17:03)
[2019-05-07] MEDS ORDERED: ENOXAPARIN SODIUM INJ 40 MG/0.4 ML DISP.SYRIN SUBCUT SCH (12:00)
--- NOTE | 2019-05-07 12:07 | EKG REPORT ---
SEVERITY:- ABNORMAL ECG - SINUS RHYTHM VENTRICULAR PREMATURE COMPLEX PROBABLE LVH WITH SECONDARY REPOL ABNRM ST DEPRESSION, CONSIDER ISCHEMIA, ANT LEADS VS LVH : Confirmed by: Annabelle Hernandez 07-May-2019 12:06:35
[2019-05-07] MEDS ORDERED: LORAZEPAM INJ 2 MG/1 ML VIAL IV ONE (13:00)
[2019-05-07] MEDS ORDERED: LABETALOL HCL INJ 20 MG/4 ML DISP.SYRIN IV ONE (13:00)
[2019-05-07] MEDS: HYDRALAZINE HCL 50 MG TABLET PO SCH ×2 (14:59→21:38)
[2019-05-07] MEDS ORDERED: MINOXIDIL 2.5 MG TABLET PO ONE (19:00)
[2019-05-07] MEDS ORDERED: ATORVASTATIN CALCIUM 10 MG TABLET PO SCH (22:00)
[2019-05-07] MEDS ORDERED: RINGERS SOLUTION,LACTATED 1,000 ML IV PRN (22:24)
[2019-05-08] MEDS ORDERED: RINGERS SOLUTION,LACTATED 500 ML IV ONE (03:00)
[2019-05-08 04:15] LABS: ABSOLUTE BASOPHILS # (AUTO) 0.1 10^3/uL (0.0-0.2); ABSOLUTE EOSINOPHILS # (AUTO) 0.1 10^3/uL (0.0-0.6); ABSOLUTE LYMPHOCYTES (AUTO) 2.6 10^3/uL (0.5-4.7); ABSOLUTE MONOCYTES (AUTO) 0.6 10^3/uL (0.1-1.4); EOSINOPHILS % (AUTO) 0.6 % (0-6); HEMATOCRIT 34.7 % (36.0-47.0); HEMOGLOBIN 11.4 g/dL (12.0-15.5); LYMPHOCYTES % (AUTO) 31.3 % (13-45); MEAN CORPUSCULAR HEMOGLOBIN 27.8 pg (27.0-33.4); MEAN CORPUSCULAR HGB CONC 32.9 g/dL (32.0-36.0); MEAN CORPUSCULAR VOLUME 85 fl (80-97); MONOCYTES % (AUTO) 7.3 % (3-13); PLATELET COUNT 183 10^3/uL (150-450); RED CELL DISTRIBUTION WIDTH 14.8 % (11.5-14.0); SEGMENTED NEUTROPHILS % (AUTO) 59.8 % (42-78); TOTAL CELLS COUNTED % (AUTO) 100 %; WHITE BLOOD COUNT 8.3 10^3/uL (4.0-10.5)
[2019-05-08 04:28] LABS: ANION GAP 10 (5-19); BLOOD UREA NITROGEN 27 mg/dL (7-20); CALCIUM 8.8 mg/dL (8.4-10.2); CARBON DIOXIDE 18 mmol/L (22-30); CHLORIDE 113 mmol/L (98-107); GLUCOSE 99 mg/dL (75-110); PHOSPHORUS 5.2 mg/dL (2.5-4.5); POTASSIUM 4.1 mmol/L (3.6-5.0); TRIGLYCERIDES 166 mg/dL (<150)
[2019-05-08 04:39] LABS: DIRECT LDL 132 mg/dL (<100); VLDL CHOLESTEROL 33.2 mg/dL (10-31)
[2019-05-08] MEDS: HYDRALAZINE HCL 50 MG TABLET PO SCH ×3 (05:43→21:33)
[2019-05-08] MEDS: ASPIRIN 300 MG SUPP, RECTAL PR SCH (10:04)
[2019-05-08] MEDS: PANTOPRAZOLE SODIUM 40 MG VIAL IV SCH (10:04)
[2019-05-08] MEDS: ENOXAPARIN SODIUM INJ 30 MG/0.3 ML DISP.SYRIN SUBCUT SCH (10:04)
[2019-05-08] MEDS: CLOPIDOGREL BISULFATE 75 MG TABLET PO SCH (10:17)
[2019-05-08] MEDS: CARVEDILOL 12.5 MG TABLET PO SCH ×2 (10:17→21:33)
[2019-05-08] MEDS: AMLODIPINE BESYLATE 10 MG TABLET PO SCH (10:17)
[2019-05-08] MEDS: MINOXIDIL 2.5 MG TABLET PO SCH (10:19)
--- NOTE | 2019-05-08 11:03 | PDOC CRITICAL CARE PROG REPORT ---
General Date:: 05/08/19 ICU Day:: 2 Hospital Day:: 2 Events in the past 12 to 24 Hours:: A bit more awake. Difficult to assess baseline mental status Review of systems relevant to events:: Neuro and psychiatric Reason for ICU Addmission:: Altered Mental Status - Medications: Medications reviewed and adjusted accordingly: Yes Vasopressors:: None Sedation:: None Physical Exam Vital Signs: Temp Pulse Resp BP Pulse Ox 97.7 F 87 14 153/92 H 100 05/08/19 08:00 05/08/19 08:00 05/08/19 10:03 05/08/19 10:04 05/08/19 10:04 Intake & Output 05/07/19 05/08/19 05/09/19 06:59 06:59 06:59 Intake Total 1068 1323 Output Total 130 0 Balance 1068 1193 0 Weight 47.3 kg 48.4 kg Weight/Height Weight 48.4 kg Height 5 ft 4 in General appearance: PRESENT: no acute distress, disheveled, thin Exam: Moaning and often uninteligable. Head exam: PRESENT: atraumatic, normocephalic Eye exam: PRESENT: conjunctiva pink, EOMI, PERRLA. ABSENT: scleral icterus Ear exam: PRESENT: normal external ear exam Mouth exam: PRESENT: moist, tongue midline Neck exam: ABSENT: carotid bruit, JVD, lymphadenopathy, thyromegaly Respiratory exam: PRESENT: clear to auscultation bryan. ABSENT: rales, rhonchi, wheezes Cardiovascular exam: PRESENT: RRR. ABSENT: diastolic murmur, rubs, systolic murmur GI/Abdominal exam: PRESENT: normal bowel sounds, soft, other - Well healed old scar from PEG. ABSENT: distended, guarding, mass, organolmegaly, rebound, tenderness Rectal exam: PRESENT: deferred Gentrourinary exam: PRESENT: indwelling catheter Extremities exam: PRESENT: other - R arm contracted in flexion position from presumably old stroke. Does not move LE to command but does move spontaneously Musculoskeletal exam: PRESENT: deformity Neurological exam: PRESENT: alert, altered - Unable to communicate, awake Psychiatric exam: PRESENT: agitated - At times Skin exam: PRESENT: dry, intact, warm. ABSENT: cyanosis, rash Laboratory/Radiographs Laboratory Results: 05/08/19 03:48 05/08/19 03:48 05/08/19 05/08/19 03:48 03:48 WBC 8.3 RBC 4.10 Hgb 11.4 L Hct 34.7 L MCV 85 MCH 27.8 MCHC 32.9 RDW 14.8 H Plt Count 183 Seg Neutrophils % 59.8 Sodium 140.5 Potassium 4.1 Chloride 113 H Carbon Dioxide 18 L Anion Gap 10 BUN 27 H Creatinine 1.69 H Est GFR ( Amer) 38 L Glucose 99 Calcium 8.8 Phosphorus 5.2 H Magnesium 1.6 Triglycerides 166 H Cholesterol 250.80 H LDL Cholesterol Direct 132 H VLDL Cholesterol 33.2 H HDL Cholesterol 40 05/06/19 05/07/19 21:52 06:57 Troponin I Cancelled 0.079 Impressions: Head CT 05/06/19 22:08 IMPRESSION: Atrophy with small vessel ischemic change. Remote areas of infarct, as above TECHNICAL DOCUMENTATION: Quality ID # 436: Final reports with documentation of one or more dose reduction techniques (e.g., Automated exposure control, adjustment of the mA and/or kV according to patient size, use of iterative reconstruction technique) copyright 2011 [employer]- All Rights Reserved Chest X-Ray 05/07/19 08:00 IMPRESSION: NO ACUTE RADIOGRAPHIC FINDING IN THE CHEST. All labs, radiographs, diagnostic studies and EKGs were personally reviewed: Yes In addition, reports of radiographic and diagnostic studies were read: Yes Assessment and Plan - Diagnosis (1) Hypertensive encephalopathy Is this a current diagnosis for this admission?: Yes Plan: Resolved, back on PO meds (2) Diabetes mellitus Qualifiers: Diabetes mellitus type: type 2 Diabetes mellitus complication status: with neurologic complications Is this a current diagnosis for this admission?: Yes Plan: She may have gastroparesis leading to multiple episodes of N/V. This causes an inability to take hame meds and blood pressure spike out of control (3) Nausea & vomiting Is this a current diagnosis for this admission?: Yes Plan: See above. (4) Hx of ischemic left MCA stroke Is this a current diagnosis for this admission?: Yes Plan: There is clearly a residual. I do not see an MRI in old record. Conflicting CT reports. Nees MRI to ascertain extent of old stroke and presence of new. CTA neck and brain in last month normal. No need to repeat. (5) Aspiration into airway Qualifiers: Encounter type: initial encounter Qualified Code(s): T17.908A - Unspecified foreign body in respiratory tract, part unspecified causing other injury, initial encounter Is this a current diagnosis for this admission?: Yes Plan: She does choke on food. Still can take medication in thickened liquids. Perhaps she would benefit from having PEG reinserted. (6) Malnutrition Qualifiers: Malnutrition type: protein-calorie malnutrition Protein-calorie malnutrition severity: mild Qualified Code(s): E44.1 - Mild protein-calorie malnutrition Is this a current diagnosis for this admission?: Yes Plan: Protein and albumin not much decreased but continued poor PO intake will make this worse. Dietary evaluation incomplete yesterday as she did not want to participate much. Sugget reconsult Friday and add high protein supplements. (7) Acute kidney injury superimposed on CKD Is this a current diagnosis for this admission?: Yes Plan: GFR 38 and Cr 1.7. Improved somewhat. Plan Summary: MRI Friday. Downgrade ti IMC for possible need for IV medication bolus for BP. No need for drip. Speech, ?PEG. She may ultimately need placement Critical Time Critical Time (minutes): 30 Level of Care: IMCU Anticipated discharge: SNF Within: Other - Too early to tell -: 1. The care of a critical patient is a dynamic process. This note is a civil rights representative synopsis but static in nature. The timeframe for treatments given in order is not necessary the actual time these treatments may have been done. 2. This patient requires critical care secondary to ongoing requirements for therapy not offered or safe outside the critical care environment. Transfer to a lower level of care with altered life or limb morbidity and mortality. 3. Multidisciplinary rounds completed. 4. ABCDE bundle addressed.
--- NOTE | 2019-05-08 14:32 | PDOC CONSULTATION ---
Consultation Consult Date: 05/08/19 Attending physician:: REJI VALENCIA Provider Consulted: AC MICHAEL JR Consult reason:: Transferred from ICU to medical bed History of Present Illness Admission Date/PCP: 05/07/19 04:51 NO LOCALMD History of Present Illness: ADY MCGEE is a 58 year old female who was admitted from the emergency room to the ICU for altered mental status. Patient had elevated blood pressure in the ER with a systolic greater than 200 which prompted a Cardene drip. Patient has a previous left hemisphere CVA and renal insufficiency. CT scan in the e mergency room shows no acute intracranial disease, however CT scan does show multiple old infarcts. MRI be done Friday. Patient was downgraded from the ICU to the medical floor. She had been cared for at home although certainly she appears to be chronically weak, and unable to care for herself. Patient's diagnoses appear to be status post CVA, uncontrolled hypertension, osteoporosis. Past Medical History Cardiac Medical History: Reports: Hypertension - medicated Denies: Myocardial Infarction Pulmonary Medical History: Denies: Asthma, Bronchitis, Pneumonia Neurological Medical History: Denies: Seizures Endocrine Medical History: Reports: Diabetes Mellitus Type 2 GI Medical History: Denies: Hepatitis, Hiatal Hernia Musculoskeltal Medical History: Denies: Arthritis Psychiatric Medical History: Denies: Depression Hematology: Denies: Anemia, Sickle Cell Disease Past Surgical History Past Surgical History: Reports: Cholecystectomy, Orthopedic Surgery Denies: Amputation, Hysterectomy, Mastectomy, Pacemaker Social History Smoking Status: Unknown if Ever Smoked Frequency of Alcohol Use: Occasional Hx Recreational Drug Use: No Drugs: None Hx Prescription Drug Abuse: No - Advance Directive Resuscitation Status: Full Code Family History Family History: Reviewed & Not Pertinent, CAD Parental Family History Reviewed: No Children Family History Reviewed: No Sibling(s) Family History Reviewed.: No Medication/Allergy Home Medications: Amlodipine Besylate [Norvasc 10 mg Tablet] 10 mg PO DAILY 05/07/19 Aspirin [Aspirin 81 mg Chewable Tablet] 81 mg PO DAILY 05/07/19 Atorvastatin Calcium [Lipitor 80 mg Tablet] 80 mg PO QHS 05/07/19 Baclofen [Baclofen 10 mg Tablet] 10 mg PO TID 05/07/19 Carvedilol [Coreg 25 mg Tablet] 25 mg PO Q12 05/07/19 Hydralazine HCl [Apresoline 50 mg Tablet] 100 mg PO Q8 05/07/19 Minoxidil [Loniten 2.5 mg Tablet] 2.5 mg PO DAILY 05/07/19 Allergies/Adverse Reactions: haloperidol [From Haldol] Allergy (Verified 10/21/17 15:59) hyperactive haloperidol lactate [From Haldol] Allergy (Verified 10/21/17 15:59) Review of Systems ROS unobtainable: Due to mental status Physical Exam Vital Signs: Temp Pulse Resp BP Pulse Ox 98.0 F 89 18 133/75 H 100 05/08/19 12:12 05/08/19 12:12 05/08/19 12:12 05/08/19 12:12 05/08/19 12:12 Intake & Output 05/07/19 05/08/19 05/09/19 06:59 06:59 06:59 Intake Total 1068 1323 Output Total 130 200 Balance 1068 1193 -200 Weight 47.3 kg 48.4 kg General appearance: PRESENT: mild distress, other - Patient has severe contractures about the right upper and lower side of her body secondary to CVA Patient has an expressive a aphasia Respiratory exam: PRESENT: clear to auscultation bryan. ABSENT: rales, rhonchi, wheezes Cardiovascular exam: PRESENT: RRR. ABSENT: diastolic murmur, rubs, systolic murmur Neurological exam: PRESENT: aphasic, other - She is able to follow simple commands, very slowly Psychiatric exam: PRESENT: depressed, other Results Laboratory Results: 05/08/19 03:48 05/08/19 03:48 05/08/19 05/08/19 03:48 03:48 WBC 8.3 RBC 4.10 Hgb 11.4 L Hct 34.7 L MCV 85 MCH 27.8 MCHC 32.9 RDW 14.8 H Plt Count 183 Seg Neutrophils % 59.8 Sodium 140.5 Potassium 4.1 Chloride 113 H Carbon Dioxide 18 L Anion Gap 10 BUN 27 H Creatinine 1.69 H Est GFR ( Amer) 38 L Glucose 99 Calcium 8.8 Phosphorus 5.2 H Magnesium 1.6 Triglycerides 166 H Cholesterol 250.80 H LDL Cholesterol Direct 132 H VLDL Cholesterol 33.2 H HDL Cholesterol 40 05/06/19 05/07/19 21:52 06:57 Troponin I Cancelled 0.079 Impressions: Head CT 05/06/19 22:08 IMPRESSION: Atrophy with small vessel ischemic change. Remote areas of infarct, as above TECHNICAL DOCUMENTATION: Quality ID # 436: Final reports with documentation of one or more dose reduction techniques (e.g., Automated exposure control, adjustment of the mA and/or kV according to patient size, use of iterative reconstruction technique) copyright 2011 [employer]- All Rights Reserved Chest X-Ray 05/07/19 08:00 IMPRESSION: NO ACUTE RADIOGRAPHIC FINDING IN THE CHEST. Assessment and Plan - Diagnosis (1) Altered mental status Is this a current diagnosis for this admission?: Yes (2) Hypertensive encephalopathy Is this a current diagnosis for this admission?: Yes (3) Acute kidney injury superimposed on CKD Is this a current diagnosis for this admission?: Yes (4) Diabetes mellitus Qualifiers: Diabetes mellitus type: type 2 Diabetes mellitus complication status: with neurologic complications Is this a current diagnosis for this admission?: Yes (5) Hx of ischemic left MCA stroke Is this a current diagnosis for this admission?: Yes - Plan Summary Summary: 05/08/2019 We will treat patient's medical problems, hypertension, diabetes. An MRI of the brain is scheduled for Friday Patient's family will need to meet with discharge planning concerning placement issues. Patient will need a modified barium swallow consult. In the meantime we will do a thickened liquid diet. We will need to address CODE STATUS with family I have received a sign off from the shuttle spotter, also spoken with the ICU nurse, spoken with the floor nurse who has received the patient. Floor nurses called the patient's daughter and asked her to come to the hospital so that we may discuss her care - Time Time Spent with patient: 35 or more minutes
[2019-05-08] MEDS: RINGERS SOLUTION,LACTATED 1,000 ML IV PRN (15:17)
[2019-05-08] MEDS: ATORVASTATIN CALCIUM 10 MG TABLET PO SCH (21:35)
[2019-05-09] MEDS: RINGERS SOLUTION,LACTATED 1,000 ML IV PRN ×2 (03:25→13:34)
[2019-05-09 05:15] LABS: ABSOLUTE BASOPHILS # (AUTO) 0.1 10^3/uL (0.0-0.2); ABSOLUTE EOSINOPHILS # (AUTO) 0.1 10^3/uL (0.0-0.6); ABSOLUTE LYMPHOCYTES (AUTO) 2.6 10^3/uL (0.5-4.7); ABSOLUTE MONOCYTES (AUTO) 0.7 10^3/uL (0.1-1.4); ABSOLUTE NEUT (AUTO) 4.1 10^3/uL (1.7-8.2); BASOPHILS % (AUTO) 0.7 % (0-2); HEMATOCRIT 34.1 % (36.0-47.0); HEMOGLOBIN 11.2 g/dL (12.0-15.5); LYMPHOCYTES % (AUTO) 34.8 % (13-45); MEAN CORPUSCULAR HEMOGLOBIN 27.8 pg (27.0-33.4); MEAN CORPUSCULAR HGB CONC 32.9 g/dL (32.0-36.0); MEAN CORPUSCULAR VOLUME 85 fl (80-97); MONOCYTES % (AUTO) 8.8 % (3-13); PLATELET COUNT 198 10^3/uL (150-450); RED BLOOD COUNT 4.04 10^6/uL (3.72-5.28); RED CELL DISTRIBUTION WIDTH 14.8 % (11.5-14.0); SEGMENTED NEUTROPHILS % (AUTO) 54.7 % (42-78); TOTAL CELLS COUNTED % (AUTO) 100 %; WHITE BLOOD COUNT 7.5 10^3/uL (4.0-10.5)
[2019-05-09] MEDS: HYDRALAZINE HCL 50 MG TABLET PO SCH ×3 (05:29→22:15)
[2019-05-09 05:37] LABS: ANION GAP 10 (5-19); BLOOD UREA NITROGEN 27 mg/dL (7-20); CALCIUM 8.7 mg/dL (8.4-10.2); CARBON DIOXIDE 19 mmol/L (22-30); CHLORIDE 111 mmol/L (98-107); GLUCOSE 118 mg/dL (75-110); PHOSPHORUS 4.4 mg/dL (2.5-4.5); POTASSIUM 3.7 mmol/L (3.6-5.0)
[2019-05-09] MEDS: MINOXIDIL 2.5 MG TABLET PO SCH (10:34)
[2019-05-09] MEDS: FAMOTIDINE 20 MG TABLET PO SCH (10:34)
[2019-05-09] MEDS: ENOXAPARIN SODIUM INJ 30 MG/0.3 ML DISP.SYRIN SUBCUT SCH (10:34)
[2019-05-09] MEDS: AMLODIPINE BESYLATE 10 MG TABLET PO SCH (10:34)
[2019-05-09] MEDS: CLOPIDOGREL BISULFATE 75 MG TABLET PO SCH (10:34)
[2019-05-09] MEDS: CARVEDILOL 12.5 MG TABLET PO SCH ×2 (10:34→22:16)
[2019-05-09] MEDS: ASPIRIN 300 MG SUPP, RECTAL PR SCH (10:35)
--- NOTE | 2019-05-09 12:08 | PDOC PROGRESS REPORT ---
Subjective Progress Note for:: 05/09/19 Reason For Visit: A FIB WITH RVR 05/09/2019 Patient was admitted from the emergency room to the ICU for altered mental status. 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 No coughing while being fed Respiratory exam: PRESENT: clear to auscultation bryan. ABSENT: rales, rhonchi, wheezes Cardiovascular exam: PRESENT: RRR. ABSENT: diastolic murmur, rubs, systolic m urmur Neurological exam: PRESENT: alert, awake, other - Right hemiplegia, dysarthria secondary to CVA Psychiatric exam: PRESENT: flat affect Results Laboratory Results: 05/09/19 04:29 05/09/19 04:29 05/09/19 05/09/19 04:29 04:29 WBC 7.5 RBC 4.04 Hgb 11.2 L Hct 34.1 L MCV 85 MCH 27.8 MCHC 32.9 RDW 14.8 H Plt Count 198 Seg Neutrophils % 54.7 Sodium 139.5 Potassium 3.7 Chloride 111 H Carbon Dioxide 19 L Anion Gap 10 BUN 27 H Creatinine 2.01 H Est GFR ( Amer) 31 L Glucose 118 H Calcium 8.7 Phosphorus 4.4 Magnesium 1.5 L 05/07/19 03:12 Catheterized Urine Urine Culture - Final Strep Mitis/Oralis Grp 05/06/19 05/07/19 21:52 06:57 Troponin I Cancelled 0.079 Impressions: Head CT 05/06/19 22:08 IMPRESSION: Atrophy with small vessel ischemic change. Remote areas of infarct, as above TECHNICAL DOCUMENTATION: Quality ID # 436: Final reports with documentation of one or more dose reduction techniques (e.g., Automated exposure control, adjustment of the mA and/or kV according to patient size, use of iterative reconstruction technique) copyright 2011 [employer]- All Rights Reserved Chest X-Ray 05/07/19 08:00 IMPRESSION: NO ACUTE RADIOGRAPHIC FINDING IN THE CHEST. Assessment and Plan - Diagnosis (1) Altered mental status Is this a current diagnosis for this admission?: Yes (2) Hypertensive encephalopathy Is this a current diagnosis for this admission?: Yes (3) Acute kidney injury superimposed on CKD Is this a current diagnosis for this admission?: Yes (4) Diabetes mellitus Qualifiers: Diabetes mellitus type: type 2 Diabetes mellitus complication status: with neurologic complications Is this a current diagnosis for this admission?: Yes (5) Hx of ischemic left MCA stroke Is this a current diagnosis for this admission?: Yes - Plan Summary Summary: 05/08/2019 We will treat patient's medical problems, hypertension, diabetes. An MRI of the brain is scheduled for Friday Patient's family will need to meet with discharge planning concerning placement issues. Patient will need a modified barium swallow consult. In the meantime we will do a thickened liquid diet. We will need to address CODE STATUS with family Will wait to resume sotalol patient is awake alert and more medically stable I have received a sign off from the golf cart assembler, also spoken with the ICU nurse, spoken with the floor nurse who has received the patient. Floor nurses called the patient's daughter and asked her to come to the hospital so that we may discuss her care 05/09/2019 So far no family members have come to the hospital visit. Vital signs are stable. Creatinine has gone up slightly from admission from 1.69-2.01, magnesium is low at 1.5 ,ammonia levels normal, correct these with fluids and magnesium supplements. Patient's fluids have been increased to 100/h Culture growing a form of strep does have sensitivities. Due to patient presenting with altered mental status she will be treated with p.o. antibiotics, though this may be a contaminant, are greater than 100,000 colonies As the note above states she will see charge planning tomorrow and get an MRI scan of the brain possibly discharged on Friday - Time Time Spent with patient: 15-24 minutes
[2019-05-09] MEDS ORDERED: MAGNESIUM SULFATE PF/INJ 40 MEQ/10 ML SDV IV ONE (12:10)
[2019-05-09] MEDS ORDERED: DEXTROSE 40% GEL 15 GM TUBE PO PRN ×2 (12:48)
[2019-05-09] MEDS ORDERED: DEXTROSE 50%-WATER 25 GM/50 ML DISP.SYRIN IV PRN ×2 (12:48)
[2019-05-09] MEDS ORDERED: GLUCAGON,HUMAN RECOMB 1 MG INJ IM PRN (12:48)
[2019-05-09] MEDS: INSULIN LISPRO 100 UNIT/ML 3 ML VIAL SUBCUT SCH (13:34)
[2019-05-09] MEDS: MAGNESIUM SULFATE 1 GM/D5W 100 ML IV SCH ×2 (13:34→14:50)
--- NOTE | 2019-05-09 15:13 | Progress Note ---
Provider Note Provider Note: 05/09/2019 Patient blood pressure was above the parameters given, so her antihypertensive medications were given. Shortly thereafter patient became lethargic and her blood pressure dropped into the 80s and she was hypotensive. 100 cc of fluid was ordered a bolus I have cut all of her blood pressure medicines exactly in half including Norvasc Apresoline and Coreg Prior to these medications patient was starting to wake up and respond better. At this point I would rather her be a little hypertensive and then reintroduce her medications
[2019-05-09] MEDS: CEPHALEXIN 250 MG CAPSULE PO SCH ×2 (16:00→22:23)
[2019-05-09] MEDS ORDERED: NORMAL SALINE 500 ML IV ONE ×2 (19:00→19:30)
[2019-05-09] MEDS: ATORVASTATIN CALCIUM 10 MG TABLET PO SCH (22:23)
[2019-05-10] MEDS: RINGERS SOLUTION,LACTATED 1,000 ML IV PRN ×2 (03:36→15:25)
[2019-05-10] MEDS: CEPHALEXIN 250 MG CAPSULE PO SCH ×3 (05:48→22:14)
[2019-05-10] MEDS: HYDRALAZINE HCL 50 MG TABLET PO SCH ×3 (05:50→22:50)
[2019-05-10 08:09] LABS: ABSOLUTE EOSINOPHILS # (AUTO) 0.1 10^3/uL (0.0-0.6); ABSOLUTE LYMPHOCYTES (AUTO) 3.4 10^3/uL (0.5-4.7); ABSOLUTE MONOCYTES (AUTO) 0.8 10^3/uL (0.1-1.4); ABSOLUTE NEUT (AUTO) 3.2 10^3/uL (1.7-8.2); BASOPHILS % (AUTO) 0.6 % (0-2); EOSINOPHILS % (AUTO) 0.7 % (0-6); HEMATOCRIT 33.2 % (36.0-47.0); HEMOGLOBIN 10.8 g/dL (12.0-15.5); MEAN CORPUSCULAR HEMOGLOBIN 27.4 pg (27.0-33.4); MEAN CORPUSCULAR HGB CONC 32.7 g/dL (32.0-36.0); MEAN CORPUSCULAR VOLUME 84 fl (80-97); MONOCYTES % (AUTO) 10.3 % (3-13); PLATELET COUNT 198 10^3/uL (150-450); RED BLOOD COUNT 3.95 10^6/uL (3.72-5.28); RED CELL DISTRIBUTION WIDTH 15.3 % (11.5-14.0); SEGMENTED NEUTROPHILS % (AUTO) 43.4 % (42-78); TOTAL CELLS COUNTED % (AUTO) 100 %; WHITE BLOOD COUNT 7.5 10^3/uL (4.0-10.5)
[2019-05-10] MEDS: INSULIN LISPRO 100 UNIT/ML 3 ML VIAL SUBCUT SCH ×3 (08:27→22:11)
[2019-05-10 08:41] LABS: BURR CELLS 1+; OVALOCYTES 1+; POIKILOCYTOSIS 1+; SCHISTOCYTES SLIGHT
[2019-05-10 08:42] LABS: PLATELET COMMENT ADEQUATE; PLATELET GIANT PRESENT; PLATELET LARGE PRESENT
[2019-05-10 08:48] LABS: PHOSPHORUS 4.1 mg/dL (2.5-4.5)
[2019-05-10] MEDS ORDERED: LORAZEPAM INJ 2 MG/1 ML VIAL IV PRN (09:01)
--- NOTE | 2019-05-10 09:50 | PDOC PROGRESS REPORT ---
Subjective Progress Note for:: 05/10/19 Reason For Visit: A FIB WITH RVR 05/10/2019 Patient was originally admitted on May 07 to the ICU for altered mental status, significant hypertension, previous CVA and renal insufficiency Physical Exam Vital Signs: Temp Pulse Resp BP Pulse Ox 98.4 F 85 17 144/72 H 98 05/10/19 07:38 05/10/19 08:00 05/10/19 08:00 05/10/19 08:00 05/10/19 08:00 Intake & Output 05/09/19 05/10/19 05/11/19 06:59 06:59 06:59 Intake Total 2136 4703 Output Total 900 450 Balance 1236 4253 Weight 54.2 kg 57.6 kg General appearance: PRESENT: no acute distress Respiratory exam: PRESENT: clear to auscultation bryan. ABSENT: rales, rhonchi, wheezes Cardiovascular exam: PRESENT: RRR. ABSENT: diastolic murmur, rubs, systolic murmur Neurological exam: PRESENT: aphasic, other - Patient does not get out of bed due to previous CVA, patient is basically a phasic due to her CVA Psychiatric exam: PRESENT: flat affect, unusual affect Results Laboratory Results: 05/10/19 07:14 05/09/19 04:29 05/10/19 05/10/19 07:14 07:14 WBC 7.5 RBC 3.95 Hgb 10.8 L Hct 33.2 L MCV 84 MCH 27.4 MCHC 32.7 RDW 15.3 H Plt Count 198 Seg Neutrophils % 43.4 Phosphorus 4.1 Magnesium 2.1 05/07/19 03:12 Catheterized Urine Urine Culture - Final Strep Mitis/Oralis Grp 05/06/19 05/07/19 21:52 06:57 Troponin I Cancelled 0.079 Impressions: Head CT 05/06/19 22:08 IMPRESSION: Atrophy with small vessel ischemic change. Remote areas of infarct, as above TECHNICAL DOCUMENTATION: Quality ID # 436: Final reports with documentation of one or more dose reduction techniques (e.g., Automated exposure control, adjustment of the mA and/or kV according to patient size, use of iterative reconstruction technique) copyright 2011 [employer]- All Rights Reserved Chest X-Ray 05/07/19 08:00 IMPRESSION: NO ACUTE RADIOGRAPHIC FINDING IN THE CHEST. Assessment and Plan - Diagnosis (1) Altered mental status Is this a current diagnosis for this admission?: Yes (2) Hypertensive encephalopathy Is this a current diagnosis for this admission?: Yes (3) Acute kidney injury superimposed on CKD Is this a current diagnosis for this admission?: Yes (4) Diabetes mellitus Qualifiers: Diabetes mellitus type: type 2 Diabetes mellitus complication status: with neurologic complications Is this a current diagnosis for this admission?: Yes (5) Hx of ischemic left MCA stroke Is this a current diagnosis for this admission?: Yes - Plan Summary Summary: 05/08/2019 We will treat patient's medical problems, hypertension, diabetes. An MRI of the brain is scheduled for Friday Patient's family will need to meet with discharge planning concerning placement issues. Patient will need a modified barium swallow consult. In the meantime we will do a thickened liquid diet. We will need to address CODE STATUS with family Will wait to resume sotalol patient is awake alert and more medically stable I have received a sign off from the refrigerator mover, also spoken with the ICU nurse, spoken with the floor nurse who has received the patient. Floor nurses called the patient's daughter and asked her to come to the hospital so that we may discuss her care 05/09/2019 So far no family members have come to the hospital visit. Vital signs are stable. Creatinine has gone up slightly from admission from 1.69-2.01, magnesium is low at 1.5 ,ammonia levels normal, correct these with fluids and magnesium supplements. Patient's fluids have been increased to 100/h Culture growing a form of strep does have sensitivities. Due to patient presenting with altered mental status she will be treated with p.o. antibiotics, though this may be a contaminant, are greater than 100,000 colonies As the note above states she will see charge planning tomorrow and get an MRI scan of the brain possibly discharged on Friday05/10/2019 Reportedly patient's family brought her to the emergency room on the day of admission and have not been seen since. Nurse on the floor has spoken to a daughter by phone. Discharge planning is going to talk to family to see what their wishes are concerning discharge either back home or to fpc facility. Medically I think the patient needs fpc facility. She is status post significant severe CVA, with permanent deficit to the right side of her body, well as altered mental status Patient is very sensitive to her blood pressure medication, today had an episode of hypotension, therefore I have cut her medications in half They may need to be increased when she becomes more alert. Pressures today appear to be about 140/70 Patient's creatnine is stable around 2 I need to see him is normal and calcium is normal Patient is scheduled for MRI of the brain today and I ordered some Ativan to be given 30 minutes prior to as there is a history of claustrophobia CT scan in the ER showed remote lacunar infarcts of the basal ganglia bilaterally, well is remote area of infarct in the left occipital lobe Order has been placed for discharge planning to talk to the family about placement - Time Time Spent with patient: 25-34 minutes
--- NOTE | 2019-05-10 11:21 | RADIOLOGY REPORT (SQ) ---
EXAM DESCRIPTION: MRI HEAD WITHOUT COMPLETED DATE/TIME: 05/10/2019 10:47 am REASON FOR STUDY: Mental status changes, hx of right hemiplegia COMPARISON: CT brain 03/21/2019, 05/06/2019 TECHNIQUE: Multiplanar imaging includes non-contrasted T1, T2, FLAIR, and diffusion with ADC map seq uences. Images stored on PACS. LIMITATIONS: Motion artifact on multiple pulse sequences. FINDINGS: ANATOMY: No anomalies. Normal vascular flow voids. Pituitary fossa normal. CSF SPACES: Normal in size and contour. No hemorrhage. CEREBRUM and CEREBELLUM: Diffusion-weighted images are positive for acute nonhemorrhagic ischemic ch mich in the right lateral basal ganglia, the posterior thalamus, left occipital cortex and bilateral inferior cerebellar hemispheres. No acute parenchymal hemorrhage. No mass effect or midline shift. Multiple old lacunar infarcts in the bilateral basal ganglia and right and left thalamus. Extensive chronic small vessel ischemic christiano nge in the deep periventricular white matter and mahesh. Internal auditory canals, cerebello-pontine angles, mastoids normal. DIFFUSION IMAGING: Diffusion-weighted images are positive for acute nonhemorrhagic ischemic change i n the right lateral basal ganglia, the posterior thalamus, left occipital cortex and bilateral inferi or cerebellar hemispheres. ORBITS: No masses. Globes normal. PARANASAL SINUSES: No fluid levels. Mucosa normal. OTHER: No other significant finding. IMPRESSION: Diffusion-weighted images are positive for acute nonhemorrhagic ischemic change in the right lateral basal ganglia, the posterior thalamus, left occipital cortex and bilateral inferior cer ebellar hemispheres. Extensive chronic small vessel ischemic change with bifrontal and biparietal white matter disease, po ntine white matter disease, and multiple the brain chronic lacunar infarcts Report called to Dr. Aviles. EVIDENCE OF ACUTE STROKE: Yes. TECHNICAL DOCUMENTATION: JOB ID: [id number] [employer]- All Rights Reserved Reading location - IP/workstation name: [email or web address]
[2019-05-10] MEDS: FAMOTIDINE 20 MG TABLET PO SCH (11:25)
[2019-05-10] MEDS: CLOPIDOGREL BISULFATE 75 MG TABLET PO SCH (11:26)
[2019-05-10] MEDS: ENOXAPARIN SODIUM INJ 30 MG/0.3 ML DISP.SYRIN SUBCUT SCH (11:26)
[2019-05-10] MEDS: AMLODIPINE BESYLATE 5 MG TABLET PO SCH (11:26)
[2019-05-10] MEDS: ASPIRIN 300 MG SUPP, RECTAL PR SCH (11:26)
[2019-05-10] MEDS: MINOXIDIL 2.5 MG TABLET PO SCH (11:26)
[2019-05-10] MEDS: CARVEDILOL 12.5 MG TABLET PO SCH ×2 (11:26→22:51)
[2019-05-10] MEDS: ATORVASTATIN CALCIUM 10 MG TABLET PO SCH (22:14)
[2019-05-11] MEDS: RINGERS SOLUTION,LACTATED 1,000 ML IV PRN ×3 (01:31→20:33)
[2019-05-11] MEDS: HYDRALAZINE HCL 50 MG TABLET PO SCH ×4 (05:27→22:40)
[2019-05-11] MEDS: CEPHALEXIN 250 MG CAPSULE PO SCH ×3 (06:16→22:40)
[2019-05-11] MEDS: INSULIN LISPRO 100 UNIT/ML 3 ML VIAL SUBCUT SCH ×4 (08:16→22:41)
--- NOTE | 2019-05-11 08:32 | RADIOLOGY REPORT (SQ) ---
EXAM DESCRIPTION: CAROTID DOPPLER COMPLETED DATE/TIME: 05/10/2019 8:50 pm REASON FOR STUDY: multi infarct COMPARISON: None. TECHNIQUE: Grayscale ultrasound, Doppler velocity and spectra, and color Doppler images acquired of the extra-cranial carotid and vertebral arteries. Images stored on PACS. LIMITATIONS: None. FINDINGS: RIGHT CAROTID CCA Velocities: Within normal limits. ICA Velocities Peak systolic 0.67 m/s. End diastolic 0.16 m/s. Proximal ICA/CCA peak systolic ratio 0.7. Mild soft plaque in the ICA. LEFT CAROTID CCA Velocities: Within normal limits. ICA Velocities Peak systolic 0.88 m/s. End diastolic 0.31 m/s. Proximal ICA/CCA peak systolic ratio 1.1. Mild soft plaque in the proximal ICA. VERTEBRAL ARTERIES: Antegrade flow. Normal waveforms. SUBCLAVIAN ARTERIES: No finding. OTHER: No other significant finding. IMPRESSION: NO HEMODYNAMICALLY SIGNIFICANT STENOSIS. COMMENT: Quality ID #195: Velocity criteria are extrapolated from the diameter data as defined by t he Society of Radiologists in Ultrasound Consensus Conference. Radiology 2003: 229; 340-346. TECHNICAL DOCUMENTATION: JOB ID: [id number] [employer]- All Rights Reserved Reading location - IP/workstation name: [email or web address]
[2019-05-11] MEDS: CLOPIDOGREL BISULFATE 75 MG TABLET PO SCH (10:29)
[2019-05-11] MEDS: ENOXAPARIN SODIUM INJ 30 MG/0.3 ML DISP.SYRIN SUBCUT SCH (10:29)
[2019-05-11] MEDS: ASPIRIN 325 MG TABLET, ENT COATED PO SCH (10:29)
[2019-05-11] MEDS: FAMOTIDINE 20 MG TABLET PO SCH (10:29)
[2019-05-11] MEDS: AMLODIPINE BESYLATE 5 MG TABLET PO SCH (10:35)
[2019-05-11] MEDS: CARVEDILOL 12.5 MG TABLET PO SCH (10:35)
[2019-05-11] MEDS: MINOXIDIL 2.5 MG TABLET PO SCH (10:35)
--- NOTE | 2019-05-11 17:16 | PDOC PROGRESS REPORT ---
Subjective Progress Note for:: 05/11/19 Subjective:: No adverse events overnight. No new complaints. Blood pressures are elevated but do respond to PRN medication. She is able to answer yes and no by nodding her head but she is not able to verbalize well at this point. Reason For Visit: POSSIBLE STROKE Physical Exam Vital Signs: Temp Pulse Resp BP Pulse Ox 98.3 F 88 18 159/85 H 97 05/11/19 15:54 05/11/19 16:00 05/11/19 16:00 05/11/19 16:00 05/11/19 16:00 Intake & Output 05/10/19 05/11/19 05/12/19 06:59 06:59 06:59 Intake Total 4703 2585 898 Output Total 450 1450 Balance 4253 1135 898 Weight 57.6 kg 59.5 kg General appearance: PRESENT: no acute distress, cooperative, disheveled Respiratory exam: PRESENT: clear to auscultation bryan, symmetrical, unlabored. ABSENT: accessory muscle use, chest wall tenderness, crackles, prolonged expiratory phas, rhonchi, tachypnea, wheezes Cardiovascular exam: PRESENT: RRR, +S1, +S2 Pulses: PRESENT: normal carotid pulses Vascular exam: PRESENT: normal capillary refill GI/Abdominal exam: PRESENT: normal bowel sounds, soft. ABSENT: distended, guarding, rebound, tenderness Extremities exam: ABSENT: clubbing, pedal edema Musculoskeletal exam: PRESENT: normal inspection. ABSENT: deformity Neurological exam: PRESENT: alert, awake, oriented to person, aphasic Skin exam: PRESENT: dry, warm Results Laboratory Results: 05/10/19 07:14 05/09/19 04:29 05/06/19 05/07/19 21:52 06:57 Troponin I Cancelled 0.079 Impressions: Head CT 05/06/19 22:08 IMPRESSION: Atrophy with small vessel ischemic change. Remote areas of infarct, as above TECHNICAL DOCUMENTATION: Quality ID # 436: Final reports with documentation of one or more dose reduction techniques (e.g., Automated exposure control, adjustment of the mA and/or kV according to patient size, use of iterative reconstruction technique) copyright 2011 [employer]- All Rights Reserved Chest X-Ray 05/07/19 08:00 IMPRESSION: NO ACUTE RADIOGRAPHIC FINDING IN THE CHEST. Carotid Doppler Study 05/10/19 00:00 IMPRESSION: NO HEMODYNAMICALLY SIGNIFICANT STENOSIS. Head MRI 05/10/19 00:00 IMPRESSION: Diffusion-weighted images are positive for acute nonhemorrhagic ischemic change in the right lateral basal ganglia, the posterior thalamus, left occipital cortex and bilateral inferior cerebellar hemispheres. Extensive chronic small vessel ischemic change with bifrontal and biparietal white matter disease, pontine white matter disease, and multiple the brain chronic lacunar infarcts Report called to Dr. Aviles. EVIDENCE OF ACUTE STROKE: Yes. Assessment and Plan - Diagnosis (1) Acute ischemic multifocal posterior circulation stroke Qualifiers: Laterality: unspecified laterality Qualified Code(s): I63.539 - Cerebral infarction due to unspecified occlusion or stenosis of unspecified posterior cerebral artery Is this a current diagnosis for this admission?: Yes Plan: She has bilateral posterior circulation ischemic strokes. Echocardiogram is pending. Currently on multiple blood pressure medications, statin, aspirin and Plavix. She has a modified barium swallow pending for tomorrow. (2) Diabetes mellitus Qualifiers: Diabetes mellitus type: type 2 Diabetes mellitus complication status: with neurologic complications Is this a current diagnosis for this admission?: Yes Plan: Monitoring blood sugar carefully, when she has a diet in place we will see how she responds. (3) Hyperlipidemia Is this a current diagnosis for this admission?: Yes Plan: Continue statin (4) Hypertension Qualifiers: Hypertension type: essential hypertension Qualified Code(s): I10 - Essential (primary) hypertension Is this a current diagnosis for this admission?: Yes Plan: Currently on multiple medications - Plan Summary Summary: 05/08/2019 We will treat patient's medical problems, hypertension, diabetes. An MRI of the brain is scheduled for Friday Patient's family will need to meet with discharge planning concerning placement issues. Patient will need a modified barium swallow consult. In the meantime we will do a thickened liquid diet. We will need to address CODE STATUS with family Will wait to resume sotalol patient is awake alert and more medically stable I have received a sign off from the anesthesiology faculty, also spoken with the ICU nurse, spoken with the floor nurse who has received the patient. Floor nurses called the patient's daughter and asked her to come to the hospital so that we may discuss her care 05/09/2019 So far no family members have come to the hospital visit. Vital signs are stable. Creatinine has gone up slightly from admission from 1.69-2.01, magnesium is low at 1.5 ,ammonia levels normal, correct these with fluids and magnesium supplements. Patient's fluids have been increased to 100/h Culture growing a form of strep does have sensitivities. Due to patient presenting with altered mental status she will be treated with p.o. antibiotics, though this may be a contaminant, are greater than 100,000 colonies As the note above states she will see charge planning tomorrow and get an MRI scan of the brain possibly discharged on Friday05/10/2019 Reportedly patient's family brought her to the emergency room on the day of admission and have not been seen since. Nurse on the floor has spoken to a daughter by phone. Discharge planning is going to talk to family to see what their wishes are concerning discharge either back home or to [facility] facility. Medically I think the patient needs [facility] facility. She is status post significant severe CVA, with permanent deficit to the right side of her body, well as altered mental status Patient is very sensitive to her blood pressure medication, today had an episode of hypotension, therefore I have cut her medications in half They may need to be increased when she becomes more alert. Pressures today ap pear to be about 140/70 Patient's creatnine is stable around 2 I need to see him is normal and calcium is normal Patient is scheduled for MRI of the brain today and I ordered some Ativan to be given 30 minutes prior to as there is a history of claustrophobia CT scan in the ER showed remote lacunar infarcts of the basal ganglia bilaterally, as well as remote area of infarct in the left occipital lobe Order has been placed for discharge planning to talk to the family about placement Addendum: MRI shows multiple infarcts, patient is going to need usp facility at the time of discharge. She will need long-term care, include rehabilitation with physical therapy and Occupational Therapy - Time Time Spent with patient: 15-24 minutes
[2019-05-11] MEDS ORDERED: AMLODIPINE BESYLATE 5 MG TABLET PO ONE (22:00)
[2019-05-11] MEDS: ATORVASTATIN CALCIUM 10 MG TABLET PO SCH (22:40)
[2019-05-12] MEDS: CARVEDILOL 12.5 MG TABLET PO SCH ×3 (00:56→22:26)
[2019-05-12] MEDS: CEPHALEXIN 250 MG CAPSULE PO SCH ×3 (06:15→22:27)
[2019-05-12] MEDS: HYDRALAZINE HCL 50 MG TABLET PO SCH ×3 (06:15→22:26)
[2019-05-12] MEDS: INSULIN LISPRO 100 UNIT/ML 3 ML VIAL SUBCUT SCH ×4 (08:17→22:13)
--- NOTE | 2019-05-12 09:00 | ST Inp Modified Barium Swallow ---
Medical Diagnosis - Medical Diagnoses Medical Diagnosis Description & ICD-10 Code(s): acute ischemic multifocal posterior circulation stroke, dysphagia post CVA Inpatient MBS - General Date: 05/12/19 Date of Onset: 05/06/19 - History -: Medical - Patient known to . Patient seen approximately 1 year ago in outpaitent following CVA 03/30/18. At that time, patient had severe oral stage dysphagia, severe dysarthria, and moderate aphasia. Patient was on puree & thin diet; did not have reliable yes/no. Patient admitted to [facility] following AMS at home. Patient unable to complete swallow screen & unable to follow commands. Subsequent MRI revealed acute CVA affecting multiple areas. Medications: Medications Reviewed Allergies: Refer to medical record - Subjective Current Nutritional Means: PO Current PO Diet: Pureed, Thickened liquids - nectar Current Symptoms: other - history of dysphagia following prior CVA, new CVA also impacting swallowing Pain: no signs/symptoms of pain - Objective Assessment: Upright, Left Lateral - Food Trials Food Trials Used: Thin liquids, [place] thick liquids, Pureed, Soft solids The Patient: fed by - Assessment Lingual Function: Impaired - tongue thrust pattern during the swallow seen, poor overall oral manipulation and control of bolus Dentition: Edentulous - Pharyngeal Stage Initiation of Pharyngeal Stage: Delayed - bolus fully in pharynx prior to initiation of pharyngeal phase swallow, spanning 2-4 seconds Decreased Laryngeal Elevation: No Reduced Velo-Pharyngeal Closure: no Reduced Pressure Generation: Yes - mild Reduced Tongue Base Retraction: Yes Pre-Swallowing Pooling in Valleculae: Significant Pre-Swallowing Pooling in Pyriforms: Significant Reduced Thyro-Hyiod Approximation: No Reduced Epiglottic Excursion: No Reduced Pharyngeal Peristalsis: No Multiple Swallows With: Cleared w/ Dry Swallow Post Swallow Residuals in Valleculae: Mild Post Swallow Residuals in Pyriforms: Mild Pahryngeal Stage Comments: Patient has very delayed swallow reflex, bolus freely falls from oral cavity into pharyngeal cavity without swallow trigger. Once swallow does trigger, largely adequate muscular movement with minimal residue seen. No aspiration seen on nectar thick or puree texture trials, however, high risk remains due to nature of swallowing disorder. Aspiration was observed on spoon trials of thin liquid x1, penetration seen x2 (3 total thin liquid trials by spoon). - Impression/Summary Laryngeal Penetration: Yes, Silent, during swallow - with thin liquid by spoon Tracheal Aspiration: yes, cough, during swallow - on thin liquid by spoon. Patient Presents With: Oral-Pharyngeal dysph., Severe Risk of Aspiration: Moderate Risk Due To: No aspiration seen on nectar liquid or puree solid textures, h owever, patient remains at risk of aspiration on these textures due to significant delay and discoordination or swallow. Strict aspiration precautions recommended, including patient fully upright (90 degrees) at all PO intake, small bites and sips and slow rate of PO intake. - Recommendations Solid Diet Recommendations: Pureed Liquid Diet Recommendations: [place]-Thick Strict Aspitarion Precautions: Yes Dysphagia Therapy with MGMT CONSULTANT: Yes Recommended Techniques: Fully Upright During Meal, Check Mouth for Pocketing, Small Bites and Sips Supervision: requires assistance - Time Total Time: 30 Total Timed Minutes: 30
--- NOTE | 2019-05-12 09:17 | RADIOLOGY REPORT (SQ) ---
EXAM DESCRIPTION: GUILLERMO SWALLOW COMPLETED DATE/TIME: 05/12/2019 9:06 am REASON FOR STUDY: dysphagia post CVA COMPARISON: None. TECHNIQUE: Videofluoroscopic swallowing examination was performed in conjunction with speech patholo gy. Videofluoroscopic imaging was obtained and reviewed and these are the findings: RADIATION DOSE: Fluoro time 2.21 minutes 1 images saved to PACS. LIMITATIONS: None FINDINGS: The patient was brought into the fluoro room and placed upright on a modified barium swall ow chair. The patient was then given multiple consistencies mixed with barium to swallow under live fluoroscopic video guidance. According to the Speech Pathologist there was laryngeal penetration see n with thin barium, with probable trace aspiration. All other consistencies were swallowed without i ncident. Please refer to the speech pathology report for further details. IMPRESSION: LARYNGEAL PENETRATION WITH PROBABLE TRACE ASPIRATION SEEN WITH THIN BARIUM. PLEASE SEE S JEETECH PATHOLOGIST REPORT FOR OTHER FINDINGS AND RECOMMENDATIONS. COMMENT: None Quality ID [id number]: Final reports for procedures using fluoroscopy that document radiation exposure kaia gita, or exposure time and number of fluorographic images (if radiation exposure indices are not avail able) TECHNICAL DOCUMENTATION: JOB ID: [id number] [employer]- All Rights Reserved Reading location - IP/workstation name: [email or web address] [id number]
[2019-05-12] MEDS: FAMOTIDINE 20 MG TABLET PO SCH (10:20)
[2019-05-12] MEDS: ASPIRIN 325 MG TABLET, ENT COATED PO SCH (10:20)
[2019-05-12] MEDS: CLOPIDOGREL BISULFATE 75 MG TABLET PO SCH (10:20)
[2019-05-12] MEDS: ENOXAPARIN SODIUM INJ 30 MG/0.3 ML DISP.SYRIN SUBCUT SCH (10:20)
[2019-05-12] MEDS: MINOXIDIL 2.5 MG TABLET PO SCH (10:21)
[2019-05-12] MEDS: AMLODIPINE BESYLATE 5 MG TABLET PO SCH (10:21)
--- NOTE | 2019-05-12 11:48 | XCELERA REPORT ---
[address] [address] Transthoracic Echocardiogram Report Name: ADY MCGEE Age: 58 yrs Gender: Female : 1960 Patient Status: Inpatient Patient Location: [address] [place], [place] [id number] Study Date: 05/10/2019 06:53 PM Height: 64 in Weight: 104 lb BSA: 1.5 m2 Procedure: A two-dimensional transthoracic echocardiogram with color flow and Doppler was performed. The study was technically limited with all images being suboptimal in quality. Reason For Study: Part of stroke work up. No echo in chart History: Part of stroke work up. No echo in chart. Ordering Physician: REJI VALENCIA Performed By: Cecille Winter Interpretation Summary There is no obvious cardiac source of embolus noted on this transthoracic echocardiogram. Follow-up with a NILSON is suggested if cardiac source is still suspected. The left ventricle is normal in size. There is mild concentric left ventricular hypertrophy. LV EF is 60% Left ventricular systolic function is normal. Doppler measurements suggest impaired left ventricular relaxation, which is associated with grade I/IV or mild diastolic dysfunction The left ventricular wall motion is normal. There is no thrombus. cannot asess for ASD,VSD,or PFO. The right ventricle is normal in size and function. The right atrium is normal. The left atrial size is normal. There is no evidence of mitral valve prolapse. There is no vegetation seen on the mitral valve. There is no mitral valve stenosis. There is a mild amount of mitral regurgitation There is no aortic valvular vegetation. There is no aortic valve stenosis There is no LVOT obstruction. No aortic regurgitation is present. There is no tricuspid stenosis. There is a trace amount of tricuspid regurgitation Tricuspid regurgitation jet envelope not well defined to measure RV systolic pressure accurately. There is no pulmonic valvular stenosis. There is no pulmonic valvular regurgitation. The aortic root is normal size. The inferior vena cava appeared normal and decreased > 50% with respiration (RAP 5-10 mmHg) There is no pericardial effusion. There is no obvious cardiac source of embolus noted on this transthoracic echocardiogram. Follow-up with a NILSON is suggested if cardiac source is still suspected MMode/2D Measurements & Calculations RVDd: 2.5 cm LVIDd: 3.3 cm FS: 28.9 % Ao root diam: 2.3 cm IVSd: 1.2 cm LVIDs: 2.3 cm EDV(Teich): Ao root area: LVPWd: 1.2 cm 43.9 ml 4.3 cm2 ESV(Teich): LA dimension: 3.1 cm 18.9 ml EF(Teich): 56.9 % LVLd ap4: 7.3 cm SV(MOD-sp4): EDV(MOD-sp4): 28.0 ml 40.0 ml LVLs ap4: 5.4 cm ESV(MOD-sp4): 12.0 ml EF(MOD-sp4): 70.0 % Doppler Measurements & Calculations MV E max celia: MV P1/2t max celia: Ao V2 max: LV V1 max P.1 cm/sec 92.3 cm/sec 149.3 cm/sec 5.5 mmHg MV A max celia: MV P1/2t: 46.0 msec Ao max PG: LV V1 max: 108.6 cm/sec MVA(P1/2t): 4.8 cm2 8.9 mmHg 117.5 cm/sec MV E/A: 0.67 MV dec slope: 587.4 cm/sec2 MV dec time: 0.19 sec PA V2 max: MV P1/2t-pr_phl: 129.0 cm/sec 46.0 msec PA max P.7 mmHg Left Ventricle The left ventricle is normal in size. There is mild concentric left ventricular hypertrophy. LV EF is 60%. Left ventricular systolic function is normal. Doppler measurements suggest impaired left ventricular relaxation, which is associated with grade I/IV or mild diastolic dysfunction. The left ventricular wall motion is normal. There is no thrombus. cannot asess for ASD,VSD,or PFO. Right Ventricle The right ventricle is normal in size and function. Atria The right atrium is normal. The left atrial size is normal. Mitral Valve There is no evidence of mitral valve prolapse. There is no vegetation seen on the mitral valve. There is no mitral valve stenosis. There is a mild amount of mitral regurgitation. Aortic Valve There is no aortic valvular vegetation. There is no aortic valve stenosis. There is no LVOT obstruction. No aortic regurgitation is present. Tricuspid Valve There is no tricuspid stenosis. There is a trace amount of tricuspid regurgitation. Tricuspid regurgitation jet envelope not well defined to measure RV systolic pressure accurately. Pulmonic Valve There is no pulmonic valvular stenosis. There is no pulmonic valvular regurgitation. Great Vessels The aortic root is normal size. The inferior vena cava appeared normal and decreased > 50% with respiration (RAP 5-10 mmHg). Effusions There is no pericardial effusion. : REJI VALENCIA Lakshmi
[2019-05-12] MEDS: RINGERS SOLUTION,LACTATED 1,000 ML IV PRN ×2 (14:11→23:52)
[2019-05-12] MEDS ORDERED: ACETAMINOPHEN 325 MG TABLET PO PRN (15:26)
--- NOTE | 2019-05-12 15:48 | PDOC PROGRESS REPORT ---
Subjective Progress Note for:: 05/12/19 Subjective:: No adverse events overnight. No new complaints. Blood pressures are still elevated before she gets her medications. She had a modified barium swallow study which confirmed her current diet recommendation. She is little more talkative today but would still only give me one syllable responses when I try to ask her open-ended questions. I am not sure what her baseline was like before she got to the hospital. Reason For Visit: POSSIBLE STROKE Physical Exam Vital Signs: Temp Pulse Resp BP Pulse Ox 97.3 F 96 16 178/94 H 100 05/12/19 12:15 05/12/19 14:00 05/12/19 12:15 05/12/19 12:15 05/12/19 12:15 Intake & Output 05/11/19 05/12/19 05/13/19 06:59 06:59 06:59 Intake Total 2585 2243 1119 Output Total 1450 1125 200 Balance 1135 1118 919 Weight 59.5 kg 58.7 kg General appearance: PRESENT: no acute distress, cooperative, disheveled Respiratory exam: PRESENT: clear to auscultation bryan, symmetrical, unlabored. ABSENT: accessory muscle use, chest wall tenderness, crackles, prolonged expiratory phas, rhonchi, tachypnea, wheezes Cardiovascular exam: PRESENT: RRR, +S1, +S2 Pulses: PRESENT: normal carotid pulses Vascular exam: PRESENT: normal capillary refill GI/Abdominal exam: PRESENT: normal bowel sounds, soft. ABSENT: distended, guarding, rebound, tenderness Extremities exam: ABSENT: clubbing, pedal edema Musculoskeletal exam: PRESENT: normal inspection. ABSENT: deformity Neurological exam: PRESENT: alert, awake, oriented to person, aphasic Skin exam: PRESENT: dry, warm Results Laboratory Results: 05/10/19 07:14 05/09/19 04:29 05/07/19 06:57 Blood Blood Culture - Final NO GROWTH IN 5 DAYS 05/07/19 04:50 Blood Blood Culture - Final NO GROWTH IN 5 DAYS 05/06/19 05/07/19 21:52 06:57 Troponin I Cancelled 0.079 Impressions: Head CT 05/06/19 22:08 IMPRESSION: Atrophy with small vessel ischemic change. Remote areas of infarct, as above TECHNICAL DOCUMENTATION: Quality ID # 436: Final reports with documentation of one or more dose reduction techniques (e.g., Automated exposure control, adjustment of the mA and/or kV according to patient size, use of iterative reconstruction technique) copyright 2011 [employer]- All Rights Reserved Chest X-Ray 05/07/19 08:00 IMPRESSION: NO ACUTE RADIOGRAPHIC FINDING IN THE CHEST. Carotid Doppler Study 05/10/19 00:00 IMPRESSION: NO HEMODYNAMICALLY SIGNIFICANT STENOSIS. Head MRI 05/10/19 00:00 IMPRESSION: Diffusion-weighted images are positive for acute nonhemorrhagic ischemic change in the right lateral basal ganglia, the posterior thalamus, left occipital cortex and bilateral inferior cerebellar hemispheres. Extensive chronic small vessel ischemic change with bifrontal and biparietal white matter disease, pontine white matter disease, and multiple the brain chronic lacunar infarcts Report called to Dr. Aviles. EVIDENCE OF ACUTE STROKE: Yes. Modified Barium Swallow 05/12/19 00:00 IMPRESSION: LARYNGEAL PENETRATION WITH PROBABLE TRACE ASPIRATION SEEN WITH THIN BARIUM. PLEASE SEE SPEECH PATHOLOGIST REPORT FOR OTHER FINDINGS AND RECOMMENDATIONS. Assessment and Plan - Diagnosis (1) Acute ischemic multifocal posterior circulation stroke Qualifiers: Laterality: unspecified laterality Qualified Code(s): I63.539 - Cerebral infarction due to unspecified occlusion or stenosis of unspecified posterior cer ebral artery Is this a current diagnosis for this admission?: Yes Plan: She has bilateral posterior circulation ischemic strokes. Echocardiogram is negative for source of embolus. Currently on multiple blood pressure medications, statin, aspirin and Plavix. Case management is involved for placement. (2) Diabetes mellitus Qualifiers: Diabetes mellitus type: type 2 Diabetes mellitus complication status: with neurologic complications Is this a current diagnosis for this admission?: Yes Plan: Monitoring blood sugar carefully, when she has a diet in place we will see how she responds. (3) Hyperlipidemia Is this a current diagnosis for this admission?: Yes Plan: Continue statin (4) Hypertension Qualifiers: Hypertension type: essential hypertension Qualified Code(s): I10 - Essential (primary) hypertension Is this a current diagnosis for this admission?: Yes Plan: Currently on multiple medications - Plan Summary Summary: 05/08/2019 We will treat patient's medical problems, hypertension, diabetes. An MRI of the brain is scheduled for Friday Patient's family will need to meet with discharge planning concerning placement issues. Patient will need a modified barium swallow consult. In the meantime we will do a thickened liquid diet. We will need to address CODE STATUS with family Will wait to resume sotalol patient is awake alert and more medically stable I have received a sign off from the woodwind reeds cutter, also spoken with the ICU nurse, spoken with the floor nurse who has received the patient. Floor nurses called the patient's daughter and asked her to come to the hospital so that we may discuss her care 05/09/2019 So far no family members have come to the hospital visit. Vital signs are stable. Creatinine has gone up slightly from admission from 1.69-2.01, magnesium is low at 1.5 ,ammonia levels normal, correct these with fluids and magnesium supplements. Patient's fluids have been increased to 100/h Culture growing a form of strep does have sensitivities. Due to patient presenting with altered mental status she will be treated with p.o. antibiotics, though this may be a contaminant, are greater than 100,000 colonies As the note above states she will see charge planning tomorrow and get an MRI scan of the brain possibly discharged on Friday05/10/2019 Reportedly patient's family brought her to the emergency room on the day of admission and have not been seen since. Nurse on the floor has spoken to a daughter by phone. Discharge planning is going to talk to family to see what their wishes are concerning discharge either back home or to group home facility. Medically I think the patient needs group home facility. She is status post significant severe CVA, with permanent deficit to the right side of her body, well as altered mental status Patient is very sensitive to her blood pressure medication, today had an episode of hypotension, therefore I have cut her medications in half They may need to be increased when she becomes more alert. Pressures today appear to be about 140/70 Patient's creatnine is stable around 2 I need to see him is normal and calcium is normal Patient is scheduled for MRI of the brain today and I ordered some Ativan to be given 30 minutes prior to as there is a history of claustrophobia CT scan in the ER showed remote lacunar infarcts of the basal ganglia bilaterally, as well as remote area of infarct in the left occipital lobe Order has been placed for discharge planning to talk to the family about placement Addendum: MRI shows multiple infarcts, patient is going to need group home facility at the time of discharge. She will need long-term care, include rehabilitation with physical therapy and Occupational Therapy - Time Time Spent with patient: 15-24 minutes
[2019-05-12] MEDS: ATORVASTATIN CALCIUM 10 MG TABLET PO SCH (22:26)
[2019-05-13 05:13] LABS: ANION GAP 6 (5-19); BLOOD UREA NITROGEN 16 mg/dL (7-20); CALCIUM 8.3 mg/dL (8.4-10.2); CARBON DIOXIDE 24 mmol/L (22-30); CHLORIDE 110 mmol/L (98-107); GLUCOSE 97 mg/dL (75-110); POTASSIUM 3.8 mmol/L (3.6-5.0)
[2019-05-13] MEDS: HYDRALAZINE HCL 50 MG TABLET PO SCH ×3 (06:24→22:36)
[2019-05-13] MEDS: CEPHALEXIN 250 MG CAPSULE PO SCH ×3 (06:25→22:36)
[2019-05-13] MEDS: INSULIN LISPRO 100 UNIT/ML 3 ML VIAL SUBCUT SCH ×4 (07:33→21:56)
[2019-05-13] MEDS: CARVEDILOL 12.5 MG TABLET PO SCH ×2 (09:28→22:36)
[2019-05-13] MEDS: MINOXIDIL 2.5 MG TABLET PO SCH (09:28)
[2019-05-13] MEDS: ASPIRIN 325 MG TABLET, ENT COATED PO SCH (09:29)
[2019-05-13] MEDS: FAMOTIDINE 20 MG TABLET PO SCH (09:29)
[2019-05-13] MEDS: AMLODIPINE BESYLATE 5 MG TABLET PO SCH (09:29)
[2019-05-13] MEDS: ENOXAPARIN SODIUM INJ 30 MG/0.3 ML DISP.SYRIN SUBCUT SCH (09:29)
[2019-05-13] MEDS: CLOPIDOGREL BISULFATE 75 MG TABLET PO SCH (09:29)
[2019-05-13] MEDS: RINGERS SOLUTION,LACTATED 1,000 ML IV PRN (13:38)
--- NOTE | 2019-05-13 16:16 | PDOC PROGRESS REPORT ---
Subjective Progress Note for:: 05/13/19 Subjective:: No adverse events overnight. No new complaints. Tolerating a modified diet thus far. Still very dysarthric. Reason For Visit: POSSIBLE STROKE Physical Exam Vital Signs: Temp Pulse Resp BP Pulse Ox 98.2 F 88 16 140/82 H 99 05/13/19 08:49 05/13/19 14:00 05/13/19 12:00 05/13/19 12:00 05/13/19 12:00 Intake & Output 05/12/19 05/13/19 05/14/19 06:59 06:59 06:59 Intake Total 2243 2405 1318 Output Total 1125 1150 400 Balance 1118 1255 918 Weight 58.7 kg 57 kg 57 kg General appearance: PRESENT: no acute distress, cooperative, disheveled Respiratory exam: PRESENT: clear to auscultation bryan, symmetrical, unlabored. ABSENT: accessory muscle use, chest wall tenderness, crackles, prolonged expiratory phas, rhonchi, tachypnea, wheezes Cardiovascular exam: PRESENT: RRR, +S1, +S2 Pulses: PRESENT: normal carotid pulses Vascular exam: PRESENT: normal capillary refill GI/Abdominal exam: PRESENT: normal bowel sounds, soft. ABSENT: distended, guarding, rebound, tenderness Extremities exam: ABSENT: clubbing, pedal edema Musculoskeletal exam: PRESENT: normal inspection. ABSENT: deformity Neurological exam: PRESENT: alert, awake, oriented to person, aphasic Skin exam: PRESENT: dry, warm Results Laboratory Results: 05/10/19 07:14 05/13/19 04:24 05/13/19 04:24 Sodium 139.9 Potassium 3.8 Chloride 110 H Carbon Dioxide 24 Anion Gap 6 BUN 16 Creatinine 1.42 H Est GFR ( Amer) 46 L Glucose 97 Calcium 8.3 L 05/06/19 05/07/19 21:52 06:57 Troponin I Cancelled 0.079 Impressions: Head CT 05/06/19 22:08 IMPRESSION: Atrophy with small vessel ischemic change. Remote areas of infarct, as above TECHNICAL DOCUMENTATION: Quality ID # 436: Final reports with documentation of one or more dose reduction techniques (e.g., Automated exposure control, adjustment of the mA and/or kV according to patient size, use of iterative reconstruction technique) copyright 2011 [employer]- All Rights Reserved Chest X-Ray 05/07/19 08:00 IMPRESSION: NO ACUTE RADIOGRAPHIC FINDING IN THE CHEST. Carotid Doppler Study 05/10/19 00:00 IMPRESSION: NO HEMODYNAMICALLY SIGNIFICANT STENOSIS. Head MRI 05/10/19 00:00 IMPRESSION: Diffusion-weighted images are positive for acute nonhemorrhagic ischemic change in the right lateral basal ganglia, the posterior thalamus, left occipital cortex and bilateral inferior cerebellar hemispheres. Extensive chronic small vessel ischemic change with bifrontal and biparietal white matter disease, pontine white matter disease, and multiple the brain chronic lacunar infarcts Report called to Dr. Aviles. EVIDENCE OF ACUTE STROKE: Yes. Modified Barium Swallow 05/12/19 00:00 IMPRESSION: LARYNGEAL PENETRATION WITH PROBABLE TRACE ASPIRATION SEEN WITH THIN BARIUM. PLEASE SEE SPEECH PATHOLOGIST REPORT FOR OTHER FINDINGS AND RECOMMENDATIONS. Assessment and Plan - Diagnosis (1) Acute ischemic multifocal posterior circulation stroke Qualifiers: Laterality: unspecified laterality Qualified Code(s): I63.539 - Cerebral infarction due to unspecified occlusion or stenosis of unspecified posterior cerebral artery Is this a current diagnosis for this admission?: Yes Plan: She has bilateral posterior circulation ischemic strokes. Echocardiogram is negative for source of embolus. Currently on multiple blood pressure medications, statin, aspirin and Plavix. Case management is involved for placement. (2) Diabetes mellitus Qualifiers: Diabetes mellitus type: type 2 Diabetes mellitus complication status: with neurologic complications Is this a current diagnosis for this admission?: Yes Plan: Monitoring blood sugar carefully, when she has a diet in place we will see how she responds. (3) Hyperlipidemia Is this a current diagnosis for this admission?: Yes Plan: Continue statin (4) Hypertension Qualifiers: Hypertension type: essential hypertension Qualified Code(s): I10 - Essential (primary) hypertension Is this a current diagnosis for this admission?: Yes Plan: Currently on multiple medications - Plan Summary Summary: 05/08/2019 We will treat patient's medical problems, hypertension, diabetes. An MRI of the brain is scheduled for Friday Patient's family will need to meet with discharge planning concerning placement issues. Patient will need a modified barium swallow consult. In the meantime we will do a thickened liquid diet. We will need to address CODE STATUS with family Will wait to resume sotalol patient is awake alert and more medically stable I have received a sign off from the senior office support assistant sosa, also spoken with the ICU nurse, spoken with the floor nurse who has received the patient. Floor nurses called the patient's daughter and asked her to come to the hospital so that we may discuss her care 05/09/2019 So far no family members have come to the hospital visit. Vital signs are stable. Creatinine has gone up slightly from admission from 1.69-2.01, magnesium is low at 1.5 ,ammonia levels normal, correct these with fluids and magnesium supplements. Patient's fluids have been increased to 100/h Culture growing a form of strep does have sensitivities. Due to patient presenting with altered mental status she will be treated with p.o. antibiotics, though this may be a contaminant, are greater than 100,000 colonies As the note above states she will see charge planning tomorrow and get an MRI scan of the brain possibly discharged on Friday05/10/2019 Reportedly patient's family brought her to the emergency room on the day of admission and have not been seen since. Nurse on the floor has spoken to kim paiz by phone. Discharge planning is going to talk to family to see what their wishes are concerning discharge either back home or to penitentiary facility. Medically I think the patient needs penitentiary facility. She is status post significant severe CVA, with permanent deficit to the right side of her body, well as altered mental status Patient is very sensitive to her blood pressure medication, today had an episode of hypotension, therefore I have cut her medications in half They may need to be increased when she becomes more alert. Pressures today appear to be about 140/70 Patient's creatnine is stable around 2 I need to see him is normal and calcium is normal Patient is scheduled for MRI of the brain today and I ordered some Ativan to be given 30 minutes prior to as there is a history of claustrophobia CT scan in the ER showed remote lacunar infarcts of the basal ganglia bilaterally, as well as remote area of infarct in the left occipital lobe Order has been placed for discharge planning to talk to the family about placement Addendum: MRI shows multiple infarcts, patient is going to need penitentiary facility at the time of discharge. She will need long-term care, include rehabilitation with physical therapy and Occupational Therapy - Time Time Spent with patient: 15-24 minutes
[2019-05-13] MEDS: ATORVASTATIN CALCIUM 10 MG TABLET PO SCH (22:56)
[2019-05-14] MEDS: RINGERS SOLUTION,LACTATED 1,000 ML IV PRN ×3 (03:24→21:38)
[2019-05-14 05:23] LABS: ANION GAP 5 (5-19); BLOOD UREA NITROGEN 16 mg/dL (7-20); CALCIUM 8.4 mg/dL (8.4-10.2); CARBON DIOXIDE 24 mmol/L (22-30); CHLORIDE 111 mmol/L (98-107); GLUCOSE 80 mg/dL (75-110); POTASSIUM 3.6 mmol/L (3.6-5.0)
[2019-05-14] MEDS: CEPHALEXIN 250 MG CAPSULE PO SCH ×3 (05:52→22:08)
[2019-05-14] MEDS: HYDRALAZINE HCL 50 MG TABLET PO SCH ×3 (05:52→21:37)
[2019-05-14] MEDS: INSULIN LISPRO 100 UNIT/ML 3 ML VIAL SUBCUT SCH ×4 (07:22→21:21)
[2019-05-14] MEDS: CARVEDILOL 12.5 MG TABLET PO SCH ×2 (11:13→21:37)
[2019-05-14] MEDS: MINOXIDIL 2.5 MG TABLET PO SCH (11:17)
[2019-05-14] MEDS: AMLODIPINE BESYLATE 5 MG TABLET PO SCH (11:17)
[2019-05-14] MEDS: FAMOTIDINE 20 MG TABLET PO SCH (11:19)
[2019-05-14] MEDS: CLOPIDOGREL BISULFATE 75 MG TABLET PO SCH (11:19)
[2019-05-14] MEDS: ASPIRIN 325 MG TABLET, ENT COATED PO SCH (11:23)
--- NOTE | 2019-05-14 15:12 | PDOC PROGRESS REPORT ---
Subjective Progress Note for:: 05/14/19 Subjective:: No adverse events overnight. No new complaints. Still very dysarthric. Blood pressures are elevated when she is not on her medication. Reason For Visit: POSSIBLE STROKE Physical Exam Vital Signs: Temp Pulse Resp BP Pulse Ox 97.6 F 70 12 149/77 H 100 05/14/19 07:31 05/14/19 14:00 05/14/19 12:00 05/14/19 12:00 05/14/19 12:00 Intake & Output 05/13/19 05/14/19 05/15/19 06:59 06:59 06:59 Intake Total 2405 2468 1000 Output Total 1150 850 90 Balance 1255 1618 910 Weight 57 kg 60.7 kg General appearance: PRESENT: no acute distress, cooperative, disheveled Respiratory exam: PRESENT: clear to auscultation bryan, symmetrical, unlabored. ABSENT: accessory muscle use, chest wall tenderness, crackles, prolonged expiratory phas, rhonchi, tachypnea, wheezes Cardiovascular exam: PRESENT: RRR, +S1, +S2 Pulses: PRESENT: normal carotid pulses Vascular exam: PRESENT: normal capillary refill GI/Abdominal exam: PRESENT: normal bowel sounds, soft. ABSENT: distended, guarding, rebound, tenderness Extremities exam: ABSENT: clubbing, pedal edema Musculoskeletal exam: PRESENT: normal inspection. ABSENT: deformity Neurological exam: PRESENT: alert, awake, oriented to person, aphasic Skin exam: PRESENT: dry, warm Results Laboratory Results: 05/10/19 07:14 05/14/19 04:28 05/14/19 04:28 Sodium 139.9 Potassium 3.6 Chloride 111 H Carbon Dioxide 24 Anion Gap 5 BUN 16 Creatinine 1.52 H Est GFR ( Amer) 43 L Glucose 80 Calcium 8.4 05/06/19 05/07/19 21:52 06:57 Troponin I Cancelled 0.079 Impressions: Head CT 05/06/19 22:08 IMPRESSION: Atrophy with small vessel ischemic change. Remote areas of infarct, as above TECHNICAL DOCUMENTATION: Quality ID # 436: Final reports with documentation of one or more dose reduction techniques (e.g., Automated exposure control, adjustment of the mA and/or kV according to patient size, use of iterative reconstruction technique) copyright 2011 [employer]- All Rights Reserved Chest X-Ray 05/07/19 08:00 IMPRESSION: NO ACUTE RADIOGRAPHIC FINDING IN THE CHEST. Carotid Doppler Study 05/10/19 00:00 IMPRESSION: NO HEMODYNAMICALLY SIGNIFICANT STENOSIS. Head MRI 05/10/19 00:00 IMPRESSION: Diffusion-weighted images are positive for acute nonhemorrhagic ischemic change in the right lateral basal ganglia, the posterior thalamus, left occipital cortex and bilateral inferior cerebellar hemispheres. Extensive chronic small vessel ischemic change with bifrontal and biparietal white matter disease, pontine white matter disease, and multiple the brain chronic lacunar infarcts Report called to Dr. Aviles. EVIDENCE OF ACUTE STROKE: Yes. Modified Barium Swallow 05/12/19 00:00 IMPRESSION: LARYNGEAL PENETRATION WITH PROBABLE TRACE ASPIRATION SEEN WITH THIN BARIUM. PLEASE SEE SPEECH PATHOLOGIST REPORT FOR OTHER FINDINGS AND RECOMMENDATIONS. Assessment and Plan - Diagnosis (1) Acute ischemic multifocal posterior circulation stroke Qualifiers: Laterality: unspecified laterality Qualified Code(s): I63.539 - Cerebral infarction due to unspecified occlusion or stenosis of unspecified posterior cerebral artery Is this a current diagnosis for this admission?: Yes Plan: She has bilateral posterior circulation ischemic strokes. Echocardiogram is negative for source of embolus. Currently on multiple blood pressure medications, statin, aspirin and Plavix. Case management is involved for placement. She has a bed at [place] for long-term care. I have attempted to call her daughter multiple times a day and she has not answered the phone. We will continue to try to make contact with her because we have a disposition plan in place for this patient. (2) Diabetes mellitus Qualifiers: Diabetes mellitus type: type 2 Diabetes mellitus complication status: with neurologic complications Is this a current diagnosis for this admission?: Yes Plan: Monitoring blood sugar carefully, when she has a diet in place we will see how she responds. (3) Hyperlipidemia Is this a current diagnosis for this admission?: Yes Plan: Continue statin (4) Hypertension Qualifiers: Hypertension type: essential hypertension Qualified Code(s): I10 - Essential (primary) hypertension Is this a current diagnosis for this admission?: Yes Plan: Currently on multiple medications - Plan Summary Summary: 05/08/2019 We will treat patient's medical problems, hypertension, diabetes. An MRI of the brain is scheduled for Friday Patient's family will need to meet with discharge planning concerning placement issues. Patient will need a modified barium swallow consult. In the meantime we will do a thickened liquid diet. We will need to address CODE STATUS with family Will wait to resume sotalol patient is awake alert and more medically stable I have received a sign off from the liquid fertilizer servicer, also spoken with the ICU nurse, spoken with the floor nurse who has received the patient. Floor nurses called the patient's daughter and asked her to come to the hospital so that we may discuss her care 05/09/2019 So far no family members have come to the hospital visit. Vital signs are stable. Creatinine has gone up slightly from admission from 1.69-2.01, magnesium is low at 1.5 ,ammonia levels normal, correct these with fluids and magnesium supplements. Patient's fluids have been increased to 100/h Culture growing a form of strep does have sensitivities. Due to patient presenting with altered mental status she will be treated with p.o. antibiotics, though this may be a contaminant, are greater than 100,000 colonies As the note above states she will see charge planning tomorrow and get an MRI scan of the brain possibly discharged on Friday05/10/2019 Reportedly patient's family brought her to the emergency room on the day of admi ssion and have not been seen since. Nurse on the floor has spoken to a daughter by phone. Discharge planning is going to talk to family to see what their wishes are concerning discharge either back home or to [facility]. Medically I think the patient needs [facility]. She is status post significant severe CVA, with permanent deficit to the right side of her body, well as altered mental status Patient is very sensitive to her blood pressure medication, today had an episode of hypotension, therefore I have cut her medications in half They may need to be increased when she becomes more alert. Pressures today appear to be about 140/70 Patient's creatnine is stable around 2 I need to see him is normal and calcium is normal Patient is scheduled for MRI of the brain today and I ordered some Ativan to be given 30 minutes prior to as there is a history of claustrophobia CT scan in the ER showed remote lacunar infarcts of the basal ganglia bilaterally, as well as remote area of infarct in the left occipital lobe Order has been placed for discharge planning to talk to the family about placement Addendum: MRI shows multiple infarcts, patient is going to need [facility] at the time of discharge. She will need long-term care, include rehabilitation with physical therapy and Occupational Therapy - Time Time Spent with patient: 15-24 minutes
[2019-05-14] MEDS: ENOXAPARIN SODIUM INJ 30 MG/0.3 ML DISP.SYRIN SUBCUT SCH (18:14)
[2019-05-14] MEDS: ATORVASTATIN CALCIUM 10 MG TABLET PO SCH (21:38)
[2019-05-15 04:53] LABS: ANION GAP 6 (5-19); BLOOD UREA NITROGEN 15 mg/dL (7-20); CALCIUM 8.1 mg/dL (8.4-10.2); CARBON DIOXIDE 24 mmol/L (22-30); CHLORIDE 110 mmol/L (98-107); GLUCOSE 91 mg/dL (75-110); POTASSIUM 3.1 mmol/L (3.6-5.0)
[2019-05-15] MEDS: HYDRALAZINE HCL 50 MG TABLET PO SCH ×3 (05:11→21:30)
[2019-05-15] MEDS: CEPHALEXIN 250 MG CAPSULE PO SCH ×3 (05:22→21:30)
[2019-05-15] MEDS: INSULIN LISPRO 100 UNIT/ML 3 ML VIAL SUBCUT SCH ×4 (07:39→21:18)
[2019-05-15] MEDS: AMLODIPINE BESYLATE 5 MG TABLET PO SCH (10:07)
[2019-05-15] MEDS: ASPIRIN 325 MG TABLET, ENT COATED PO SCH (10:07)
[2019-05-15] MEDS: CARVEDILOL 12.5 MG TABLET PO SCH ×2 (10:07→21:30)
[2019-05-15] MEDS: MINOXIDIL 2.5 MG TABLET PO SCH (10:07)
[2019-05-15] MEDS: ENOXAPARIN SODIUM INJ 30 MG/0.3 ML DISP.SYRIN SUBCUT SCH (10:07)
[2019-05-15] MEDS: CLOPIDOGREL BISULFATE 75 MG TABLET PO SCH (10:07)
[2019-05-15] MEDS: FAMOTIDINE 20 MG TABLET PO SCH (10:07)
[2019-05-15] MEDS ORDERED: POTASSIUM CHLORIDE 10 MEQ TABLET.ER PO ONE (13:51)
--- NOTE | 2019-05-15 13:54 | PDOC PROGRESS REPORT ---
Subjective Progress Note for:: 05/15/19 Subjective:: No adverse events overnight. No new complaints. Still very dysarthric. Blood pressures are elevated when she is not on her medication. Reason For Visit: POSSIBLE STROKE Physical Exam Vital Signs: Temp Pulse Resp BP Pulse Ox 98.1 F 83 17 117/98 H 92 05/15/19 11:42 05/15/19 11:42 05/15/19 11:42 05/15/19 11:42 05/15/19 11:42 Intake & Output 05/14/19 05/15/19 05/16/19 06:59 06:59 06:59 Intake Total 2468 2240 Output Total 850 290 Balance 1618 1950 Weight 60.7 kg 63.2 kg General appearance: PRESENT: no acute distress, cooperative, disheveled Respiratory exam: PRESENT: clear to auscultation bryan, symmetrical, unlabored. ABSENT: accessory muscle use, chest wall tenderness, crackles, prolonged expiratory phas, rhonchi, tachypnea, wheezes Cardiovascular exam: PRESENT: RRR, +S1, +S2 Pulses: PRESENT: normal carotid pulses Vascular exam: PRESENT: normal capillary refill GI/Abdominal exam: PRESENT: normal bowel sounds, soft. ABSENT: distended, guarding, rebound, tenderness Extremities exam: ABSENT: clubbing, pedal edema Musculoskeletal exam: PRESENT: normal inspection. ABSENT: deformity Neurological exam: PRESENT: alert, awake, oriented to person, aphasic Skin exam: PRESENT: dry, warm Results Laboratory Results: 05/10/19 07:14 05/15/19 04:09 05/15/19 04:09 Sodium 139.8 Potassium 3.1 L Chloride 110 H Carbon Dioxide 24 Anion Gap 6 BUN 15 Creatinine 1.62 H Est GFR ( Amer) 40 L Glucose 91 Calcium 8.1 L 05/06/19 05/07/19 21:52 06:57 Troponin I Cancelled 0.079 Impressions: Head CT 05/06/19 22:08 IMPRESSION: Atrophy with small vessel ischemic change. Remote areas of infarct, as above TECHNICAL DOCUMENTATION: Quality ID # 436: Final reports with documentation of one or more dose reduction techniques (e.g., Automated exposure control, adjustment of the mA and/or kV according to patient size, use of iterative reconstruction technique) copyright 2011 [employer]- All Rights Reserved Chest X-Ray 05/07/19 08:00 IMPRESSION: NO ACUTE RADIOGRAPHIC FINDING IN THE CHEST. Carotid Doppler Study 05/10/19 00:00 IMPRESSION: NO HEMODYNAMICALLY SIGNIFICANT STENOSIS. Head MRI 05/10/19 00:00 IMPRESSION: Diffusion-weighted images are positive for acute nonhemorrhagic ischemic change in the right lateral basal ganglia, the posterior thalamus, left occipital cortex and bilateral inferior cerebellar hemispheres. Extensive chronic small vessel ischemic change with bifrontal and biparietal white matter disease, pontine white matter disease, and multiple the brain chronic lacunar infarcts Report called to Dr. Aviles. EVIDENCE OF ACUTE STROKE: Yes. Modified Barium Swallow 05/12/19 00:00 IMPRESSION: LARYNGEAL PENETRATION WITH PROBABLE TRACE ASPIRATION SEEN WITH THIN BARIUM. PLEASE SEE SPEECH PATHOLOGIST REPORT FOR OTHER FINDINGS AND RECOMMENDATIONS. Assessment and Plan - Diagnosis (1) Acute ischemic multifocal posterior circulation stroke Qualifiers: Laterality: unspecified laterality Qualified Code(s): I63.539 - Cerebral infarction due to unspecified occlusion or stenosis of unspecified posterior cerebral artery Is this a current diagnosis for this admission?: Yes Plan: She has bilateral posterior circulation ischemic strokes. Echocardiogram is negative for source of embolus. Currently on multiple blood pressure medications, statin, aspirin and Plavix. Case management is involved for placement. She has a bed at [place] for long-term care. Continuing to attempt to reestablish contact with her daughter. We will continue to try to make contact with her because we have a disposition plan in place for this patient. (2) Diabetes mellitus Qualifiers: Diabetes mellitus type: type 2 Diabetes mellitus complication status: with neurologic complications Is this a current diagnosis for this admission?: Yes Plan: Monitoring blood sugar carefully, when she has a diet in place we will see how she responds. (3) Hyperlipidemia Is this a current diagnosis for this admission?: Yes Plan: Continue statin (4) Hypertension Qualifiers: Hypertension type: essential hypertension Qualified Code(s): I10 - Essential (primary) hypertension Is this a current diagnosis for this admission?: Yes Plan: Currently on multiple medications - Plan Summary Summary: 05/08/2019 We will treat patient's medical problems, hypertension, diabetes. An MRI of the brain is scheduled for Friday Patient's family will need to meet with discharge planning concerning placement issues. Patient will need a modified barium swallow consult. In the meantime we will do a thickened liquid diet. We will need to address CODE STATUS with family Will wait to resume sotalol patient is awake alert and more medically stable I have received a sign off from the press tender incendiary grenade, also spoken with the ICU nurse, spoken with the floor nurse who has received the patient. Floor nurses called the patient's daughter and asked her to come to the hospital so that we may discuss her care 05/09/2019 So far no family members have come to the hospital visit. Vital signs are stable. Creatinine has gone up slightly from admission from 1.69-2.01, magnesium is low at 1.5 ,ammonia levels normal, correct these with fluids and magnesium supplements. Patient's fluids have been increased to 100/h Culture growing a form of strep does have sensitivities. Due to patient pre senting with altered mental status she will be treated with p.o. antibiotics, though this may be a contaminant, are greater than 100,000 colonies As the note above states she will see charge planning tomorrow and get an MRI scan of the brain possibly discharged on Friday05/10/2019 Reportedly patient's family brought her to the emergency room on the day of admission and have not been seen since. Nurse on the floor has spoken to a daughter by phone. Discharge planning is going to talk to family to see what their wishes are concerning discharge either back home or to custodial facility. Medically I think the patient needs custodial facility. She is status post significant severe CVA, with permanent deficit to the right side of her body, well as altered mental status Patient is very sensitive to her blood pressure medication, today had an episode of hypotension, therefore I have cut her medications in half They may need to be increased when she becomes more alert. Pressures today appear to be about 140/70 Patient's creatnine is stable around 2 I need to see him is normal and calcium is normal Patient is scheduled for MRI of the brain today and I ordered some Ativan to be given 30 minutes prior to as there is a history of claustrophobia CT scan in the ER showed remote lacunar infarcts of the basal ganglia bilaterally, as well as remote area of infarct in the left occipital lobe Order has been placed for discharge planning to talk to the family about placement Addendum: MRI shows multiple infarcts, patient is going to need custodial facility at the time of discharge. She will need long-term care, include rehabilitation with physical therapy and Occupational Therapy - Time Time Spent with patient: 15-24 minutes
[2019-05-15] MEDS: RINGERS SOLUTION,LACTATED 1,000 ML IV PRN (17:09)
[2019-05-15] MEDS: ATORVASTATIN CALCIUM 10 MG TABLET PO SCH (21:30)
[2019-05-16] MEDS: RINGERS SOLUTION,LACTATED 1,000 ML IV PRN ×2 (03:01→14:04)
[2019-05-16] MEDS: HYDRALAZINE HCL 50 MG TABLET PO SCH ×3 (05:15→21:25)
[2019-05-16] MEDS ORDERED: CEPHALEXIN 250 MG CAPSULE ONE (05:25)
[2019-05-16] MEDS: CEPHALEXIN 250 MG CAPSULE PO SCH (06:23)
[2019-05-16] MEDS: INSULIN LISPRO 100 UNIT/ML 3 ML VIAL SUBCUT SCH ×4 (07:10→21:26)
[2019-05-16] MEDS: FAMOTIDINE 20 MG TABLET PO SCH (09:25)
[2019-05-16] MEDS: AMLODIPINE BESYLATE 5 MG TABLET PO SCH (09:25)
[2019-05-16] MEDS: MINOXIDIL 2.5 MG TABLET PO SCH (09:25)
[2019-05-16] MEDS: ENOXAPARIN SODIUM INJ 30 MG/0.3 ML DISP.SYRIN SUBCUT SCH (09:25)
[2019-05-16] MEDS: CLOPIDOGREL BISULFATE 75 MG TABLET PO SCH (09:25)
[2019-05-16] MEDS: ASPIRIN 325 MG TABLET, ENT COATED PO SCH (09:25)
[2019-05-16] MEDS: CARVEDILOL 12.5 MG TABLET PO SCH ×2 (09:25→21:25)
--- NOTE | 2019-05-16 15:32 | PDOC PROGRESS REPORT ---
Subjective Progress Note for:: 05/16/19 Subjective:: No adverse events overnight. No new complaints. Condition remains stable and unchanged. Reason For Visit: POSSIBLE STROKE Physical Exam Vital Signs: Temp Pulse Resp BP Pulse Ox 97.4 F 93 17 151/96 H 97 05/16/19 11:06 05/16/19 14:00 05/16/19 11:06 05/16/19 11:06 05/16/19 11:06 Intake & Output 05/15/19 05/16/19 05/17/19 06:59 06:59 06:59 Intake Total 2240 2277 1000 Output Total 290 599 Balance 1950 1678 1000 Weight 63.2 kg 64.4 kg General appearance: PRESENT: no acute distress, cooperative, disheveled Respiratory exam: PRESENT: clear to auscultation bryan, symmetrical, unlabored. ABSENT: accessory muscle use, chest wall tenderness, crackles, prolonged expiratory phas, rhonchi, tachypnea, wheezes Cardiovascular exam: PRESENT: RRR, +S1, +S2 Pulses: PRESENT: normal carotid pulses Vascular exam: PRESENT: normal capillary refill GI/Abdominal exam: PRESENT: normal bowel sounds, soft. ABSENT: distended, guarding, rebound, tenderness Extremities exam: ABSENT: clubbing, pedal edema Musculoskeletal exam: PRESENT: normal inspection. ABSENT: deformity Neurological exam: PRESENT: alert, awake, oriented to person, aphasic Skin exam: PRESENT: dry, warm Results Laboratory Results: 05/10/19 07:14 05/15/19 04:09 05/06/19 05/07/19 21:52 06:57 Troponin I Cancelled 0.079 Impressions: Head CT 05/06/19 22:08 IMPRESSION: Atrophy with small vessel ischemic change. Remote areas of infarct, as above TECHNICAL DOCUMENTATION: Quality ID # 436: Final reports with documentation of one or more dose reduction techniques (e.g., Automated exposure control, adjustment of the mA and/or kV according to patient size, use of iterative reconstruction technique) copyright 2011 [employer]- All Rights Reserved Chest X-Ray 05/07/19 08:00 IMPRESSION: NO ACUTE RADIOGRAPHIC FINDING IN THE CHEST. Carotid Doppler Study 05/10/19 00:00 IMPRESSION: NO HEMODYNAMICALLY SIGNIFICANT STENOSIS. Head MRI 05/10/19 00:00 IMPRESSION: Diffusion-weighted images are positive for acute nonhemorrhagic ischemic change in the right lateral basal ganglia, the posterior thalamus, left occipital cortex and bilateral inferior cerebellar hemispheres. Extensive chronic small vessel ischemic change with bifrontal and biparietal white matter disease, pontine white matter disease, and multiple the brain chronic lacunar infarcts Report called to Dr. Aviles. EVIDENCE OF ACUTE STROKE: Yes. Modified Barium Swallow 05/12/19 00:00 IMPRESSION: LARYNGEAL PENETRATION WITH PROBABLE TRACE ASPIRATION SEEN WITH THIN BARIUM. PLEASE SEE SPEECH PATHOLOGIST REPORT FOR OTHER FINDINGS AND RECOMMENDAT IONS. Assessment and Plan - Diagnosis (1) Acute ischemic multifocal posterior circulation stroke Qualifiers: Laterality: unspecified laterality Qualified Code(s): I63.539 - Cerebral infarction due to unspecified occlusion or stenosis of unspecified posterior cerebral artery Is this a current diagnosis for this admission?: Yes Plan: She has bilateral posterior circulation ischemic strokes. Echocardiogram is negative for source of embolus. Currently on multiple blood pressure medications, statin, aspirin and Plavix. Case management is involved for placement. She has a bed at [place] for long-term care. Spoke to her younger daughter who is in complete agreement about transitioning her to long-term care. Spoke with her older daughter who seems to be having a hard time understanding the condition the patient is actually in. (2) Diabetes mellitus Qualifiers: Diabetes mellitus type: type 2 Diabetes mellitus complication status: with neurologic complications Is this a current diagnosis for this admission?: Yes Plan: Monitoring blood sugar carefully, when she has a diet in place we will see how she responds. (3) Hyperlipidemia Is this a current diagnosis for this admission?: Yes Plan: Continue statin (4) Hypertension Qualifiers: Hypertension type: essential hypertension Qualified Code(s): I10 - Essential (primary) hypertension Is this a current diagnosis for this admission?: Yes Plan: Currently on multiple medications - Plan Summary Summary: 05/08/2019 We will treat patient's medical problems, hypertension, diabetes. An MRI of the brain is scheduled for Friday Patient's family will need to meet with discharge planning concerning placement issues. Patient will need a modified barium swallow consult. In the meantime we will do a thickened liquid diet. We will need to address CODE STATUS with family Will wait to resume sotalol patient is awake alert and more medically stable I have received a sign off from the seaming machine operator, also spoken with the ICU nurse, spoken with the floor nurse who has received the patient. Floor nurses called the patient's daughter and asked her to come to the hospital so that we may discuss her care 05/09/2019 So far no family members have come to the hospital visit. Vital signs are stable. Creatinine has gone up slightly from admission from 1.69-2.01, magnesium is low at 1.5 ,ammonia levels normal, correct these with fluids and magnesium supplements. Patient's fluids have been increased to 100/h Culture growing a form of strep does have sensitivities. Due to patient presenting with altered mental status she will be treated with p.o. antibiotics, though this may be a contaminant, are greater than 100,000 colonies As the note above states she will see charge planning tomorrow and get an MRI sc an of the brain possibly discharged on Friday05/10/2019 Reportedly patient's family brought her to the emergency room on the day of admission and have not been seen since. Nurse on the floor has spoken to a daughter by phone. Discharge planning is going to talk to family to see what their wishes are concerning discharge either back home or to correction facility. Medically I think the patient needs correction facility. She is status post significant severe CVA, with permanent deficit to the right side of her body, well as altered mental status Patient is very sensitive to her blood pressure medication, today had an episode of hypotension, therefore I have cut her medications in half They may need to be increased when she becomes more alert. Pressures today appear to be about 140/70 Patient's creatnine is stable around 2 I need to see him is normal and calcium is normal Patient is scheduled for MRI of the brain today and I ordered some Ativan to be given 30 minutes prior to as there is a history of claustrophobia CT scan in the ER showed remote lacunar infarcts of the basal ganglia bilaterally, as well as remote area of infarct in the left occipital lobe Order has been placed for discharge planning to talk to the family about placement Addendum: MRI shows multiple infarcts, patient is going to need correction facility at the time of discharge. She will need long-term care, include rehabilitation with physical therapy and Occupational Therapy - Time Time Spent with patient: 15-24 minutes
[2019-05-16] MEDS: ATORVASTATIN CALCIUM 10 MG TABLET PO SCH (21:25)
[2019-05-17] MEDS: RINGERS SOLUTION,LACTATED 1,000 ML IV PRN (00:02)
[2019-05-17] MEDS: HYDRALAZINE HCL 50 MG TABLET PO SCH ×2 (05:27→13:42)
[2019-05-17] MEDS: INSULIN LISPRO 100 UNIT/ML 3 ML VIAL SUBCUT SCH ×2 (08:43→12:47)
[2019-05-17] MEDS: FAMOTIDINE 20 MG TABLET PO SCH (09:45)
[2019-05-17] MEDS: AMLODIPINE BESYLATE 5 MG TABLET PO SCH (09:45)
[2019-05-17] MEDS: ENOXAPARIN SODIUM INJ 30 MG/0.3 ML DISP.SYRIN SUBCUT SCH (09:45)
[2019-05-17] MEDS: CLOPIDOGREL BISULFATE 75 MG TABLET PO SCH (09:45)
[2019-05-17] MEDS: CARVEDILOL 12.5 MG TABLET PO SCH (09:45)
[2019-05-17] MEDS: MINOXIDIL 2.5 MG TABLET PO SCH (09:45)
[2019-05-17] MEDS: ASPIRIN 325 MG TABLET, ENT COATED PO SCH (09:45)
--- NOTE | 2019-05-17 09:48 | PDOC TRANSFER SUMMARY ---
Impression - Admit/DC Date/PCP Admission Date/Primary Care Provider: 05/07/19 04:51 NO LOCALMD Discharge Date: 05/17/19 - Discharge Diagnosis (1) Acute ischemic multifocal posterior circulation stroke Is this a current diagnosis for this admission?: Yes (2) Diabetes mellitus Is this a current diagnosis for this admission?: Yes (3) Hyperlipidemia Is this a current diagnosis for this admission?: Yes (4) Hypertension Is this a current diagnosis for this admission?: Yes - Assessment Summary: 05/08/2019 We will treat patient's medical problems, hypertension, diabetes. An MRI of the brain is scheduled for Friday Patient's family will need to meet with discharge planning concerning placement issues. Patient will need a modified barium swallow consult. In the meantime we will do a thickened liquid diet. We will need to address CODE STATUS with family Will wait to resume sotalol patient is awake alert and more medically stable I have received a sign off from the angle furnaceman, also spoken with the ICU nurse, spoken with the floor nurse who has received the patient. Floor nurses called the patient's daughter and asked her to come to the hospital so that we may discuss her care 05/09/2019 So far no family members have come to the hospital visit. Vital signs are stable. Creatinine has gone up slightly from admission from 1.69-2.01, magnesium is low at 1.5 ,ammonia levels normal, correct these with fluids and magnesium supplements. Patient's fluids have been increased to 100/h Culture growing a form of strep does have sensitivities. Due to patient presenting with altered mental status she will be treated with p.o. antibiotics, though this may be a contaminant, are greater than 100,000 colonies As the note above states she will see charge planning tomorrow and get an MRI scan of the brain possibly discharged on Friday05/10/2019 Reportedly patient's family brought her to the emergency room on the day of admission and have not been seen since. Nurse on the floor has spoken to a daughter by phone. Discharge planning is going to talk to family to see what their wishes are concerning discharge either back home or to correction facility. Medically I think the patient needs correction facility. She is status post significant severe CVA, with permanent deficit to the right side of her body, well as altered mental status Patient is very sensitive to her blood pressure medication, today had an episode of hypotension, therefore I have cut her medications in half They may need to be increased when she becomes more alert. Pressures today appear to be about 140/70 Patient's creatnine is stable around 2 I need to see him is normal and calcium is normal Patient is scheduled for MRI of the brain today and I ordered some Ativan to be given 30 minutes prior to as there is a history of claustrophobia CT scan in the ER showed remote lacunar infarcts of the basal ganglia bilaterally, as well as remote area of infarct in the left occipital lobe Order has been placed for discharge planning to talk to the family about placement Addendum: MRI shows multiple infarcts, patient is going to need correction facility at the time of discharge. She will need long-term care, include rehabilitation with physical therapy and Occupational Therapy - Additional Information Resuscitation Status: Full Code Discharge Diet: Cardiac Discharge Activity: Supervised Activity Referrals: [facility] [Provider Group] Home Medications: Amlodipine Besylate [Norvasc 10 mg Tablet] 10 mg PO DAILY 05/07/19 Atorvastatin Calcium [Lipitor 80 mg Tablet] 80 mg PO QHS 05/07/19 Baclofen [Baclofen 10 mg Tablet] 10 mg PO TID 05/07/19 Carvedilol [Coreg 25 mg Tablet] 25 mg PO Q12 05/07/19 Hydralazine HCl [Apresoline 50 mg Tablet] 100 mg PO Q8 05/07/19 Minoxidil [Loniten 2.5 mg Tablet] 2.5 mg PO DAILY 05/07/19 Clopidogrel Bisulfate [Plavix 75 mg Tablet] 75 mg PO DAILY tablet 05/17/19 Famotidine [Pepcid 20 mg Tablet] 20 mg PO DAILY tablet 05/17/19 History of Present Illiness History of Present Illness: ADY MCGEE is a 58 year old female patient who presented to the emergency room earlier this evening after having an altered mental status at home. Reportedly the details of the event are otherwise unknown, but apparently the patient was found with a decreased level of consciousness and altered mental state by her family during the gathering. There is no last time normal recorded. She presented to the ED approximately 6 hours prior to my evaluation. During her evaluation for mental status changes, patient had sustained systolic hypertension greater than 200 mmHg which prompted a Cardene drip. Secondary to her mental status I am unable to obtain past medical, past surgical, family, social history, or review of systems. All information is gleaned from the chart. The patient has a notable history for previous stroke with right-sided hemiplegia and renal insufficiency. Hospital Course Hospital Course: She was able to come off the Cardene drip and come out to the floor. She did have a posterior circulation stroke. Her echocardiogram was negative. Her physical deficits were made even worse by the stroke. Her speech is even more dysarthric than usual. She is fortunately been tolerating a modified diet. There was initially some reluctance on the part of some of her family to get her into a facility, because it was deemed that she would be appropriate for long- term care at this point. Eventually, all parties agreed and a bed was sought in a facility for long-term care. She had some adjustments to some of her medications in order to improve her blood pressure control. There was reluctance to bring her pressure down too much because it was thought that she probably needs a little bit higher pressure than what is considered ideal to maintain perfusion. Once the bureaucratic process for placement was completed, she was transferred in stable condition. Physical Exam Vital Signs: Temp Pulse Resp BP Pulse Ox 97.1 F 84 20 150/73 H 100 05/17/19 03:09 05/17/19 07:00 05/17/19 03:09 05/17/19 03:09 05/17/19 03:09 Intake & Output 05/16/19 05/17/19 05/18/19 06:59 06:59 06:59 Intake Total 2277 2247 Output Total 599 1000 Balance 1678 1247 Weight 64.4 kg 67.8 kg General appearance: PRESENT: no acute distress, cooperative, disheveled Respiratory exam: PRESENT: clear to auscultation bryan, symmetrical, unlabored. ABSENT: accessory muscle use, chest wall tenderness, crackles, prolonged expiratory phas, rhonchi, tachypnea, wheezes Cardiovascular exam: PRESENT: RRR, +S1, +S2 Pulses: PRESENT: normal carotid pulses Vascular exam: PRESENT: normal capillary refill GI/Abdominal exam: PRESENT: normal bowel sounds, soft. ABSENT: distended, guarding, rebound, tenderness Extremities exam: ABSENT: clubbing, pedal edema Musculoskeletal exam: PRESENT: normal inspection. ABSENT: deformity Neurological exam: PRESENT: alert, awake, oriented to person, aphasic Skin exam: PRESENT: dry, warm Results Laboratory Results: WBC 7.5 10^3/uL (4.0-10.5) 05/10/19 07:14 RBC 3.95 10^6/uL (3.72-5.28) 05/10/19 07:14 Hgb 10.8 g/dL (12.0-15.5) L 05/10/19 07:14 Hct 33.2 % (36.0-47.0) L 05/10/19 07:14 MCV 84 fl (80-97) 05/10/19 07:14 MCH 27.4 pg (27.0-33.4) 05/10/19 07:14 MCHC 32.7 g/dL (32.0-36.0) 05/10/19 07:14 RDW 15.3 % (11.5-14.0) H 05/10/19 07:14 Plt Count 198 10^3/uL (150-450) 05/10/19 07:14 Lymph % (Auto) 45.0 % (13-45) 05/10/19 07:14 [place] % (Auto) 10.3 % (3-13) 05/10/19 07:14 Eos % (Auto) 0.7 % (0-6) 05/10/19 07:14 Baso % (Auto) 0.6 % (0-2) 05/10/19 07:14 Absolute Neuts (auto) 3.2 10^3/uL (1.7-8.2) 05/10/19 07:14 Absolute Lymphs (auto) 3.4 10^3/uL (0.5-4.7) 05/10/19 07:14 Absolute Monos (auto) 0.8 10^3/uL (0.1-1.4) 05/10/19 07:14 Absolute Eos (auto) 0.1 10^3/uL (0.0-0.6) 05/10/19 07:14 Absolute Basos (auto) 0.0 10^3/uL (0.0-0.2) 05/10/19 07:14 Seg Neutrophils % 43.4 % (42-78) 05/10/19 07:14 Large Platelets PRESENT 05/10/19 07:14 Giant Platelets PRESENT 05/10/19 07:14 Platelet Comment ADEQUATE 05/10/19 07:14 Poikilocytosis 1+ 05/10/19 07:14 Ovalocytes 1+ 05/10/19 07:14 Raj Cells 1+ 05/10/19 07:14 Schistocytes SLIGHT 05/10/19 07:14 Sodium 139.8 mmol/L (137-145) 05/15/19 04:09 Potassium 3.1 mmol/L (3.6-5.0) L 05/15/19 04:09 Chloride 110 mmol/L (98-107) H 05/15/19 04:09 Carbon Dioxide 24 mmol/L (22-30) 05/15/19 04:09 Anion Gap 6 (5-19) 05/15/19 04:09 BUN 15 mg/dL (7-20) 05/15/19 04:09 Creatinine 1.62 mg/dL (0.52-1.25) H 05/15/19 04:09 Est GFR ( Amer) 40 (>60) L 05/15/19 04:09 Est GFR (MDRD) Non-Af 33 (>60) L 05/15/19 04:09 Glucose 91 mg/dL (75-110) 05/15/19 04:09 POC Glucose 106 mg/dL (70-110) 05/17/19 08:10 Calcium 8.1 mg/dL (8.4-10.2) L 05/15/19 04:09 Phosphorus 4.1 mg/dL (2.5-4.5) 05/10/19 07:14 Magnesium 2.1 mg/dL (1.6-2.3) 05/10/19 07:14 Total Bilirubin 0.8 mg/dL (0.2-1.3) 05/06/19 21:52 Direct Bilirubin 0.4 mg/dL (0.0-0.4) 05/06/19 21:52 Neonat Total Bilirubin Not Reportable 05/06/19 21:52 Neonat Direct Bilirubin Not Reportable 05/06/19 21:52 Neonat Indirect Bili Not Reportable 05/06/19 21:52 AST 85 U/L (14-36) H 05/06/19 21:52 ALT 73 U/L (<35) 05/06/19 21:52 Alkaline Phosphatase 28 U/L (38-126) L 05/06/19 21:52 Ammonia < 8.7 umol/L (9-33) L 05/07/19 06:57 Troponin I 0.079 ng/mL 05/07/19 06:57 Total Protein 8.3 g/dL (6.3-8.2) H 05/06/19 21:52 Albumin 4.0 g/dL (3.5-5.0) 05/06/19 21:52 Triglycerides 166 mg/dL (<150) H 05/08/19 03:48 Cholesterol 250.80 mg/dL (0-200) H 05/08/19 03:48 LDL Cholesterol Direct 132 mg/dL (<100) H 05/08/19 03:48 VLDL Cholesterol 33.2 mg/dL (10-31) H 05/08/19 03:48 HDL Cholesterol 40 mg/dL (>40) 05/08/19 03:48 Urine Color YELLOW 05/07/19 03:12 Urine Appearance SLIGHTLY-CLOUDY 05/07/19 03:12 Urine pH 6.0 (5.0-9.0) 05/07/19 03:12 Ur Specific [place] 1.018 05/07/19 03:12 Urine Protein >=500 mg/dL (NEGATIVE) H 05/07/19 03:12 Urine Glucose (UA) NEGATIVE mg/dL (NEGATIVE) 05/07/19 03:12 Urine Ketones NEGATIVE mg/dL (NEGATIVE) 05/07/19 03:12 Urine Blood MODERATE (NEGATIVE) H 05/07/19 03:12 Urine Nitrite NEGATIVE (NEGATIVE) 05/07/19 03:12 Urine Bilirubin NEGATIVE (NEGATIVE) 05/07/19 03:12 Urine Urobilinogen 2.0 mg/dL (<2.0) H 05/07/19 03:12 Ur Leukocyte Esterase MODERATE (NEGATIVE) H 05/07/19 03:12 Urine WBC (Auto) 61 /HPF 05/07/19 03:12 Urine RBC (Auto) 26 /HPF 05/07/19 03:12 U Hyaline Cast (Auto) Cancelled 05/06/19 22:59 Urine Bacteria (Auto) TRACE /HPF 05/07/19 03:12 Urine Red Cell Clumps Cancelled 05/06/19 22:59 Urine WBC Clumps FEW /HPF 05/07/19 03:12 Squamous Epi Cells Auto <1 /HPF 05/07/19 03:12 U Non-Squamous Epis Auto Cancelled 05/06/19 22:59 Calcium Carbonate Cryst Cancelled 05/06/19 22:59 Calcium Phosphate Cryst Cancelled 05/06/19 22:59 Calcium Oxalate Cr Auto Cancelled 05/06/19 22:59 Leucine Crystals Cancelled 05/06/19 22:59 Cystine Crystals Cancelled 05/06/19 22:59 Uric Acid Cryst (Auto) Cancelled 05/06/19 22:59 Triple Phos Cryst (Auto) Cancelled 05/06/19 22:59 Tyrosine Crystals Cancelled 05/06/19 22:59 Amorphous Sediment Auto Cancelled 05/06/19 22:59 Cellular Casts Cancelled 05/06/19 22:59 Epithelial Casts (Auto) Cancelled 05/06/19 22:59 Fatty Casts Cancelled 05/06/19 22:59 Granular Casts (Auto) Cancelled 05/06/19 22:59 Waxy Casts (Auto) Cancelled 05/06/19 22:59 Broad Casts Cancelled 05/06/19 22:59 RBC Casts (Auto) Cancelled 05/06/19 22:59 WBC Casts (Auto) Cancelled 05/06/19 22:59 Urine Mucus (Auto) RARE /LPF 05/07/19 03:12 U Trichomonas (Auto) Cancelled 05/06/19 22:59 Ur Yeast w Hyphae Cancelled 05/06/19 22:59 Urine Yeast (Budding) Cancelled 05/06/19 22:59 Urine Ascorbic Acid NEGATIVE (NEGATIVE) 05/07/19 03:12 Salicylates < 1.0 mg/dL (2.0-20.0) L 05/06/19 21:52 Urine Opiates Screen NEGATIVE 05/07/19 03:12 Urine Methadone Screen NEGATIVE 05/07/19 03:12 Acetaminophen < 10 ug/mL (10-30) L 05/06/19 21:52 Ur Barbiturates Screen NEGATIVE 05/07/19 03:12 Ur Phencyclidine Scrn NEGATIVE 05/07/19 03:12 Ur Amphetamines Screen NEGATIVE 05/07/19 03:12 U Benzodiazepines Scrn NEGATIVE 05/07/19 03:12 Urine Cocaine Screen NEGATIVE 05/07/19 03:12 U Marijuana (THC) Screen NEGATIVE 05/07/19 03:12 Serum Alcohol < 10 mg/dL (NONE DETECTED) 05/06/19 21:52 05/06/19 05/07/19 21:52 06:57 Troponin I Cancelled 0.079 Impressions: Head CT 05/06/19 22:08 IMPRESSION: Atrophy with small vessel ischemic change. Remote areas of infarct, as above TECHNICAL DOCUMENTATION: Quality ID # [id number]: Final reports with documentation of one or more dose reduction techniques (e.g., Automated exposure control, adjustment of the mA and/or kV according to patient size, use of iterative reconstruction technique) copyright 2011 [employer]- All Rights Reserved Chest X-Ray 05/07/19 08:00 IMPRESSION: NO ACUTE RADIOGRAPHIC FINDING IN THE CHEST. Carotid Doppler Study 05/10/19 00:00 IMPRESSION: NO HEMODYNAMICALLY SIGNIFICANT STENOSIS. Head MRI 05/10/19 00:00 IMPRESSION: Diffusion-weighted images are positive for acute nonhemorrhagic ischemic change in the right lateral basal ganglia, the posterior thalamus, left occipital cortex and bilateral inferior cerebellar hemispheres. Extensive chronic small vessel ischemic change with bifrontal and biparietal white matter disease, pontine white matter disease, and multiple the brain chronic lacunar infarcts Report called to Dr. Aviles. EVIDENCE OF ACUTE STROKE: Yes. Modified Barium Swallow 05/12/19 00:00 IMPRESSION: LARYNGEAL PENETRATION WITH PROBABLE TRACE ASPIRATION SEEN WITH THIN BARIUM. PLEASE SEE SPEECH PATHOLOGIST REPORT FOR OTHER FINDINGS AND RECOMMENDATIONS. Plan Time Spent: Greater than 30 Minutes Stroke Is this a Stroke Patient?: Yes Stroke Pt being discharged on Anti-thrombolytic therapy?: Yes Stroke Pt being discharged on Anti-coagulation therapy?: No Reason(s) for not prescribing Anti-coagulation therapy:: Not indicated Stroke Pt being discharged on Statins?: Yes Acute Heart Failure - Is this a Heart Failure Patient?: No
[2019-05-17 13:01] VITALS: BP 124/72
== END 2019-05-17 15:29 | DRG 65 ==
LOC: ER 20:49 → INTOOBSV 05-07 04:51 → EH 05-07 04:51 → OBSVTOIN 05-07 04:51 → ICU 05-07 06:09 → 3N 05-08 11:48
PROVIDERS: ADMIT Anesthesiology; ATTEND Anesthesiology
DX: I63.9 Cerebral infarction, unspecified (principal); E44.1 Mild protein-calorie malnutrition; N17.9 Acute kidney failure, unspecified; E87.0 Hyperosmolality and hypernatremia; I67.4 Hypertensive encephalopathy; I69.351 Hemiplegia and hemiparesis following cerebral infarction affecting right dominant side; Z68.1 Body mass index [BMI] 19.9 or less, adult; R47.1 Dysarthria and anarthria; E11.9 Type 2 diabetes mellitus without complications; Z79.82 Long term (current) use of aspirin; Z88.8 Allergy status to other drugs, medicaments and biological substances; Z79.899 Other long term (current) drug therapy; E78.5 Hyperlipidemia, unspecified; I95.2 Hypotension due to drugs; T46.5X5A Adverse effect of other antihypertensive drugs, initial encounter; Y92.230 Patient room in hospital as the place of occurrence of the external cause
CPT/HCPCS: 36415; 70450; 70551; 71045; 74230; 80048; 80053; 80061; 80307; 81001; 82140; 82962; 83735; 84100; 84484; 85025; 87040; 87086; 87088; 87186; 93005; 93010; 93306; 93880; 96361; 96372; 96374; 96375; 99232; 99291; C9113; J0360; J0696; J1644; J1650; J1815; J2060; J3475; J3486; J3490; J7040; J7120

== ENCOUNTER 2019-06-16 13:30 | Inpatient (IN) | payer MEDICAID ==
--- NOTE | 2019-06-16 14:04 | ER Document Report ---
ED General - General Chief Complaint: Abnormal Lab Results Stated Complaint: ABNORMAL LABS Time Seen by Provider: 06/16/19 13:49 Primary Care Provider: EMERITA ARCOS MD [Primary Care Provider] - Follow up as needed Mode of Arrival: Medic Information source: Emergency Med Personnel, [facility] Records Cannot obtain history due to: Altered mental status Notes: Patient is a 58-year-old female presenting to the emergency department from a local alf facility secondary to decreased oral intake. EMS state that they were called to the facility to transport the patient to the emergency department for laboratory evaluation. They state that alf personnel advised them that the patient has not been eating recently and was placed at their facility secondary to a stroke. Patient is completely nonverbal lying on her left side in a position obvious contractures to bilateral upper extremities left greater than right. TRAVEL OUTSIDE OF THE [place] IN LAST 30 DAYS: No - HPI Onset: Yesterday Onset/Duration: Persistent Quality of pain: No pain Associated symptoms: None Exacerbated by: Denies Relieved by: Denies Similar symptoms previously: Yes Recently seen / treated by doctor: Yes - pt at [facility] - Related Data Allergies/Adverse Reactions: haloperidol [From Haldol] Allergy (Verified 05/25/19 16:16) hyperactive haloperidol lactate [From Haldol] Allergy (Verified 05/25/19 16:16) Past Medical History - General Information source: Emergency Med Personnel, [facility] Records Cannot obtain history due to: Altered mental status - Social History Smoking Status: Unknown if Ever Smoked Cigarette use (# per day): No Chew tobacco use (# tins/day): No Frequency of alcohol use: None Drug Abuse: None Lives with: [facility] Family History: CAD, Reviewed & Not Pertinent Patient has suicidal ideation: No Patient has homicidal ideation: No - Past Medical History Cardiac Medical History: Reports: Hx Hypercholesterolemia, Hx Hypertension Denies: Hx Heart Attack Pulmonary Medical History: Denies: Hx Asthma, Hx Bronchitis, Hx Pneumonia Neurological Medical History: Reports: Hx Cerebrovascular Accident - Residual right-sided weakness. Denies: Hx Seizures Endocrine Medical History: Reports: Hx Diabetes Mellitus Type 2 Renal/ Medical History: Denies: Hx Peritoneal Dialysis GI Medical History: Denies: Hx Hepatitis, Hx Hiatal Hernia, Hx Ulcer Musculoskeletal Medical History: Denies Hx Arthritis Psychiatric Medical History: Reports: Hx Schizophrenia Denies: Hx Depression Infectious Medical History: Denies: Hx Hepatitis Past Surgical History: Reports: Hx Cholecystectomy, Hx Orthopedic Surgery - Right foot. Denies: Hx Hysterectomy, Hx Mastectomy, Hx Open Heart Surgery, Hx Pacemaker - Immunizations Hx Diphtheria, Pertussis, Tetanus Vaccination: Yes Review of Systems - Review of Systems -: Yes ROS unobtainable due to patient's medical condition Constitutional: Weakness, Other - Decreased appetite/ oral intake EENT: No symptoms reported Cardiovascular: No symptoms reported Respiratory: No symptoms reported Gastrointestinal: No symptoms reported Genitourinary: No symptoms reported Female Genitourinary: No symptoms reported Musculoskeletal: No symptoms reported Skin: No symptoms reported Hematologic/Lymphatic: No symptoms reported Neurological/Psychological: No symptoms reported Physical Exam - Vital signs Vitals: Temp Pulse Resp BP Pulse Ox 98.7 F 89 16 111/52 L 99 06/16/19 13:39 06/16/19 13:39 06/16/19 13:39 06/16/19 13:39 06/16/19 13:39 Interpretation: Normal - General General appearance: Lethargic, Unresponsive In distress: None - HEENT Head: Normocephalic, Atraumatic Eyes: Normal Conjunctiva: Normal Extraocular movements intact: Yes Pupils: PERRL Mouth/Lips: Normal Mucous membranes: Dry Neck: Normal - Respiratory Respiratory status: No respiratory distress Chest status: Nontender Breath sounds: Normal Chest palpation: Normal - Cardiovascular Rhythm: Regular Heart sounds: Normal auscultation Pulses: Normal: Radial - Abdominal Inspection: Normal Distension: No distension Bowel sounds: Hypoactive Tenderness: Nontender - Extremities General upper extremity: Other - contractures bilaterally but will minimally respond with passive ROM General lower extremity: Other - contractures bilateally but will move passively Ankle: Normal Foot: Normal - Neurological Neuro grossly intact: No Cognition: Other - non-responsive Girard Coma Scale Eye Opening: Spontaneous Girard Coma Scale Verbal: None Girard Coma Scale Motor: None Sayda Coma Scale Total: 6 - Skin Skin Temperature: Warm Skin Moisture: Dry Skin Color: Normal Skin Turgor: Elastic Course - Re-evaluation Re-evalutation: 06/16/19 15:56 Patient has been reevaluated several times while in the emergency department patient has remained at baseline. Laboratory results have been reviewed which demonstrate UTI with elevated white count of 13.3. Patient will be receiving a liter of lactated Ringer's and 1 g of Rocephin IV. Patient's EKG shows sinus rhythm 91 bpm there is no ST elevation no axis deviation no ectopy. I have spoken with the hospitalist who is agreeable with admission. - Vital Signs Vital signs: Temp Pulse Resp BP Pulse Ox 98.7 F 89 16 111/52 L 99 06/16/19 13:39 06/16/19 13:39 06/16/19 13:39 06/16/19 13:39 06/16/19 13:39 - Laboratory Result Diagrams: 06/16/19 14:08 06/16/19 14:08 Laboratory results interpreted by me: 06/16/19 06/16/19 06/16/19 14:08 14:08 14:08 WBC 13.3 H RBC 3.02 L Hgb 8.2 L Hct 26.2 L MCHC 31.4 L RDW 15.7 H Lymph % (Auto) 8.0 L Absolute Neuts (auto) 11.0 H Seg Neutrophils % 83.0 H Sodium 158.1 H Chloride 127 H BUN 63 H Creatinine 3.02 H Est GFR ( Amer) 19 L Est GFR (MDRD) Non-Af 16 L Glucose 142 H POC Glucose Direct Bilirubin 0.5 H AST 178 H Alkaline Phosphatase 30 L Albumin 2.9 L Lipase 472.9 H Urine Protein 100 H Urine Blood MODERATE H Urine Urobilinogen 2.0 H Ur Leukocyte Esterase LARGE H 06/16/19 14:10 WBC RBC Hgb Hct MCHC RDW Lymph % (Auto) Absolute Neuts (auto) Seg Neutrophils % Sodium Chloride BUN Creatinine Est GFR ( Amer) Est GFR (MDRD) Non-Af Glucose POC Glucose 162 H Direct Bilirubin AST Alkaline Phosphatase Albumin Lipase Urine Protein Urine Blood Urine Urobilinogen Ur Leukocyte Esterase - EKG Interpretation by Me EKG shows normal: Sinus rhythm Rate: Normal Rhythm: NSR When compared to previous EKG there are: Changes noted Discharge - Discharge Clinical Impression: Hypernatremia UTI (urinary tract infection) Qualifiers: Urinary tract infection type: acute cystitis Hematuria presence: without hematuria Qualified Code(s): N30.00 - Acute cystitis without hematuria Leukocytosis Qualifiers: Leukocytosis type: other Qualified Code(s): D72.828 - Other elevated white blood cell count Condition: Fair Disposition: ADMITTED INPATIENT Admitting Provider: Stefan (Hospitalist) Unit Admitted: Medical Floor Referrals: ARCOS,EMERITA E, MD [Primary Care Provider] - Follow up as needed
[2019-06-16 14:28] LABS: APPEARANCE,URINE TURBID; BILIRUBIN,URINE NEGATIVE (NEGATIVE); COLOR,URINE YELLOW; GLUCOSE, URINE NEGATIVE (NEGATIVE); KETONES,URINE NEGATIVE (NEGATIVE); LEUKOCYTE ESTERASE,URINE LARGE (NEGATIVE); NITRITE,URINE NEGATIVE (NEGATIVE); PROTEIN,URINE 100 mg/dL (NEGATIVE); URINE SPECIFIC GRAVITY 1.014
[2019-06-16 14:30] LABS: ABSOLUTE LYMPHOCYTES (AUTO) 1.1 10^3/uL (0.5-4.7); ABSOLUTE MONOCYTES (AUTO) 1.1 10^3/uL (0.1-1.4); BASOPHILS % (AUTO) 0.2 % (0-2); EOSINOPHILS % (AUTO) 0.2 % (0-6); HEMATOCRIT 26.2 % (36.0-47.0); HEMOGLOBIN 8.2 g/dL (12.0-15.5); MEAN CORPUSCULAR HEMOGLOBIN 27.3 pg (27.0-33.4); MEAN CORPUSCULAR HGB CONC 31.4 g/dL (32.0-36.0); MEAN CORPUSCULAR VOLUME 87 fl (80-97); MONOCYTES % (AUTO) 8.6 % (3-13); PLATELET COUNT 220 10^3/uL (150-450); RED BLOOD COUNT 3.02 10^6/uL (3.72-5.28); RED CELL DISTRIBUTION WIDTH 15.7 % (11.5-14.0); TOTAL CELLS COUNTED % (AUTO) 100 %; WHITE BLOOD COUNT 13.3 10^3/uL (4.0-10.5)
[2019-06-16 14:50] LABS: ALBUMIN 2.9 g/dL (3.5-5.0); ALKALINE PHOSPHATASE 30 U/L (38-126); ANION GAP 9 (5-19); ASPARTATE AMINO TRANSFERASE 178 U/L (14-36); BILIRUBIN,DIRECT 0.5 mg/dL (0.0-0.4); BILIRUBIN,TOTAL 0.6 mg/dL (0.2-1.3); BLOOD UREA NITROGEN 63 mg/dL (7-20); CALCIUM 8.5 mg/dL (8.4-10.2); CARBON DIOXIDE 22 mmol/L (22-30); CHLORIDE 127 mmol/L (98-107); GLUCOSE 142 mg/dL (75-110); POTASSIUM 4.4 mmol/L (3.6-5.0); TOTAL PROTEIN 6.9 g/dL (6.3-8.2)
[2019-06-16] MEDS ORDERED: CEFTRIAXONE 1 GM/D5W RTU 1 GM/50 ML RTUPB IV ONE (15:42)
[2019-06-16] MEDS ORDERED: RINGERS SOLUTION,LACTATED 1,000 ML IV ONE (15:42)
[2019-06-16] MEDS ORDERED: ACETAMINOPHEN 325 MG TABLET PO PRN (16:33)
[2019-06-16] MEDS ORDERED: ACETAMINOPHEN 650 MG SUPP.RECT PR PRN (16:33)
[2019-06-16] MEDS ORDERED: DEXTROSE 50%-WATER 25 GM/50 ML DISP.SYRIN IV PRN ×2 (16:57)
[2019-06-16] MEDS ORDERED: GLUCAGON,HUMAN RECOMB 1 MG INJ IM PRN (16:57)
[2019-06-16] MEDS ORDERED: DEXTROSE 40% GEL 15 GM TUBE PO PRN ×2 (16:57)
[2019-06-16] MEDS: INSULIN LISPRO 100 UNIT/ML 3 ML VIAL SUBCUT SCH (17:31)
--- NOTE | 2019-06-16 17:36 | PDOC H&P ---
History of Present Illness Admission Date/PCP: EMERITA ARCOS MD Patient complains of: Transferred from [facility] History of Present Illness: ADY MCGEE is a 58 year old female who is a permanent resident at [facility]. She has a past medical history most significant for stroke with residual functional quadriplegia. She has dysphasia and failed a modified barium swallow recently. She has hypertension and diabetes. The patient has developed chronic kidney disease possibly from hypertension and/or diabetes. She was found to have an elevated white blood cell count, markedly elevated serum sodium, markedly elevated BUN and elevated creatinine above her baseline by laboratory studies at [facility]. She is a full code. She was referred to the emergency department. In the emergency department her systolic blood pressure remained above 100 with a map of 71. She was completely aphasic and did not try to make eye contact. She is contracted in bed. She had no fever but urinalysis was quite positive suggesting urinary tract infection. It is very difficult to get a meaningful chest x-ray due to her contractures. The patient exhibits marked dehydration with acute on chronic kidney injury as well as recent history of very poor oral intake. She was referred to the hospital service for admission. Past Medical History Cardiac Medical History: Reports: Hyperlipidema, Hypertension Denies: Myocardial Infarction Pulmonary Medical History: Denies: Asthma, Bronchitis, Pneumonia Neurological Medical History: Denies: Seizures Endocrine Medical History: Reports: Diabetes Mellitus Type 2 GI Medical History: Denies: Hepatitis, Hiatal Hernia Musculoskeltal Medical History: Denies: Arthritis Psychiatric Medical History: Denies: Depression Hematology: Denies: Anemia, Sickle Cell Disease Past Surgical History Past Surgical History: Reports: Cholecystectomy, Orthopedic Surgery - Right foot Denies: Amputation, Hysterectomy, Mastectomy, Pacemaker Social History Information Source: [facility] Records, Outside Facility Records Lives with: [facility] Smoking Status: Unknown if Ever Smoked Frequency of Alcohol Use: None Hx Recreational Drug Use: Yes Drugs: Cocaine Hx Prescription Drug Abuse: No Family History Family History: CAD, Reviewed & Not Pertinent Parental Family History Reviewed: Yes - From old records Children Family History Reviewed: Yes Sibling(s) Family History Reviewed.: Yes Medication/Allergy Home Medications: Aripiprazole [Abilify 5 mg Tablet] 2.5 mg PEG QHS 05/08/18 Aspirin [Aspirin 81 mg Chewable Tablet] 81 mg PEG DAILY 05/08/18 Atorvastatin Calcium [Lipitor 80 mg Tablet] 80 mg PEG DAILY 05/08/18 Baclofen 5 mg PEG QHS 05/08/18 Glipizide [Glucotrol 5 mg Tablet] 5 mg PEG ACBRKFST 05/08/18 Hydralazine HCl 100 mg PEG Q8 05/08/18 Insulin Lispro [Humalog Kwikpen U-100] 0 units SQ .SLDSCALE ACMEALSHS 05/08/18 Lansoprazole [Prevacid 30 mg Odt Tablet] 30 mg PEG BIDACBS 05/08/18 Lisinopril [Prinivil] 20 mg PEG DAILY 05/08/18 Metoprolol Tartrate [Lopressor 25 mg Tablet] 175 mg PEG Q12 05/08/18 Docusate Sodium [Colace 100 mg Capsule] 100 mg PO BID #60 capsule 05/28/18 Polyethylene Glycol 3350 [Miralax Powder 17 gm/Packet] 1 packet PO DAILY PRN #1 pkg 05/28/18 Amlodipine Besylate [Norvasc 10 mg Tablet] 10 mg PO DAILY 05/07/19 Atorvastatin Calcium [Lipitor 80 mg Tablet] 80 mg PO QHS 05/07/19 Baclofen [Baclofen 10 mg Tablet] 10 mg PO TID 05/07/19 Carvedilol [Coreg 25 mg Tablet] 25 mg PO Q12 05/07/19 Hydralazine HCl [Apresoline 50 mg Tablet] 100 mg PO Q8 05/07/19 Minoxidil [Loniten 2.5 mg Tablet] 2.5 mg PO DAILY 05/07/19 Clopidogrel Bisulfate [Plavix 75 mg Tablet] 75 mg PO DAILY tablet 05/17/19 Famotidine [Pepcid 20 mg Tablet] 20 mg PO DAILY tablet 05/17/19 Allergies/Adverse Reactions: haloperidol [From Haldol] Allergy (Verified 05/25/19 16:16) hyperactive haloperidol lactate [From Haldol] Allergy (Verified 05/25/19 16:16) Review of Systems ROS unobtainable: Due to mental status Physical Exam Vital Signs: Temp Pulse Resp BP Pulse Ox 98.7 F 89 16 111/52 L 99 06/16/19 13:39 06/16/19 13:39 06/16/19 13:39 06/16/19 13:39 06/16/19 13:39 Intake & Output 06/15/19 06/16/19 06/17/19 06:59 06:59 06:59 Intake Total 50 Balance 50 Weight 47 kg General appearance: PRESENT: mild distress, thin, well-developed Head exam: PRESENT: atraumatic, normocephalic Eye exam: PRESENT: conjunctiva pale. ABSENT: scleral icterus Ear exam: PRESENT: normal external ear exam. ABSENT: bleeding, drainage Mouth exam: PRESENT: dry mucosa - Very dry lips. Tongue appears to be dry. Difficult to open patient's mouth. Neck exam: ABSENT: carotid bruit, JVD, lymphadenopathy Respiratory exam: PRESENT: decreased breath sounds - Very shallow breath sounds with limited inspiratory effort., rhonchi - Possible rhonchi at the right base, symmetrical, unlabored. ABSENT: accessory muscle use, rales, tachypnea, wheezes Cardiovascular exam: PRESENT: RRR, +S1, +S2 GI/Abdominal exam: PRESENT: soft. ABSENT: distended, tenderness - Did not appreciate any tenderness based on patient's response to palpation Rectal exam: PRESENT: deferred Gentrourinary exam: ABSENT: indwelling catheter Extremities exam: ABSENT: calf tenderness, joint swelling, pedal edema Musculoskeletal exam: PRESENT: other - Decreased muscle mass. ABSENT: ambulatory, full ROM, normal inspection Neurological exam: PRESENT: altered - Eyes are open but she does not try to establish eye contact. Complete aphasia., awake, aphasic, other - Unable to assess orientation Psychiatric exam: PRESENT: flat affect. ABSENT: agitated, anxious Focused psych exam: PRESENT: catatonic Skin exam: PRESENT: dry, pallor, warm. ABSENT: rash Results Laboratory Results: 06/16/19 14:08 06/16/19 14:08 06/16/19 06/16/19 06/16/19 14:08 14:08 14:08 WBC 13.3 H RBC 3.02 L Hgb 8.2 L Hct 26.2 L MCV 87 MCH 27.3 MCHC 31.4 L RDW 15.7 H Plt Count 220 Seg Neutrophils % 83.0 H Sodium 158.1 H Potassium 4.4 Chloride 127 H Carbon Dioxide 22 Anion Gap 9 BUN 63 H Creatinine 3.02 H Est GFR ( Amer) 19 L Glucose 142 H Calcium 8.5 Total Bilirubin 0.6 AST 178 H Alkaline Phosphatase 30 L Total Protein 6.9 Albumin 2.9 L Lipase 472.9 H Urine Color YELLOW Urine Appearance TURBID Urine pH 5.0 Ur Specific [place] 1.014 Urine Protein 100 H Urine Glucose (UA) NEGATIVE Urine Ketones NEGATIVE Urine Blood MODERATE H Urine Nitrite NEGATIVE Ur Leukocyte Esterase LARGE H Urine WBC (Auto) >182 Urine RBC (Auto) 16 Assessment and Plan - Diagnosis (1) Failure to thrive in adult Is this a current diagnosis for this admission?: Yes Plan: Records report lack of oral intake for the last 2 to 3 days at least. Patient presents with dehydration and acute kidney injury. Patient failed a barium swallow test as well. Will remain n.p.o. at this time and determine feasibility of feeding her based on her clinical status. (2) Dehydration with hypernatremia Is this a current diagnosis for this admission?: Yes Plan: Secondary to minimal oral intake. Will need IV fluids. After the liter bolus of lactated Ringer's I will start normal saline at 175 mL/h and continue to monitor electrolytes and renal function. (3) Acute renal failure superimposed on stage 3 chronic kidney disease Qualifiers: Acute renal failure type: unspecified Qualified Code(s): N17.9 - Acute kidney failure, unspecified; N18.3 - Chronic kidney disease, stage 3 (moderate) Is this a current diagnosis for this admission?: Yes Plan: Currently with GFR less than 20. Acute injury secondary to marked dehydration. Aggressive IV fluids and monitor renal function. (4) Severe protein-calorie malnutrition Is this a current diagnosis for this admission?: Yes Plan: Patient is only 47 kg. She has marked loss of muscle mass. She has had no p.o. intake over the last several days. We will try and obtain her last weight to assess for weight loss as well. (5) Leukocytosis Qualifiers: Leukocytosis type: other Qualified Code(s): D72.828 - Other elevated white blood cell count Is this a current diagnosis for this admission?: Yes Plan: Most likely secondary to infection. Patient is started on antibiotics. With aggressive IV fluids her white count will also drop. We will continue to monitor. (6) Urinary tract infection Qualifiers: Urinary tract infection type: acute cystitis Hematuria presence: without hematuria Qualified Code(s): N30.00 - Acute cystitis without hematuria Is this a current diagnosis for this admission?: Yes Plan: Markedly positive urinalysis. I have ordered a urine culture. Currently on ceftriaxone. (7) Diabetes mellitus, type II Qualifiers: Diabetes mellitus truck terminal manager insulin use: with truck terminal manager use Diabetes mellitus complication status: with kidney complications Diabetes mellitus complication detail: with chronic kidney disease Chronic kidney disease stage: stage 3 (moderate) Qualified Code(s): E11.22 - Type 2 diabetes mellitus with diabetic chronic kidney disease; N18.3 - Chronic kidney disease, stage 3 (moderate); Z79.4 - nursing home (current) use of insulin Is this a current diagnosis for this admission?: Yes Plan: Patient is currently n.p.o. Will check fingersticks every 6 hours and use a sliding scale when necessary. If her n.p.o. status is prolonged consider fluids with dextrose if her Accu-Cheks are low. (8) Hypertension Qualifiers: Hypertension type: essential hypertension Qualified Code(s): I10 - Essential (primary) hypertension Is this a current diagnosis for this admission?: Yes Plan: Currently she does not require any antihypertensives. When the patient is able to resume oral medications, and if the blood pressure is elevated, we will resume medications accordingly. She will have IV hydralazine available if her blood pressure spikes. (9) Aphasia as late effect of cerebrovascular accident Is this a current diagnosis for this admission?: Yes Plan: Chronic and stable. Makes communicating extremely difficult. (10) Quadriplegia Is this a current diagnosis for this admission?: Yes Plan: Secondary to stroke. Patient is bedbound at [facility]. Will reposition every 2 hours to prevent decubitus ulcers. (11) H/O: CVA (cerebrovascular accident) Is this a current diagnosis for this admission?: Yes Plan: When patient is able to take oral medications we will resume her aspirin and statin therapy. - Plan Summary Summary: 06/16/2019-the patient presents from [facility]. She has had limited to no intake over the last several days. Laboratory studies reveal severe dehydration, acute on chronic kidney injury and low normal blood pressure. Urinalysis is markedly positive and she will be started on IV antibiotics. I did try and reach out to Paul Toure, who is listed as the primary contact. Unfortunately her phone blocked the hospital number. Per the paperwork the patient is listed as a full code. I have asked for a palliative care consult but at this time the patient will remain a full code. We will monitor her laboratory studies closely. When appropriate week we will try and resume an oral diet based on the speech therapist recommendations from her last admission. - Time Time Spent with patient: 35 or more minutes Medications reviewed and adjusted accordingly: Yes Anticipated discharge: Other - Return to long-term care - Inpatient Certification Based on my medical assessment, after consideration of the patient's comorbidities, presenting symptoms, or acuity I expect that the services needed warrant INPATIENT care.: Yes I certify that my determination is in accordance with my understanding of Medicare's requirements for reasonable and necessary INPATIENT services [42 CFR 412.3e].: Yes Medical Necessity: Need For IV Fluids, Need for IV Antibiotics Post Hospital Care: D/C Office Mover Documentation
[2019-06-16] MEDS: ENOXAPARIN SODIUM INJ 30 MG/0.3 ML DISP.SYRIN SUBCUT SCH (18:03)
[2019-06-16] MEDS: NORMAL SALINE 1000 ML 1,000 ML IV PRN (18:56)
[2019-06-16] MEDS: IPRATROPIUM/ALBUTEROL 0.5-2.5 MG/3 ML AMPUL NEB SCH (19:47)
[2019-06-16] MEDS: FAMOTIDINE INJ/PF 20 MG/2 ML SDV IV SCH (21:06)
[2019-06-16 22:18] LABS: HEMATOCRIT 23.9 % (36.0-47.0); MEAN CORPUSCULAR HEMOGLOBIN 27.2 pg (27.0-33.4); MEAN CORPUSCULAR HGB CONC 31.3 g/dL (32.0-36.0); MEAN CORPUSCULAR VOLUME 87 fl (80-97); PLATELET COUNT 202 10^3/uL (150-450); RED BLOOD COUNT 2.76 10^6/uL (3.72-5.28); RED CELL DISTRIBUTION WIDTH 15.6 % (11.5-14.0); WHITE BLOOD COUNT 12.7 10^3/uL (4.0-10.5)
[2019-06-16 22:20] LABS: HEMOGLOBIN 7.5 g/dL (12.0-15.5)
[2019-06-16 22:36] LABS: ALBUMIN 2.6 g/dL (3.5-5.0); ALKALINE PHOSPHATASE 25 U/L (38-126); ANION GAP 10 (5-19); ASPARTATE AMINO TRANSFERASE 148 U/L (14-36); BILIRUBIN,DIRECT 0.4 mg/dL (0.0-0.4); BILIRUBIN,TOTAL 0.4 mg/dL (0.2-1.3); BLOOD UREA NITROGEN 63 mg/dL (7-20); CARBON DIOXIDE 20 mmol/L (22-30); CHLORIDE 127 mmol/L (98-107); GLUCOSE 128 mg/dL (75-110); POTASSIUM 4.1 mmol/L (3.6-5.0); TOTAL PROTEIN 6.3 g/dL (6.3-8.2)
[2019-06-17] MEDS: NORMAL SALINE 1000 ML 1,000 ML IV PRN (01:00)
[2019-06-17] MEDS: INSULIN LISPRO 100 UNIT/ML 3 ML VIAL SUBCUT SCH ×4 (03:07→18:51)
[2019-06-17 06:24] LABS: ABSOLUTE BASOPHILS # (AUTO) 0.1 10^3/uL (0.0-0.2); ABSOLUTE LYMPHOCYTES (AUTO) 1.3 10^3/uL (0.5-4.7); ABSOLUTE MONOCYTES (AUTO) 0.9 10^3/uL (0.1-1.4); ABSOLUTE NEUT (AUTO) 10.8 10^3/uL (1.7-8.2); BASOPHILS % (AUTO) 0.6 % (0-2); EOSINOPHILS % (AUTO) 0.3 % (0-6); HEMATOCRIT 24.5 % (36.0-47.0); LYMPHOCYTES % (AUTO) 9.6 % (13-45); MEAN CORPUSCULAR HEMOGLOBIN 27.4 pg (27.0-33.4); MEAN CORPUSCULAR HGB CONC 31.6 g/dL (32.0-36.0); MEAN CORPUSCULAR VOLUME 87 fl (80-97); MONOCYTES % (AUTO) 7.2 % (3-13); PLATELET COUNT 197 10^3/uL (150-450); RED BLOOD COUNT 2.83 10^6/uL (3.72-5.28); SEGMENTED NEUTROPHILS % (AUTO) 82.3 % (42-78); TOTAL CELLS COUNTED % (AUTO) 100 %; WHITE BLOOD COUNT 13.1 10^3/uL (4.0-10.5)
[2019-06-17 06:30] LABS: HEMOGLOBIN 7.7 g/dL (12.0-15.5)
[2019-06-17 06:50] LABS: ALBUMIN 2.6 g/dL (3.5-5.0); ANION GAP 8 (5-19); BLOOD UREA NITROGEN 64 mg/dL (7-20); CALCIUM 8.1 mg/dL (8.4-10.2); CARBON DIOXIDE 20 mmol/L (22-30); CHLORIDE 129 mmol/L (98-107); GLUCOSE 122 mg/dL (75-110); PHOSPHORUS 5.1 mg/dL (2.5-4.5); POTASSIUM 4.3 mmol/L (3.6-5.0)
[2019-06-17] MEDS: IPRATROPIUM/ALBUTEROL 0.5-2.5 MG/3 ML AMPUL NEB SCH ×4 (07:58→18:31)
[2019-06-17] MEDS: CEFTRIAXONE 1 GM/D5W RTU 1 GM/50 ML RTUPB IV SCH (09:28)
[2019-06-17] MEDS: FAMOTIDINE INJ/PF 20 MG/2 ML SDV IV SCH (09:28)
[2019-06-17] MEDS: ENOXAPARIN SODIUM INJ 30 MG/0.3 ML DISP.SYRIN SUBCUT SCH (09:28)
--- NOTE | 2019-06-17 09:32 | EKG REPORT ---
SEVERITY:- ABNORMAL ECG - SINUS RHYTHM ABNORMAL T, CONSIDER ISCHEMIA, LATERAL LEADS : Confirmed by: Annabelle Hernandez 17-Jun-2019 09:31:17
--- NOTE | 2019-06-17 12:29 | PDOC PROGRESS REPORT ---
Subjective Progress Note for:: 06/17/19 Subjective:: Patient aphasic and contracted. No eye contact. No communication. Reason For Visit: SEVERE DEHYDRATION,ACUTE KIDNEY INJURY, Physical Exam Vital Signs: Temp Pulse Resp BP Pulse Ox 98.5 F 87 17 132/70 H 99 06/17/19 10:59 06/17/19 10:59 06/17/19 10:59 06/17/19 10:59 06/17/19 10:59 Intake & Output 06/16/19 06/17/19 06/18/19 06:59 06:59 06:59 Intake Total 2050 Output Total 300 Balance 1750 Weight 52.8 kg General appearance: PRESENT: other - Malnourished 58-year-old female resting in bed. Contracted and aphasic. Does not make eye contact. Does not acknowledge verbal stimulation. Eye exam: PRESENT: conjunctiva pale Respiratory exam: PRESENT: clear to auscultation bryan, symmetrical, unlabored. ABSENT: rales, rhonchi, tachypnea, wheezes Cardiovascular exam: PRESENT: RRR, +S1, +S2 GI/Abdominal exam: PRESENT: diminished bowel sounds, soft. ABSENT: distended, tenderness Rectal exam: PRESENT: deferred Neurological exam: PRESENT: awake, other - Unable to further assess Psychiatric exam: ABSENT: agitated Focused psych exam: PRESENT: catatonic. ABSENT: restlessness Results Laboratory Results: 06/17/19 05:31 06/17/19 05:31 06/16/19 06/16/19 06/16/19 14:08 14:08 14:08 WBC 13.3 H RBC 3.02 L Hgb 8.2 L Hct 26.2 L MCV 87 MCH 27.3 MCHC 31.4 L RDW 15.7 H Plt Count 220 Seg Neutrophils % 83.0 H Sodium 158.1 H Potassium 4.4 Chloride 127 H Carbon Dioxide 22 Anion Gap 9 BUN 63 H Creatinine 3.02 H Est GFR ( Amer) 19 L Glucose 142 H Calcium 8.5 Phosphorus Magnesium Total Bilirubin 0.6 AST 178 H Alkaline Phosphatase 30 L Total Protein 6.9 Albumin 2.9 L Lipase 472.9 H Urine Color YELLOW Urine Appearance TURBID Urine pH 5.0 Ur Specific [place] 1.014 Urine Protein 100 H Urine Glucose (UA) NEGATIVE Urine Ketones NEGATIVE Urine Blood MODERATE H Urine Nitrite NEGATIVE Ur Leukocyte Esterase LARGE H Urine WBC (Auto) >182 Urine RBC (Auto) 16 06/16/19 06/16/19 06/17/19 22:07 22:07 05:31 WBC 12.7 H 13.1 H RBC 2.76 L 2.83 L Hgb 7.5 L 7.7 L Hct 23.9 L 24.5 L MCV 87 87 MCH 27.2 27.4 MCHC 31.3 L 31.6 L RDW 15.6 H 16.0 H Plt Count 202 197 Seg Neutrophils % 82.3 H Sodium 156.9 H Potassium 4.1 Chloride 127 H Carbon Dioxide 20 L Anion Gap 10 BUN 63 H Creatinine 2.81 H Est GFR ( Amer) 21 L Glucose 128 H Calcium 8.0 L Phosphorus Magnesium 2.5 H Total Bilirubin 0.4 AST 148 H Alkaline Phosphatase 25 L Total Protein 6.3 Albumin 2.6 L Lipase Urine Color Urine Appearance Urine pH Ur Specific [place] Urine Protein Urine Glucose (UA) Urine Ketones Urine Blood Urine Nitrite Ur Leukocyte Esterase Urine WBC (Auto) Urine RBC (Auto) 06/17/19 05:31 WBC RBC Hgb Hct MCV MCH MCHC RDW Plt Count Seg Neutrophils % Sodium 157.4 H Potassium 4.3 Chloride 129 H Carbon Dioxide 20 L Anion Gap 8 BUN 64 H Creatinine 2.68 H Est GFR ( Amer) 22 L Glucose 122 H Calcium 8.1 L Phosphorus 5.1 H Magnesium 2.5 H Total Bilirubin AST Alkaline Phosphatase Total Protein Albumin 2.6 L Lipase Urine Color Urine Appearance Urine pH Ur Specific [place] Urine Protein Urine Glucose (UA) Urine Ketones Urine Blood Urine Nitrite Ur Leukocyte Esterase Urine WBC (Auto) Urine RBC (Auto) Assessment and Plan - Diagnosis (1) Failure to thrive in adult Is this a current diagnosis for this admission?: Yes Plan: No significant change (2) Dehydration with hypernatremia Is this a current diagnosis for this admission?: Yes Plan: Not improved with LR. Will change to half-normal saline. This should correct by 0.5 mEq/h. We will schedule blood work every 8 hours. (3) Acute renal failure superimposed on stage 3 chronic kidney disease Qualifiers: Acute renal failure type: unspecified Qualified Code(s): N17.9 - Acute kidney failure, unspecified; N18.3 - Chronic kidney disease, stage 3 (moderate) Is this a current diagnosis for this admission?: Yes Plan: Minimal improvement in creatinine. No clinically significant improvement. Poor urine output. Changing to half-normal saline will help. (4) Severe protein-calorie malnutrition Is this a current diagnosis for this admission?: Yes Plan: Patient is n.p.o. Unable to address at this time. (5) Leukocytosis Qualifiers: Leukocytosis type: other Qualified Code(s): D72.828 - Other elevated white blood cell count Is this a current diagnosis for this admission?: Yes Plan: No meaningful change in white blood cell count (6) Urinary tract infection Qualifiers: Urinary tract infection type: acute cystitis Hematuria presence: without hematuria Qualified Code(s): N30.00 - Acute cystitis without hematuria Is this a current diagnosis for this admission?: Yes Plan: Gram-negative bacilli isolated. Continue ceftriaxone until final identification and sensitivities are available. (7) Diabetes mellitus, type II Qualifiers: Diabetes mellitus long term care administrator insulin use: with long term care administrator use Diabetes mellitus complication status: with kidney complications Diabetes mellitus complication detail: with chronic kidney disease Chronic kidney disease stage: stage 3 (moderate) Qualified Code(s): E11.22 - Type 2 diabetes mellitus with diabetic chronic kidney disease; N18.3 - Chronic kidney disease, stage 3 (moderate); Z79.4 - [facility] (current) use of insulin Is this a current diagnosis for this admission?: Yes Plan: Accu-Cheks mostly between 101 150. I will not add dextrose to her IV at this time. We will continue to monitor. (8) Hypertension Qualifiers: Hypertension type: essential hypertension Qualified Code(s): I10 - Essential (primary) hypertension Is this a current diagnosis for this admission?: Yes Plan: Pressures improved with crystalloid bolus. Will now change to half-normal saline to correct hypernatremia. Holding all current cardiac medications as the patient is n.p.o. IV hydralazine available for elevated blood pressure if needed. Consider metoprolol dosing as needed also. 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 She has had limited to no intake over the last several days. Laboratory studies reveal severe dehydration, acute on chronic kidney injury and low normal blood pressure. Urinalysis is markedly positive and she will be started on IV antibiotics. I did try and reach out to Paul Toure, who is listed as the primary contact. Unfortunately her phone blocked the hospital number. Per the paperwork the patient is listed as a full code. I have asked for a palliative care consult b oh at this time the patient will remain a full code. We will monitor her laboratory studies closely. When appropriate week we will try and resume an oral diet based on the speech therapist recommendations from her last admission.
[2019-06-17] MEDS: 1/2 NORMAL SALINE 1,000 ML IV PRN ×2 (12:50→20:09)
[2019-06-17] MEDS ORDERED: ACETAMINOPHEN 650 MG SUPP.RECT PR PRN (13:00)
[2019-06-17] MEDS ORDERED: ACETAMINOPHEN 325 MG TABLET PO PRN (13:00)
[2019-06-17 23:45] LABS: ALBUMIN 2.5 g/dL (3.5-5.0); ANION GAP 10 (5-19); BLOOD UREA NITROGEN 63 mg/dL (7-20); CALCIUM 7.8 mg/dL (8.4-10.2); CARBON DIOXIDE 19 mmol/L (22-30); CHLORIDE 127 mmol/L (98-107); GLUCOSE 92 mg/dL (75-110); PHOSPHORUS 4.7 mg/dL (2.5-4.5); POTASSIUM 3.8 mmol/L (3.6-5.0)
[2019-06-18] MEDS: IPRATROPIUM/ALBUTEROL 0.5-2.5 MG/3 ML AMPUL NEB SCH ×3 (00:23→16:10)
[2019-06-18] MEDS: INSULIN LISPRO 100 UNIT/ML 3 ML VIAL SUBCUT SCH ×4 (00:44→18:15)
[2019-06-18] MEDS: 1/2 NORMAL SALINE 1,000 ML IV PRN (02:46)
[2019-06-18 05:38] LABS: ALBUMIN 2.4 g/dL (3.5-5.0); ANION GAP 9 (5-19); BLOOD UREA NITROGEN 58 mg/dL (7-20); CALCIUM 7.9 mg/dL (8.4-10.2); CARBON DIOXIDE 20 mmol/L (22-30); CHLORIDE 127 mmol/L (98-107); GLUCOSE 101 mg/dL (75-110); PHOSPHORUS 4.7 mg/dL (2.5-4.5); POTASSIUM 3.9 mmol/L (3.6-5.0)
[2019-06-18 05:53] LABS: HEMATOCRIT 23.3 % (36.0-47.0); MEAN CORPUSCULAR HGB CONC 31.2 g/dL (32.0-36.0); MEAN CORPUSCULAR VOLUME 87 fl (80-97); PLATELET COUNT 210 10^3/uL (150-450); RED CELL DISTRIBUTION WIDTH 15.5 % (11.5-14.0); WHITE BLOOD COUNT 14.4 10^3/uL (4.0-10.5)
[2019-06-18 06:13] LABS: HEMOGLOBIN 7.3 g/dL (12.0-15.5)
[2019-06-18 06:33] LABS: ABSOLUTE MONOCYTES # (MANUAL) 0.6 10^3/uL (0.1-1.4); BAND NEUTROPHILS % (MANUAL) 1 % (3-5); BASOPHILS % (MANUAL) 0 % (0-2); EOSINOPHILS % (MANUAL) 0 % (0-6); LYMPHOCYTES % (MANUAL) 7 % (13-45); MONOCYTES % (MANUAL) 4 % (3-13); NUCLEATED RED BLOOD CELLS 1 /100 WBC (0); SEGMENTED NEUTROPHILS % (MAN) 88 % (42-78); TOTAL CELLS COUNTED 100
[2019-06-18 06:34] LABS: ANISOCYTOSIS SLIGHT; BURR CELLS 2+; OVALOCYTES SLIGHT; PLATELET COMMENT ADEQUATE; POIKILOCYTOSIS SLIGHT; SCHISTOCYTES SLIGHT; TOXIC GRANULATION 1+
[2019-06-18] MEDS ORDERED: 1/2 NORMAL SALINE 1,000 ML IV PRN (06:52)
[2019-06-18] MEDS: DEXTROSE 5%-1/4 NORMAL SALINE 1,000 ML IV PRN ×2 (09:42→17:24)
[2019-06-18] MEDS ORDERED: FAMOTIDINE INJ/PF 20 MG/2 ML SDV IV SCH (10:00)
[2019-06-18] MEDS: CEFTRIAXONE 1 GM/D5W RTU 1 GM/50 ML RTUPB IV SCH (10:53)
[2019-06-18] MEDS: ENOXAPARIN SODIUM INJ 30 MG/0.3 ML DISP.SYRIN SUBCUT SCH (10:53)
--- NOTE | 2019-06-18 12:12 | PDOC PROGRESS REPORT ---
Subjective Progress Note for:: 06/18/19 Subjective:: The patient has not shown any clinical change. She is still aphasic. She still is unable to make eye contact. She is unable to follow the simplest of commands. The only movement I have observed was yawning during today's encounter. Reason For Visit: SEVERE DEHYDRATION,ACUTE KIDNEY INJURY, Physical Exam Vital Signs: Temp Pulse Resp BP Pulse Ox 98.7 F 81 14 118/64 96 06/18/19 07:30 06/18/19 08:40 06/18/19 08:40 06/18/19 07:30 06/18/19 08:40 Intake & Output 06/17/19 06/18/19 06/19/19 06:59 06:59 06:59 Intake Total 2050 3043 917 Output Total 300 1075 250 Balance 1750 1968 667 Weight 52.8 kg 60.6 kg General appearance: PRESENT: no acute distress, thin. ABSENT: cooperative - Unable to participate in encounter Head exam: PRESENT: other - Temporal wasting Eye exam: PRESENT: conjunctiva pale Ear exam: PRESENT: normal external ear exam. ABSENT: bleeding, drainage Mouth exam: PRESENT: dry mucosa Teeth exam: PRESENT: poor dentation Respiratory exam: PRESENT: clear to auscultation bryan, decreased breath sounds - Very limited inspiratory phase, symmetrical, unlabored. ABSENT: accessory muscle use, prolonged expiratory phas, rales, rhonchi, tachypnea, wheezes Cardiovascular exam: PRESENT: RRR, +S1, +S2 GI/Abdominal exam: PRESENT: normal bowel sounds, soft. ABSENT: distended, tenderness Musculoskeletal exam: PRESENT: deformity - Contractures noted. No voluntary mov ement of muscles. I have not observed any spontaneous motor function in the patient's extremities.. ABSENT: ambulatory Neurological exam: PRESENT: altered, awake, aphasic Psychiatric exam: PRESENT: flat affect. ABSENT: agitated, anxious Focused psych exam: ABSENT: restlessness Results Laboratory Results: 06/18/19 04:48 06/18/19 04:48 06/17/19 06/18/19 06/18/19 23:17 04:48 04:48 WBC 14.4 H RBC 2.70 L Hgb 7.3 L Hct 23.3 L MCV 87 MCH 27.0 MCHC 31.2 L RDW 15.5 H Plt Count 210 Seg Neutrophils % Not Reportable Sodium 156.0 H 155.8 H Potassium 3.8 3.9 Chloride 127 H 127 H Carbon Dioxide 19 L 20 L Anion Gap 10 9 BUN 63 H 58 H Creatinine 2.38 H 2.36 H Est GFR ( Amer) 26 L 26 L Glucose 92 101 Calcium 7.8 L 7.9 L Phosphorus 4.7 H 4.7 H Magnesium 2.6 H 2.4 H Albumin 2.5 L 2.4 L 06/16/19 14:08 Sainz Catheter Urine Culture - Final Escherichia Coli Assessment and Plan - Diagnosis (1) Failure to thrive in adult Is this a current diagnosis for this admission?: Yes (2) Dehydration with hypernatremia Is this a current diagnosis for this admission?: Yes (3) Acute renal failure superimposed on stage 3 chronic kidney disease Qualifiers: Acute renal failure type: unspecified Qualified Code(s): N17.9 - Acute kidney failure, unspecified; N18.3 - Chronic kidney disease, stage 3 (moderate) Is this a current diagnosis for this admission?: Yes (4) Severe protein-calorie malnutrition Is this a current diagnosis for this admission?: Yes (5) Leukocytosis Qualifiers: Leukocytosis type: other Qualified Code(s): D72.828 - Other elevated white blood cell count Is this a current diagnosis for this admission?: Yes (6) Urinary tract infection Qualifiers: Urinary tract infection type: acute cystitis Hematuria presence: without hematuria Qualified Code(s): N30.00 - Acute cystitis without hematuria Is this a current diagnosis for this admission?: Yes (7) Diabetes mellitus, type II Qualifiers: Diabetes mellitus alf insulin use: with alf use Diabetes mellitus complication status: with kidney complications Diabetes mellitus complication detail: with chronic kidney disease Chronic kidney disease stage: stage 3 (moderate) Qualified Code(s): E11.22 - Type 2 diabetes mellitus with diabetic chronic kidney disease; N18.3 - Chronic kidney disease, stage 3 (moderate); Z79.4 - retirement (current) use of insulin Is this a current diagnosis for this admission?: Yes (8) Hypertension Qualifiers: Hypertension type: essential hypertension Qualified Code(s): I10 - Essential (primary) hypertension Is this a current diagnosis for this admission?: Yes (9) Aphasia as late effect of cerebrovascular accident Is this a current diagnosis for this admission?: Yes (10) Quadriplegia Is this a current diagnosis for this admission?: Yes (11) H/O: CVA (cerebrovascular accident) Is this a current diagnosis for this admission?: Yes - Plan Summary Summary: 06/16/2019-the patient presents from [facility]. She has had limited to no intake over the last several days. Laboratory studies reveal severe dehydration, acute on chronic kidney injury and low normal blood pressure. Urinalysis is markedly positive and she will be started on IV antibiotics. I did try and reach out to Paul Toure, who is listed as the primary contact. Unfortunately her phone blocked the hospital number. Per the paperwork the patient is listed as a full code. I have asked for a palliative care consult but at this time the patient will remain a full code. We will monitor her laboratory studies closely. When appropriate week we will try and resume an oral diet based on the speech therapist recommendations from her last admission. 06/18/2019-despite several days of aggressive IV fluids the patient serum potassium is only minimally corrected. I have placed her on one quarter normal saline at this time. I have ordered serial labs. Due to the dilution her hemoglobin is now less than 8. It is likely anemia from her severe malnutrition. A palliative care consult has been placed. The patient's prognosis is extremely poor. Nursing reports that they were informed by the patient's daughter that she has not spoken since [place]. A palliative care consult has been ordered. Attempts to reach the patient's daughter by phone are met with the message that the patient's daughter's phone has blocked the numbers. This patient would be extremely appropriate for hospice level care. - Time Time Spent with patient: 15-24 minutes Medications reviewed and adjusted accordingly: Yes
[2019-06-18 15:57] LABS: ALBUMIN 2.4 g/dL (3.5-5.0); ANION GAP 10 (5-19); BLOOD UREA NITROGEN 57 mg/dL (7-20); CALCIUM 7.7 mg/dL (8.4-10.2); CARBON DIOXIDE 16 mmol/L (22-30); CHLORIDE 126 mmol/L (98-107); GLUCOSE 142 mg/dL (75-110); PHOSPHORUS 4.6 mg/dL (2.5-4.5); POTASSIUM 3.9 mmol/L (3.6-5.0)
[2019-06-18] MEDS ORDERED: PIPERACILLIN/TAZOBACTAM 3.375 GM VIAL IV PRN (22:27)
[2019-06-18] MEDS ORDERED: PIPERACILLIN SODIUM/TAZOBACTAM 2.25 GM in NORMAL SALINE 50 ML IV ONE (23:00)
--- NOTE | 2019-06-18 23:10 | Progress Note ---
Provider Note Provider Note: Critical care note: 06/18/2019 Critical care start time: 22:20 Critical care issue: Positive blood culture I was informed by the patient's nurse that she had been found to have a positive anaerobic blood culture with gram positive cocci present in 1 bottle. Patient's vital signs had been stable and I went to her room for her evaluation to find her essentially unchanged from the description provided by Dr. Stefan zeng who had seen her earlier in the day. I briefly discussed the reasoning for changing her antibiotics with her though she was not verbal and avoided eye contact during the instruction. She was awake and did seem to notice that I was present but gave no indication as to her feelings or wishes. I reviewed the reason for changing antibiotics point by point and waited with her for a minute or 2 and then repeated again the same information. Though she had no verbal expression she did finally close her eyes. I observed her for several more minutes and she did not reopen her eyes. In the interim I had changed the patient's antibiotic orders to treat her with Zosyn at a renally adjusted dose instead of ceftriaxone. This change was made to afford better coverage of anaerobic bacteria such as those present in the blood culture. Critical care end time: 23:08 Total critical care time: 17 minutes
[2019-06-18 23:50] LABS: ALBUMIN 2.3 g/dL (3.5-5.0); ANION GAP 7 (5-19); BLOOD UREA NITROGEN 55 mg/dL (7-20); CALCIUM 7.5 mg/dL (8.4-10.2); CARBON DIOXIDE 19 mmol/L (22-30); CHLORIDE 124 mmol/L (98-107); GLUCOSE 158 mg/dL (75-110); PHOSPHORUS 3.9 mg/dL (2.5-4.5); POTASSIUM 3.6 mmol/L (3.6-5.0)
[2019-06-19] MEDS: INSULIN LISPRO 100 UNIT/ML 3 ML VIAL SUBCUT SCH ×2 (00:18→06:13)
[2019-06-19] MEDS: IPRATROPIUM/ALBUTEROL 0.5-2.5 MG/3 ML AMPUL NEB SCH ×3 (00:43→16:06)
[2019-06-19] MEDS: PIPERACILLIN/TAZOBACTAM 2.25 GM VIAL IV ONE ×2 (01:18→01:23)
[2019-06-19] MEDS: DEXTROSE 5%-1/4 NORMAL SALINE 1,000 ML IV PRN ×2 (01:47→22:00)
[2019-06-19] MEDS ORDERED: PIPERACILLIN/TAZOBACTAM 3.375 GM VIAL IV ONE (05:47)
[2019-06-19] MEDS: PIPERACILLIN SODIUM/TAZOBACTAM 3.375 GM in NORMAL SALINE 100 ML IV SCH ×2 (06:00→12:15)
[2019-06-19] MEDS ORDERED: PIPERACILLIN/TAZOBACTAM 2.25 GM VIAL IV PRN (06:00)
[2019-06-19 06:17] LABS: ABSOLUTE BASOPHILS # (AUTO) 0.1 10^3/uL (0.0-0.2); ABSOLUTE EOSINOPHILS # (AUTO) 0.1 10^3/uL (0.0-0.6); ABSOLUTE MONOCYTES (AUTO) 0.8 10^3/uL (0.1-1.4); ABSOLUTE NEUT (AUTO) 12.2 10^3/uL (1.7-8.2); BASOPHILS % (AUTO) 0.5 % (0-2); EOSINOPHILS % (AUTO) 0.6 % (0-6); HEMATOCRIT 24.2 % (36.0-47.0); LYMPHOCYTES % (AUTO) 7.2 % (13-45); MEAN CORPUSCULAR HEMOGLOBIN 27.9 pg (27.0-33.4); MEAN CORPUSCULAR HGB CONC 32.4 g/dL (32.0-36.0); MEAN CORPUSCULAR VOLUME 86 fl (80-97); MONOCYTES % (AUTO) 5.6 % (3-13); PLATELET COUNT 180 10^3/uL (150-450); RED CELL DISTRIBUTION WIDTH 15.3 % (11.5-14.0); SEGMENTED NEUTROPHILS % (AUTO) 86.1 % (42-78); TOTAL CELLS COUNTED % (AUTO) 100 %; WHITE BLOOD COUNT 14.2 10^3/uL (4.0-10.5)
[2019-06-19 06:19] LABS: HEMOGLOBIN 7.8 g/dL (12.0-15.5)
[2019-06-19 06:24] LABS: ALBUMIN 2.3 g/dL (3.5-5.0); ANION GAP 9 (5-19); BLOOD UREA NITROGEN 50 mg/dL (7-20); CALCIUM 7.7 mg/dL (8.4-10.2); CARBON DIOXIDE 18 mmol/L (22-30); CHLORIDE 124 mmol/L (98-107); GLUCOSE 171 mg/dL (75-110); PHOSPHORUS 3.7 mg/dL (2.5-4.5); POTASSIUM 3.7 mmol/L (3.6-5.0)
[2019-06-19] MEDS: PANTOPRAZOLE SODIUM 40 MG VIAL IV SCH ×2 (09:42→21:57)
[2019-06-19] MEDS: ENOXAPARIN SODIUM INJ 30 MG/0.3 ML DISP.SYRIN SUBCUT SCH (09:43)
[2019-06-19 14:12] LABS: ALBUMIN 2.2 g/dL (3.5-5.0); ANION GAP 7 (5-19); BLOOD UREA NITROGEN 46 mg/dL (7-20); CALCIUM 7.6 mg/dL (8.4-10.2); CARBON DIOXIDE 19 mmol/L (22-30); CHLORIDE 123 mmol/L (98-107); GLUCOSE 183 mg/dL (75-110); PHOSPHORUS 3.3 mg/dL (2.5-4.5); POTASSIUM 3.3 mmol/L (3.6-5.0)
--- NOTE | 2019-06-19 18:49 | PDOC PROGRESS REPORT ---
Subjective Progress Note for:: 06/19/19 Subjective:: Patient exhibited abnormal breathing pattern temporarily today Reason For Visit: SEVERE DEHYDRATION,ACUTE KIDNEY INJURY, Physical Exam Vital Signs: Temp Pulse Resp BP Pulse Ox 98.9 F 90 14 142/65 H 96 06/19/19 11:20 06/19/19 16:05 06/19/19 16:05 06/19/19 11:20 06/19/19 16:05 Intake & Output 06/18/19 06/19/19 06/20/19 06:59 06:59 06:59 Intake Total 3043 3515 0 Output Total 1075 875 450 Balance 1968 2640 -450 Weight 60.6 kg 63.1 kg General appearance: PRESENT: other - Unresponsive Respiratory exam: PRESENT: decreased breath sounds - Very shallow breath sounds with limited inspiratory effort, symmetrical, unlabored. ABSENT: rales, rhonchi, wheezes Cardiovascular exam: PRESENT: RRR, +S1, +S2 GI/Abdominal exam: PRESENT: diminished bowel sounds, soft Neurological exam: ABSENT: awake Focused psych exam: PRESENT: catatonic Results Laboratory Results: 06/19/19 05:10 06/19/19 13:20 06/18/19 06/18/19 06/18/19 00:26 04:48 21:53 WBC RBC Hgb Hct MCV MCH MCHC RDW Plt Count Seg Neutrophils % Sodium 150.0 H 155.8 H Cancelled Potassium 3.6 3.9 Cancelled Chloride 124 H 127 H Cancelled Carbon Dioxide 19 L 20 L Cancelled Anion Gap 7 9 Cancelled BUN 55 H 58 H Cancelled Creatinine 1.85 H 2.36 H Cancelled Est GFR ( Amer) 34 L 26 L Cancelled Est GFR (Non-Af Amer) Cancelled Glucose 158 H 101 Cancelled Calcium 7.5 L 7.9 L Cancelled Phosphorus 3.9 4.7 H Cancelled Magnesium 2.3 2.4 H Cancelled Albumin 2.3 L 2.4 L Cancelled 06/19/19 06/19/19 06/19/19 05:10 05:10 13:20 WBC 14.2 H RBC 2.80 L Hgb 7.8 L Hct 24.2 L MCV 86 MCH 27.9 MCHC 32.4 RDW 15.3 H Plt Count 180 Seg Neutrophils % 86.1 H Sodium 151.4 H 148.8 H Potassium 3.7 3.3 L Chloride 124 H 123 H Carbon Dioxide 18 L 19 L Anion Gap 9 7 BUN 50 H 46 H Creatinine 1.94 H 1.85 H Est GFR ( Amer) 32 L 34 L Est GFR (Non-Af Amer) Glucose 171 H 183 H Calcium 7.7 L 7.6 L Phosphorus 3.7 3.3 Magnesium 2.3 2.2 Albumin 2.3 L 2.2 L Assessment and Plan - Diagnosis (1) Failure to thrive in adult Is this a current diagnosis for this admission?: Yes (2) Dehydration with hypernatremia Is this a current diagnosis for this admission?: Yes (3) Acute renal failure superimposed on stage 3 chronic kidney disease Qualifiers: Acute renal failure type: unspecified Qualified Code(s): N17.9 - Acute kidney failure, unspecified; N18.3 - Chronic kidney disease, stage 3 (moderate) Is this a current diagnosis for this admission?: Yes (4) Severe protein-calorie malnutrition Is this a current diagnosis for this admission?: Yes (5) Leukocytosis Qualifiers: Leukocytosis type: other Qualified Code(s): D72.828 - Other elevated white blood cell count Is this a current diagnosis for this admission?: Yes (6) Urinary tract infection Qualifiers: Urinary tract infection type: acute cystitis Hematuria presence: without hematuria Qualified Code(s): N30.00 - Acute cystitis without hematuria Is this a current diagnosis for this admission?: Yes (7) Diabetes mellitus, type II Qualifiers: Diabetes mellitus correction insulin use: with correction use Diabetes mellitus complication status: with kidney complications Diabetes mellitus complication detail: with chronic kidney disease Chronic kidney disease stage: stage 3 (moderate) Qualified Code(s): E11.22 - Type 2 diabetes mellitus with diabetic chronic kidney disease; N18.3 - Chronic kidney disease, stage 3 (moderate); Z79.4 - [facility] (current) use of insulin Is this a current diagnosis for this admission?: Yes (8) Hypertension Qualifiers: Hypertension type: essential hypertension Qualified Code(s): I10 - Essential (primary) hypertension Is this a current diagnosis for this admission?: Yes (9) Aphasia as late effect of cerebrovascular accident Is this a current diagnosis for this admission?: Yes (10) Quadriplegia Is this a current diagnosis for this admission?: Yes (11) H/O: CVA (cerebrovascular accident) Is this a current diagnosis for this admission?: Yes - Plan Summary Summary: 06/16/2019-the patient presents from [facility] nursing. She has had limited to no intake over the last several days. Laboratory studies reveal severe dehyd ration, acute on chronic kidney injury and low normal blood pressure. Urinalysis is markedly positive and she will be started on IV antibiotics. I did try and reach out to Paul Toure, who is listed as the primary contact. Unfortunately her phone blocked the hospital number. Per the paperwork the patient is listed as a full code. I have asked for a palliative care consult but at this time the patient will remain a full code. We will monitor her laboratory studies closely. When appropriate week we will try and resume an oral diet based on the speech therapist recommendations from her last admission. 06/18/2019-despite several days of aggressive IV fluids the patient serum potassium is only minimally corrected. I have placed her on one quarter normal saline at this time. I have ordered serial labs. Due to the dilution her hemoglobin is now less than 8. It is likely anemia from her severe malnutrition. A palliative care consult has been placed. The patient's prognosis is extremely poor. Nursing reports that they were informed by the patient's daughter that she has not spoken since [place]. A palliative care consult has been ordered. Attempts to reach the patient's daughter by phone are met with the message that the patient's daughter's phone has blocked the numbers. This patient would be extremely appropriate for hospice level care. 06/19/2019-still not making much progress. Had a long talk with the patient's son, daughter and multiple relatives. I explained that her prognosis is extremely poor. Am waiting for them to decide if they want to continue as a full code. No change in treatment plan at this time - Time Time Spent with patient: 35 or more minutes
[2019-06-19] MEDS: PIPERACILLIN SODIUM/TAZOBACTAM 2.25 GM in NORMAL SALINE 50 ML IV SCH (22:12)
[2019-06-20] MEDS: IPRATROPIUM/ALBUTEROL 0.5-2.5 MG/3 ML AMPUL NEB SCH ×3 (00:13→16:10)
[2019-06-20] MEDS: PIPERACILLIN SODIUM/TAZOBACTAM 2.25 GM in NORMAL SALINE 50 ML IV SCH ×4 (04:02→18:31)
[2019-06-20] MEDS: INSULIN LISPRO 100 UNIT/ML 3 ML VIAL SUBCUT SCH ×6 (04:19→19:57)
[2019-06-20] MEDS: DEXTROSE 5%-1/4 NORMAL SALINE 1,000 ML IV PRN (05:43)
[2019-06-20 09:56] LABS: ANION GAP 9 (5-19); BLOOD UREA NITROGEN 39 mg/dL (7-20); CALCIUM 7.4 mg/dL (8.4-10.2); CARBON DIOXIDE 16 mmol/L (22-30); CHLORIDE 120 mmol/L (98-107); GLUCOSE 175 mg/dL (75-110); POTASSIUM 3.3 mmol/L (3.6-5.0)
[2019-06-20 10:27] LABS: HEMATOCRIT 24.3 % (36.0-47.0); MEAN CORPUSCULAR HEMOGLOBIN 27.3 pg (27.0-33.4); MEAN CORPUSCULAR HGB CONC 31.7 g/dL (32.0-36.0); MEAN CORPUSCULAR VOLUME 86 fl (80-97); PLATELET COUNT 163 10^3/uL (150-450); RED BLOOD COUNT 2.83 10^6/uL (3.72-5.28); RED CELL DISTRIBUTION WIDTH 15.3 % (11.5-14.0); WHITE BLOOD COUNT 15.1 10^3/uL (4.0-10.5)
[2019-06-20 10:29] LABS: ABSOLUTE LYMPHOCYTES# (MANUAL) 1.2 10^3/uL (0.5-4.7); ABSOLUTE MONOCYTES # (MANUAL) 0.2 10^3/uL (0.1-1.4); BAND NEUTROPHILS % (MANUAL) 1 % (3-5); BASOPHILS % (MANUAL) 0 % (0-2); EOSINOPHILS % (MANUAL) 0 % (0-6); LYMPHOCYTES % (MANUAL) 8 % (13-45); MONOCYTES % (MANUAL) 1 % (3-13); SEGMENTED NEUTROPHILS % (MAN) 90 % (42-78); TOTAL CELLS COUNTED 100
[2019-06-20 10:32] LABS: ANISOCYTOSIS SLIGHT; BURR CELLS 1+; OVALOCYTES SLIGHT; PLATELET COMMENT ADEQUATE; POIKILOCYTOSIS 1+; SCHISTOCYTES SLIGHT
[2019-06-20 10:33] LABS: HEMOGLOBIN 7.7 g/dL (12.0-15.5)
[2019-06-20] MEDS: PANTOPRAZOLE SODIUM 40 MG VIAL IV SCH ×2 (10:41→22:48)
[2019-06-20] MEDS: ENOXAPARIN SODIUM INJ 30 MG/0.3 ML DISP.SYRIN SUBCUT SCH (10:41)
[2019-06-20] MEDS ORDERED: POTASSIUM CHLORIDE 10 MEQ TABLET.ER PO ONE (11:30)
--- NOTE | 2019-06-20 14:10 | PDOC PROGRESS REPORT ---
Subjective Progress Note for:: 06/20/19 Subjective:: This is a 58-year-old female with a past medical history of hypertension, diabetes mellitus, CKD, prior CVA and recently acute CVA with residual quadriplegia and aphasia who was brought in due to poor oral intake. On admission, she was noted to have acute renal failure. She was started on IV fluids. No acute event overnight. Upon encounter, she is breathing comfortably but is lethargic. Creatinine continues to improve with IV fluids. She was made a DNR/DNI yesterday. She is a hospice candidate. Will discuss possible hospice with family. Reason For Visit: SEVERE DEHYDRATION,ACUTE KIDNEY INJURY, Physical Exam Vital Signs: Temp Pulse Resp BP Pulse Ox 99.3 F 84 16 142/70 H 96 06/20/19 08:22 06/20/19 08:44 06/20/19 08:44 06/20/19 08:22 06/20/19 08:44 Intake & Output 06/19/19 06/20/19 06/21/19 06:59 06:59 06:59 Intake Total 3515 1565 Output Total 875 1550 Balance 2640 15 Weight 139 lb 1.787 oz 143 lb 8.335 oz General appearance: PRESENT: no acute distress, well-developed, well-nourished Head exam: PRESENT: atraumatic, normocephalic Eye exam: PRESENT: conjunctiva pink, EOMI, PERRLA. ABSENT: scleral icterus Ear exam: PRESENT: normal external ear exam Mouth exam: PRESENT: moist, tongue midline Neck exam: ABSENT: carotid bruit, JVD, lymphadenopathy, thyromegaly Respiratory exam: PRESENT: clear to auscultation bryan. ABSENT: rales, rhonchi, wheezes Cardiovascular exam: PRESENT: RRR. ABSENT: diastolic murmur, rubs, systolic murmur Pulses: PRESENT: normal dorsalis pedis pul GI/Abdominal exam: PRESENT: normal bowel sounds, soft. ABSENT: distended, guarding, mass, organolmegaly, rebound, tenderness Rectal exam: PRESENT: deferred Extremities exam: PRESENT: full ROM. ABSENT: calf tenderness, clubbing, pedal edema Neurological exam: PRESENT: motor sensory deficit Results Laboratory Results: 06/20/19 09:31 06/20/19 09:31 06/19/19 06/20/1906/20/20 13:20 09:31 09:31 WBC 15.1 H RBC 2.83 L Hgb 7.7 L Hct 24.3 L MCV 86 MCH 27.3 MCHC 31.7 L RDW 15.3 H Plt Count 163 Seg Neutrophils % Not Reportable Sodium 148.8 H 145.1 H Potassium 3.3 L 3.3 L Chloride 123 H 120 H Carbon Dioxide 19 L 16 L Anion Gap 7 9 BUN 46 H 39 H Creatinine 1.85 H 1.48 H Est GFR ( Amer) 34 L 44 L Glucose 183 H 175 H Calcium 7.6 L 7.4 L Phosphorus 3.3 Magnesium 2.2 Albumin 2.2 L Assessment and Plan - Diagnosis (1) Acute renal failure superimposed on stage 3 chronic kidney disease Qualifiers: Acute renal failure type: unspecified Qualified Code(s): N17.9 - Acute kidney failure, unspecified; N18.3 - Chronic kidney disease, stage 3 (moderate) Is this a current diagnosis for this admission?: Yes Plan: Likely prerenal. Creatinine continues to improve with IV fluids. (2) Anemia Is this a current diagnosis for this admission?: Yes Plan: No gross bleeding manifestations. CKD may be contributory. Will order for anemia panel. (3) Hypernatremia Is this a current diagnosis for this admission?: Yes Plan: Secondary to dehydration. Improving with IV fluids. (4) Aphasia as late effect of cerebrovascular accident Is this a current diagnosis for this admission?: Yes (5) Diabetes mellitus, type II Qualifiers: Diabetes mellitus mcc insulin use: with meterman use Diabetes mellitus complication status: with kidney complications Diabetes mellitus complication detail: with chronic kidney disease Chronic kidney disease stage: stage 3 (moderate) Qualified Code(s): E11.22 - Type 2 diabetes mellitus with diabetic chronic kidney disease; N18.3 - Chronic kidney disease, stage 3 (moderate); Z79.4 - [facility] (current) use of insulin Is this a current diagnosis for this admission?: Yes (6) Hypertension Qualifiers: Hypertension type: essential hypertension Qualified Code(s): I10 - Essential (primary) hypertension Is this a current diagnosis for this admission?: Yes (7) Hypokalemia Is this a current diagnosis for this admission?: Yes Plan: Replace Potassium. - Plan Summary Summary: 06/16/2019-the patient presents from [facility]. She has had limited to no intake over the last several days. Laboratory studies reveal severe dehydration, acute on chronic kidney injury and low normal blood pressure. Urinalysis is markedly positive and she will be started on IV antibiotics. I did try and reach out to Paul Toure, who is listed as the primary contact. Unfortunately her phone blocked the hospital number. Per the paperwork the patient is listed as a full code. I have asked for a palliative care consult but at this time the patient will remain a full code. We will monitor her laboratory studies closely. When appropriate week we will try and resume an oral diet based on the speech therapist recommendations from her last admission. 06/18/2019-despite several days of aggressive IV fluids the patient serum potassium is only minimally corrected. I have placed her on one quarter normal saline at this time. I have ordered serial labs. Due to the dilution her hemoglobin is now less than 8. It is likely anemia from her severe malnutrition. A palliative care consult has been placed. The patient's prognosis is extremely poor. Nursing reports that they were informed by the patient's daughter that she has not spoken since . A palliative care consult has been ordered. Attempts to reach the patient's daughter by phone are met with the message that the patient's daughter's phone has blocked the numbers. [facility]. 06/19/2019-still not making much progress. Had a long talk with the patient's so n, daughter and multiple relatives. I explained that her prognosis is extremely poor. Am waiting for them to decide if they want to continue as a full code. No change in treatment plan at this time - Time Time Spent with patient: 25-34 minutes
[2019-06-20 14:32] LABS: ABSOLUTE RETICS # 0.019 10^6/uL (0.028-0.122); RETICULOCYTE COUNT (AUTO) 0.66 % (0.66-2.85)
[2019-06-20 15:30] LABS: FOLATE 4.27 ng/mL (>2.76)
[2019-06-20] MEDS: POTASSIUM CHLORIDE 20 MEQ/50 ML RTU IV SCH ×2 (20:03→22:48)
[2019-06-21] MEDS: INSULIN LISPRO 100 UNIT/ML 3 ML VIAL SUBCUT SCH ×4 (00:05→18:53)
[2019-06-21] MEDS: PIPERACILLIN SODIUM/TAZOBACTAM 2.25 GM in NORMAL SALINE 50 ML IV SCH ×3 (00:24→11:40)
[2019-06-21] MEDS: IPRATROPIUM/ALBUTEROL 0.5-2.5 MG/3 ML AMPUL NEB SCH ×3 (00:39→15:53)
[2019-06-21] MEDS: DEXTROSE 5%-1/4 NORMAL SALINE 1,000 ML IV PRN ×3 (04:50→22:02)
[2019-06-21 06:46] LABS: ANION GAP 7 (5-19); BLOOD UREA NITROGEN 30 mg/dL (7-20); CALCIUM 7.3 mg/dL (8.4-10.2); CARBON DIOXIDE 17 mmol/L (22-30); CHLORIDE 121 mmol/L (98-107); GLUCOSE 131 mg/dL (75-110); POTASSIUM 3.3 mmol/L (3.6-5.0)
[2019-06-21] MEDS: PANTOPRAZOLE SODIUM 40 MG VIAL IV SCH ×2 (09:45→21:19)
[2019-06-21] MEDS: POTASSI CL 20 MEQ/50 ML RIDER 20 MEQ/50 ML RTUPB IV SCH ×2 (09:45→12:27)
[2019-06-21] MEDS: ENOXAPARIN SODIUM INJ 30 MG/0.3 ML DISP.SYRIN SUBCUT SCH (09:45)
--- NOTE | 2019-06-21 14:47 | PDOC PROGRESS REPORT ---
Subjective Progress Note for:: 06/21/19 Subjective:: This is a 58-year-old female with a past medical history of hypertension, diabetes mellitus, CKD, prior CVA and recently acute CVA with residual quadriplegia and aphasia who was brought in due to poor oral intake. On admission, she was noted to have acute renal failure. She was started on IV fluids. 06/20: Upon encounter, she is breathing comfortably but is lethargic. Creatinine continues to improve with IV fluids. She was made a DNR/DNI yesterday. She is a hospice candidate. 06/21: No acute event overnight. Patient is awake and appears comfortable upon encounter. She remains aphasic. Plan to rediscuss with family about care home care and goals as she is a hospice candidate. Reason For Visit: SEVERE DEHYDRATION,ACUTE KIDNEY INJURY, Physical Exam Vital Signs: Temp Pulse Resp BP Pulse Ox 99.1 F 88 18 152/91 H 100 06/21/19 11:04 06/21/19 11:04 06/21/19 11:04 06/21/19 11:04 06/21/19 11:04 Intake & Output 06/20/19 06/21/19 06/22/19 06:59 06:59 06:59 Intake Total 1565 1350 1050 Output Total 1550 1175 300 Balance 15 175 750 Weight 143 lb 8.335 oz 141 lb 5.061 oz General appearance: PRESENT: no acute distress, well-developed, well-nourished Head exam: PRESENT: atraumatic, normocephalic Eye exam: PRESENT: conjunctiva pink, EOMI, PERRLA. ABSENT: scleral icterus Ear exam: PRESENT: normal external ear exam Mouth exam: PRESENT: moist, tongue midline Neck exam: ABSENT: carotid bruit, JVD, lymphadenopathy, thyromegaly Respiratory exam: PRESENT: clear to auscultation bryan. ABSENT: rales, rhonchi, wheezes Cardiovascular exam: PRESENT: RRR. ABSENT: diastolic murmur, rubs, systolic murmur Pulses: PRESENT: normal dorsalis pedis pul GI/Abdominal exam: PRESENT: normal bowel sounds, soft. ABSENT: distended, guarding, mass, organolmegaly, rebound, tenderness Rectal exam: PRESENT: deferred Neurological exam: PRESENT: alert, awake. ABSENT: oriented to person, oriented to place, oriented to time Results Laboratory Results: 06/20/19 09:31 06/21/19 06:02 06/20/19 06/20/19 06/20/19 09:31 09:31 14:55 Retic Count (auto) 0.66 Sodium Potassium Chloride Carbon Dioxide Anion Gap BUN Creatinine Est GFR ( Amer) Glucose Lactic Acid 1.7 Calcium Iron 34.0 L TIBC 182 L % Saturation 19 Ferritin 194.00 Vitamin B12 666.0 Folate 4.27 06/21/19 06:02 Retic Count (auto) Sodium 145.3 H Potassium 3.3 L Chloride 121 H Carbon Dioxide 17 L Anion Gap 7 BUN 30 H Creatinine 1.42 H Est GFR ( Amer) 46 L Glucose 131 H Lactic Acid Calcium 7.3 L Iron TIBC % Saturation Ferritin Vitamin B12 Folate Assessment and Plan - Diagnosis (1) Acute renal failure superimposed on stage 3 chronic kidney disease Qualifiers: Acute renal failure type: unspecified Qualified Code(s): N17.9 - Acute kidney failure, unspecified; N18.3 - Chronic kidney disease, stage 3 (moderate) Is this a current diagnosis for this admission?: Yes Plan: Likely prerenal. Creatinine continues to improve with IV fluids. 06/21: Creatinine now appears to be at her baseline. (2) Anemia Is this a current diagnosis for this admission?: Yes Plan: No gross bleeding manifestations. CKD may be contributory. 06/21: Iron stores low. (3) UTI (urinary tract infection) Is this a current diagnosis for this admission?: Yes Plan: Urine culture grew E. coli. Noted sensitivity. Switch Zosyn to Rocephin. (4) Hypernatremia Is this a current diagnosis for this admission?: Yes Plan: Secondary to dehydration. Improving with IV fluids. (5) Aphasia as late effect of cerebrovascular accident Is this a current diagnosis for this admission?: Yes Plan: No change in overall condition. (6) Hypertension Qualifiers: Hypertension type: essential hypertension Qualified Code(s): I10 - Essential (primary) hypertension Is this a current diagnosis for this admission?: Yes (7) Diabetes mellitus, type II Qualifiers: Diabetes mellitus ferry terminal agent insulin use: with care home use Diabetes mellitus complication status: with kidney complications Diabetes mellitus complication detail: with chronic kidney disease Chronic kidney disease stage: stage 3 (moderate) Qualified Code(s): E11.22 - Type 2 diabetes mellitus with diabetic chronic kidney disease; N18.3 - Chronic kidney disease, stage 3 (moderate); Z79.4 - termite control service representative (current) use of insulin Is this a current diagnosis for this admission?: Yes (8) Hypokalemia Is this a current diagnosis for this admission?: Yes Plan: Replace Potassium. 06/21: Repleted. - Plan Summary Summary: 06/16/2019-the patient presents from [facility]. She has had limited to no intake over the last several days. Laboratory studies reveal severe dehydration, acute on chronic kidney injury and low normal blood pressure. Urinalysis is markedly positive and she will be started on IV antibiotics. I d id try and reach out to Paul Toure, who is listed as the primary contact. Unfortunately her phone blocked the hospital number. Per the paperwork the patient is listed as a full code. I have asked for a palliative care consult but at this time the patient will remain a full code. We will monitor her laboratory studies closely. When appropriate week we will try and resume an oral diet based on the speech therapist recommendations from her last admission. 06/18/2019-despite several days of aggressive IV fluids the patient serum potassium is only minimally corrected. I have placed her on one quarter normal saline at this time. I have ordered serial labs. Due to the dilution her hemog lobin is now less than 8. It is likely anemia from her severe malnutrition. A palliative care consult has been placed. The patient's prognosis is extremely poor. Nursing reports that they were info rmed by the patient's daughter that she has not spoken since [place]. A palliative care consult has been ordered. Attempts to reach the patient's daughter by phone are met with the message that the patient's daughter's phone has blocked the numbers. This patient would be extremely appropriate for hospice level care. 06/19/2019-still not making much progress. Had a long talk with the patient's son, daughter and multiple relatives. I explained that her prognosis is extremely poor. Am waiting for them to decide if they want to continue as a full code. No change in treatment plan at this time - Time Time Spent with patient: 25-34 minutes
--- NOTE | 2019-06-21 16:58 | RADIOLOGY REPORT (SQ) ---
EXAM DESCRIPTION: CT HEAD WITHOUT COMPLETED DATE/TIME: 06/21/2019 4:42 pm REASON FOR STUDY: AMS COMPARISON: 05/06/2019 TECHNIQUE: Axial images acquired through the brain without intravenous contrast. Images reviewed wi th bone, brain and subdural windows. Additional sagittal and coronal reconstructions were generated. Images stored on PACS. All CT scanners at this facility use dose modulation, iterative reconstruction, and/or weight based d osing when appropriate to reduce radiation dose to as low as reasonably achievable (ALARA). [facility]: Dose Right [facility]: CareDose [facility]: Dose Right [facility]: Teradose 4D [facility]: SaveMeeting RADIATION DOSE: CT Rad equipment meets quality standard of care and radiation dose reduction techniq ues were employed. CTDIvol: 24.8 mGy. DLP: 499 mGy-cm. mGy. LIMITATIONS: Patient motion and positioning. FINDINGS: VENTRICLES: The ventricles are dilated. There appears to been change in configuration wit h possible mass effect on the right lateral ventricle although this may be due to patient positioning . CEREBRUM: No hemorrhage. Evolving large right basal ganglia infarct this appears larger when compare to April. Decreased attenuation throughout the periventricular and subcortical white matter cons istent with small vessel disease. CEREBELLUM: Possible new left cerebellar infarct. Again repeat study with the patient oriented corre ctly in the scanner is recommended. EXTRAAXIAL SPACES: No fluid collections. No masses. ORBITS AND GLOBE: No intra- or extraconal masses. Normal contour of globe without masses. CALVARIUM: No fracture. PARANASAL SINUSES: No fluid or mucosal thickening. SOFT TISSUES: No mass or hematoma. OTHER: No other significant finding. IMPRESSION: Limited study with very poor patient positioning due to the patient's clinical condition . Possible extension of the right basal ganglia infarct. Possible new left cerebellar infarct. Rep eat study is recommended when the patient's clinical condition has stabilized or the patient can be s edated. EVIDENCE OF ACUTE STROKE: NO. COMMENT: Quality ID # [id number]: Final reports with documentation of one or more dose reduction techniques (e.g., Automated exposure control, adjustment of the mA and/or kV according to patient size, use of iterative reconstruction technique) TECHNICAL DOCUMENTATION: JOB ID: [id number] [employer]- All Rights Reserved Reading location - IP/workstation name: [email or web address]
[2019-06-21] MEDS: POTASSIUM CHLORIDE 10 MEQ TABLET.ER PO SCH (21:22)
[2019-06-22] MEDS: INSULIN LISPRO 100 UNIT/ML 3 ML VIAL SUBCUT SCH ×5 (00:10→22:39)
[2019-06-22] MEDS: IPRATROPIUM/ALBUTEROL 0.5-2.5 MG/3 ML AMPUL NEB SCH ×2 (00:42→09:24)
[2019-06-22] MEDS: DEXTROSE 5%-1/4 NORMAL SALINE 1,000 ML IV PRN ×4 (05:59→23:39)
[2019-06-22] MEDS ORDERED: IPRATROPIUM/ALBUTEROL 0.5-2.5 MG/3 ML AMPUL NEB PRN (09:23)
[2019-06-22 10:16] LABS: HEMATOCRIT 24.6 % (36.0-47.0); MEAN CORPUSCULAR HEMOGLOBIN 27.7 pg (27.0-33.4); MEAN CORPUSCULAR HGB CONC 31.9 g/dL (32.0-36.0); MEAN CORPUSCULAR VOLUME 87 fl (80-97); PLATELET COUNT 177 10^3/uL (150-450); RED BLOOD COUNT 2.84 10^6/uL (3.72-5.28); RED CELL DISTRIBUTION WIDTH 15.5 % (11.5-14.0)
[2019-06-22 10:36] LABS: ANION GAP 10 (5-19); BLOOD UREA NITROGEN 23 mg/dL (7-20); C-REACTIVE PROTEIN 37.4 mg/L (<10.0); CALCIUM 7.5 mg/dL (8.4-10.2); CARBON DIOXIDE 16 mmol/L (22-30); CHLORIDE 114 mmol/L (98-107); GLUCOSE 150 mg/dL (75-110); POTASSIUM 3.5 mmol/L (3.6-5.0)
[2019-06-22 10:48] LABS: HEMOGLOBIN 7.9 g/dL (12.0-15.5)
[2019-06-22 10:50] LABS: ABSOLUTE LYMPHOCYTES# (MANUAL) 1.6 10^3/uL (0.5-4.7); BASOPHILS % (MANUAL) 0 % (0-2); EOSINOPHILS % (MANUAL) 0 % (0-6); LYMPHOCYTES % (MANUAL) 10 % (13-45); MONOCYTES % (MANUAL) 0 % (3-13); SEGMENTED NEUTROPHILS % (MAN) 90 % (42-78); TOTAL CELLS COUNTED 100
[2019-06-22 10:52] LABS: ANISOCYTOSIS SLIGHT; BURR CELLS SLIGHT; OVALOCYTES SLIGHT; POIKILOCYTOSIS SLIGHT; TOXIC GRANULATION 1+; TOXIC VACUOLATION PRESENT
[2019-06-22 10:53] LABS: PLATELET COMMENT ADEQUATE
[2019-06-22 11:01] LABS: ERYTHROCYTE SEDIMENTATION RATE 95 mm/hr (0-30)
[2019-06-22] MEDS: CEFTRIAXONE 1 GM/D5W RTU 1 GM/50 ML RTUPB IV SCH (11:20)
[2019-06-22] MEDS: PANTOPRAZOLE SODIUM 40 MG VIAL IV SCH ×2 (11:20→22:39)
[2019-06-22] MEDS: ENOXAPARIN SODIUM INJ 30 MG/0.3 ML DISP.SYRIN SUBCUT SCH (11:20)
[2019-06-22] MEDS: POTASSIUM CHLORIDE 10 MEQ TABLET.ER PO SCH (11:20)
--- NOTE | 2019-06-22 15:02 | PDOC PROGRESS REPORT ---
Subjective Progress Note for:: 06/22/19 Subjective:: This is a 58-year-old female with a past medical history of hypertension, diabetes mellitus, CKD, prior CVA and recently acute CVA with residual quadriplegia and aphasia who was brought in due to poor oral intake. On admission, she was noted to have acute renal failure. She was started on IV fluids. 06/20: Upon encounter, she is breathing comfortably but is lethargic. Creatinine continues to improve with IV fluids. She was made a DNR/DNI yesterday. She is a hospice candidate. 06/21: Patient is awake and appears comfortable upon encounter. She remains aphasic. Plan to rediscuss with family about nursing home care and goals as she is a hospice candidate. 06/22: No acute event overnight. Met with patient's daughter and son yesterday late afternoon and updated about patient's status and had initial discussion about long-term goals of care. They expressed that patient was still communicating when she was discharged to [facility]. We discussed her poor oral intake but we will await reevaluation and recommendations from speech therapy before giving definite decision about tube feeding. They have also requested did for placement to a different SNF aside from [facility]. We also discussed the nature of her recurrent CVA. She has been having recurrent and bilateral CVAs which is concerning for cardioembolic source or hypercoagulable conditions. She has had TTE recently which did not show any obvious cardiac thrombus. Patient's daughter and son expressed they do not want to pursue invasive interventions including NILSON or LP. Patient was evaluated by speech therapy today and she did fairly well on thickened liquid but needs prompting and assistance to eat. CT of the head was done which shows possible new CVA and extension of recent infarct. MRI studies pending. Reason For Visit: SEVERE DEHYDRATION,ACUTE KIDNEY INJURY, Physical Exam Vital Signs: Temp Pulse Resp BP Pulse Ox 98.3 F 83 16 140/69 H 99 06/21/19 20:18 06/22/19 02:00 06/22/19 00:15 06/21/19 20:21 06/22/19 00:15 Intake & Output 06/21/19 06/22/19 06/23/19 06:59 06:59 06:59 Intake Total 1350 3100 Output Total 1175 900 Balance 175 2200 Weight 141 lb 5.061 oz 141 lb 5.061 oz 149 lb 0.52 oz General appearance: PRESENT: no acute distress, well-developed, well-nourished Head exam: PRESENT: atraumatic, normocephalic Eye exam: PRESENT: conjunctiva pink, EOMI, PERRLA. ABSENT: scleral icterus Results Laboratory Results: 06/20/19 09:31 06/21/19 06:02 06/16/19 22:07 Blood Blood Culture - Final NO GROWTH IN 5 DAYS Impressions: Head CT 06/21/19 15:48 IMPRESSION: Limited study with very poor patient positioning due to the patient's clinical condition. Possible extension of the right basal ganglia infarct. Possible new left cerebellar infarct. Repeat study is recommended when the patient's clinical condition has stabilized or the patient can be sedated. EVIDENCE OF ACUTE STROKE: NO. Assessment and Plan - Diagnosis (1) Acute CVA (cerebrovascular accident) Is this a current diagnosis for this admission?: Yes Plan: Met with patient's daughter and son yesterday late afternoon and updated about patient's status and had initial discussion about long-term goals of care. They expressed that patient was still communicating when she was discharged to [facility]. We discussed her poor oral intake but we will await reevaluation and recommendations from speech therapy before giving definite decision about tube feeding. They have also requested did for placement to a different SNF aside from [facility]. We also discussed the nature of her recurrent CVA. She has been having recurrent and bilateral CVAs which is concerning for cardioembolic source or hypercoagulable conditions. She has had TTE recently which did not show any obvious cardiac thrombus. Patient's daughter and son expressed they do not want to pursue invasive interventions including NILSON or LP. Will pursue non-invasive cryptogenic stroke work-up. Aspirin and statin. (2) Acute renal failure superimposed on stage 3 chronic kidney disease Qualifiers: Acute renal failure type: unspecified Qualified Code(s): N17.9 - Acute kidney failure, unspecified; N18.3 - Chronic kidney disease, stage 3 (moderate) Is this a current diagnosis for this admission?: Yes (3) Anemia Is this a current diagnosis for this admission?: Yes Plan: No gross bleeding manifestations. CKD may be contributory. 06/21: Iron stores low. (4) UTI (urinary tract infection) Is this a current diagnosis for this admission?: Yes Plan: 06/21: Urine culture grew E. coli. Noted sensitivity. Switch Zosyn to Rocephin. (5) Hypernatremia Is this a current diagnosis for this admission?: Yes Plan: Secondary to dehydration. Improving with IV fluids. (6) Aphasia as late effect of cerebrovascular accident Is this a current diagnosis for this admission?: Yes Plan: No change in overall condition. (7) Hypokalemia Is this a current diagnosis for this admission?: Yes Plan: Replace Potassium. 06/21: Repleted. (8) Hypertension Qualifiers: Hypertension type: essential hypertension Qualified Code(s): I10 - Essential (primary) hypertension Is this a current diagnosis for this admission?: Yes (9) Diabetes mellitus, type II Qualifiers: Diabetes mellitus emt intermediate insulin use: with nursing home use Diabetes mellitus complication status: with kidney complications Diabetes mellitus complication detail: with chronic kidney disease Chronic kidney disease stage: stage 3 (moderate) Qualified Code(s): E11.22 - Type 2 diabetes mellitus with diabetic chronic kidney disease; N18.3 - Chronic kidney disease, stage 3 (moderate); 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 She has had limited to no intake over the last several days. Laboratory studies reveal severe dehydration, acute on chronic kidney injury and low normal blood pressure. Urinalysis is markedly positive and she will be started on IV antibiotics. I di d try and reach out to Paul Toure, who is listed as the primary contact. Unfortunately her phone blocked the hospital number. Per the paperwork the patient is listed as a full code. I have asked for a palliative care consult but at this time the patient will remain a full code. We will monitor her laboratory studies closely. When appropriate week we will try and resume an oral diet based on the speech therapist recommendations from her last admission. 06/18/2019-despite several days of aggressive IV fluids the patient serum potassium is only minimally corrected. I have placed her on one quarter normal saline at this time. I have ordered serial labs. Due to the dilution her hemoglobin is now less than 8. It is likely anemia from her severe malnutrition. A palliative care consult has been placed. The patient's prognosis is extremely poor. Nursing reports that they were infor med by the patient's daughter that she has not spoken since [place]. A palliative care consult has been ordered. Attempts to reach the patient's daughter by phone are met with the message that the patient's daughter's phone has blocked the numbers. This patient would be extremely appropriate for hospice level care. 06/19/2019-still not making much progress. Had a long talk with the patient's son, daughter and multiple relatives. I explained that her prognosis is extremely poor. Am waiting for them to decide if they want to continue as a full code. No change in treatment plan at this time - Time Time Spent with patient: 25-34 minutes
--- NOTE | 2019-06-22 15:45 | RADIOLOGY REPORT (SQ) ---
EXAM DESCRIPTION: MRI HEAD WITHOUT; MRA HEAD WITHOUT; MRA NECK WITHOUT COMPLETED DATE/TIME: 06/22/2019 3:20 pm REASON FOR STUDY: enlarging subacute CVA, poss new CVA; enlarging subacute CVA, new CVA COMPARISON: MR brain, 05/10/2019, CT brain, 06/21/2019 TECHNIQUE: Multisequence multiplanar noncontrast MR examination of the brain, including diffusion-we ighted sequences. Noncontrast [id number] MR angiogram of the neck and brain. Multiplanar and 3D reformats were per formed. Images stored on PACS. LIMITATIONS: Patient motion. FINDINGS: ANATOMY: No anomalies. Normal vascular flow voids. Pituitary fossa normal. CSF SPACES: Normal in size and contour. No hemorrhage. CEREBRUM: Sulci and gyri normal in size and contour. Extensive, confluent periventricular and deep w priscilla matter T2/FLAIR hyperintensity in keeping with advanced small vessel white matter disease and ed jesika associated with infarctions, most conspicuously the left cerebellar hemisphere and left [employer]ET[employer] FINISHING SUPERVISOR dunia tory. No evidence of hemorrhage, mass, or extraaxial fluid collection. POSTERIOR FOSSA: No signal alteration. No hemorrhage. No edema, masses or mass effect. Internal zoë tory canals, cerebello-pontine angles, mastoids normal. DIFFUSION IMAGING: Multifocal acute diffusion restricting infarction, involving a large infarction of the left cerebellar hemisphere, the posterior splenium of the corpus callosum and adjacent superior left [employer] FINISHING SUPERVISOR territory, and subacute infarctions of the right basal ganglia and posterior right [employer]CR[employer] FINISHING SUPERVISOR dunia tory. ORBITS: No masses. Globes normal. PARANASAL SINUSES: No fluid levels. Mucosa normal. OTHER: No other significant finding. MRA NECK: MR angiogram of the neck is significantly limited by patient motion and vascular pulsation artifact. Within this limitation, there is no obvious stenosis or occlusion of the cervical vascula ture, which is opacified to the skullbase. MRA BRAIN: MR angiogram of the brain is significantly limited by patient motion artifact. Within th is limitation, no obvious intracranial occlusion, stenosis, or aneurysm, with particular attention to the basilar artery and left [employer]CR[employer]ONE FINISHING SUPERVISOR territory. This superior cerebellar arteries are patent bilaterally ; the other basilar branch vessels are not clearly visualized. IMPRESSION: 1. Multifocal acute diffusion restricting infarction, involving a large infarction of th e left cerebellar hemisphere, the posterior splenium of the corpus callosum and adjacent superior lef t [employer] FINISHING SUPERVISOR territory, and subacute infarctions of the right basal ganglia and posterior right [employer]CR[employer] FINISHING SUPERVISOR territor y. 2. Extensive, confluent periventricular and deep white matter T2/FLAIR hyperintensity in keeping with advanced small vessel white matter disease and edema associated with infarctions, most conspicuously the left cerebellar hemisphere and left [employer]CR[employer] FINISHING SUPERVISOR territory. No significant mass effect. 3. MR angiogram of the neck is significantly limited by patient motion and vascular pulsation artifa ct. Within this limitation, there is no obvious stenosis or occlusion of the cervical vasculature, wh ich is opacified to the skullbase. 4. MR angiogram of the brain is significantly limited by patient motion artifact. Within this limita tion, no obvious intracranial occlusion, stenosis, or aneurysm, with particular attention to the basi lar artery and left [employer]CRETE [employer]ONE FINISHING SUPERVISOR territory. This superior cerebellar arteries are patent bilaterally; the othe r basilar branch vessels are not clearly visualized. EVIDENCE OF ACUTE STROKE: YES. TECHNICAL DOCUMENTATION: JOB ID: [id number] [employer]- All Rights Reserved Reading location - IP/workstation name: [email or web address]
--- NOTE | 2019-06-22 15:45 | RADIOLOGY REPORT (SQ) ---
EXAM DESCRIPTION: MRI HEAD WITHOUT; MRA HEAD WITHOUT; MRA NECK WITHOUT COMPLETED DATE/TIME: 06/22/2019 3:20 pm REASON FOR STUDY: enlarging subacute CVA, poss new CVA; enlarging subacute CVA, new CVA COMPARISON: MR brain, 05/10/2019, CT brain, 06/21/2019 TECHNIQUE: Multisequence multiplanar noncontrast MR examination of the brain, including diffusion-we ighted sequences. Noncontrast [id number] MR angiogram of the neck and brain. Multiplanar and 3D reformats were per formed. Images stored on PACS. LIMITATIONS: Patient motion. FINDINGS: ANATOMY: No anomalies. Normal vascular flow voids. Pituitary fossa normal. CSF SPACES: Normal in size and contour. No hemorrhage. CEREBRUM: Sulci and gyri normal in size and contour. Extensive, confluent periventricular and deep w priscilla matter T2/FLAIR hyperintensity in keeping with advanced small vessel white matter disease and ed jesika associated with infarctions, most conspicuously the left cerebellar hemisphere and left CLIENT SOLUTIONS DIRECTOR dunia tory. No evidence of hemorrhage, mass, or extraaxial fluid collection. POSTERIOR FOSSA: No signal alteration. No hemorrhage. No edema, masses or mass effect. Internal zoë tory canals, cerebello-pontine angles, mastoids normal. DIFFUSION IMAGING: Multifocal acute diffusion restricting infarction, involving a large infarction of the left cerebellar hemisphere, the posterior splenium of the corpus callosum and adjacent superior left CLIENT SOLUTIONS DIRECTOR territory, and subacute infarctions of the right basal ganglia and posterior right [employer]IENT SOLUTIONS DIRECTOR dunia tory. ORBITS: No masses. Globes normal. PARANASAL SINUSES: No fluid levels. Mucosa normal. OTHER: No other significant finding. MRA NECK: MR angiogram of the neck is significantly limited by patient motion and vascular pulsation artifact. Within this limitation, there is no obvious stenosis or occlusion of the cervical vascula ture, which is opacified to the skullbase. MRA BRAIN: MR angiogram of the brain is significantly limited by patient motion artifact. Within th is limitation, no obvious intracranial occlusion, stenosis, or aneurysm, with particular attention to the basilar artery and left [employer]IENT SOLUTIONS DIRECTOR territory. This superior cerebellar arteries are patent bilaterally ; the other basilar branch vessels are not clearly visualized. IMPRESSION: 1. Multifocal acute diffusion restricting infarction, involving a large infarction of th e left cerebellar hemisphere, the posterior splenium of the corpus callosum and adjacent superior lef t [employer]IENT SOLUTIONS DIRECTOR territory, and subacute infarctions of the right basal ganglia and posterior right CLIENT SOLUTIONS DIRECTOR territor y. 2. Extensive, confluent periventricular and deep white matter T2/FLAIR hyperintensity in keeping with advanced small vessel white matter disease and edema associated with infarctions, most conspicuously the left cerebellar hemisphere and left CLIENT SOLUTIONS DIRECTOR territory. No significant mass effect. 3. MR angiogram of the neck is significantly limited by patient motion and vascular pulsation artifa ct. Within this limitation, there is no obvious stenosis or occlusion of the cervical vasculature, wh ich is opacified to the skullbase. 4. MR angiogram of the brain is significantly limited by patient motion artifact. Within this limita tion, no obvious intracranial occlusion, stenosis, or aneurysm, with particular attention to the basi lar artery and left [employer]IENT SOLUTIONS DIRECTOR territory. This superior cerebellar arteries are patent bilaterally; the othe r basilar branch vessels are not clearly visualized. EVIDENCE OF ACUTE STROKE: YES. TECHNICAL DOCUMENTATION: JOB ID: [id number] [employer]- All Rights Reserved Reading location - IP/workstation name: [email or web address]
--- NOTE | 2019-06-22 15:45 | RADIOLOGY REPORT (SQ) ---
EXAM DESCRIPTION: MRI HEAD WITHOUT; MRA HEAD WITHOUT; MRA NECK WITHOUT COMPLETED DATE/TIME: 06/22/2019 3:20 pm REASON FOR STUDY: enlarging subacute CVA, poss new CVA; enlarging subacute CVA, new CVA COMPARISON: MR brain, 05/10/2019, CT brain, 06/21/2019 TECHNIQUE: Multisequence multiplanar noncontrast MR examination of the brain, including diffusion-we ighted sequences. Noncontrast [id number] MR angiogram of the neck and brain. Multiplanar and 3D reformats were per formed. Images stored on PACS. LIMITATIONS: Patient motion. FINDINGS: ANATOMY: No anomalies. Normal vascular flow voids. Pituitary fossa normal. CSF SPACES: Normal in size and contour. No hemorrhage. CEREBRUM: Sulci and gyri normal in size and contour. Extensive, confluent periventricular and deep w priscilla matter T2/FLAIR hyperintensity in keeping with advanced small vessel white matter disease and ed jesika associated with infarctions, most conspicuously the left cerebellar hemisphere and left FRESCO ARTIST dunia tory. No evidence of hemorrhage, mass, or extraaxial fluid collection. POSTERIOR FOSSA: No signal alteration. No hemorrhage. No edema, masses or mass effect. Internal zoë tory canals, cerebello-pontine angles, mastoids normal. DIFFUSION IMAGING: Multifocal acute diffusion restricting infarction, involving a large infarction of the left cerebellar hemisphere, the posterior splenium of the corpus callosum and adjacent superior left FRESCO ARTIST territory, and subacute infarctions of the right basal ganglia and posterior right FRESCO ARTIST dunia tory. ORBITS: No masses. Globes normal. PARANASAL SINUSES: No fluid levels. Mucosa normal. OTHER: No other significant finding. MRA NECK: MR angiogram of the neck is significantly limited by patient motion and vascular pulsation artifact. Within this limitation, there is no obvious stenosis or occlusion of the cervical vascula ture, which is opacified to the skullbase. MRA BRAIN: MR angiogram of the brain is significantly limited by patient motion artifact. Within th is limitation, no obvious intracranial occlusion, stenosis, or aneurysm, with particular attention to the basilar artery and left FRESCO ARTIST territory. This superior cerebellar arteries are patent bilaterally ; the other basilar branch vessels are not clearly visualized. IMPRESSION: 1. Multifocal acute diffusion restricting infarction, involving a large infarction of th e left cerebellar hemisphere, the posterior splenium of the corpus callosum and adjacent superior lef t FRESCO ARTIST territory, and subacute infarctions of the right basal ganglia and posterior right FRESCO ARTIST territor y. 2. Extensive, confluent periventricular and deep white matter T2/FLAIR hyperintensity in keeping with advanced small vessel white matter disease and edema associated with infarctions, most conspicuously the left cerebellar hemisphere and left FRESCO ARTIST territory. No significant mass effect. 3. MR angiogram of the neck is significantly limited by patient motion and vascular pulsation artifa ct. Within this limitation, there is no obvious stenosis or occlusion of the cervical vasculature, wh ich is opacified to the skullbase. 4. MR angiogram of the brain is significantly limited by patient motion artifact. Within this limita tion, no obvious intracranial occlusion, stenosis, or aneurysm, with particular attention to the basi lar artery and left FRESCO ARTIST territory. This superior cerebellar arteries are patent bilaterally; the othe r basilar branch vessels are not clearly visualized. EVIDENCE OF ACUTE STROKE: YES. TECHNICAL DOCUMENTATION: JOB ID: [id number] [employer]- All Rights Reserved Reading location - IP/workstation name: [email or web address]
[2019-06-22] MEDS: ASPIRIN 81 MG TABLET, CHEWABLE PO SCH (16:47)
[2019-06-22] MEDS: ATORVASTATIN CALCIUM 40 MG TABLET PO SCH (22:39)
[2019-06-23] MEDS: DEXTROSE 5%-1/4 NORMAL SALINE 1,000 ML IV PRN ×3 (06:06→22:46)
[2019-06-23] MEDS: INSULIN LISPRO 100 UNIT/ML 3 ML VIAL SUBCUT SCH ×4 (08:54→22:45)
[2019-06-23] MEDS: ASPIRIN 81 MG TABLET, CHEWABLE PO SCH (09:51)
[2019-06-23] MEDS: POTASSIUM CHLORIDE 20 MEQ PACKET PO SCH (09:51)
[2019-06-23] MEDS: CEFTRIAXONE 1 GM/D5W RTU 1 GM/50 ML RTUPB IV SCH (09:52)
[2019-06-23] MEDS: PANTOPRAZOLE SODIUM 40 MG VIAL IV SCH ×2 (09:52→22:38)
[2019-06-23] MEDS: ENOXAPARIN SODIUM INJ 30 MG/0.3 ML DISP.SYRIN SUBCUT SCH (09:52)
--- NOTE | 2019-06-23 11:47 | ST Inp Modified Barium Swallow ---
Medical Diagnosis - Medical Diagnoses Medical Diagnosis Description & ICD-10 Code(s): dysphagia post CVA - ICD-10 Tx Diagnosis Coding (1) Dysphagia ICD-10 Code(s): R13.10 - DYSPHAGIA, UNSPECIFIED ST Inpatient MBS - General Date: 06/23/19 Date of Onset: 06/16/19 - admit date - History -: Medical - per EMR: patient admitted 06/16 from [facility] due to dehydration and very poor PO intake. Prior medical history includes multiple prior CVAs, dysphagia and aphasia, chronic kidney disease. Patient was evaluated in May for a new CVA, at that time, MBSS revealed delayed swallow reflex and poor oral control. [place] thick liquids and puree solids were recommended, and patient remained at risk of aspiration. Physician placed order for new dysphagia assessment on 06/21/19. At bedside, patient demonstrated some wet breath sounds with nectar liquids, MBSS then recommended. Medications: Medications Reviewed Allergies: Refer to medical record - Subjective Current Nutritional Means: PO Current PO Diet: Pureed, Thickened liquids - nectar Current Symptoms: Poor intake, other - history of dysphagia following CVA Pain: unable to communicate, no signs/symptoms of pain - Objective Assessment: Upright, Left Lateral - Food Trials Food Trials Used: Honey-thickened liquids, [place] thick liquids, Pureed The Patient: fed by ST, via spoon - Assessment Labial Function: Impaired Lingual Function: Impaired Mandibular Function: Within Functional Limits Dentition: Edentulous - Pharyngeal Stage Initiation of Pharyngeal Stage: Delayed - swallow triggered after bolus was in valleculae for up to 10 seconds, timing seemed to improve as study progressed Decreased Laryngeal Elevation: Yes Reduced Velo-Pharyngeal Closure: no Reduced Pressure Generation: No Reduced Tongue Base Retraction: Yes Pre-Swallowing Pooling in Valleculae: Significant Pre-Swallowing Pooling in Pyriforms: Moderate Reduced Thyro-Hyiod Approximation: Yes Reduced Epiglottic Excursion: No Reduced Pharyngeal Peristalsis: No Post Swallow Residuals in Valleculae: None Post Swallow Residuals in Pyriforms: Moderate Pahryngeal Stage Comments: Patient demonstrated very discoordinated oral phase of the swallow, which is pre-existing based on prior studies. This is causing the bolus to prematurely enter the pharynx, pharyngeal phase swallow took up to 10 seconds to trigger, but also was seen to trigger immediately in some trials. This was inconistent within single texture trials. Patient was seen to deep penetrate and subsequently aspirate after the swallow with nectar thick liquids x2, no cough reflex seen. No active aspiration seen with honey thick liquids or with puree solids. Patient does continue to be at high risk of aspiration on all PO textures due to inconsistency with swallowing skills, and overall poor positioning for PO. - Impression/Summary Laryngeal Penetration: Yes Tracheal Aspiration: yes Patient Presents With: Oral stage dysphagia, Pharyngeal stage dysph., Severe Risk of Aspiration: Severe Risk of Nutritional Compromise: Severe - Recommendations Solid Diet Recommendations: Pureed Liquid Diet Recommendations: Honey-Thick Strict Aspitarion Precautions: Yes Recommended Techniques: Fully Upright During Meal, Small Bites and Sips - Time Total Time: 30 Total Timed Minutes: 30
--- NOTE | 2019-06-23 13:34 | RADIOLOGY REPORT (SQ) ---
EXAM DESCRIPTION: GUILLERMO SWALLOW COMPLETED DATE/TIME: 06/23/2019 11:56 am REASON FOR STUDY: aspiration risk following CVA COMPARISON: Cookie swallow 05/12/2019. TECHNIQUE: Videofluoroscopic swallowing examination was performed in conjunction with speech patholo gy. Videofluoroscopic imaging was obtained and reviewed and these are the findings: RADIATION DOSE: Fluoro time 2.25 minutes 2 images saved to PACS. LIMITATIONS: None FINDINGS: The patient was brought into the fluoro room and placed upright on a modified barium swall ow chair. The patient was then given multiple consistencies mixed with barium to swallow under live fluoroscopic video guidance. According to the Speech Pathologist there was laryngeal penetration fro m nectar thick residuals identified. No definite aspiration seen, however hard to discern due to pat ient positioning. All other consistencies were swallowed without incident. Please refer to the [facility] pathology report for further details. IMPRESSION: LARYNGEAL PENETRATION WITH NECTAR THICK RESIDUALS. NO DEFINITE ASPIRATION IDENTIFIED. P IRMA SEE SPEECH PATHOLOGIST REPORT FOR OTHER FINDINGS AND RECOMMENDATIONS. COMMENT: NONE Quality ID [id number]: Final reports for procedures using fluoroscopy that document radiation exposure kaia gita, or exposure time and number of fluorographic images (if radiation exposure indices are not avail able) TECHNICAL DOCUMENTATION: JOB ID: [id number] [employer]- All Rights Reserved Reading location - IP/workstation name: [email or web address] [id number]
--- NOTE | 2019-06-23 14:56 | PDOC PROGRESS REPORT ---
Subjective Progress Note for:: 06/23/19 Subjective:: This is a 58-year-old female with a past medical history of hypertension, diabetes mellitus, CKD, prior CVA and recently acute CVA with residual quadriplegia and aphasia who was brought in due to poor oral intake. On admission, she was noted to have acute renal failure. She was started on IV fluids. 06/20: Upon encounter, she is breathing comfortably but is lethargic. Creatinine continues to improve with IV fluids. She was made a DNR/DNI yesterday. She is a hospice candidate. 06/21: Patient is awake and appears comfortable upon encounter. She remains aphasic. Plan to rediscuss with family about longterm care and goals as she is a hospice candidate. 06/22: No acute event overnight. Met with patient's daughter and son yesterday late afternoon and updated about patient's status and had initial discussion about long-term goals of care. They expressed that patient was still communicating when she was discharged to [place]. We discussed her poor oral intake but we will await reevaluation and recommendations from speech therapy before giving definite decision about tube feeding. They have also requested did for placement to a different SNF aside from [place]. We also discussed the nature of her recurrent CVA. She has been having recurrent and bilateral CVAs which is concerning for cardioembolic source or hypercoagulable conditions. She has had TTE recently which did not show any obvious cardiac thrombus. Patient's daughter and son expressed they do not want to pursue invasive interventions including NILSON or LP. Patient was evaluated by speech therapy today and she did fairly well on thickened liquid but needs prompting and assistance to eat. CT of the head was done which shows possible new CVA and extension of recent infarct. MRI studies pending. 06/23: No acute event overnight. MRI did show new CVA. She remains aphasic. She was reevaluated by speech therapist. MBS was done. She is able to tolerate honey thick and pured diet but she has very high risk for aspiration. Reason For Visit: SEVERE DEHYDRATION,ACUTE KIDNEY INJURY, Physical Exam Vital Signs: Temp Pulse Resp BP Pulse Ox 98.6 F 91 17 138/88 H 100 06/23/19 11:32 06/23/19 11:32 06/23/19 11:32 06/23/19 11:32 06/23/19 11:32 Intake & Output 06/22/19 06/23/19 06/24/19 06:59 06:59 06:59 Intake Total 3100 3763 170 Output Total 900 590 200 Balance 2200 3173 -30 Weight 141 lb 5.061 oz 151 lb 3.794 oz General appearance: PRESENT: no acute distress, well-developed, well-nourished Head exam: PRESENT: atraumatic, normocephalic Eye exam: PRESENT: conjunctiva pink, EOMI, PERRLA. ABSENT: scleral icterus Ear exam: PRESENT: normal external ear exam Mouth exam: PRESENT: moist, tongue midline Neck exam: ABSENT: carotid bruit, JVD, lymphadenopathy, thyromegaly Respiratory exam: PRESENT: rhonchi. ABSENT: rales, wheezes Cardiovascular exam: PRESENT: RRR. ABSENT: diastolic murmur, rubs, systolic murmur Pulses: PRESENT: normal dorsalis pedis pul GI/Abdominal exam: PRESENT: normal bowel sounds, soft. ABSENT: distended, guarding, mass, organolmegaly, rebound, tenderness Rectal exam: PRESENT: deferred Neurological exam: PRESENT: altered, aphasic. ABSENT: oriented to person, oriented to place, oriented to time Results Laboratory Results: 06/22/19 09:40 06/22/19 09:40 06/16/19 13:56 Blood Blood Culture - Final NO GROWTH IN 5 DAYS Impressions: Head CT 06/21/19 15:48 IMPRESSION: Limited study with very poor patient positioning due to the patient's clinical condition. Possible extension of the right basal ganglia infarct. Possible new left cerebellar infarct. Repeat study is recommended when the patient's clinical condition has stabilized or the patient can be sedated. EVIDENCE OF ACUTE STROKE: NO. Brain MRI with MRA 06/22/19 07:56 IMPRESSION: 1. Multifocal acute diffusion restricting infarction, involving a large infarction of the left cerebellar hemisphere, the posterior splenium of the corpus callosum and adjacent superior left PROTOTYPE MACHINIST territory, and subacute infarctions of the right basal ganglia and posterior right PROTOTYPE MACHINIST territory. 2. Extensive, confluent periventricular and deep white matter T2/FLAIR hyperintensity in keeping with advanced small vessel white matter disease and edema associated with infarctions, most conspicuously the left cerebellar hemisphere and left PROTOTYPE MACHINIST territory. No significant mass effect. 3. MR angiogram of the neck is significantly limited by patient motion and vascular pulsation artifact. Within this limitation, there is no obvious stenosis or occlusion of the cervical vasculature, which is opacified to the skullbase. 4. MR angiogram of the brain is significantly limited by patient motion artifact. Within this limitation, no obvious intracranial occlusion, stenosis, or aneurysm, with particular attention to the basilar artery and left PROTOTYPE MACHINIST territory. This superior cerebellar arteries are patent bilaterally; the other basilar branch vessels are not clearly visualized. EVIDENCE OF ACUTE STROKE: YES. Neck MRA 06/22/19 07:56 IMPRESSION: 1. Multifocal acute diffusion restricting infarction, involving a large infarction of the left cerebellar hemisphere, the posterior splenium of the corpus callosum and adjacent superior left PROTOTYPE MACHINIST territory, and subacute infarctions of the right basal ganglia and posterior right PROTOTYPE MACHINIST territory. 2. Extensive, confluent periventricular and deep white matter T2/FLAIR hyperi ntensity in keeping with advanced small vessel white matter disease and edema associated with infarctions, most conspicuously the left cerebellar hemisphere and left PROTOTYPE MACHINIST territory. No significant mass effect. 3. MR angiogram of the neck is significantly limited by patient motion and vascular pulsation artifact. Within this limitation, there is no obvious stenosis or occlusion of the cervical vasculature, which is opacified to the skullbase. 4. MR angiogram of the brain is significantly limited by patient motion artifact. Within this limitation, no obvious intracranial occlusion, stenosis, or aneurysm, with particular attention to the basilar artery and left PROTOTYPE MACHINIST territory. This superior cerebellar arteries are patent bilaterally; the other basilar branch vessels are not clearly visualized. EVIDENCE OF ACUTE STROKE: YES. Head MRI 06/22/19 08:34 IMPRESSION: 1. Multifocal acute diffusion restricting infarction, involving a large infarction of the left cerebellar hemisphere, the posterior splenium of the corpus callosum and adjacent superior left PROTOTYPE MACHINIST territory, and subacute infarctions of the right basal ganglia and posterior right PROTOTYPE MACHINIST territory. 2. Extensive, confluent periventricular and deep white matter T2/FLAIR hyperintensity in keeping with advanced small vessel white matter disease and edema associated with infarctions, most conspicuously the left cerebellar hemisphere and left PROTOTYPE MACHINIST territory. No significant mass effect. 3. MR angiogram of the neck is significantly limited by patient motion and vascular pulsation artifact. Within this limitation, there is no obvious stenosis or occlusion of the cervical vasculature, which is opacified to the skullbase. 4. MR angiogram of the brain is significantly limited by patient motion artifact. Within this limitation, no obvious intracranial occlusion, stenosis, or aneurysm, with particular attention to the basilar artery and left PROTOTYPE MACHINIST territory. This superior cerebellar arteries are patent bilaterally; the other basilar branch vessels are not clearly visualized. EVIDENCE OF ACUTE STROKE: YES. Modified Barium Swallow 06/23/19 00:00 IMPRESSION: LARYNGEAL PENETRATION WITH NECTAR THICK RESIDUALS. NO DEFINITE ASPIRATION IDENTIFIED. PLEASE SEE SPEECH PATHOLOGIST REPORT FOR OTHER FINDINGS AND RECOMMENDATIONS. Assessment and Plan - Diagnosis (1) Acute CVA (cerebrovascular accident) Is this a current diagnosis for this admission?: Yes Plan: 06/21: Met with patient's daughter and son yesterday late afternoon and updated about patient's status and had initial discussion about long-term goals of care. They expressed that patient was still communicating when she was discharged to [place]. We discussed her poor oral intake but we will await reevaluation and recommendations from speech therapy before giving definite decision about tube feeding. They have also requested did for placement to a different SNF aside from [place]. We also discussed the nature of her recurrent CVA. She has been having recurrent and bilateral CVAs which is concerning for cardioembolic source or hypercoagulable conditions. She has had TTE recently which did not show any obvious cardiac thrombus. Patient's daughter and son expressed they do not want to pursue invasive interventions including NILSON or LP. Will only pursue non-invasive cryptogenic stroke work-up. Aspirin and statin. 06/23: MRI did reveal new CVA. Hypercoagulable work-up sent. Continue aspirin and statin. (2) Acute renal failure superimposed on stage 3 chronic kidney disease Qualifiers: Acute renal failure type: unspecified Qualified Code(s): N17.9 - Acute kidney failure, unspecified; N18.3 - Chronic kidney disease, stage 3 (moderate) Is this a current diagnosis for this admission?: Yes Plan: Likely prerenal. Creatinine continues to improve with IV fluids. 06/21: Creatinine now appears to be at her baseline. (3) Anemia Is this a current diagnosis for this admission?: Yes Plan: No gross bleeding manifestations. CKD may be contributory. 06/21: Iron stores low. (4) UTI (urinary tract infection) Is this a current diagnosis for this admission?: Yes Plan: 06/21: Urine culture grew E. coli. Noted sensitivity. Switch Zosyn to Rocephin. (5) Hypernatremia Is this a current diagnosis for this admission?: Yes Plan: Secondary to dehydration. Improving with IV fluids. (6) Aphasia as late effect of cerebrovascular accident Is this a current diagnosis for this admission?: Yes Plan: No change in overall condition. (7) Hypokalemia Is this a current diagnosis for this admission?: Yes Plan: Replace Potassium. 06/21: Repleted. (8) Hypertension Qualifiers: Hypertension type: essential hypertension Qualified Code(s): I10 - Essential (primary) hypertension Is this a current diagnosis for this admission?: Yes Plan: Pressures improved with crystalloid bolus. Will now change to half-normal saline to correct hypernatremia. Holding all current cardiac medications as the patient is n.p.o. IV hydralazine available for elevated blood pressure if needed. Consider metoprolol dosing as needed also. (9) Diabetes mellitus, type II Qualifiers: Diabetes mellitus longterm insulin use: with terminal clerk use Diabetes mellitus complication status: with kidney complications Diabetes mellitus complication detail: with chronic kidney disease Chronic kidney disease stage: stage 3 (moderate) Qualified Code(s): E11.22 - Type 2 diabetes mellitus with diabetic chronic kidney disease; N18.3 - Chronic kidney disease, stage 3 (moderate); Z79.4 - [facility] (current) use of insulin Is this a current diagnosis for this admission?: Yes - Plan Summary Summary: 06/16/2019-the patient presents from [facility]. She has had limited to no intake over the last several days. Laboratory studies reveal severe dehydration, acute on chronic kidney injury and low normal blood pressure. Urinalysis is markedly positive and she will be started on IV antibiotics. I di d try and reach out to Paul Toure, who is listed as the primary contact. Unfortunately her phone blocked the hospital number. Per the paperwork the patient is listed as a full code. I have asked for a palliative care consult but at this time the patient will remain a full code. We will monitor her laboratory studies closely. When appropriate week we will try and resume an oral diet based on the speech therapist recommendations from her last admission. 06/18/2019-despite several days of aggressive IV fluids the patient serum potassium is only minimally corrected. I have placed her on one quarter normal saline at this time. I have ordered serial labs. Due to the dilution her hemoglobin is now less than 8. It is likely anemia from her severe malnutrition. A palliative care consult has been placed. The patient's prognosis is extremely poor. Nursing reports that they were infor med by the patient's daughter that she has not spoken since [place]. A palliative care consult has been ordered. Attempts to reach the patient's daughter by phone are met with the message that the patient's daughter's phone has blocked the numbers. This patient would be extremely appropriate for hospice level care. 06/19/2019-still not making much progress. Had a long talk with the patient's son, daughter and multiple relatives. I explained that her prognosis is extremely poor. Am waiting for them to decide if they want to continue as a full code. No change in treatment plan at this time - Time Time Spent with patient: 25-34 minutes
--- NOTE | 2019-06-23 16:22 | RADIOLOGY REPORT (SQ) ---
EXAM DESCRIPTION: CHEST SINGLE VIEW COMPLETED DATE/TIME: 06/23/2019 4:11 pm REASON FOR STUDY: assess for asp pna COMPARISON: 05/07/2019. NUMBER OF VIEWS: One view. TECHNIQUE: Single frontal radiographic view of the chest acquired. LIMITATIONS: None. FINDINGS: LUNGS AND PLEURA: No opacities, masses or pneumothorax. No pleural effusion. MEDIASTINUM AND HILAR STRUCTURES: No masses. Contour normal. HEART AND VASCULAR STRUCTURES: Heart enlarged without failure. Normal vasculature. BONES: No acute findings. HARDWARE: None in the chest. OTHER: No other significant finding. IMPRESSION: HEART ENLARGED WITHOUT FAILURE. NO OTHER SIGNIFICANT RADIOGRAPHIC FINDING IN THE CHEST. TECHNICAL DOCUMENTATION: JOB ID: [id number] [employer]- All Rights Reserved Reading location - IP/workstation name: [email or web address]
[2019-06-23] MEDS: FERROUS SULFATE LIQUID 300 MG/5 ML UDC PO SCH (17:44)
[2019-06-23] MEDS ORDERED: FERROUS SULFATE 325 MG TABLET PO SCH (18:00)
[2019-06-23] MEDS: ATORVASTATIN CALCIUM 40 MG TABLET PO SCH (22:37)
[2019-06-24] MEDS: DEXTROSE 5%-1/4 NORMAL SALINE 1,000 ML IV PRN ×3 (06:12→23:12)
[2019-06-24] MEDS: INSULIN LISPRO 100 UNIT/ML 3 ML VIAL SUBCUT SCH ×3 (08:12→18:33)
[2019-06-24] MEDS: FERROUS SULFATE LIQUID 300 MG/5 ML UDC PO SCH ×2 (08:13→18:18)
[2019-06-24] MEDS: POTASSIUM CHLORIDE 20 MEQ PACKET PO SCH (09:37)
[2019-06-24] MEDS: ENOXAPARIN SODIUM INJ 30 MG/0.3 ML DISP.SYRIN SUBCUT SCH (09:38)
[2019-06-24] MEDS: ASPIRIN 81 MG TABLET, CHEWABLE PO SCH (09:38)
[2019-06-24] MEDS: PANTOPRAZOLE SODIUM 40 MG VIAL IV SCH ×2 (09:38→21:43)
[2019-06-24] MEDS: CEFTRIAXONE 1 GM/D5W RTU 1 GM/50 ML RTUPB IV SCH (09:38)
[2019-06-24] MEDS ORDERED: CLOPIDOGREL BISULFATE 75 MG TABLET PO SCH (10:00)
[2019-06-24 10:42] LABS: ABSOLUTE EOSINOPHILS # (AUTO) 0.1 10^3/uL (0.0-0.6); ABSOLUTE LYMPHOCYTES (AUTO) 0.9 10^3/uL (0.5-4.7); ABSOLUTE MONOCYTES (AUTO) 0.8 10^3/uL (0.1-1.4); BASOPHILS % (AUTO) 0.2 % (0-2); EOSINOPHILS % (AUTO) 0.5 % (0-6); HEMATOCRIT 21.5 % (36.0-47.0); LYMPHOCYTES % (AUTO) 6.5 % (13-45); MEAN CORPUSCULAR HEMOGLOBIN 27.7 pg (27.0-33.4); MEAN CORPUSCULAR HGB CONC 32.6 g/dL (32.0-36.0); MEAN CORPUSCULAR VOLUME 85 fl (80-97); PLATELET COUNT 190 10^3/uL (150-450); RED BLOOD COUNT 2.53 10^6/uL (3.72-5.28); RED CELL DISTRIBUTION WIDTH 15.7 % (11.5-14.0); SEGMENTED NEUTROPHILS % (AUTO) 86.8 % (42-78); TOTAL CELLS COUNTED % (AUTO) 100 %; WHITE BLOOD COUNT 13.8 10^3/uL (4.0-10.5)
[2019-06-24 11:15] LABS: ANION GAP 12 (5-19); BLOOD UREA NITROGEN 15 mg/dL (7-20); CALCIUM 7.2 mg/dL (8.4-10.2); CARBON DIOXIDE 13 mmol/L (22-30); CHLORIDE 109 mmol/L (98-107); GLUCOSE 185 mg/dL (75-110); POTASSIUM 3.2 mmol/L (3.6-5.0)
[2019-06-24] MEDS ORDERED: NORMAL SALINE 250 ML IV PRN ×2 (11:58)
[2019-06-24] MEDS: POTASSI CL 20 MEQ/50 ML RIDER 20 MEQ/50 ML RTUPB IV SCH ×2 (13:32→15:40)
[2019-06-24 14:32] LABS: ANTINUCLEAR ANTIBODIES Negative (Negative)
[2019-06-24 15:39] LABS: PROTEIN S FREE <25 % (57-157); PROTEIN S FUNCTIONAL 28 % (63-140); PROTEIN S TOTAL 84 % (60-150)
[2019-06-24] MEDS: ONDANSETRON HCL INJ/PF 4 MG/2 ML SDV IV PRN (16:38)
[2019-06-24] MEDS ORDERED: MORPHINE SULFATE 10 MG/ML INJ ONE (17:07)
[2019-06-24] MEDS ORDERED: MORPHINE SULFATE 10 MG/ML INJ IV ONE ×2 (18:00→19:00)
--- NOTE | 2019-06-24 18:01 | PDOC PROGRESS REPORT ---
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 On admission, she was noted to have acute renal failure. She was started on IV fluids. 06/20: Upon encounter, she is breathing comfortably but is lethargic. Creatinine continues to improve with IV fluids. She was made a DNR/DNI yesterday. She is a hospice candidate. 06/21: Patient is awake and appears comfortable upon encounter. She remains aphasic. Plan to rediscuss with family about exterminator helper termite care and goals as she is a hospice candidate. 06/22: No acute event overnight. Met with patient's daughter and son yesterday late afternoon and updated about patient's status and had initial discussion about long-term goals of care. They expressed that patient was still communicating when she was discharged to [facility]. We discussed her poor oral intake but we will await reevaluation and recommendations from speech therapy before giving definite decision about tube feeding. They have also requested did for placement to a different SNF aside from [facility]. We also discussed the nature of her recurrent CVA. She has been having recurrent and bilateral CVAs which is concerning for cardioembolic source or hypercoagulable conditions. She has had TTE recently which did not show any obvious cardiac thrombus. Patient's daughter and son expressed they do not want to pursue invasive interventions including NILSON or LP. Patient was evaluated by speech therapy today and she did fairly well on thickened liquid but needs prompting and assistance to eat. CT of the head was done which shows possible new CVA and extension of recent infarct. MRI studies pending. 06/23: No acute event overnight. MRI did show new CVA. She remains aphasic. She was reevaluated by speech therapist. MBS was done. She is able to tolerate honey thick and pured diet but she has very high risk for aspiration. 06/24: Discussed with speech therapist and patient's nurse. Patient has been having persistent cough with current diet concerning for aspiration. Patient was also given a unit of packed RBC. Patient later had significant vomiting. She appeared to be in distress. Rediscussed with patient's daughter on bedside and son (on video call conference). Updated on recent events and lab results. Hypercoagulable work-up came back remarkable for severe protein S deficiency which likely now explains her recurrent CVA. Discussed that patient was placed on 2 antiplatelet and her hemoglobin significantly dropped concerning for bleeding. Discussed that treatment for protein S deficiency is full anticoagulation which I believe will do more harm than good to the patient as she is not even able to tolerate even just being on antiplatelets. Also discussed about artificial feeding and they have decided not to pursue this. Discussed in length with patient's daughter and son that patient is hospice appropriate. We also discussed about possible transition to comfort measures. They are agreeable to transitioning her to inpatient hospice. We also discussed that should she continue to show signs of clinical deterioration and discomfort, it would be most appropriate to transition her to comfort measures. Both son and daughter are agreeable to this but expressed they want to be promptly updated and notified should she be transitioned to comfort measures while in the hospital. Reason For Visit: SEVERE DEHYDRATION,ACUTE KIDNEY INJURY, Physical Exam Vital Signs: Temp Pulse Resp BP Pulse Ox 98.1 F 90 19 160/86 H 100 06/24/19 11:27 06/24/19 11:27 06/24/19 11:27 06/24/19 11:27 06/24/19 11:27 Intake & Output 06/23/19 06/24/19 06/25/19 06:59 06:59 06:59 Intake Total 3763 3490 Output Total 590 1500 Balance 3173 1989 Weight 151 lb 3.794 oz 158 lb 1.143 oz General appearance: PRESENT: no acute distress, well-developed, well-nourished Head exam: PRESENT: atraumatic, normocephalic Eye exam: PRESENT: conjunctiva pink, EOMI, PERRLA. ABSENT: scleral icterus Ear exam: PRESENT: normal external ear exam Mouth exam: PRESENT: moist, tongue midline Neck exam: ABSENT: carotid bruit, JVD, lymphadenopathy, thyromegaly Respiratory exam: PRESENT: clear to auscultation bryan. ABSENT: rales, rhonchi, wheezes Cardiovascular exam: PRESENT: RRR. ABSENT: diastolic murmur, rubs, systolic murmur Pulses: PRESENT: normal dorsalis pedis pul GI/Abdominal exam: PRESENT: normal bowel sounds, soft. ABSENT: distended, guarding, mass, organolmegaly, rebound, tenderness Rectal exam: PRESENT: deferred Extremities exam: PRESENT: full ROM. ABSENT: calf tenderness, clubbing, pedal edema Neurological exam: PRESENT: altered. ABSENT: oriented to person, oriented to place, oriented to time, oriented to situation Results Laboratory Results: 06/24/19 10:22 06/24/19 10:22 06/24/19 06/24/19 10:22 10:22 WBC 13.8 H RBC 2.53 L Hgb 7.0 L Hct 21.5 L MCV 85 MCH 27.7 MCHC 32.6 RDW 15.7 H Plt Count 190 Seg Neutrophils % 86.8 H Sodium 133.7 L Potassium 3.2 L Chloride 109 H Carbon Dioxide 13 L Anion Gap 12 BUN 15 Creatinine 1.05 Est GFR ( Amer) > 60 Glucose 185 H Calcium 7.2 L 06/16/19 13:56 Blood Blood Culture - Final NO GROWTH IN 5 DAYS Impressions: Head CT 06/21/19 15:48 IMPRESSION: Limited study with very poor patient positioning due to the patient's clinical condition. Possible extension of the right basal ganglia infarct. Possible new left cerebellar infarct. Repeat study is recommended when the patient's clinical condition has stabilized or the patient can be sedat ed. EVIDENCE OF ACUTE STROKE: NO. Brain MRI with MRA 06/22/19 07:56 IMPRESSION: 1. Multifocal acute diffusion restricting infarction, involving a large infarction of the left cerebellar hemisphere, the posterior splenium of the corpus callosum and adjacent superior left [employer]IST territory, and subacute infarctions of the right basal ganglia and posterior right [employer] SPECIALIST territory. 2. Extensive, confluent periventricular and deep white matter T2/FLAIR hyperintensity in keeping with advanced small vessel white matter disease and edema associated with infarctions, most conspicuously the left cerebellar hemisphere and left [employer]IST territory. No significant mass effect. 3. MR angiogram of the neck is significantly limited by patient motion and vascular pulsation artifact. Within this limitation, there is no obvious stenosis or occlusion of the cervical vasculature, which is opacified to the skullbase. 4. MR angiogram of the brain is significantly limited by patient motion artifact. Within this limitation, no obvious intracranial occlusion, stenosis, or aneurysm, with particular attention to the basilar artery and left [employer] SPECIALIST territory. This superior cerebellar arteries are patent bilaterally; the other basilar branch vessels are not clearly visualized. EVIDENCE OF ACUTE STROKE: YES. Neck MRA 06/22/19 07:56 IMPRESSION: 1. Multifocal acute diffusion restricting infarction, involving a large infarction of the left cerebellar hemisphere, the posterior splenium of the corpus callosum and adjacent superior left [employer] SPECIALIST territory, and subacute infarctions of the right basal ganglia and posterior right PET [employer] SPECIALIST territory. 2. Extensive, confluent periventricular and deep white matter T2/FLAIR hyperintensity in keeping with advanced small vessel white matter disease and edema associated with infarctions, most conspicuously the left cerebellar he misphere and left PET N[employer]ITION SPECIALIST territory. No significant mass effect. 3. MR angiogram of the neck is significantly limited by patient motion and vascular pulsation artifact. Within this limitation, there is no obvious stenosis or occlusion of the cervical vasculature, which is opacified to the skullbase. 4. MR angiogram of the brain is significantly limited by patient motion artifact. Within this limitation, no obvious intracranial occlusion, stenosis, or aneurysm, with particular attention to the basilar artery and left [employer] SPECIALIST territory. This superior cerebellar arteries are patent bilaterally; the other basilar branch vessels are not clearly visualized. EVIDENCE OF ACUTE STROKE: YES. Head MRI 06/22/19 08:34 IMPRESSION: 1. Multifocal acute diffusion restricting infarction, involving a large infarction of the left cerebellar hemisphere, the posterior splenium of the corpus callosum and adjacent superior left [employer] SPECIALIST territory, and subacute infarctions of the right basal ganglia and posterior right [employer] SPECIALIST territory. 2. Extensive, confluent periventricular and deep white matter T2/FLAIR hyperintensity in keeping with advanced small vessel white matter disease and edema associated with infarctions, most conspicuously the left cerebellar hemisphere and left [employer] SPECIALIST territory. No significant mass effect. 3. MR angiogram of the neck is significantly limited by patient motion and vascular pulsation artifact. Within this limitation, there is no obvious stenosis or occlusion of the cervical vasculature, which is opacified to the skullbase. 4. MR angiogram of the brain is significantly limited by patient motion artifact. Within this limitation, no obvious intracranial occlusion, stenosis, or aneurysm, with particular attention to the basilar artery and left PET N[employer]ITION SPECIALIST terr itory. This superior cerebellar arteries are patent bilaterally; the other basilar branch vessels are not clearly visualized. EVIDENCE OF ACUTE STROKE: YES. Modified Barium Swallow 06/23/19 00:00 IMPRESSION: LARYNGEAL PENETRATION WITH NECTAR THICK RESIDUALS. NO DEFINITE ASPIRATION IDENTIFIED. PLEASE SEE SPEECH PATHOLOGIST REPORT FOR OTHER FINDINGS AND RECOMMENDATIONS. Chest X-Ray 06/23/19 15:29 IMPRESSION: HEART ENLARGED WITHOUT FAILURE. NO OTHER SIGNIFICANT RADIOGRAPHIC FINDING IN THE CHEST. Assessment and Plan - Diagnosis (1) Acute CVA (cerebrovascular accident) Is this a current diagnosis for this admission?: Yes Plan: 06/21: Met with patient's daughter and son yesterday late afternoon and updated about patient's status and had initial discussion about long-term goals of care. They expressed that patient was still communicating when she was discharged to [facility]. We discussed her poor oral intake but we will await reevaluation and recommendations from speech therapy before giving definite decision about tube feeding. They have also requested did for placement to a different SNF aside from [facility]. We also discussed the nature of her recurrent CVA. She has been having recurrent and bilateral CVAs which is concerning for cardioembolic source or hypercoagulable conditions. She has had TTE recently which did not show any obvious cardiac thrombus. Patient's daughter and son expressed they do not want to pursue invasive interventions including NILSON or LP. Will only pursue non-invasive cryptogenic stroke work-up. Aspirin and statin. 06/23: MRI did reveal new CVA. Hypercoagulable work-up sent. Continue aspirin and statin. 06/24: Secondary to Protein S deficiency. Poor candidate for treatment with anticoagulation due to worsening anemia. (2) Protein S deficiency Is this a current diagnosis for this admission?: Yes Plan: As per number 1. (3) Acute renal failure superimposed on stage 3 chronic kidney disease Qualifiers: Acute renal failure type: unspecified Qualified Code(s): N17.9 - Acute kidney failure, unspecified; N18.3 - Chronic kidney disease, stage 3 (moderate) Is this a current diagnosis for this admission?: Yes Plan: Likely prerenal. Creatinine continues to improve with IV fluids. 06/21: Creatinine now appears to be at her baseline. (4) Anemia Is this a current diagnosis for this admission?: Yes Plan: No gross bleeding manifestations. CKD may be contributory. 06/21: Iron stores low. 06/24: Hb went down to 7.0. Will order a unit of packed RBC. We will also check a fecal occult blood. (5) UTI (urinary tract infection) Is this a current diagnosis for this admission?: Yes Plan: 06/21: Urine culture grew E. coli. Noted sensitivity. Switch Zosyn to Rocephin. (6) Hypernatremia Is this a current diagnosis for this admission?: Yes Plan: Secondary to dehydration. Improving with IV fluids. (7) Aphasia as late effect of cerebrovascular accident Is this a current diagnosis for this admission?: Yes Plan: No change in overall condition. (8) Hypokalemia Is this a current diagnosis for this admission?: Yes Plan: Replace Potassium. 06/21: Repleted. (9) Hypertension Qualifiers: Hypertension type: essential hypertension Qualified Code(s): I10 - Essential (primary) hypertension Is this a current diagnosis for this admission?: Yes Plan: Hydralazine prn. Will add clonidine patch. (10) Diabetes mellitus, type II Qualifiers: Diabetes mellitus exterminator helper termite insulin use: with exterminator helper termite use Diabetes mellitus complication status: with kidney complications Diabetes mellitus complication detail: with chronic kidney disease Chronic kidney disease stage: stage 3 (moderate) Qualified Code(s): E11.22 - Type 2 diabetes mellitus with diabetic chronic kidney disease; N18.3 - Chronic kidney disease, stage 3 (moderate); Z79.4 - exterminator helper termite (current) use of insulin Is this a current diagnosis for this admission?: Yes - Time Time Spent with patient: 25-34 minutes
--- NOTE | 2019-06-24 18:41 | RADIOLOGY REPORT (SQ) ---
EXAM DESCRIPTION: KUB/ABDOMEN (SINGLE VIEW) COMPLETED DATE/TIME: 06/24/2019 6:28 pm REASON FOR STUDY: possible aspiration and bowel obstruction COMPARISON: 09/17/2018. NUMBER OF VIEWS: One view. TECHNIQUE: Supine radiographic image of the abdomen acquired. LIMITATIONS: Limited positioning. FINDINGS: BOWEL GAS PATTERN: Contrast in the small bowel and colon. Normal bowel gas pattern. No di lated loops. CALCIFICATIONS: No suspicious calcifications. Pelvic calcifications secondary to calcified uterine f ibroids. SOFT TISSUES: No gross mass or suggestion of organomegaly. HARDWARE: None in the abdomen. BONES: No acute fracture. No worrisome bone lesions. OTHER: No other significant finding. IMPRESSION: NO RADIOGRAPHIC EVIDENCE FOR ACUTE ABDOMINAL DISEASE. TECHNICAL DOCUMENTATION: JOB ID: [id number] [employer]- All Rights Reserved Reading location - IP/workstation name: [email or web address]
--- NOTE | 2019-06-24 18:42 | RADIOLOGY REPORT (SQ) ---
EXAM DESCRIPTION: CHEST SINGLE VIEW COMPLETED DATE/TIME: 06/24/2019 6:28 pm REASON FOR STUDY: Possible aspiration COMPARISON: 06/23/2019. EXAM PARAMETERS: NUMBER OF VIEWS: One view. TECHNIQUE: Single frontal radiographic view of the chest acquired. RADIATION DOSE: NA LIMITATIONS: None. FINDINGS: LUNGS AND PLEURA: Indistinct appearance of the retrocardiac left lung base. No masses or pneumothorax. No pleural effusion. MEDIASTINUM AND HILAR STRUCTURES: No masses. Contour normal. HEART AND VASCULAR STRUCTURES: Mild cardiomegaly. Normal vasculature. BONES: No acute findings. HARDWARE: None in the chest. OTHER: No other significant finding. IMPRESSION: MILD CARDIOMEGALY. INDISTINCT APPEARANCE OF THE LEFT LUNG BASE. CANNOT EXCLUDE UNDERLY ING INFILTRATE. TECHNICAL DOCUMENTATION: JOB ID: [id number] [employer]- All Rights Reserved Reading location - IP/workstation name: [email or web address]
[2019-06-24 21:13] LABS: ABSOLUTE BASOPHILS # (AUTO) 0.1 10^3/uL (0.0-0.2); ABSOLUTE EOSINOPHILS # (AUTO) 0.1 10^3/uL (0.0-0.6); ABSOLUTE LYMPHOCYTES (AUTO) 1.4 10^3/uL (0.5-4.7); ABSOLUTE MONOCYTES (AUTO) 1.3 10^3/uL (0.1-1.4); ABSOLUTE NEUT (AUTO) 14.5 10^3/uL (1.7-8.2); BASOPHILS % (AUTO) 0.3 % (0-2); EOSINOPHILS % (AUTO) 0.4 % (0-6); HEMATOCRIT 26.5 % (36.0-47.0); HEMOGLOBIN 8.6 g/dL (12.0-15.5); MEAN CORPUSCULAR HEMOGLOBIN 26.4 pg (27.0-33.4); MEAN CORPUSCULAR HGB CONC 32.5 g/dL (32.0-36.0); MEAN CORPUSCULAR VOLUME 82 fl (80-97); MONOCYTES % (AUTO) 7.5 % (3-13); PLATELET COUNT 205 10^3/uL (150-450); RED BLOOD COUNT 3.26 10^6/uL (3.72-5.28); RED CELL DISTRIBUTION WIDTH 18.2 % (11.5-14.0); SEGMENTED NEUTROPHILS % (AUTO) 83.8 % (42-78); TOTAL CELLS COUNTED % (AUTO) 100 %; WHITE BLOOD COUNT 17.3 10^3/uL (4.0-10.5)
[2019-06-25] MEDS: INSULIN LISPRO 100 UNIT/ML 3 ML VIAL SUBCUT SCH ×4 (01:07→18:04)
[2019-06-25 06:37] LABS: PROTEIN C ANTIGEN 66 % (60-150)
[2019-06-25] MEDS: DEXTROSE 5%-1/4 NORMAL SALINE 1,000 ML IV PRN ×2 (07:00→23:42)
[2019-06-25 07:07] LABS: PROTEIN C ACTIVITY 70 % (73-180)
[2019-06-25] MEDS ORDERED: CLONIDINE 0.2 MG/24 HR PATCH.TDWK TD SCH (10:00)
[2019-06-25] MEDS: PANTOPRAZOLE SODIUM 40 MG VIAL IV SCH ×2 (11:00→21:12)
[2019-06-25] MEDS: CEFTRIAXONE 1 GM/D5W RTU 1 GM/50 ML RTUPB IV SCH (11:00)
--- NOTE | 2019-06-25 17:30 | PDOC TRANSFER SUMMARY ---
General - Admit/Disc Date/PCP Admission Date/Primary Care Provider: 06/16/19 18:15 EMERITA ARCOS MD Discharge Date: 06/25/19 - Discharge Diagnosis (1) Acute CVA (cerebrovascular accident) Is this a current diagnosis for this admission?: Yes (2) Protein S deficiency Is this a current diagnosis for this admission?: Yes (3) Acute renal failure superimposed on stage 3 chronic kidney disease Is this a current diagnosis for this admission?: Yes (4) Anemia Is this a current diagnosis for this admission?: Yes (5) UTI (urinary tract infection) Is this a current diagnosis for this admission?: Yes (6) Hypernatremia Is this a current diagnosis for this admission?: Yes (7) Aphasia as late effect of cerebrovascular accident Is this a current diagnosis for this admission?: Yes (8) Hypokalemia Is this a current diagnosis for this admission?: Yes (9) Hypertension Is this a current diagnosis for this admission?: Yes (10) Diabetes mellitus, type II Is this a current diagnosis for this admission?: Yes - Additional Information Resuscitation Status: Do Not Resuscitate Home Medications: Atorvastatin Calcium [Lipitor 80 mg Tablet] 80 mg PO QHS 05/08/18 Hydralazine HCl 100 mg PO DAILY 05/08/18 Amlodipine Besylate [Norvasc 10 mg Tablet] 10 mg PO DAILY 05/07/19 Baclofen [Baclofen 10 mg Tablet] 10 mg PO Q8 05/07/19 Carvedilol [Coreg 25 mg Tablet] 25 mg PO Q12 05/07/19 Minoxidil [Loniten 2.5 mg Tablet] 2.5 mg PO DAILY 05/07/19 Clopidogrel Bisulfate [Plavix 75 mg Tablet] 75 mg PO DAILY tablet 05/17/19 Famotidine [Pepcid 20 mg Tablet] 20 mg PO DAILY tablet 05/17/19 Amino Acids/Protein Hydrolys [Pro-Stat [facility] Liquid Packet] 1 pkt PO DAILY 06/16/19 History of Present Illness Admission Date/PCP: 06/16/19 18:15 EMERIAT ARCOS MD History of Present Illness: Admitting hospitalist's H&P: ADY MCGEE is a 58 year old female who is a permanent resident at [facility]. She has a past medical history most significant for stroke with residual functional quadriplegia. She has dysphasia and failed a modified barium swallow recently. She has hypertension and diabetes. The patient has developed chronic kidney disease possibly from hypertension and/or diabetes. She was found to have an elevated white blood cell count, markedly elevated serum sodium, markedly elevated BUN and elevated creatinine above her baseline by laboratory studies at [facility]. She is a full code. She was referred to the emergency department. In the emergency department her systolic blood pressure remained above 100 with a map of 71. She was completely aphasic and did not try to make eye contact. She is contracted in bed. She had no fever but urinalysis was quite positive suggesting urinary tract infection. It is very difficult to get a meaningful chest x-ray due to her contractures. The patient exhibits marked dehydration with acute on chronic kidney injury as well as recent history of very poor oral intake. [facility]. Hospital Course Hospital Course: This is a 58-year-old female with a past medical history of hypertension, diabetes mellitus, CKD, prior CVA and recently acute CVA with residual quadriplegia and aphasia who was brought in due to poor oral intake. On admission, she was noted to have acute renal failure. She was started on IV fluids. 06/20: Upon encounter, she is breathing comfortably but is lethargic. Creatinine continues to improve with IV fluids. She was made a DNR/DNI yesterday. She is a hospice candidate. 06/21: Patient is awake and appears comfortable upon encounter. She remains aphasic. Plan to rediscuss with family about [facility] care and goals as she is a hospice candidate. 06/22: No acute event overnight. Met with patient's daughter and son yesterday late afternoon and updated about patient's status and had initial discussion about long-term goals of care. They expressed that patient was still communicating when she was discharged to [facility]. We discussed her poor oral intake but we will await reevaluation and recommendations from speech therapy before giving definite decision about tube feeding. They have also requested did for placement to a different SNF aside from [facility]. We also discussed the nature of her recurrent CVA. She has been having recurrent and bilateral CVAs which is concerning for cardioembolic source or hypercoagulable conditions. She has had TTE recently which did not show any obvious cardiac thrombus. Patient's daughter and son expressed they do not want to pursue invasive interventions including NILSON or LP. Patient was evaluated by speech therapy today and she did f airly well on thickened liquid but needs prompting and assistance to eat. CT of the head was done which shows possible new CVA and extension of recent infarct. MRI studies pending. 06/23: No acute event overnight. MRI did show new CVA. She remains aphasic. She was reevaluated by speech therapist. MBS was done. She is able to tolerate honey thick and pured diet but she has very high risk for aspiration. 06/24: Discussed with speech therapist and patient's nurse. Patient has been having persistent cough with current diet concerning for aspiration. She will be made NPO. Patient was also given a unit of packed RBC. Patient later had significant vomiting. She appeared to be in distress. Rediscussed with patient's daughter on bedside and son (on video call conference). Updated on recent events and lab results. Hypercoagulable work-up came back remarkable for severe protein S deficiency which likely now explains her recurrent CVA. Discussed that patient was placed on 2 antiplatelet and her hemoglobin significantly dropped concerning for bleeding. Discussed that treatment for protein S deficiency is full anticoagulation which I believe will do more harm than good to the patient as she is not even able to tolerate even just being on antiplatelets. Also discussed about artificial feeding and they have decided not to pursue this. Discussed in length with patient's daughter and son that patient is hospice appropriate. We also discussed about possible transition to comfort measures. They are agreeable to transitioning her to inpatient hospice. We also discussed that should she continue to show signs of clinical deterioration and discomfort, it would be most appropriate to transition her to comfort measures. Both son and daughter are agreeable to this but expressed they want to be promptly updated and notified should she be transitioned to comfort measures while in the hospital. 06/25: Met with daughter again today with hospice nurse on bedside. All questions answered. Physical Exam Vital Signs: Temp Pulse Resp BP Pulse Ox 98.4 F 88 17 140/78 H 98 06/25/19 11:22 06/25/19 11:22 06/25/19 11:22 06/25/19 11:22 06/25/19 11:22 Intake & Output 06/24/19 06/25/19 06/26/19 06:59 06:59 06:59 Intake Total 3490 3600 Output Total 1500 1725 Balance 1989 187 Weight 158 lb 1.143 oz 161 lb 6.054 oz General appearance: PRESENT: no acute distress Head exam: PRESENT: atraumatic, normocephalic Eye exam: PRESENT: conjunctiva pink, EOMI, PERRLA. ABSENT: scleral icterus Ear exam: PRESENT: normal external ear exam Mouth exam: PRESENT: moist, tongue midline Neck exam: ABSENT: carotid bruit, JVD, lymphadenopathy, thyromegaly Respiratory exam: PRESENT: rhonchi. ABSENT: rales, wheezes Pulses: PRESENT: normal dorsalis pedis pul GI/Abdominal exam: PRESENT: normal bowel sounds, soft. ABSENT: distended, guarding, mass, organolmegaly, rebound, tenderness Rectal exam: PRESENT: deferred Musculoskeletal exam: PRESENT: other - + contractures Neurological exam: PRESENT: altered. ABSENT: oriented to person, oriented to place, oriented to time, oriented to situation Results Laboratory Results: 06/24/19 21:07 06/24/19 21:07 06/24/19 06/24/19 06/24/19 12:30 21:07 21:07 WBC 17.3 H RBC 3.26 L Hgb 8.6 L Hct 26.5 L MCV 82 MCH 26.4 L MCHC 32.5 RDW 18.2 H Plt Count 205 Seg Neutrophils % 83.8 H Potassium 3.6 Blood Type B POSITIVE Antibody Screen NEGATIVE 06/16/19 13:56 Blood Blood Culture - Final NO GROWTH IN 5 DAYS Impressions: Head CT 06/21/19 15:48 IMPRESSION: Limited study with very poor patient positioning due to the patient's clinical condition. Possible extension of the right basal ganglia infarct. Possible new left cerebellar infarct. Repeat study is recommended when the patient's clinical condition has stabilized or the patient can be jd dawn. EVIDENCE OF ACUTE STROKE: NO. Brain MRI with MRA 06/22/19 07:56 IMPRESSION: 1. Multifocal acute diffusion restricting infarction, involving a large infarction of the left cerebellar hemisphere, the posterior splenium of the corpus callosum and adjacent superior left [employer] MACHINE OPERATOR territory, and subacute infarctions of the right basal ganglia and posterior right [employer]ULT[employer]ATION MACHINE OPERATOR territory. 2. Extensive, confluent periventricular and deep white matter T2/FLAIR hyperintensity in keeping with advanced small vessel white matter disease and edema associated with infarctions, most conspicuously the left cerebellar hemisphere and left [employer] MACHINE OPERATOR territory. No significant mass effect. 3. MR angiogram of the neck is significantly limited by patient motion and vascular pulsation artifact. Within this limitation, there is no obvious stenosis or occlusion of the cervical vasculature, which is opacified to the skullbase. 4. MR angiogram of the brain is significantly limited by patient motion artifact. Within this limitation, no obvious intracranial occlusion, stenosis, or aneurysm, with particular attention to the basilar artery and left [employer] MACHINE OPERATOR territory. This superior cerebellar arteries are patent bilaterally; the other basilar branch vessels are not clearly visualized. EVIDENCE OF ACUTE STROKE: YES. Neck MRA 06/22/19 07:56 IMPRESSION: 1. Multifocal acute diffusion restricting infarction, involving a large infarction of the left cerebellar hemisphere, the posterior splenium of the corpus callosum and adjacent superior left [employer]ATION MACHINE OPERATOR territory, and subacute infarctions of the right basal ganglia and posterior right [employer]ULT[employer]ATION MACHINE OPERATOR territory. 2. Extensive, confluent periventricular and deep white matter T2/FLAIR hyperintensity in keeping with advanced small vessel white matter disease and edema associated with infarctions, most conspicuously the left cerebellar h emisphere and left [employer]ATION MACHINE OPERATOR territory. No significant mass effect. 3. MR angiogram of the neck is significantly limited by patient motion and vascular pulsation artifact. Within this limitation, there is no obvious stenosis or occlusion of the cervical vasculature, which is opacified to the skullbase. 4. MR angiogram of the brain is significantly limited by patient motion artifact. Within this limitation, no obvious intracranial occlusion, stenosis, or aneurysm, with particular attention to the basilar artery and left [employer]ATION MACHINE OPERATOR territory. This superior cerebellar arteries are patent bilaterally; the other basilar branch vessels are not clearly visualized. EVIDENCE OF ACUTE STROKE: YES. Head MRI 06/22/19 08:34 IMPRESSION: 1. Multifocal acute diffusion restricting infarction, involving a large infarction of the left cerebellar hemisphere, the posterior splenium of th e corpus callosum and adjacent superior left [employer]ATION MACHINE OPERATOR territory, and subacute infarctions of the right basal ganglia and posterior right MULT[employer] O[employer]ATION MACHINE OPERATOR territory. 2. Extensive, confluent periventricular and deep white matter T2/FLAIR hyperintensity in keeping with advanced small vessel white matter disease and edema associated with infarctions, most conspicuously the left cerebellar hemisphere and left [employer] O[employer]ATION MACHINE OPERATOR territory. No significant mass effect. 3. MR angiogram of the neck is significantly limited by patient motion and vascular pulsation artifact. Within this limitation, there is no obvious stenosis or occlusion of the cervical vasculature, which is opacified to the skullbase. 4. MR angiogram of the brain is significantly limited by patient motion artifact. Within this limitation, no obvious intracranial occlusion, stenosis, or aneurysm, with particular attention to the basilar artery and left [employer] MACHINE OPERATOR ter ritory. This superior cerebellar arteries are patent bilaterally; the other basilar branch vessels are not clearly visualized. EVIDENCE OF ACUTE STROKE: YES. Modified Barium Swallow 06/23/19 00:00 IMPRESSION: LARYNGEAL PENETRATION WITH NECTAR THICK RESIDUALS. NO DEFINITE ASPIRATION IDENTIFIED. PLEASE SEE SPEECH PATHOLOGIST REPORT FOR OTHER FINDINGS AND RECOMMENDATIONS. Chest X-Ray 06/24/19 00:00 IMPRESSION: MILD CARDIOMEGALY. INDISTINCT APPEARANCE OF THE LEFT LUNG BASE. CANNOT EXCLUDE UNDERLYING INFILTRATE. KUB X-Ray 06/24/19 00:00 IMPRESSION: NO RADIOGRAPHIC EVIDENCE FOR ACUTE ABDOMINAL DISEASE. Qualifiers PATIENT BEING DISCHARGED WITH ANY OF THE FOLLOWING DIAGNOSIS: Stroke VTE patient discharged on overlapping Therapy?: Yes Reason(s) for not prescribing Overlap Therapy:: Hospice Care Stroke Pt being discharged on Anti-thrombolytic therapy?: No Reason(s) for not prescribing Anti-thrombolytic therapy:: Hospice Care Stroke Pt being discharged on Anti-coagulation therapy?: No Reason(s) for not prescribing Anti-coagulation therapy:: Hospice Care Stroke Pt being discharged on Statins?: No Reason(s) for not prescribing Statins therapy:: Hospice Care ID Pt being discharged on Aspirin therapy?: No Reason(s) for not prescribing Aspirin therapy:: Hospice Care ID Pt being discharged on Statins?: No Reason(s) for not prescribing Statin therapy:: Hospice Care ID Pt discharged ACEI/ARBS?: No Reason(s) for not prescribing ACEI/ARBS:: Hospice Care
[2019-06-25] MEDS: MORPHINE SULFATE 10 MG/ML INJ IV PRN (18:28)
[2019-06-25] MEDS ORDERED: BISACODYL 10 MG SUPP.RECT PR PRN (18:40)
[2019-06-26] MEDS: INSULIN LISPRO 100 UNIT/ML 3 ML VIAL SUBCUT SCH ×4 (01:17→17:49)
[2019-06-26] MEDS: HYDRALAZINE HCL INJ/PF 20 MG/1 ML SDV IV PRN ×2 (04:58→16:00)
[2019-06-26] MEDS: DEXTROSE 5%-1/4 NORMAL SALINE 1,000 ML IV PRN ×2 (07:39→15:59)
[2019-06-26] MEDS: CEFTRIAXONE 1 GM/D5W RTU 1 GM/50 ML RTUPB IV SCH (09:35)
[2019-06-26] MEDS: PANTOPRAZOLE SODIUM 40 MG VIAL IV SCH ×2 (09:35→22:13)
[2019-06-26 09:51] LABS: ABSOLUTE BASOPHILS # (AUTO) 0.1 10^3/uL (0.0-0.2); ABSOLUTE LYMPHOCYTES (AUTO) 1.2 10^3/uL (0.5-4.7); ABSOLUTE NEUT (AUTO) 12.7 10^3/uL (1.7-8.2); BASOPHILS % (AUTO) 0.4 % (0-2); EOSINOPHILS % (AUTO) 0.3 % (0-6); HEMATOCRIT 26.7 % (36.0-47.0); HEMOGLOBIN 8.7 g/dL (12.0-15.5); LYMPHOCYTES % (AUTO) 7.8 % (13-45); MEAN CORPUSCULAR HEMOGLOBIN 26.4 pg (27.0-33.4); MEAN CORPUSCULAR HGB CONC 32.6 g/dL (32.0-36.0); MEAN CORPUSCULAR VOLUME 81 fl (80-97); MONOCYTES % (AUTO) 6.5 % (3-13); PLATELET COUNT 204 10^3/uL (150-450); RED BLOOD COUNT 3.31 10^6/uL (3.72-5.28); RED CELL DISTRIBUTION WIDTH 18.3 % (11.5-14.0); TOTAL CELLS COUNTED % (AUTO) 100 %
[2019-06-26 10:09] LABS: ANION GAP 7 (5-19); BLOOD UREA NITROGEN 11 mg/dL (7-20); CALCIUM 7.4 mg/dL (8.4-10.2); CARBON DIOXIDE 17 mmol/L (22-30); CHLORIDE 107 mmol/L (98-107); GLUCOSE 148 mg/dL (75-110); POTASSIUM 3.6 mmol/L (3.6-5.0)
--- NOTE | 2019-06-26 14:27 | Progress Note ---
Provider Note Provider Note: No acute event overnight. Apparently, patient's daughter changed her mind last night when patient was about to be transported to [facility]. She says she wants to hold off on discharging her to inpatient hospice and would rediscuss this again with her brother. Updated discharge planning team today. Patient still has a bed at [facility]. Should patient's son and daughter choose to defer discharging her to inpatient hospice, plan will be to discharge her back to SNF and possibly transition her to hospice from there. Patient remains a DNR/DNI.
[2019-06-26] MEDS: MORPHINE SULFATE 10 MG/ML INJ IV PRN (16:00)
[2019-06-26] MEDS ORDERED: HYDRALAZINE HCL INJ/PF 20 MG/1 ML SDV IV PRN (17:23)
[2019-06-26] MEDS: DEXTROSE 5%-NORMAL SALINE 1,000 ML IV PRN (17:48)
--- NOTE | 2019-06-26 18:08 | Progress Note ---
Provider Note Provider Note: Patient's daughter on the bedside. Rediscussed plan of care. She says she has discussed it with her brother and they don't prefer for her to go to [place] as she prefers to visit her mother everyday from work. She prefers to have her go back to the assisted either as hospice or be transitioned to hospice from the assisted. Explained we will have discharge planning touch base with them tomorrow as they have left for the day.
[2019-06-27] MEDS: INSULIN LISPRO 100 UNIT/ML 3 ML VIAL SUBCUT SCH ×4 (00:16→18:46)
[2019-06-27] MEDS: MORPHINE SULFATE 10 MG/ML INJ IV PRN (00:50)
[2019-06-27] MEDS: CEFTRIAXONE 1 GM/D5W RTU 1 GM/50 ML RTUPB IV SCH (09:46)
[2019-06-27] MEDS: PANTOPRAZOLE SODIUM 40 MG VIAL IV SCH ×2 (09:47→22:32)
--- NOTE | 2019-06-27 09:50 | PDOC PROGRESS REPORT ---
Subjective Progress Note for:: 06/27/19 Subjective:: 58 year old female who is a permanent resident at [facility]. She has a past medical history most significant for stroke with residual functional quadriplegia. She has dysphasia and failed a modified barium swallow recently. She has hypertension and diabetes. The patient has developed chronic kidney disease possibly from hypertension and/or diabetes. She was found to have an elevated white blood cell count, markedly elevated serum sodium, markedly elevated BUN and elevated creatinine above her baseline by laboratory studies at [facility]. She is a full code. She was referred to the emergency department. In the emergency department her systolic blood pressure remained above 100 with a map of 71. She was completely aphasic and did not try to make eye contact. She is contracted in bed. She had no fever but urinalysis was quite positive suggesting urinary tract infection. It is very difficult to get a meaningful chest x-ray due to her contractures. The patient exhibits marked dehydration with acute on chronic kidney injury as well as recent history of very poor oral intake. She was referred to the hospital service for ad mission. 06/27/2019-patient is comfortably in the bed not communicative. Patient is strictly n.p.o. and on IV fluids waiting for inpatient hospice placement. Patient is not on comfort care measures , CODE STATUS is DNR/DNI. Reason For Visit: SEVERE DEHYDRATION,ACUTE KIDNEY INJURY, Physical Exam Vital Signs: Temp Pulse Resp BP Pulse Ox 97.5 F 87 17 147/83 H 95 06/27/19 08:08 06/27/19 08:08 06/27/19 08:08 06/27/19 08:08 06/27/19 08:08 Intake & Output 06/26/19 06/27/19 06/28/19 06:59 06:59 06:59 Intake Total 0 1307 Output Total 3375 650 Balance -1325 657 Weight 72.5 kg 73.3 kg General appearance: PRESENT: no acute distress Head exam: PRESENT: atraumatic Eye exam: PRESENT: PERRLA Ear exam: PRESENT: normal external ear exam Teeth exam: PRESENT: poor dentation Neck exam: ABSENT: carotid bruit, JVD, lymphadenopathy, thyromegaly Respiratory exam: PRESENT: decreased breath sounds Cardiovascular exam: PRESENT: RRR. ABSENT: diastolic murmur, rubs, systolic murmur GI/Abdominal exam: PRESENT: normal bowel sounds, soft. ABSENT: distended, guarding, mass, organolmegaly, rebound, tenderness Rectal exam: PRESENT: deferred Extremities exam: PRESENT: other - Lower extremity contractures Neurological exam: PRESENT: alert, awake, other - Patient has history of recent acute stroke with residual quadriplegia. Results Laboratory Results: 06/26/19 09:42 06/26/19 09:42 06/26/19 06/26/19 09:42 09:42 WBC 15.0 H RBC 3.31 L Hgb 8.7 L Hct 26.7 L MCV 81 MCH 26.4 L MCHC 32.6 RDW 18.3 H Plt Count 204 Seg Neutrophils % 85.0 H Sodium 131.4 L Potassium 3.6 Chloride 107 Carbon Dioxide 17 L Anion Gap 7 BUN 11 Creatinine 0.86 Est GFR ( Amer) > 60 Glucose 148 H Calcium 7.4 L Impressions: Head CT 06/21/19 15:48 IMPRESSION: Limited study with very poor patient positioning due to the patient's clinical condition. Possible extension of the right basal ganglia infarct. Possible new left cerebellar infarct. Repeat study is recommended when the patient's clinical condition has stabilized or the patient can be sedated. EVIDENCE OF ACUTE STROKE: NO. Brain MRI with MRA 06/22/19 07:56 IMPRESSION: 1. Multifocal acute diffusion restricting infarction, involving a large infarction of the left cerebellar hemisphere, the posterior splenium of the corpus callosum and adjacent superior left TELEPHONE AD TAKER territory, and subacute infarctions of the right basal ganglia and posterior right TELEPHONE AD TAKER territory. 2. Extensive, confluent periventricular and deep white matter T2/FLAIR hyperintensity in keeping with advanced small vessel white matter disease and edema associated with infarctions, most conspicuously the left cerebellar hemisphere and left TELEPHONE AD TAKER territory. No significant mass effect. 3. MR angiogram of the neck is significantly limited by patient motion and vascular pulsation artifact. Within this limitation, there is no obvious stenosis or occlusion of the cervical vasculature, which is opacified to the skullbase. 4. MR angiogram of the brain is significantly limited by patient motion artifact. Within this limitation, no obvious intracranial occlusion, stenosis, or aneurysm, with particular attention to the basilar artery and left TELEPHONE AD TAKER territ ory. This superior cerebellar arteries are patent bilaterally; the other basilar branch vessels are not clearly visualized. EVIDENCE OF ACUTE STROKE: YES. Neck MRA 06/22/19 07:56 IMPRESSION: 1. Multifocal acute diffusion restricting infarction, involving a large infarction of the left cerebellar hemisphere, the posterior splenium of the corpus callosum and adjacent superior left TELEPHONE AD TAKER territory, and subacute infarctions of the right basal ganglia and posterior right TELEPHONE AD TAKER territory. 2. Extensive, confluent periventricular and deep white matter T2/FLAIR hyperintensity in keeping with advanced small vessel white matter disease and edema associated with infarctions, most conspicuously the left cerebellar hemisphere and left TELEPHONE AD TAKER territory. No significant mass effect. 3. MR angiogram of the neck is significantly limited by patient motion and vascular pulsation artifact. Within this limitation, there is no obvious stenosis or occlusion of the cervical vasculature, which is opacified to the skullbase. 4. MR angiogram of the brain is significantly limited by patient motion artifact. Within this limitation, no obvious intracranial occlusion, stenosis, or aneurysm, with particular attention to the basilar artery and left TELEPHONE AD TAKER territory. This superior cerebellar arteries are patent bilaterally; the other basilar branch vessels are not clearly visualized. EVIDENCE OF ACUTE STROKE: YES. Head MRI 06/22/19 08:34 IMPRESSION: 1. Multifocal acute diffusion restricting infarction, involving a large infarction of the left cerebellar hemisphere, the posterior splenium of the corpus callosum and adjacent superior left TELEPHONE AD TAKER territory, and subacute infarctions of the right basal ganglia and posterior right TELEPHONE AD TAKER territory. 2. Extensive, confluent periventricular and deep white matter T2/FLAIR hyperintensity in keeping with advanced small vessel white matter disease and edema associated with infarctions, most conspicuously the left cerebellar hemisphere and left TELEPHONE AD TAKER territory. No significant mass effect. 3. MR angiogram of the neck is significantly limited by patient motion and vascular pulsation artifact. Within this limitation, there is no obvious stenosis or occlusion of the cervical vasculature, which is opacified to the s kullbase. 4. MR angiogram of the brain is significantly limited by patient motion artifact. Within this limitation, no obvious intracranial occlusion, stenosis, or aneurysm, with particular attention to the basilar artery and left TELEPHONE AD TAKER territory. This superior cerebellar arteries are patent bilaterally; the other basilar branch vessels are not clearly visualized. EVIDENCE OF ACUTE STROKE: YES. Modified Barium Swallow 06/23/19 00:00 IMPRESSION: LARYNGEAL PENETRATION WITH NECTAR THICK RESIDUALS. NO DEFINITE ASPIRATION IDENTIFIED. PLEASE SEE SPEECH PATHOLOGIST REPORT FOR OTHER FINDINGS AND RECOMMENDATIONS. Chest X-Ray 06/24/19 00:00 IMPRESSION: MILD CARDIOMEGALY. INDISTINCT APPEARANCE OF THE LEFT LUNG BASE. CANNOT EXCLUDE UNDERLYING INFILTRATE. KUB X-Ray 06/24/19 00:00 IMPRESSION: NO RADIOGRAPHIC EVIDENCE FOR ACUTE ABDOMINAL DISEASE. Assessment and Plan - Diagnosis (1) Acute CVA (cerebrovascular accident) Is this a current diagnosis for this admission?: Yes Plan: 06/21: Met with patient's daughter and son yesterday late afternoon and updated about patient's status and had initial discussion about long-term goals of care. They expressed that patient was still communicating when she was discharged to [facility]. We discussed her poor oral intake but we will await reevaluation and recommendations from speech therapy before giving definite decision about tube feeding. They have also requested did for placement to a different SNF aside from [facility]. We also discussed the nature of her recurrent CVA. She has been having recurrent and bilateral CVAs which is concerning for cardioembolic source or hypercoagulable conditions. She has had TTE recently which did not show any obvious cardiac thrombus. Patient's daughter and son expressed they do not want to pursue invasive interventions including NILSON or LP. Will only pursue non-invasive cryptogenic stroke work-up. Aspirin and statin. 06/23: MRI did reveal new CVA. Hypercoagulable work-up sent. Continue aspirin and statin. 06/24: Secondary to Protein S deficiency. Poor candidate for treatment with anticoagulation due to worsening anemia. 06/17-patient has recent history of acute CVA on aspirin and statins. Not a candidate for anticoagulation because of the history of protein C S deficiency. Waiting for transfer to inpatient hospice. (2) Protein S deficiency Is this a current diagnosis for this admission?: Yes Plan: As per number 1. (3) Acute renal failure superimposed on stage 3 chronic kidney disease Qualifiers: Acute renal failure type: unspecified Qualified Code(s): N17.9 - Acute kidney failure, unspecified; N18.3 - Chronic kidney disease, stage 3 (moderate) Is this a current diagnosis for this admission?: Yes Plan: Likely prerenal. Creatinine continues to improve with IV fluids. 06/21: Creatinine now appears to be at her baseline. 06/27/2019-latest serum creatinine 0.86. Kidney function at baseline. (4) Anemia Is this a current diagnosis for this admission?: Yes Plan: No gross bleeding manifestations. CKD may be contributory. 06/21: Iron stores low. 06/24: Hb went down to 7.0. Will order a unit of packed RBC. We will also check a fecal occult blood. 2019 latest hemoglobin is 8.7. Received 1 unit of PRBC yesterday. (5) UTI (urinary tract infection) Is this a current diagnosis for this admission?: Yes Plan: 06/21: Urine culture grew E. coli. Noted sensitivity. Switch Zosyn to Rocephin. (6) Hypernatremia Is this a current diagnosis for this admission?: Yes Plan: Secondary to dehydration. Improving with IV fluids. 06/27/2019-patient came in with hypernatremia on admission it is 158 today labs serum sodium is 131.4. Receiving IV fluids normal saline 50 cc/h. Hypernatremia has resolved and hyponatremia most likely secondary to poor oral intake. (7) Hypokalemia Is this a current diagnosis for this admission?: Yes Plan: Replace Potassium. 06/21: Repleted. 06/27/2019 latest serum potassium is 3.6 hypokalemia is resolved. (8) DNR (do not resuscitate) Is this a current diagnosis for this admission?: Yes Plan: 06/27/2019-patient CODE STATUS is DNR/DNI as per the family wishes.
[2019-06-27] MEDS: DEXTROSE 5%-NORMAL SALINE 1,000 ML IV PRN (14:16)
[2019-06-27] MEDS: ONDANSETRON HCL INJ/PF 4 MG/2 ML SDV IV PRN (14:50)
[2019-06-28] MEDS: INSULIN LISPRO 100 UNIT/ML 3 ML VIAL SUBCUT SCH ×4 (00:30→18:29)
[2019-06-28] MEDS: MORPHINE SULFATE 10 MG/ML INJ IV PRN ×2 (05:36→19:32)
[2019-06-28] MEDS: PANTOPRAZOLE SODIUM 40 MG VIAL IV SCH ×2 (09:31→22:42)
[2019-06-28] MEDS: DEXTROSE 5%-NORMAL SALINE 1,000 ML IV PRN ×2 (09:31→18:54)
[2019-06-28] MEDS: CEFTRIAXONE 1 GM/D5W RTU 1 GM/50 ML RTUPB IV SCH (09:31)
--- NOTE | 2019-06-28 09:44 | PDOC PROGRESS REPORT ---
Subjective Progress Note for:: 06/28/19 Subjective:: 58 year old female who is a permanent resident at [facility]. She has a past medical history most significant for stroke with residual functional quadriplegia. She has dysphasia and failed a modified barium swallow recently. She has hypertension and diabetes. The patient has developed chronic kidney disease possibly from hypertension and/or diabetes. She was found to have an elevated white blood cell count, markedly elevated serum sodium, markedly elevated BUN and elevated creatinine above her baseline by laboratory studies at [facility]. She is a full code. She was referred to the emergency department. In the emergency department her systolic blood pressure remained above 100 with a map of 71. She was completely aphasic and did not try to make eye contact. She is contracted in bed. She had no fever but urinalysis was quite positive suggesting urinary tract infection. It is very difficult to get a meaningful chest x-ray due to her contractures. The patient exhibits marked dehydration with acute on chronic kidney injury as well as recent history of very poor oral intake. She was referred to the hospital service for ad mission. 06/27/2019-patient is comfortably in the bed not communicative. Patient is strictly n.p.o. and on IV fluids waiting for inpatient hospice placement. Patient is not on comfort care measures , CODE STATUS is DNR/DNI. 06/28/2019-no acute events in the last 24 hours. Afebrile. Still n.p.o. receiving IV fluids. I have a long discussion with the family members they do not want her to go to [facility]. At the same time they donot want patient to be on comfort care measures. Patient CODE STATUS is DNR/DNI at this time. Still the plan is to get her into an inpatient hospice care. Reason For Visit: SEVERE DEHYDRATION,ACUTE KIDNEY INJURY, Physical Exam Vital Signs: Temp Pulse Resp BP Pulse Ox 98.7 F 80 18 147/68 H 100 06/28/19 08:13 06/28/19 08:13 06/28/19 08:13 06/28/19 08:13 06/28/19 08:13 Intake & Output 06/27/19 06/28/19 06/29/19 06:59 06:59 06:59 Intake Total 1307 1050 963 Output Total 650 1000 Balance 657 50 963 Weight 73.3 kg 74 kg General appearance: PRESENT: no acute distress, cooperative Head exam: PRESENT: atraumatic Eye exam: PRESENT: PERRLA Mouth exam: PRESENT: moist, tongue midline Teeth exam: PRESENT: poor dentation Neck exam: ABSENT: carotid bruit, JVD, lymphadenopathy, thyromegaly Respiratory exam: PRESENT: decreased breath sounds Cardiovascular exam: PRESENT: RRR. ABSENT: diastolic murmur, rubs, systolic murmur GI/Abdominal exam: PRESENT: normal bowel sounds, soft. ABSENT: distended, guarding, mass, organolmegaly, rebound, tenderness Neurological exam: PRESENT: alert, awake, other - Patient has recent history of acute CVA and with right-sided weakness. Results Laboratory Results: 06/26/19 09:42 06/26/19 09:42 Impressions: Head CT 06/21/19 15:48 IMPRESSION: Limited study with very poor patient positioning due to the patient's clinical condition. Possible extension of the right basal ganglia infarct. Possible new left cerebellar infarct. Repeat study is recommended when the patient's clinical condition has stabilized or the patient can be sedated. EVIDENCE OF ACUTE STROKE: NO. Brain MRI with MRA 06/22/19 07:56 IMPRESSION: 1. Multifocal acute diffusion restricting infarction, involving a large infarction of the left cerebellar hemisphere, the posterior splenium of the corpus callosum and adjacent superior left CEMENT MASON APPRENTICE territory, and subacute in farctions of the right basal ganglia and posterior right CEMENT [employer]ON APPRENTICE territory. 2. Extensive, confluent periventricular and deep white matter T2/FLAIR hyperintensity in keeping with advanced small vessel white matter disease and edema associated with infarctions, most conspicuously the left cerebellar hemis phere and left CEMENT [employer]ON APPRENTICE territory. No significant mass effect. 3. MR angiogram of the neck is significantly limited by patient motion and vascular pulsation artifact. Within this limitation, there is no obvious stenosis or occlusion of the cervical vasculature, which is opacified to the skullbase. 4. MR angiogram of the brain is significantly limited by patient motion artifact. Within this limitation, no obvious intracranial occlusion, stenosis, or aneurysm, with particular attention to the basilar artery and left CEMENT [employer]ON APPRENTICE territory. This superior cerebellar arteries are patent bilaterally; the other basilar branch vessels are not clearly visualized. EVIDENCE OF ACUTE STROKE: YES. Neck MRA 06/22/19 07:56 IMPRESSION: 1. Multifocal acute diffusion restricting infarction, involving a large infarction of the left cerebellar hemisphere, the posterior splenium of the corpus callosum and adjacent superior left CEMENT MASON APPRENTICE territory, and subacute infarctions of the right basal ganglia and posterior right [employer]EMENT [employer]ON APPRENTICE territory. 2. Extensive, confluent periventricular and deep white matter T2/FLAIR hyperintensity in keeping with advanced small vessel white matter disease and edema associated with infarctions, most conspicuously the left cerebellar hemisphere and left CEMENT [employer]ON APPRENTICE territory. No significant mass effect. 3. MR angiogram of the neck is significantly limited by patient motion and vascular pulsation artifact. Within this limitation, there is no obvious stenosis or occlusion of the cervical vasculature, which is opacified to the skullbase. 4. MR angiogram of the brain is significantly limited by patient motion artifact. Within this limitation, no obvious intracranial occlusion, stenosis, or aneurysm, with particular attention to the basilar artery and left CEMENT [employer]ON APPRENTICE territory. This superior cerebellar arteries are patent bilaterally; the other basilar branch vessels are not clearly visualized. EVIDENCE OF ACUTE STROKE: YES. Head MRI 06/22/19 08:34 IMPRESSION: 1. Multifocal acute diffusion restricting infarction, involving a large infarction of the left cerebellar hemisphere, the posterior splenium of the corpus callosum and adjacent superior left CEMENT MASON APPRENTICE territory, and subacute infarctions of the right basal ganglia and posterior right CEMENT [employer]ON APPRENTICE territory. 2. Extensive, confluent periventricular and deep white matter T2/FLAIR hyperintensity in keeping with advanced small vessel white matter disease and edema associated with infarctions, most conspicuously the left cerebellar hemisphere and left CEMENT [employer]ON APPRENTICE territory. No significant mass effect. 3. MR angiogram of the neck is significantly limited by patient motion and vascular pulsation artifact. Within this limitation, there is no obvious stenosis or occlusion of the cervical vasculature, which is opacified to the skullbase. 4. MR angiogram of the brain is significantly limited by patient motion artifact. Within this limitation, no obvious intracranial occlusion, stenosis, or aneurysm, with particular attention to the basilar artery and left CEMENT MASON APPRENTICE territory. This superior cerebellar arteries are patent bilaterally; the other basilar branch vessels are not clearly visualized. EVIDENCE OF ACUTE STROKE: YES. Modified Barium Swallow 06/23/19 00:00 IMPRESSION: LARYNGEAL PENETRATION WITH NECTAR THICK RESIDUALS. NO DEFINITE ASPIRATION IDENTIFIED. PLEASE SEE SPEECH PATHOLOGIST REPORT FOR OTHER FINDINGS AND RECOMMENDATIONS. Chest X-Ray 06/24/19 00:00 IMPRESSION: MILD CARDIOMEGALY. INDISTINCT APPEARANCE OF THE LEFT LUNG BASE. CANNOT EXCLUDE UNDERLYING INFILTRATE. KUB X-Ray 06/24/19 00:00 IMPRESSION: NO RADIOGRAPHIC EVIDENCE FOR ACUTE ABDOMINAL DISEASE. Assessment and Plan - Diagnosis (1) Acute CVA (cerebrovascular accident) Is this a current diagnosis for this admission?: Yes Plan: 06/21: Met with patient's daughter and son yesterday late afternoon and updated about patient's status and had initial discussion about long-term goals of care. They expressed that patient was still communicating when she was discharged to [facility]. We discussed her poor oral intake but we will await reevaluation and recommendations from speech therapy before giving definite decision about tube feeding. They have also requested did for placement to a different SNF aside from [facility]. We also discussed the nature of her recurrent CVA. She has been having recurrent and bilateral CVAs which is concerning for cardioembolic source or hypercoagulable conditions. She has had TTE recently which did not show any obvious cardiac thrombus. Patient's daughter and son expressed they do not want to pursue invasive interventions including NILSON or LP. Will only pursue non-invasive cryptogenic stroke work-up. Aspirin and statin. 06/23: MRI did reveal new CVA. Hypercoagulable work-up sent. Continue aspirin and statin. 06/24: Secondary to Protein S deficiency. Poor candidate for treatment with anticoagulation due to worsening anemia. 06/27-patient has recent history of acute CVA on aspirin and statins. Not a candidate for anticoagulation because of the history of protein C S deficiency. Waiting for transfer to inpatient hospice. 06/28/2019-patient has recent history of acute CVA presently n.p.o. receiving IV fluids. CODE STATUS DNR/DNI. There is a bed offer from [facility] with hospice but the family is reluctant to send her back to the [facility]. (2) Protein S deficiency Is this a current diagnosis for this admission?: Yes (3) Acute renal failure superimposed on stage 3 chronic kidney disease Qualifiers: Acute renal failure type: unspecified Qualified Code(s): N17.9 - Acute kidney failure, unspecified; N18.3 - Chronic kidney disease, stage 3 (moderate) Is this a current diagnosis for this admission?: Yes Plan: Likely prerenal. Creatinine continues to improve with IV fluids. 06/21: Creatinine now appears to be at her baseline. 06/27/2019-latest serum creatinine 0.86. Kidney function at baseline. (4) Anemia Is this a current diagnosis for this admission?: Yes Plan: No gross bleeding manifestations. CKD may be contributory. 06/21: Iron stores low. 06/24: Hb went down to 7.0. Will order a unit of packed RBC. We will also check a fecal occult blood. 2019 latest hemoglobin is 8.7. Received 1 unit of PRBC yesterday. (5) UTI (urinary tract infection) Is this a current diagnosis for this admission?: Yes Plan: 06/21: Urine culture grew E. coli. Noted sensitivity. Switch Zosyn to Rocephin. 06/28/2019-urine culture is growing E. coli patient is receiving IV Rocephin at this time. (6) Hypernatremia Is this a current diagnosis for this admission?: Yes Plan: Secondary to dehydration. Improving with IV fluids. 06/27/2019-patient came in with hypernatremia on admission it is 158 today labs serum sodium is 131.4. Receiving IV fluids normal saline 50 cc/h. Hypernatremia has resolved and hyponatremia most likely secondary to poor oral i ntake. (7) Hypokalemia Is this a current diagnosis for this admission?: Yes Plan: Replace Potassium. 06/21: Repleted. 06/27/2019 latest serum potassium is 3.6 hypokalemia is resolved. (8) DNR (do not resuscitate) Is this a current diagnosis for this admission?: Yes
--- NOTE | 2019-06-28 14:46 | PDOC TRANSFER SUMMARY ---
Impression - Admit/DC Date/PCP Admission Date/Primary Care Provider: 06/16/19 18:15 EMERITA ARCOS MD Discharge Date: 06/28/19 - Discharge Diagnosis (1) Acute CVA (cerebrovascular accident) Is this a current diagnosis for this admission?: Yes (2) Protein S deficiency Is this a current diagnosis for this admission?: Yes (3) Acute renal failure superimposed on stage 3 chronic kidney disease Is this a current diagnosis for this admission?: Yes (4) Anemia Is this a current diagnosis for this admission?: Yes (5) UTI (urinary tract infection) Is this a current diagnosis for this admission?: Yes (6) Hypernatremia Is this a current diagnosis for this admission?: Yes (7) Hypokalemia Is this a current diagnosis for this admission?: Yes (8) DNR (do not resuscitate) Is this a current diagnosis for this admission?: Yes - Assessment Summary: (1) Acute CVA (cerebrovascular accident) Is this a current diagnosis for this admission?: Yes Plan: 06/21: Met with patient's daughter and son yesterday late afternoon and updated a bout patient's status and had initial discussion about long-term goals of care. They expressed that patient was still communicating when she was discharged to [facility]. We discussed her poor oral intake but we will await reevaluation and recommendations from speech therapy before giving definite decision about tube feeding. They have also requested did for placement to a different SNF aside from [facility]. We also discussed the nature of her recurrent CVA. She has been having recurrent and bilateral CVAs which is concerning for cardioembolic source or hypercoagulable conditions. She has had TTE recently which did not show any obvious cardiac thrombus. Patient's daughter and son expressed they do not want to pursue invasive interventions including NILSON or LP. Will only pursue non-invasive cryptogenic stroke work-up. Aspirin and statin. 06/23: MRI did reveal new CVA. Hypercoagulable work-up sent. Continue aspirin and statin. 06/24: Secondary to Protein S deficiency. Poor candidate for treatment with anticoagulation due to worsening anemia. 06/27-patient has recent history of acute CVA on aspirin and statins. Not a candidate for anticoagulation because of the history of protein C S deficiency. Waiting for transfer to inpatient hospice. 06/28/2019-patient has recent history of acute CVA presently n.p.o. receiving IV fluids. CODE STATUS DNR/DNI. There is a bed offer from [facility] with hospice but the family is reluctant to send her back to the [facility]. (2) Protein S deficiency Is this a current diagnosis for this admission?: Yes (3) Acute renal failure superimposed on stage 3 chronic kidney disease Qualifiers: Acute renal failure type: unspecified Qualified Code(s): N17.9 - Acute kidney failure, unspecified; N18.3 - Chronic kidney disease, stage 3 (moderate) Is this a current diagnosis for this admission?: Yes Plan: Likely prerenal. Creatinine continues to improve with IV fluids. 06/21: Creatinine now appears to be at her baseline. 06/27/2019-latest serum creatinine 0.86. Kidney function at baseline. (4) Anemia Is this a current diagnosis for this admission?: Yes Plan: No gross bleeding manifestations. CKD may be contributory. 06/21: Iron stores low. 06/24: Hb went down to 7.0. Will order a unit of packed RBC. We will also check a fecal occult blood. 2019 latest hemoglobin is 8.7. Received 1 unit of PRBC yesterday. (5) UTI (urinary tract infection) Is this a current diagnosis for this admission?: Yes Plan: 06/21: Urine culture grew E. coli. Noted sensitivity. Switch Zosyn to Rocephin. 06/28/2019-urine culture is growing E. coli patient is receiving IV Rocephin at this time. (6) Hypernatremia Is this a current diagnosis for this admission?: Yes Plan: Secondary to dehydration. Improving with IV fluids. 06/27/2019-patient came in with hypernatremia on admission it is 158 today labs serum sodium is 131.4. Receiving IV fluids normal saline 50 cc/h. Hypernatremia has resolved and hyponatremia most likely secondary to poor oral intake. (7) Hypokalemia Is this a current diagnosis for this admission?: Yes Plan: Replace Potassium. 06/21: Repleted. 06/27/2019 latest serum potassium is 3.6 hypokalemia is resolved. (8) DNR (do not resuscitate) Is this a current diagnosis for this admission?: Yes - Additional Information Resuscitation Status: Do Not Resuscitate Discharge Diet: Other (Comments) - Patient is n.p.o. Discharge Activity: Bedrest Referrals: EMERITA ARCOS MD [Primary Care Provider] - Follow up as needed (Home Hospice) History of Present Illiness History of Present Illness: ADY MCGEE is a 58 year old female 58 year old female who is a permanent resident at [facility]. She has a past medical history most significant for stroke with residual functional quadriplegia. She has dysphasia and failed a modified barium swallow recently. She has hypertension and diabetes. The patient has developed chronic kidney disease possibly from hypertension and/or diabetes. She was found to have an elevated white blood cell count, markedly elevated serum sodium, markedly elevated BUN and elevated creatinine above her baseline by laboratory studies at [facility]. She is a full code. She was referred to the emergency department. In the emergency department her systolic blood pressure remained above 100 with a map of 71. She was completely aphasic and did not try to make eye contact. She is contracted in bed. She had no fever but urinalysis was quite positive suggesting urinary tract infection. It is very difficult to get a meaningful chest x-ray due to her contractures. The patient exhibits marked dehydration with acute on chronic kidney injury as well as recent history of very poor oral intake. She was referred to the hospital service for admission. Hospital Course Hospital Course: 58 year old female who is a permanent resident at [facility]. She has a past medical history most significant for stroke with residual functional quadriplegia. She has dysphasia and failed a modified barium swallow recently. She has hypertension and diabetes. The patient has developed chronic kidney disease possibly from hypertension and/or diabetes. She was found to have an elevated white blood cell count, markedly elevated serum sodium, markedl y elevated BUN and elevated creatinine above her baseline by laboratory studies at [facility]. She is a full code. She was referred to the emergency department. In the emergency department her systolic blood pressure remained above 100 with a map of 71. She was completely aphasic and did not try to make eye contact. She is contracted in bed. She had no fever but urinalysis was quite positive [place] ggesting urinary tract infection. It is very difficult to get a meaningful chest x-ray due to her contractures. The patient exhibits marked dehydration with acute on chronic kidney injury as well as recent history of very poor oral intake. She was referred to the hospital service for admission. 06/27/2019-patient is comfortably in the bed not communicative. Patient is strictly n.p.o. and on IV fluids waiting for inpatient hospice placement. Patient is not on comfort care measures , CODE STATUS is DNR/DNI. 06/28/2019-no acute events in the last 24 hours. Afebrile. Still n.p.o. receiving IV fluids. I have a long discussion with the family members they do not want her to go to [facility]. At the same time they donot want patient to be on comfort care measures. Patient CODE STATUS is DNR/DNI at this time. Still the plan is to get her into an inpatient hospice care. 06/28/2019-patient has a bed hospice bed at [facility] family agreed to send her there today. Patient CODE STATUS is DNR/DNI. Patient is still n.p.o. unable to take anything by mouth she failed modified barium swallow. Physical Exam Vital Signs: Temp Pulse Resp BP Pulse Ox 98.9 F 82 17 153/64 H 98 06/28/19 11:52 06/28/19 13:51 06/28/19 11:52 06/28/19 11:52 06/28/19 11:52 Intake & Output 06/27/19 06/28/19 06/29/19 06:59 06:59 06:59 Intake Total 1307 1050 963 Output Total 650 1000 400 Balance 657 50 563 Weight 73.3 kg 74 kg General appearance: PRESENT: no acute distress, cooperative Head exam: PRESENT: atraumatic Eye exam: PRESENT: PERRLA Ear exam: PRESENT: normal external ear exam Teeth exam: PRESENT: poor dentation Respiratory exam: PRESENT: decreased breath sounds Cardiovascular exam: PRESENT: RRR. ABSENT: diastolic murmur, rubs, systolic murmur GI/Abdominal exam: PRESENT: normal bowel sounds, soft. ABSENT: distended, guarding, mass, organolmegaly, rebound, tenderness Rectal exam: PRESENT: deferred Extremities exam: PRESENT: other - Contracted lower extremities Neurological exam: PRESENT: alert, other - Patient has recent acute CVA with right-sided weakness and aphasic. Unable to take anything by mouth. Psychiatric exam: PRESENT: flat affect Results Laboratory Results: WBC 15.0 10^3/uL (4.0-10.5) H 06/26/19 09:42 RBC 3.31 10^6/uL (3.72-5.28) L 06/26/19 09:42 Hgb 8.7 g/dL (12.0-15.5) L 06/26/19 09:42 Hct 26.7 % (36.0-47.0) L 06/26/19 09:42 MCV 81 fl (80-97) 06/26/19 09:42 MCH 26.4 pg (27.0-33.4) L 06/26/19 09:42 MCHC 32.6 g/dL (32.0-36.0) 06/26/19 09:42 RDW 18.3 % (11.5-14.0) H 06/26/19 09:42 Plt Count 204 10^3/uL (150-450) 06/26/19 09:42 Lymph % (Auto) 7.8 % (13-45) L 06/26/19 09:42 [place] % (Auto) 6.5 % (3-13) 06/26/19 09:42 Eos % (Auto) 0.3 % (0-6) 06/26/19 09:42 Baso % (Auto) 0.4 % (0-2) 06/26/19 09:42 Reticulocyte # 0.019 10^6/uL (0.028-0.122) L 06/20/19 09:31 Absolute Neuts (auto) 12.7 10^3/uL (1.7-8.2) H 06/26/19 09:42 Absolute Lymphs (auto) 1.2 10^3/uL (0.5-4.7) 06/26/19 09:42 Absolute Monos (auto) 1.0 10^3/uL (0.1-1.4) 06/26/19 09:42 Absolute Eos (auto) 0.0 10^3/uL (0.0-0.6) 06/26/19 09:42 Absolute Basos (auto) 0.1 10^3/uL (0.0-0.2) 06/26/19 09:42 Total Counted 100 06/22/19 09:40 Seg Neutrophils % 85.0 % (42-78) H 06/26/19 09:42 Seg Neuts % (Manual) 90 % (42-78) H 06/22/19 09:40 Band Neutrophils % 1 % (3-5) L 06/20/19 09:31 Lymphocytes % (Manual) 10 % (13-45) L 06/22/19 09:40 Monocytes % (Manual) 0 % (3-13) L 06/22/19 09:40 Eosinophils % (Manual) 0 % (0-6) 06/22/19 09:40 Basophils % (Manual) 0 % (0-2) 06/22/19 09:40 Abs Neuts (Manual) 14.4 10^3/uL (1.7-8.2) H 06/22/19 09:40 Abs Lymphs (Manual) 1.6 10^3/uL (0.5-4.7) 06/22/19 09:40 Abs Monocytes (Manual) 0.0 10^3/uL (0.1-1.4) L 06/22/19 09:40 Absolute Eos (Manual) 0.0 10^3/uL (0.0-0.6) 06/22/19 09:40 Abs Basophils (Manual) 0.0 10^3/uL (0.0-0.2) 06/22/19 09:40 Nucleated RBCs 1 /100 WBC (0) 06/18/19 04:48 Toxic Granulation 1+ 06/22/19 09:40 Toxic Vacuolation PRESENT 06/22/19 09:40 Platelet Comment ADEQUATE 06/22/19 09:40 Poikilocytosis SLIGHT 06/22/19 09:40 Anisocytosis SLIGHT 06/22/19 09:40 Ovalocytes SLIGHT 06/22/19 09:40 [place] Cells SLIGHT 06/22/19 09:40 Schistocytes SLIGHT 06/20/19 09:31 ESR 95 mm/hr (0-30) H 06/22/19 09:40 Retic Count (auto) 0.66 % (0.66-2.85) 06/20/19 09:31 Protein C Antigen 66 % (60-150) 06/22/19 16:08 Protein C Activity 70 % (73-180) L 06/22/19 16:08 Functional Protein S 28 % (63-140) L 01/14/20 16:08 Free Protein S <25 % (57-157) L 06/22/19 16:08 Total Protein S 84 % (60-150) 06/22/19 16:08 Sodium 131.4 mmol/L (137-145) L 06/26/19 09:42 Potassium 3.6 mmol/L (3.6-5.0) 06/26/19 09:42 Chloride 107 mmol/L (98-107) 06/26/19 09:42 Carbon Dioxide 17 mmol/L (22-30) L 06/26/19 09:42 Anion Gap 7 (5-19) 06/26/19 09:42 BUN 11 mg/dL (7-20) 06/26/19 09:42 Creatinine 0.86 mg/dL (0.52-1.25) 06/26/19 09:42 Est GFR ( Amer) > 60 (>60) 06/26/19 09:42 Est GFR (Non-Af Amer) Cancelled 06/18/19 21:53 Est GFR (MDRD) Non-Af > 60 (>60) 06/26/19 09:42 Glucose 148 mg/dL (75-110) H 06/26/19 09:42 POC Glucose 125 mg/dL (70-110) H 06/28/19 11:54 Lactic Acid 1.7 mmol/L (0.7-2.1) 06/20/19 14:55 Calcium 7.4 mg/dL (8.4-10.2) L 06/26/19 09:42 Phosphorus 3.3 mg/dL (2.5-4.5) 06/19/19 13:20 Magnesium 2.2 mg/dL (1.6-2.3) 06/19/19 13:20 Iron 34.0 ug/dL (37-170) L 06/20/19 09:31 TIBC 182 ug/dL (250-450) L 06/20/19 09:31 % Saturation 19 % 06/20/19 09:31 Ferritin 194.00 ng/mL (11.1-264.0) 06/20/19 09:31 Total Bilirubin 0.4 mg/dL (0.2-1.3) 06/16/19 22:07 Direct Bilirubin 0.4 mg/dL (0.0-0.4) 06/16/19 22:07 Neonat Total Bilirubin Not Reportable 06/16/19 22:07 Neonat Direct Bilirubin Not Reportable 06/16/19 22:07 Neonat Indirect Bili Not Reportable 06/16/19 22:07 AST 148 U/L (14-36) H 06/16/19 22:07 ALT 152 U/L (<35) 06/16/19 22:07 Alkaline Phosphatase 25 U/L (38-126) L 06/16/19 22:07 C-Reactive Protein 37.4 mg/L (<10.0) H 06/22/19 09:40 Total Protein 6.3 g/dL (6.3-8.2) 06/16/19 22:07 Albumin 2.2 g/dL (3.5-5.0) L 06/19/19 13:20 Lipase 472.9 U/L (23-300) H 06/16/19 14:08 EGFR Cancelled 06/18/19 21:53 Vitamin B12 666.0 pg/mL (239-931) 06/20/19 09:31 Folate 4.27 ng/mL (>2.76) 06/20/19 09:31 Urine Color YELLOW 06/16/19 14:08 Urine Appearance TURBID 06/16/19 14:08 Urine pH 5.0 (5.0-9.0) 06/16/19 14:08 Ur Specific [place] 1.014 06/16/19 14:08 Urine Protein 100 mg/dL (NEGATIVE) H 06/16/19 14:08 Urine Glucose (UA) NEGATIVE mg/dL (NEGATIVE) 06/16/19 14:08 Urine Ketones NEGATIVE mg/dL (NEGATIVE) 06/16/19 14:08 Urine Blood MODERATE (NEGATIVE) H 06/16/19 14:08 Urine Nitrite NEGATIVE (NEGATIVE) 06/16/19 14:08 Urine Bilirubin NEGATIVE (NEGATIVE) 06/16/19 14:08 Urine Urobilinogen 2.0 mg/dL (<2.0) H 06/16/19 14:08 Ur Leukocyte Esterase LARGE (NEGATIVE) H 06/16/19 14:08 Urine WBC (Auto) >182 /HPF 06/16/19 14:08 Urine RBC (Auto) 16 /HPF 06/16/19 14:08 Urine Bacteria (Auto) 2+ /HPF 06/16/19 14:08 Urine WBC Clumps MANY /HPF 06/16/19 14:08 U Non-Squamous Epis Auto 5 /HPF 06/16/19 14:08 Urine Ascorbic Acid NEGATIVE (NEGATIVE) 06/16/19 14:08 Stool Occult Blood NEGATIVE (NEGATIVE) 06/26/19 01:21 Anti-Nuclear Antibody Negative (Negative) 06/22/19 16:08 Blood Type B POSITIVE 06/24/19 12:30 Blood Type Confirm B POSITIVE 06/24/19 12:39 Antibody Screen NEGATIVE 06/24/19 12:30 Crossmatch See Detail 06/24/19 12:30 Impressions: Head CT 06/21/19 15:48 IMPRESSION: Limited study with very poor patient positioning due to the patient's clinical condition. Possible extension of the right basal ganglia infarct. Possible new left cerebellar infarct. Repeat study is recommended when the patient's clinical condition has stabilized or the patient can be sedated. EVIDENCE OF ACUTE STROKE: NO. Brain MRI with MRA 06/22/19 07:56 IMPRESSION: 1. Multifocal acute diffusion restricting infarction, involving a large infarction of the left cerebellar hemisphere, the posterior splenium of the corpus callosum and adjacent superior left BRIDGE BUILDER territory, and subacute infarctions of the right basal ganglia and posterior right BRIDGE BUILDER territory. 2. Extensive, confluent periventricular and deep white matter T2/FLAIR hyperintensity in keeping with advanced small vessel white matter disease and edema associated with infarctions, most conspicuously the left cerebellar hemisphere and left BRIDGE BUILDER territory. No significant mass effect. 3. MR angiogram of the neck is significantly limited by patient motion and vascular pulsation artifact. Within this limitation, there is no obvious stenosis or occlusion of the cervical vasculature, which is opacified to the skullbase. 4. MR angiogram of the brain is significantly limited by patient motion artifact. Within this limitation, no obvious intracranial occlusion, stenosis, or aneurysm, with particular attention to the basilar artery and left BRIDGE BUILDER territory. This superior cerebellar arteries are patent bilaterally; the other basilar branch vessels are not clearly visualized. EVIDENCE OF ACUTE STROKE: YES. Neck MRA 06/22/19 07:56 IMPRESSION: 1. Multifocal acute diffusion restricting infarction, involving a large infarction of the left cerebellar hemisphere, the posterior splenium of the corpus callosum and adjacent superior left BRIDGE BUILDER territory, and subacute infarctions of the right basal ganglia and posterior right BRIDGE BUILDER territory. 2. Extensive, confluent periventricular and deep white matter T2/FLAIR hyperintensity in keeping with advanced small vessel white matter disease and edema associated with infarctions, most conspicuously the left cerebellar hemisphere and left BRIDGE BUILDER territory. No significant mass effect. 3. MR angiogram of the neck is significantly limited by patient motion and vascular pulsation artifact. Within this limitation, there is no obvious stenosis or occlusion of the cervical vasculature, which is opacified to the skullbase. 4. MR angiogram of the brain is significantly limited by patient motion artifact. Within this limitation, no obvious intracranial occlusion, stenosis, or aneurysm, with particular attention to the basilar artery and left BRIDGE BUILDER territory. This superior cerebellar arteries are patent bilaterally; the other basilar branch vessels are not clearly visualized. EVIDENCE OF ACUTE STROKE: YES. Head MRI 06/22/19 08:34 IMPRESSION: 1. Multifocal acute diffusion restricting infarction, involving a large infarction of the left cerebellar hemisphere, the posterior splenium of the corpus callosum and adjacent superior left BRIDGE [employer]ILDER territory, and subacute infarctions of the right basal ganglia and posterior right BRIDGE BUILDER territory. 2. Extensive, confluent periventricular and deep white matter T2/FLAIR hyperintensity in keeping with advanced small vessel white matter disease and edema associated with infarctions, most conspicuously the left cerebellar hemisphere and left BRIDGE BUILDER territory. No significant mass effect. 3. MR angiogram of the neck is significantly limited by patient motion and vascular pulsation artifact. Within this limitation, there is no obvious stenosis or occlusion of the cervical vasculature, which is opacified to the skullbase. 4. MR angiogram of the brain is significantly limited by patient motion artifact. Within this limitation, no obvious intracranial occlusion, stenosis, or aneurysm, with particular attention to the basilar artery and left BRIDGE BUILDER territory. This superior cerebellar arteries are patent bilaterally; the other basilar branch vessels are not clearly visualized. EVIDENCE OF ACUTE STROKE: YES. Modified Barium Swallow 06/23/19 00:00 IMPRESSION: LARYNGEAL PENETRATION WITH NECTAR THICK RESIDUALS. NO DEFINITE ASPIRATION IDENTIFIED. PLEASE SEE SPEECH PATHOLOGIST REPORT FOR OTHER FINDINGS AND RECOMMENDATIONS. Chest X-Ray 06/23/19 15:29 IMPRESSION: HEART ENLARGED WITHOUT FAILURE. NO OTHER SIGNIFICANT RADIOGRAPHIC FINDING IN THE CHEST. Chest X-Ray 06/24/19 00:00 IMPRESSION: MILD CARDIOMEGALY. INDISTINCT APPEARANCE OF THE LEFT LUNG BASE. CANNOT EXCLUDE UNDERLYING INFILTRATE. KUB X-Ray 06/24/19 00:00 IMPRESSION: NO RADIOGRAPHIC EVIDENCE FOR ACUTE ABDOMINAL DISEASE. Plan Plan of Treatment: Patient is going to the [facility] as a hospice patient. Goals: Home Hospice Time Spent: Greater than 30 Minutes Stroke Is this a Stroke Patient?: Yes Stroke Pt being discharged on Anti-thrombolytic therapy?: No Reason(s) for not prescribing Anti-thrombolytic therapy:: Hospice Care Stroke Pt being discharged on Anti-coagulation therapy?: No Reason(s) for not prescribing Anti-coagulation therapy:: Hospice Care Stroke Pt being discharged on Statins?: No Reason(s) for not prescribing Statins therapy:: Hospice Care Acute Heart Failure - Is this a Heart Failure Patient?: No
[2019-06-29] MEDS: INSULIN LISPRO 100 UNIT/ML 3 ML VIAL SUBCUT SCH ×4 (01:55→18:51)
[2019-06-29] MEDS: MORPHINE SULFATE 10 MG/ML INJ IV PRN ×3 (01:55→12:35)
[2019-06-29 06:40] LABS: HEMATOCRIT 27.7 % (36.0-47.0); MEAN CORPUSCULAR HGB CONC 32.5 g/dL (32.0-36.0); MEAN CORPUSCULAR VOLUME 80 fl (80-97); PLATELET COUNT 241 10^3/uL (150-450); RED BLOOD COUNT 3.46 10^6/uL (3.72-5.28); RED CELL DISTRIBUTION WIDTH 18.1 % (11.5-14.0); WHITE BLOOD COUNT 15.6 10^3/uL (4.0-10.5)
[2019-06-29 06:55] LABS: ALKALINE PHOSPHATASE 24 U/L (38-126); ANION GAP 10 (5-19); ASPARTATE AMINO TRANSFERASE 29 U/L (14-36); BILIRUBIN,DIRECT 0.4 mg/dL (0.0-0.4); BILIRUBIN,TOTAL 0.5 mg/dL (0.2-1.3); BLOOD UREA NITROGEN 11 mg/dL (7-20); CALCIUM 7.6 mg/dL (8.4-10.2); CARBON DIOXIDE 16 mmol/L (22-30); CHLORIDE 109 mmol/L (98-107); GLUCOSE 97 mg/dL (75-110); POTASSIUM 3.3 mmol/L (3.6-5.0); TOTAL PROTEIN 5.6 g/dL (6.3-8.2)
[2019-06-29 07:18] LABS: ABSOLUTE LYMPHOCYTES# (MANUAL) 1.1 10^3/uL (0.5-4.7); ABSOLUTE MONOCYTES # (MANUAL) 0.6 10^3/uL (0.1-1.4); BASOPHILS % (MANUAL) 0 % (0-2); EOSINOPHILS % (MANUAL) 0 % (0-6); LYMPHOCYTES % (MANUAL) 7 % (13-45); MONOCYTES % (MANUAL) 4 % (3-13); SEGMENTED NEUTROPHILS % (MAN) 89 % (42-78); TOTAL CELLS COUNTED 100
[2019-06-29 07:21] LABS: TOXIC GRANULATION 1+; TOXIC VACUOLATION PRESENT
[2019-06-29 07:22] LABS: ANISOCYTOSIS 1+; BURR CELLS 2+; OVALOCYTES 1+; POIKILOCYTOSIS 1+; SCHISTOCYTES SLIGHT; TEAR DROP CELLS SLIGHT
[2019-06-29 07:23] LABS: PLATELET COMMENT ADEQUATE
--- NOTE | 2019-06-29 14:22 | PDOC PROGRESS REPORT ---
Subjective Progress Note for:: 06/29/19 Subjective:: Patient is a 58-year-old -Al[place] female who presented with new acute CVA and dysphagia. Yesterday patient was discharged to SNF for hospice but family intervened and stated they did not want this to occur. Patient has a bed and is accepted at the facility. No acute events overnight. Patient is aphasic at baseline. Reason For Visit: SEVERE DEHYDRATION,ACUTE KIDNEY INJURY, Physical Exam Vital Signs: Temp Pulse Resp BP Pulse Ox 98.5 F 77 16 154/78 H 100 06/29/19 12:18 06/29/19 12:18 06/29/19 12:18 06/29/19 12:18 06/29/19 12:18 Intake & Output 06/28/19 06/29/19 06/30/19 06:59 06:59 06:59 Intake Total 1050 1432 Output Total 1000 650 Balance 50 782 Weight 74 kg 74.2 kg General appearance: PRESENT: no acute distress Head exam: PRESENT: atraumatic, normocephalic Eye exam: PRESENT: conjunctiva pink Mouth exam: PRESENT: moist Respiratory exam: PRESENT: clear to auscultation bryan. ABSENT: rales, rhonchi, wheezes Cardiovascular exam: PRESENT: RRR. ABSENT: diastolic murmur, rubs, systolic murmur GI/Abdominal exam: PRESENT: normal bowel sounds, soft. ABSENT: distended, guarding, mass, organolmegaly, rebound, tenderness Musculoskeletal exam: PRESENT: other - Severe diffuse muscle wasting and cachexia Neurological exam: PRESENT: alert, awake, motor sensory deficit - Severe chronic motor deficits Psychiatric exam: PRESENT: flat affect Skin exam: PRESENT: dry, intact, warm Results Laboratory Results: 06/29/19 05:19 06/29/19 05:19 06/29/19 06/29/19 05:19 05:19 WBC 15.6 H RBC 3.46 L Hgb 9.0 L Hct 27.7 L MCV 80 MCH 26.0 L MCHC 32.5 RDW 18.1 H Plt Count 241 Seg Neutrophils % Not Reportable Sodium 134.8 L Potassium 3.3 L Chloride 109 H Carbon Dioxide 16 L Anion Gap 10 BUN 11 Creatinine 0.95 Est GFR ( Amer) > 60 Glucose 97 Calcium 7.6 L Magnesium 1.6 Total Bilirubin 0.5 AST 29 Alkaline Phosphatase 24 L Total Protein 5.6 L Albumin 2.0 L Impressions: Head CT 06/21/19 15:48 IMPRESSION: Limited study with very poor patient positioning due to the patient's clinical condition. Possible extension of the right basal ganglia infarct. Possible new left cerebellar infarct. Repeat study is recommended when the patient's clinical condition has stabilized or the patient can be sedated. EVIDENCE OF ACUTE STROKE: NO. Brain MRI with MRA 06/22/19 07:56 IMPRESSION: 1. Multifocal acute diffusion restricting infarction, involving a large infarction of the left cerebellar hemisphere, the posterior splenium of the corpus callosum and adjacent superior left ZINC PLATER territory, and subacute infarctions of the right basal ganglia and posterior right ZINC PLATER territory. 2. Extensive, confluent periventricular and deep white matter T2/FLAIR hyperintensity in keeping with advanced small vessel white matter disease and edema associated with infarctions, most conspicuously the left cerebellar hemisphere and left ZINC PLATER territory. No significant mass effect. 3. MR angiogram of the neck is significantly limited by patient motion and vascular pulsation artifact. Within this limitation, there is no obvious stenosis or occlusion of the cervical vasculature, which is opacified to the skullbase. 4. MR angiogram of the brain is significantly limited by patient motion artifact. Within this limitation, no obvious intracranial occlusion, stenosis, or aneurysm, with particular attention to the basilar artery and left ZINC PLATER territory. This superior cerebellar arteries are patent bilaterally; the other basilar branch vessels are not clearly visualized. EVIDENCE OF ACUTE STROKE: YES. Neck MRA 06/22/19 07:56 IMPRESSION: 1. Multifocal acute diffusion restricting infarction, involving a large infarction of the left cerebellar hemisphere, the posterior splenium of the corpus callosum and adjacent superior left ZINC PLATER territory, and subacute infarctions of the right basal ganglia and posterior right ZINC PLATER territory. 2. Extensive, confluent periventricular and deep white matter T2/FLAIR hyperintensity in keeping with advanced small vessel white matter disease and edema associated with infarctions, most conspicuously the left cerebellar hemisphere and left ZINC PLATER territory. No significant mass effect. 3. MR angiogram of the neck is significantly limited by patient motion and v ascular pulsation artifact. Within this limitation, there is no obvious stenosis or occlusion of the cervical vasculature, which is opacified to the skullbase. 4. MR angiogram of the brain is significantly limited by patient motion artifact. Within this limitation, no obvious intracranial occlusion, stenosis, or aneurysm, with particular attention to the basilar artery and left ZINC PLATER territory. This superior cerebellar arteries are patent bilaterally; the other basilar branch vessels are not clearly visualized. EVIDENCE OF ACUTE STROKE: YES. Head MRI 06/22/19 08:34 IMPRESSION: 1. Multifocal acute diffusion restricting infarction, involving a large infarction of the left cerebellar hemisphere, the posterior splenium of the corpus callosum and adjacent superior left ZINC PLATER territory, and subacute infarctions of the right basal ganglia and posterior right ZINC PLATER territory. 2. Extensive, confluent periventricular and deep white matter T2/FLAIR hyperintensity in keeping with advanced small vessel white matter disease and edema associated with infarctions, most conspicuously the left cerebellar hemisphere and left ZINC PLATER territory. No significant mass effect. 3. MR angiogram of the neck is significantly limited by patient motion and vascular pulsation artifact. Within this limitation, there is no obvious stenosis or occlusion of the cervical vasculature, which is opacified to the skullbase. 4. MR angiogram of the brain is significantly limited by patient motion artifact. Within this limitation, no obvious intracranial occlusion, stenosis, or aneurysm, with particular attention to the basilar artery and left ZINC PLATER territory. This superior cerebellar arteries are patent bilaterally; the other basilar branch vessels are not clearly visualized. EVIDENCE OF ACUTE STROKE: YES. Modified Barium Swallow 06/23/19 00:00 IMPRESSION: LARYNGEAL PENETRATION WITH NECTAR THICK RESIDUALS. NO DEFINITE ASPIRATION IDENTIFIED. PLEASE SEE SPEECH PATHOLOGIST REPORT FOR OTHER FINDINGS AND RECOMMENDATIONS. Chest X-Ray 06/24/19 00:00 IMPRESSION: MILD CARDIOMEGALY. INDISTINCT APPEARANCE OF THE LEFT LUNG BASE. CANNOT EXCLUDE UNDERLYING INFILTRATE. KUB X-Ray 06/24/19 00:00 IMPRESSION: NO RADIOGRAPHIC EVIDENCE FOR ACUTE ABDOMINAL DISEASE. Assessment and Plan - Diagnosis (1) Acute CVA (cerebrovascular accident) Is this a current diagnosis for this admission?: Yes Plan: Per previous providers: "06/21: Met with patient's daughter and son yesterday late afternoon and updated about patient's status and had initial discussion about long-term goals of care. They expressed that patient was still communicating when she was discharged to [facility]. We discussed her poor oral intake but we will await reevaluation and recommendations from speech therapy before giving definite decision about tube feeding. They have also requested did for placement to a different SNF aside from [facility]. We also discussed the nature of her recurrent CVA. She has been having recurrent and bilateral CVAs which is concerning for cardioembolic source or hypercoagulable conditions. She has had TTE recently which did not show any obvious cardiac thrombus. Patient's daughter and son expressed they do not want to pursue invasive interventions including NILSON or LP. Will only pursue non-invasive cryptogenic stroke work-up. Aspirin and statin. 06/23: MRI did reveal new CVA. Hypercoagulable work-up sent. Continue aspirin and statin. 06/24: Secondary to Protein S deficiency. Poor candidate for treatment with anticoagulation due to worsening anemia. 06/27-patient has recent history of acute CVA on aspirin and statins. Not a candidate for anticoagulation because of the history of protein C S deficiency. Waiting for transfer to inpatient hospice. 06/28/2019-patient has recent history of acute CVA presently n.p.o. receiving IV fluids. CODE STATUS DNR/DNI. There is a bed offer from [facility] with hospice but the family is reluctant to send her back to the [facility]." 06/29: Family did not allow patient to transition to SNF on hospice. Patient remains at baseline severe neurologic deficits. Remains n.p.o. (2) Acute renal failure superimposed on stage 3 chronic kidney disease Qualifiers: Acute renal failure type: unspecified Qualified Code(s): N17.9 - Acute kidney failure, unspecified; N18.3 - Chronic kidney disease, stage 3 (moderate) Is this a current diagnosis for this admission?: Yes Plan: Likely prerenal. Creatinine continues to improve with IV fluids. 06/21: Creatinine now appears to be at her baseline. 06/27/2019-latest serum creatinine 0.86. Kidney function at baseline. (3) Aphasia as late effect of cerebrovascular accident Is this a current diagnosis for this admission?: Yes Plan: No change in overall condition. (4) DNR (do not resuscitate) Is this a current diagnosis for this admission?: Yes Plan: 06/27/2019-patient CODE STATUS is DNR/DNI as per the family wishes. (5) Dehydration with hypernatremia Is this a current diagnosis for this admission?: Yes (6) Dysphagia Is this a current diagnosis for this admission?: Yes (7) Hypernatremia Is this a current diagnosis for this admission?: Yes (8) Diabetes mellitus, type II Qualifiers: Diabetes mellitus fpc insulin use: with intermediate school teacher use Diabetes mellitus complication status: with kidney complications Diabetes mellitus complication detail: with chronic kidney disease Chronic kidney disease stage: stage 3 (moderate) Qualified Code(s): E11.22 - Type 2 diabetes mellitus with diabetic chronic kidney disease; N18.3 - Chronic kidney disease, stage 3 (moderate); Z79.4 - intermediate school teacher (current) use of insulin Is this a current diagnosis for this admission?: Yes (9) Hypertension Qualifiers: Hypertension type: essential hypertension Qualified Code(s): I10 - Essential (primary) hypertension Is this a current diagnosis for this admission?: Yes - Plan Summary Summary: (1) Acute CVA (cerebrovascular accident) Is this a current diagnosis for this admission?: Yes Plan: 06/21: Met with patient's daughter and son yesterday late afternoon and updated about patient's status and had initial discussion about long-term goals of care. They expressed that patient was still communicating when she was discharged to [facility]. We discussed her poor oral intake but we will await reevaluation and recommendations from speech therapy before giving definite decision about tube feeding. They have also requested did for placement to a different SNF aside from [facility]. We also discussed the nature of her recurrent CVA. She has been having recurrent and bilateral CVAs which is concerning for cardioembolic source or hypercoagulable conditions. She has had TTE recently which did not show any obvious cardiac thrombus. Patient's daughter and son expressed they do not want to pursue invasive interventions including NILSON or LP. Will only pursue non-invasive cryptogenic stroke work-up. Aspirin and statin. 06/23: MRI did reveal new CVA. Hypercoagulable work-up sent. Continue aspirin and statin. 06/24: Secondary to Protein S deficiency. Poor candidate for treatment with anticoagulation due to worsening anemia. 06/27-patient has recent history of acute CVA on aspirin and statins. Not a candidate for anticoagulation because of the history of protein C S deficiency. Waiting for transfer to inpatient hospice. 06/28/2019-patient has recent history of acute CVA presently n.p.o. receiving IV fluids. CODE STATUS DNR/DNI. There is a bed offer from [facility] with hospice but the family is reluctant to send her back to the [facility]. (2) Protein S deficiency Is this a current diagnosis for this admission?: Yes (3) Acute renal failure superimposed on stage 3 chronic kidney disease Qualifiers: Acute renal failure type: unspecified Qualified Code(s): N17.9 - Acute kidney failure, unspecified; N18.3 - Chronic kidney disease, stage 3 (moderate) Is this a current diagnosis for this admission?: Yes Plan: Likely prerenal. Creatinine continues to improve with IV fluids. 06/21: Creatinine now appears to be at her baseline. 06/27/2019-latest serum creatinine 0.86. Kidney function at baseline. (4) Anemia Is this a current diagnosis for this admission?: Yes Plan: No gross bleeding manifestations. CKD may be contributory. 06/21: Iron stores low. 06/24: Hb went down to 7.0. Will order a unit of packed RBC. We will also check a fecal occult blood. 2019 latest hemoglobin is 8.7. Received 1 unit of PRBC yesterday. (5) UTI (urinary tract infection) Is this a current diagnosis for this admission?: Yes Plan: 06/21: Urine culture grew E. coli. Noted sensitivity. Switch Zosyn to Rocephin. 06/28/2019-urine culture is growing E. coli patient is receiving IV Rocephin at this time. (6) Hypernatremia Is this a current diagnosis for this admission?: Yes Plan: Secondary to dehydration. Improving with IV fluids. 06/27/2019-patient came in with hypernatremia on admission it is 158 today labs serum sodium is 131.4. Receiving IV fluids normal saline 50 cc/h. Hypernatremia has resolved and hyponatremia most likely secondary to poor oral intake. (7) Hypokalemia Is this a current diagnosis for this admission?: Yes Plan: Replace Potassium. 06/21: Repleted. 06/27/2019 latest serum potassium is 3.6 hypokalemia is resolved. (8) DNR (do not resuscitate) Is this a current diagnosis for this admission?: Yes - Time Time Spent with patient: 15-24 minutes Anticipated discharge: Hospice Within: within 24 hours - Disposition is entirely dependent on family's willingness to send patient to her long-term nursing facility with hospice
[2019-06-29] MEDS: DEXTROSE 5%-NORMAL SALINE 1,000 ML IV PRN (16:18)
[2019-06-30] MEDS: INSULIN LISPRO 100 UNIT/ML 3 ML VIAL SUBCUT SCH ×3 (01:25→12:48)
[2019-06-30] MEDS: MORPHINE SULFATE 10 MG/ML INJ IV PRN (09:18)
[2019-06-30] MEDS ORDERED: ENALAPRILAT DIHYDRATE INJ/PF 1.25 MG/1 ML SDV IV SCH (12:00)
[2019-06-30] MEDS: DEXTROSE 5%-NORMAL SALINE 1,000 ML IV PRN (12:50)
--- NOTE | 2019-06-30 13:37 | PDOC PROGRESS REPORT ---
Subjective Progress Note for:: 06/30/19 Subjective:: Patient is a 58-year-old -Citizen Of [place] female who presented with new acute CVA and dysphagia. Yesterday patient was discharged to SNF for hospice but family intervened and stated they did not want this to occur. Patient has a bed and is accepted at the facility. No acute events overnight. Patient is aphasic at baseline. 06/30: Family has not decided patient can go to nursing facility on hospice but they requested oral narcotics liquid for comfort purposes at the facility. Prescription for a very short course has been printed with no refills. Reason For Visit: SEVERE DEHYDRATION,ACUTE KIDNEY INJURY, Physical Exam Vital Signs: Temp Pulse Resp BP Pulse Ox 99.3 F 81 22 H 172/73 H 97 06/30/19 12:38 06/30/19 12:38 06/30/19 12:38 06/30/19 12:38 06/30/19 12:38 Intake & Output 06/29/19 06/30/19 07/01/19 06:59 06:59 06:59 Intake Total 1432 1000 1000 Output Total 650 525 Balance 291 975 3418 Weight 74.2 kg 74.4 kg General appearance: PRESENT: no acute distress, thin Mouth exam: PRESENT: moist Respiratory exam: PRESENT: clear to auscultation bryan. ABSENT: rales, rhonchi, wheezes Cardiovascular exam: PRESENT: RRR. ABSENT: diastolic murmur, rubs, systolic murmur GI/Abdominal exam: PRESENT: normal bowel sounds, soft. ABSENT: distended, guarding, mass, organolmegaly, rebound, tenderness Neurological exam: PRESENT: alert, awake, motor sensory deficit Psychiatric exam: PRESENT: flat affect Skin exam: PRESENT: dry, intact, warm Results Laboratory Results: 06/29/19 05:19 06/29/19 05:19 Impressions: Head CT 06/21/19 15:48 IMPRESSION: Limited study with very poor patient positioning due to the patient's clinical condition. Possible extension of the right basal ganglia infarct. Possible new left cerebellar infarct. Repeat study is recommended whe n the patient's clinical condition has stabilized or the patient can be sedated. EVIDENCE OF ACUTE STROKE: NO. Brain MRI with MRA 06/22/19 07:56 IMPRESSION: 1. Multifocal acute diffusion restricting infarction, involving a large infarction of the left cerebellar hemisphere, the posterior splenium of the corpus callosum and adjacent superior left [place]ACCO SORTER territory, and subacute infarctions of the right basal ganglia and posterior right [place]AC[place] SORTER territory. 2. Extensive, confluent periventricular and deep white matter T2/FLAIR hyperintensity in keeping with advanced small vessel white matter disease and edema associated with infarctions, most conspicuously the left cerebellar hemisphere and left [place]BAC[place] SORTER territory. No significant mass effect. 3. MR angiogram of the neck is significantly limited by patient motion and vascular pulsation artifact. Within this limitation, there is no obvious stenosis or occlusion of the cervical vasculature, which is opacified to the skullbase. 4. MR angiogram of the brain is significantly limited by patient motion artifact. Within this limitation, no obvious intracranial occlusion, stenosis, or aneurysm, with particular attention to the basilar artery and left [place]AC[place] SORTER territory. This superior cerebellar arteries are patent bilaterally; the other basilar branch vessels are not clearly visualized. EVIDENCE OF ACUTE STROKE: YES. Neck MRA 06/22/19 07:56 IMPRESSION: 1. Multifocal acute diffusion restricting infarction, involving a large infarction of the left cerebellar hemisphere, the posterior splenium of the corpus callosum and adjacent superior left [place]AC[place] SORTER territory, and subacute infarctions of the right basal ganglia and posterior right [place]BAC[place] SORTER territory. 2. Extensive, confluent periventricular and deep white matter T2/FLAIR hyperintensity in keeping with advanced small vessel white matter disease and edema associated with infarctions, most conspicuously the left cerebellar hemisphere and left [place]BACCO SORTER territory. No significant mass effect. 3. MR angiogram of the neck is significantly limited by patient motion and vascular pulsation artifact. Within this limitation, there is no obvious stenosis or occlusion of the cervical vasculature, which is opacified to the skullbase. 4. MR angiogram of the brain is significantly limited by patient motion artifact. Within this limitation, no obvious intracranial occlusion, stenosis, or aneurysm, with particular attention to the basilar artery and left [place] SORTER territory. This superior cerebellar arteries are patent bilaterally; the other basilar branch vessels are not clearly visualized. EVIDENCE OF ACUTE STROKE: YES. Head MRI 06/22/19 08:34 IMPRESSION: 1. Multifocal acute diffusion restricting infarction, involving a large infarction of the left cerebellar hemisphere, the posterior splenium of the corpus callosum and adjacent superior left [place]AC[place] SORTER territory, and subacute infarctions of the right basal ganglia and posterior right [place]BACCO SORTER territory. 2. Extensive, confluent periventricular and deep white matter T2/FLAIR hyperi ntensity in keeping with advanced small vessel white matter disease and edema associated with infarctions, most conspicuously the left cerebellar hemisphere and left TOBACCO SORTER territory. No significant mass effect. 3. MR angiogram of the neck is significantly limited by patient motion and vascular pulsation artifact. Within this limitation, there is no obvious stenosis or occlusion of the cervical vasculature, which is opacified to the skullbase. 4. MR angiogram of the brain is significantly limited by patient motion artifact. Within this limitation, no obvious intracranial occlusion, stenosis, or aneurysm, with particular attention to the basilar artery and left [place]BAC[place] SORTER territory. This superior cerebellar arteries are patent bilaterally; the other basilar branch vessels are not clearly visualized. EVIDENCE OF ACUTE STROKE: YES. Modified Barium Swallow 06/23/19 00:00 IMPRESSION: LARYNGEAL PENETRATION WITH NECTAR THICK RESIDUALS. NO DEFINITE ASPIRATION IDENTIFIED. PLEASE SEE SPEECH PATHOLOGIST REPORT FOR OTHER FINDINGS AND RECOMMENDATIONS. Chest X-Ray 06/24/19 00:00 IMPRESSION: MILD CARDIOMEGALY. INDISTINCT APPEARANCE OF THE LEFT LUNG BASE. CANNOT EXCLUDE UNDERLYING INFILTRATE. KUB X-Ray 06/24/19 00:00 IMPRESSION: NO RADIOGRAPHIC EVIDENCE FOR ACUTE ABDOMINAL DISEASE. Assessment and Plan - Diagnosis (1) Acute CVA (cerebrovascular accident) Is this a current diagnosis for this admission?: Yes Plan: Per previous providers: "06/21: Met with patient's daughter and son yesterday late afternoon and updated about patient's status and had initial discussion about long-term goals of care. They expressed that patient was still communicating when she was discharged to [facility]. We discussed her poor oral intake but we will await reevaluation and recommendations from speech therapy before giving definite decision about tube feeding. They have also requested did for placement to a different SNF aside from [facility]. We also discussed the nature of her recurrent CVA. She has been having recurrent and bilateral CVAs which is concerning for cardioembolic source or hypercoagulable conditions. She has had TTE recently which did not show any obvious cardiac thrombus. Patient's daughter and son expressed they do not want to pursue invasive interventions including NILSON or LP. Will only pursue non-invasive cryptogenic stroke work-up. Aspirin and statin. 06/23: MRI did reveal new CVA. Hypercoagulable work-up sent. Continue aspirin and statin. 06/24: Secondary to Protein S deficiency. Poor candidate for treatment with anticoagulation due to worsening anemia. 06/27-patient has recent history of acute CVA on aspirin and statins. Not a candidate for anticoagulation because of the history of protein C S deficiency. Waiting for transfer to inpatient hospice. 06/28/2019-patient has recent history of acute CVA presently n.p.o. receiving IV fluids. CODE STATUS DNR/DNI. There is a bed offer from [facility] with hospice but the family is reluctant to send her back to the [facility]." 06/29: Family did not allow patient to transition to SNF on hospice. Patient remains at baseline severe neurologic deficits. Remains n.p.o. TRANSFER TO NURSING FACILITY FOR HOSPICE - FAMILY REQUESTS ORAL PAIN MEDICATION BE AVAILABLE AT FACILITY (2) Acute renal failure superimposed on stage 3 chronic kidney disease Qualifiers: Acute renal failure type: unspecified Qualified Code(s): N17.9 - Acute kidney failure, unspecified; N18.3 - Chronic kidney disease, stage 3 (moderate) Is this a current diagnosis for this admission?: Yes (3) Aphasia as late effect of cerebrovascular accident Is this a current diagnosis for this admission?: Yes (4) DNR (do not resuscitate) Is this a current diagnosis for this admission?: Yes (5) Dehydration with hypernatremia Is this a current diagnosis for this admission?: Yes (6) Dysphagia Is this a current diagnosis for this admission?: Yes (7) Hypernatremia Is this a current diagnosis for this admission?: Yes (8) Diabetes mellitus, type II Qualifiers: Diabetes mellitus [employer] insulin use: with jail use Diabetes mellitus complication status: with kidney complications Diabetes mellitus complication detail: with chronic kidney disease Chronic kidney disease stage: stage 3 (moderate) Qualified Code(s): E11.22 - Type 2 diabetes mellitus with diabetic chronic kidney disease; N18.3 - Chronic kidney disease, stage 3 (moderate); Z79.4 - [facility]FP (current) use of insulin Is this a current diagnosis for this admission?: Yes (9) Hypertension Qualifiers: Hypertension type: essential hypertension Qualified Code(s): I10 - Essential (primary) hypertension Is this a current diagnosis for this admission?: Yes (10) Palliative care patient Is this a current diagnosis for this admission?: Yes - Plan Summary Summary: (1) Acute CVA (cerebrovascular accident) Is this a current diagnosis for this admission?: Yes Plan: 06/21: Met with patient's daughter and son yesterday late afternoon and updated about patient's status and had initial discussion about long-term goals of care. They expressed that patient was still communicating when she was discharged to [facility]. We discussed her poor oral intake but we will await reevaluation and recommendations from speech therapy before giving definite decision about tube feeding. They have also requested did for placement to a different SNF aside from [facility]. We also discussed the nature of her recurrent CVA. She has been having recurrent and bilateral CVAs which is concerning for cardioembolic source or hypercoagulable conditions. She has had TTE recently which did not show any obvious cardiac thrombus. Patient's daughter and son expressed they do not want to pursue invasive interventions including NILSON or LP. Will only pursue non-invasive cryptogenic stroke work-up. Aspirin and statin. 06/23: MRI did reveal new CVA. Hypercoagulable work-up sent. Continue aspirin and statin. 06/24: Secondary to Protein S deficiency. Poor candidate for treatment with anticoagulation due to worsening anemia. 06/27-patient has recent history of acute CVA on aspirin and statins. Not a candidate for anticoagulation because of the history of protein C S deficiency. Waiting for transfer to inpatient hospice. 06/28/2019-patient has recent history of acute CVA presently n.p.o. receiving IV fluids. CODE STATUS DNR/DNI. There is a bed offer from [facility] with hospice but the family is reluctant to send her back to the [facility]. (2) Protein S deficiency Is this a current diagnosis for this admission?: Yes (3) Acute renal failure superimposed on stage 3 chronic kidney disease Qualifiers: Acute renal failure type: unspecified Qualified Code(s): N17.9 - Acute kidney failure, unspecified; N18.3 - Chronic kidney disease, stage 3 (moderate) Is this a current diagnosis for this admission?: Yes Plan: Likely prerenal. Creatinine continues to improve with IV fluids. 06/21: Creatinine now appears to be at her baseline. 06/27/2019-latest serum creatinine 0.86. Kidney function at baseline. (4) Anemia Is this a current diagnosis for this admission?: Yes Plan: No gross bleeding manifestations. CKD may be contributory. 06/21: Iron stores low. 06/24: Hb went down to 7.0. Will order a unit of packed RBC. We will also check a fecal occult blood. 2019 latest hemoglobin is 8.7. Received 1 unit of PRBC yesterday. (5) UTI (urinary tract infection) Is this a current diagnosis for this admission?: Yes Plan: 06/21: Urine culture grew E. coli. Noted sensitivity. Switch Zosyn to Rocephin. 06/28/2019-urine culture is growing E. coli patient is receiving IV Rocephin at this time. (6) Hypernatremia Is this a current diagnosis for this admission?: Yes Plan: Secondary to dehydration. Improving with IV fluids. 06/27/2019-patient came in with hypernatremia on admission it is 158 today labs serum sodium is 131.4. Receiving IV fluids normal saline 50 cc/h. Hypernatremia has resolved and hyponatremia most likely secondary to poor oral intake. (7) Hypokalemia Is this a current diagnosis for this admission?: Yes Plan: Replace Potassium. 06/21: Repleted. 06/27/2019 latest serum potassium is 3.6 hypokalemia is resolved. (8) DNR (do not resuscitate) Is this a current diagnosis for this admission?: Yes - Time Time Spent with patient: 15-24 minutes Medications reviewed and adjusted accordingly: Yes Anticipated discharge: Hospice Within: within 24 hours
--- NOTE | 2019-06-30 14:30 | Progress Note ---
Provider Note Provider Note: Patient is cleared to go to nursing facility for hospice and family is in full agreement with this. They have requested she receive oral morphine liquid which I have prescribed for her. Regardless of what is documented in previous providers note, patient is no longer receiving IV antibiotics nor does she need any more. She has completed this course. Cleared for discharge to hospice today.
[2019-06-30 16:33] VITALS: BP 174/79
== END 2019-06-30 18:29 | DRG 682 ==
LOC: ER 13:30 → EH 18:15 → 3W 06-17 03:37
PROVIDERS: ADMIT Hospitalist; ATTEND Hospitalist
PROC: 30233N1 Transfusion of Nonautologous Red Blood Cells into Peripheral Vein, Percutaneous Approach (ICD-10-PCS; principal; 2019-06-24)
DX: N17.9 Acute kidney failure, unspecified (principal); I63.9 Cerebral infarction, unspecified; R53.2 Functional quadriplegia; E43 Unspecified severe protein-calorie malnutrition; R40.2312 Coma scale, best motor response, none, at arrival to emergency department; R40.2212 Coma scale, best verbal response, none, at arrival to emergency department; R47.01 Aphasia; E87.0 Hyperosmolality and hypernatremia; Z51.5 Encounter for palliative care; D68.59 Other primary thrombophilia; N39.0 Urinary tract infection, site not specified; D63.1 Anemia in chronic kidney disease; R62.7 Adult failure to thrive; E11.22 Type 2 diabetes mellitus with diabetic chronic kidney disease; E86.0 Dehydration; Z66 Do not resuscitate; R13.10 Dysphagia, unspecified; I12.9 Hypertensive chronic kidney disease with stage 1 through stage 4 chronic kidney disease, or unspecified chronic kidney disease; N18.3 Chronic kidney disease, stage 3 (moderate); B96.20 Unspecified Escherichia coli [E. coli] as the cause of diseases classified elsewhere; E87.6 Hypokalemia; I69.365 Other paralytic syndrome following cerebral infarction, bilateral; E78.5 Hyperlipidemia, unspecified; Z82.49 Family history of ischemic heart disease and other diseases of the circulatory system; Z88.8 Allergy status to other drugs, medicaments and biological substances; Z74.01 Bed confinement status
CPT/HCPCS: 36415; 36430; 70450; 70544; 70547; 70551; 71045; 74018; 74230; 80048; 80053; 80069; 81001; 81241; 82272; 82607; 82728; 82746; 82962; 83540; 83550; 83605; 83690; 83735; 84132; 85025; 85045; 85302; 85305; 85306; 85597; 85598; 85613; 85652; 85730; 85732; 86038; 86140; 86146; 86147; 86148; 86849; 86850; 86900; 86901; 86920; 87040; 87070; 87077; 87086; 87088; 87186; 93005; 93010; 96361; 96365; 99285; C9113; J0360; J0696; J1650; J1815; J2270; J2405; J2543; J3480; J3490; J7030; J7042; J7050; J7120; J7620; P9016; S0028